=== PATIENT | female | born 1950 | race Caucasian/White ===

== ENCOUNTER 2018-01-21 13:04 | Emergency (ER) | payer OTHER ==
--- OUTSIDE RECORDS SUMMARY | 2018-01-21 13:06 | XMS REPORT ---
:1950 Author Organization eClinicalWorks Care Team Providers Name Role Phone Wright, Na Provider Role Unavailable Allergies, Adverse Reactions, Alerts Substance Reaction Event Type N.K.D.A. Info Not Available Non Drug Allergy Problems Problem Type Condition Code Onset Dates Condition Status Assessment Other chronic pain G89.29 Active Assessment Age-related osteoporosis without M81.0 Active current pathological fracture Assessment Low back pain M54.5 Active Problem Benign essential HTN I10 Active Problem Urinary frequency R35.0 Active Problem Allergic rhinitis J30.9 Active Problem Age-related osteoporosis without M81.0 Active current pathological fracture Assessment Benign essential HTN I10 Active Problem Overactive bladder N32.81 Active Problem Other chronic pain G89.29 Active Medications Medication Code System Code Instructions Start End Date Status Dosage Date Celebrex [facility] 50352576611 100 MG Orally Active 1 capsule Once a day with food Claritin [facility] 67495089029 10 MG Orally Active 1 tablet Once a day Fosamax [facility] 79144617744 70 MG Active 1 EACH ONCE A WEEK ORALLY Zestoretic [facility] 94758610405 20-12.5 MG Active 1 tablet Orally Once a day Results No Known Results Summary Purpose eClinicalWorks Submission
[2018-01-21 14:29] LABS: Absolute Lymphocytes (CBC) 2.4 K/uL (0.7-4.9); Absolute Monocytes 0.5 K/uL (0.1-1.3); Absolute Neutrophil 3.1 K/uL (1.8-8.0); Basophils % 0.9 % (0-1.3); Eosinophils % 2.2 % (0-4.4); Hematocrit 40.2 % (36.0-45.0); Lymphocytes % 38.3 % (15.3-44.8); MCH 30.6 pg (27.0-35.0); MPV 8.2 fL (7.6-11.3); Monocytes % 8.1 % (3.3-12.3); RBC Red Blood Cell Count 4.52 M/uL (3.86-4.86)
[2018-01-21 14:40] LABS: Albumin 3.4 g/dL (3.4-5.0); Bilirubin Direct 0.1 mg/dL (0-0.2); Bilirubin Total 0.6 mg/dL (0.2-1.0); Potassium 3.8 mmol/L (3.5-5.1); Protein, Total 6.7 g/dL (6.4-8.2)
[2018-01-21] MEDS ORDERED: NA CHLORIDE 0.9% 1,000 ML ONE (15:00)
--- NOTE | 2018-01-21 15:08 | RAD REPORT ---
EXAM DESCRIPTION: US - Abdomen Exam Limited - 01/21/2018 2:47 pm CLINICAL HISTORY: Abdominal pain. Right upper quadrant COMPARISON: None. FINDINGS: The gallbladder wall is not thickened. A gallstone is not seen. The biliary tree is normal caliber. IMPRESSION: Unremarkable gallbladder ultrasound.
--- NOTE | 2018-01-21 15:54 | ER ---
Nurse's Notes [facility] Name: Lin Delgado Age: 67 yrs Sex: Female : 1950 Arrival Date: 01/21/2018 Time: 13:07 Bed 17 Private MD: Vandana Wright Diagnosis: Epigastric pain Presentation: 01/21 13:27 Presenting complaint: Patient states: Intermittent epigastric and RUQ pain and nausea x hb 2 weeks. Transition of care: patient was not received from another setting of care. Onset of symptoms is unknown. Risk Assessment: Do you want to hurt yourself or someone else?. Risk Assessment: Do you want to hurt yourself or someone else? Patient reports no desire to harm self or others. Care prior to arrival: None. 13:27 Method Of Arrival: Ambulatory hb 13:27 Acuity: VITALIY 3 hb Historical: - Allergies: 13:30 No Known Allergies; hb - Home Meds: 13:30 Fosamax 70 mg Oral tab 1 tab once wkly [Active]; hydrochlorothiazide 12.5 mg Oral tab 1 hb tab once daily [Active]; lisinopril 20 mg Oral tab 1 tab once daily [Active]; - PMHx: 13:30 Hypertension; Osteoporosis; hb - PSHx: 13:30 LAMINECTOMY; Tonsillectomy; hb - Immunization history:: Adult Immunizations up to date. - Social history:: Smoking status: Patient uses tobacco products, smokes one pack cigarettes per day. - Ebola Screening: : No symptoms or risks identified at this time. Screenin:57 Abuse screen: Denies threats or abuse. Denies injuries from another. Nutritional aj1 screening: No deficits noted. Tuberculosis screening: No symptoms or risk factors identified. 16:54 Fall Risk None identified. aj1 Assessment: 13:57 General: Appears in no apparent distress. comfortable, Behavior is calm, cooperative, aj1 appropriate for age. Pain: Complains of pain in epigastric area and right upper quadrant Pain does not radiate. Pain currently is 7 out of 10 on a pain scale. Quality of pain is described as aching, Is intermittent, Alleviated by nothing. Aggravated by nothing. Neuro: Level of Consciousness is awake, alert, obeys commands. Cardiovascular: Patient's skin is warm and dry. Respiratory: Airway is patent Respiratory effort is even, unlabored, Respiratory pattern is regular, symmetrical. GI: Abdomen is flat, non-distended, Bowel sounds present X 4 quads. Abd is soft and non tender X 4 quads. Reports upper abdominal pain, nausea, Patient currently denies diarrhea, vomiting. : No signs and/or symptoms were reported regarding the genitourinary system. EENT: No signs and/or symptoms were reported regarding the EENT system. Derm: No signs and/or symptoms reported regarding the dermatologic system. Skin is pink, warm \T\ dry. normal. Musculoskeletal: No signs and/or symptoms reported regarding the musculoskeletal system. Circulation, motion, and sensation intact. 15:30 Reassessment: Patient appears in no apparent distress at this time. No changes from aj1 previously documented assessment. Patient and/or family updated on plan of care and expected duration. Pain level reassessed. Patient is alert, oriented x 3, equal unlabored respirations, skin warm/dry/pink. 16:42 Reassessment: Patient appears in no apparent distress at this time. No changes from aj1 previously documented assessment. Patient and/or family updated on plan of care and expected duration. Pain level reassessed. Patient is alert, oriented x 3, equal unlabored respirations, skin warm/dry/pink. Vital Signs: 13:29 BP 129 / 84; Pulse 69; Resp 16; Temp 97.9; Pulse Ox 100% on R/A; Pain 7/10; hb 15:30 BP 122 / 85; Pulse 72; Resp 18; Pulse Ox 99% ; aj1 16:43 BP 119 / 72; Pulse 68; Resp 18; Pulse Ox 99% ; aj1 ED Course: 13:07 Patient arrived in ED. rg4 13:07 Vandana Wright MD is Private Physician. rg4 13:29 Triage completed. hb 13:30 Arm band placed on left wrist. hb 13:33 Irasema Hartman, TUYET is Primary Nurse. aj1 13:37 Michael Nation PA is PHCP. cp 13:37 Rey Mcleod MD is Attending Physician. cp 13:57 Patient has correct armband on for positive identification. Bed in low position. Call aj1 light in reach. Side rails up X 1. 13:57 No provider procedures requiring assistance completed. aj1 13:59 Inserted saline lock: 20 gauge in right antecubital area, using aseptic technique. dh3 Blood collected. 14:09 Initial lab(s) drawn, by me, sent to lab. 3 14:35 Patient taken to ultrasound. via wheelchair. lc3 14:47 Ultrasound completed. Patient tolerated well. Patient moved back from ultrasound. lc3 15:42 X-ray completed. Portable x-ray completed in exam room. Patient tolerated procedure bb2 well. 16:53 IV discontinued, intact, bleeding controlled, No redness/swelling at site. Pressure aj1 dressing applied. Administered Medications: 14:58 Drug: NS 0.9% 1000 ml Route: IV; Rate: 1 bolus; Site: right antecubital; aj1 Outcome: 15:53 Discharge ordered by MD. kevin 16:54 Discharged to home ambulatory. aj1 16:54 Condition: good 16:54 Discharge instructions given to patient, Instructed on discharge instructions, follow up and referral plans. medication usage, Demonstrated understanding of instructions, follow-up care, medications, Prescriptions given X 1. 16:54 Patient left the ED. aj1 Signatures: Irasema Hartman, RN RN aj1 Michael Nation PA PA cp Cunningham, Laulita lc3 Irais Bruno RN RN hb Garcia, Rubi rg4 Herrera, Deanna 3 Nadgee Cordova bb2
--- NOTE | 2018-01-21 15:54 | EDPHYS ---
Physician Documentation [facility] Name: Lin Delgado Age: 67 yrs Sex: Female : 1950 Arrival Date: 01/21/2018 Time: 13:07 Bed 17 Private MD: Vandana Wright ED Physician Rey Mcleod HPI: 01/21 14:30 This 67 yrs old Female presents to ER via Ambulatory with complaints of UPPER cp ABD PAIN. 14:30 The patient presents with abdominal pain in the epigastric area, in the right upper cp quadrant. Onset: The symptoms/episode began/occurred 2 week(s) ago. The symptoms do not radiate. Associated signs and symptoms: Pertinent positives: nausea, Pertinent negatives: blood in stools, chest pain, constipation, diarrhea, dysuria, fever, headache, palpitations, vomiting. The symptoms are described as intermittent. Modifying factors: the symptoms are aggravated by nothing. Severity of pain: in the emergency department the pain has improved moderately. Historical: - Allergies: 13:30 No Known Allergies; hb - Home Meds: 13:30 Fosamax 70 mg Oral tab 1 tab once wkly [Active]; hydrochlorothiazide 12.5 mg Oral tab 1 hb tab once daily [Active]; lisinopril 20 mg Oral tab 1 tab once daily [Active]; - PMHx: 13:30 Hypertension; Osteoporosis; hb - PSHx: 13:30 LAMINECTOMY; Tonsillectomy; hb - Immunization history:: Adult Immunizations up to date. - Social history:: Smoking status: Patient uses tobacco products, smokes one pack cigarettes per day. - Ebola Screening: : No symptoms or risks identified at this time. ROS: 14:35 Constitutional: Negative for body aches, chills, fever, poor PO intake, weight loss. cp 14:35 Eyes: Negative for injury, pain, redness, and discharge. cp 14:35 ENT: Negative for drainage from ear(s), ear pain, sore throat, difficulty swallowing, difficulty handling secretions. 14:35 Neck: Negative for pain with movement, pain at rest, tenderness. 14:35 Cardiovascular: Negative for chest pain, edema, palpitations. 14:35 Respiratory: Negative for cough, shortness of breath, wheezing. 14:35 Abdomen/GI: Positive for abdominal pain, nausea, Negative for vomiting, diarrhea, constipation, anorexia, dysphagia, black/tarry stool, rectal bleeding. 14:35 Back: Negative for pain at rest, pain with movement, radiated pain. 14:35 : Negative for urinary symptoms, pelvic pain, vaginal bleeding. 14:35 Skin: Negative for cellulitis, rash. 14:35 Neuro: Negative for altered mental status, headache, weakness. 14:35 All other systems are negative. Exam: 14:38 Head/Face: Normocephalic, atraumatic. cp 14:38 Constitutional: The patient appears in no acute distress, alert, awake, comfortable, non-diaphoretic, non-toxic, well developed, well nourished. 14:38 Eyes: Periorbital structures: appear normal, Conjunctiva: normal, no exudate, no injection, Sclera: no appreciated abnormality, Lids and lashes: appear normal, bilaterally. 14:38 ENT: External ear(s): are unremarkable, Nose: is normal, Mouth: Lips: moist, Oral mucosa: pink and intact, moist, Posterior pharynx: is normal, airway is patent, no erythema, no exudate. 14:38 Neck: ROM/movement: is normal, is supple, without pain, no range of motions limitations, no nuchal rigidity. 14:38 Chest/axilla: Inspection: normal, Palpation: is normal, no crepitus, no tenderness. 14:38 Cardiovascular: Rate: normal, Rhythm: regular, Edema: is not appreciated, JVD: is not appreciated. 14:38 Respiratory: the patient does not display signs of respiratory distress, Respirations: normal, no use of accessory muscles, no retractions, no splinting, no tachypnea, labored breathing, is not present, Breath sounds: are clear throughout, no decreased breath sounds, no stridor, no wheezing. 14:38 Abdomen/GI: Inspection: abdomen appears normal, Bowel sounds: active, all quadrants, Palpation: soft, in all quadrants, mild abdominal tenderness, in the epigastric area and right upper quadrant, rebound tenderness, is not appreciated, voluntary guarding, is not appreciated, involuntary guarding, is not appreciated. 14:38 Back: pain, is absent, ROM is normal, CVA tenderness, is absent. 14:38 Musculoskeletal/extremity: Exam is negative for calf tenderness, decreased range of motion, deformity, injury. 14:38 Skin: cellulitis, is not appreciated, no rash present. 14:38 Neuro: Orientation: to person, place \T\ time. Mentation: lucid, able to follow commands, Cerebellar function: is grossly normal, Motor: moves all fours, strength is normal, Sensation: is normal. Vital Signs: 13:29 BP 129 / 84; Pulse 69; Resp 16; Temp 97.9; Pulse Ox 100% on R/A; Pain 7/10; hb 15:30 BP 122 / 85; Pulse 72; Resp 18; Pulse Ox 99% ; aj1 16:43 BP 119 / 72; Pulse 68; Resp 18; Pulse Ox 99% ; aj1 MDM: 13:37 Patient medically screened. cp 14:00 Differential diagnosis: cholecystitis, Cholelithiasis, gastritis, gastroesophageal cp reflux disease, GI Bleed, non-specific abd pain, pancreatitis, Peptic Ulcer Disease, Perf. Duodenal Ulcer, Perf. Gastric Ulcer, Pyelonephritis, Ureterolithiasis, urinary tract infection. 15:50 Data reviewed: vital signs, nurses notes, lab test result(s), radiologic studies, plain cp films, ultrasound. 15:50 Test interpretation: by ED physician or midlevel provider:. Counseling: I had a cp detailed discussion with the patient and/or guardian regarding: the historical points, exam findings, and any diagnostic results supporting the discharge/admit diagnosis, lab results, radiology results, to return to the emergency department if symptoms worsen or persist or if there are any questions or concerns that arise at home. Special discussion: Based on the patient's Hx, exam, and Dx evaluation, there is no indication for emergent surgery or inpatient Tx. It is understood by the patient/guardian that if the Sx's persist or worsen they need to return immediately for re-evaluation. 01/21 13:37 Order name: Amylase, Serum cp 01/21 13:37 Order name: Basic Metabolic Panel cp 01/21 13:37 Order name: CBC with Diff cp 01/21 13:37 Order name: Creatinine for Radiology cp 01/21 13:37 Order name: Hepatic Function cp 01/21 13:37 Order name: Lipase cp 01/21 13:37 Order name: Urine Microscopic Only cp 01/21 14:27 Order name: US Abdomen Limited cp 01/21 14:32 Order name: CBC with Automated Diff; Complete Time: 15:24 EDMS 08/07 14:37 Order name: Creatinine (Radiology Only); Complete Time: 15:24 EDDC 01/21 14:40 Order name: Basic Metabolic Panel; Complete Time: 15:24 [facility] 01/21 14:40 Order name: Liver (Hepatic) Function; Complete Time: 15:24 EDDC 01/21 14:40 Order name: Amylase Level; Complete Time: 15:24 EDDC 01/21 14:40 Order name: Lipase; Complete Time: 15:24 EDDC 01/21 13:37 Order name: IV Saline Lock; Complete Time: 14:00 01/21 13:37 Order name: Labs collected and sent; Complete Time: 14:09 01/21 15:08 Order name: US; Complete Time: 15:24 EDDC 01/21 15:25 Order name: XRAY Chest (1 view) cp Administered Medications: 14:58 Drug: NS 0.9% 1000 ml Route: IV; Rate: 1 bolus; Site: right antecubital; aj1 Disposition: 19:07 Co-signature as Attending Physician, Rey Mcleod MD. rn Disposition: 01/21/18 15:53 Discharged to Home. Impression: Epigastric pain. - Condition is Stable. - Discharge Instructions: Abdominal Pain, Adult. - Prescriptions for Protonix 40 mg Oral Tablet - take 1 tablet by ORAL route once daily; 30 tablet. - Medication Reconciliation Form, Thank You Letter, Antibiotic Education, Prescription Opioid Use form. - Follow up: Private Physician; When: 2 - 3 days; Reason: Recheck today's complaints. - Problem is new. - Symptoms have improved. Signatures: Dispatcher [employer] [facility] Irasema Hartman RN RN aj1 Rey Mcleod MD MD rn Page, Corey, PA PA cp Baxter, Heather RN RN Corrections: (The following items were deleted from the chart) 16:54 15:53 01/21/2018 15:53 Discharged to Home. Impression: Epigastric pain. Condition is aj1 Stable. Forms are Medication Reconciliation Form, Thank You Letter, Antibiotic Education, Prescription Opioid Use. Follow up: Private Physician; When: 2 - 3 days; Reason: Recheck today's complaints. Problem is new. Symptoms have improved. 01/22 15:14 01/21 14:10 Constitutional: Negative for body aches, chills, fever, poor PO intake, cp cp 01/22 15: 08 14:10 Eyes: Negative for injury, pain, redness, and discharge, cp cp 01/22 15:01/21 14:10 ENT: Negative for drainage from ear(s), ear pain, sore throat, difficulty cp swallowing, difficulty handling secretions, cp 01/22 15:01/21 14:10 Neck: Negative for pain with movement, pain at rest, tenderness, cp cp 01/22 15: 08 14:10 Cardiovascular: Negative for chest pain, edema, palpitations, cp cp 01/22 15: 08 14:10 Respiratory: Negative for cough, shortness of breath, wheezing, cp cp 01/22 15: 08 14:10 Abdomen/GI: Positive for abdominal pain, nausea, of the epigastric area and cp right upper quadrant, Negative for vomiting, diarrhea, constipation, anorexia, black/tarry stool, rectal bleeding, cp 01/22 15:01/21 14:10 Back: Negative for pain at rest, pain with movement, radiated pain, cp cp 01/22 15:01/21 14:10 : Negative for urinary symptoms, pelvic pain, cp cp 01/22 15: 08 14:10 Skin: Negative for cellulitis, rash, cp cp 01/22 15: 08 14:10 Neuro: Negative for altered mental status, headache, weakness, cp cp 01/22 15: 08 14:10 All other systems are negative, cp cp
--- NOTE | 2018-01-21 18:15 | RAD REPORT ---
EXAM DESCRIPTION: [place] Single View01/21/2018 3:42 pm CLINICAL HISTORY: Abdominal pain COMPARISON: none FINDINGS: Curvilinear opacity within the left lung base may represent scarring or the edge of a bull a. The lungs appear clear of acute infiltrate. The heart is normal size IMPRESSION: No acute abnormalities displayed
== END 2018-01-21 16:54 | disposition home or self-care (01) ==
LOC: ER 13:04
DX: R10.13 Epigastric pain (principal); I10 Essential (primary) hypertension; F17.210 Nicotine dependence, cigarettes, uncomplicated
CPT/HCPCS: 36415; 71045; 76705; 80048; 80076; 82150; 83690; 85025; J7030; 99284

== ENCOUNTER 2018-12-01 10:15 | Emergency (ER) | payer OTHER ==
--- OUTSIDE RECORDS SUMMARY | 2018-12-01 10:17 | XMS REPORT ---
:1950 Author Organization eClinicalWorks Care Team Providers Name Role Phone Wright, Na Provider Role Unavailable Allergies, Adverse Reactions, Alerts Substance Reaction Event Type N.K.D.A. Info Not Available Non Drug Allergy Problems Problem Type Condition Code Onset Dates Condition Status Problem Overactive bladder N32.81 Active Problem Benign essential HTN I10 Active Problem Urinary frequency R35.0 Active Problem Seasonal allergies J30.2 Active Problem Macular degeneration of both eyes, H35.30 Active unspecified type Problem Low back pain M54.5 Active Problem Gynecologic exam normal Z01.419 Active Problem Allergic rhinitis J30.9 Active Problem Abdominal distension (gaseous) R14.0 Active Problem Encounter for general adult medical Z00.01 Active examination with abnormal findings Assessment Age-related osteoporosis without M81.0 Active current pathological fracture Assessment Seasonal allergies J30.2 Active Assessment Other chronic pain G89.29 Active Assessment Low back pain M54.5 Active Assessment Benign essential HTN I10 Active Assessment Lymph node enlargement R59.9 Active Problem Age-related osteoporosis without M81.0 Active current pathological fracture Assessment Macular degeneration of both eyes, H35.30 Active unspecified type Problem Other chronic pain G89.29 Active Medications Medication Code System Code Instructions Start End Date Status Dosage Date Fosamax [facility] 54928981692 70 MG Active 1 EACH ONCE A WEEK ORALLY Fosamax [facility] 11765785732 70 MG Active 1 EACH ONCE A WEEK ORALLY Claritin [facility] 02936377861 10 MG Orally Active 1 tablet Once a day Zestoretic [facility] 40539920149 20-12.5 MG Active 1 TAB(S) ORALLY ONCE A DAY FOR 30 DAYS Fosamax [facility] 37971036268 70 Active 1 EACH ONCE A WEEK ORALLY Zestoretic [facility] 36187611269 20-12.5 MG Active 1 tablet Orally Once a day Celebrex [facility] 74549202844 100 MG Orally Active 1 capsule Once a day with food Results No Known Results Summary Purpose eClinicalWorks Submission
--- OUTSIDE RECORDS SUMMARY | 2018-12-01 10:17 | XMS REPORT ---
:1950 Author Organization eClinicalWorks Care Team Providers Name Role Phone Wright, Na Provider Role Unavailable Allergies, Adverse Reactions, Alerts Substance Reaction Event Type N.K.D.A. Info Not Available Non Drug Allergy Problems Problem Type Condition Code Onset Dates Condition Status Problem Other chronic pain G89.29 Active Problem Age-related osteoporosis without M81.0 Active current pathological fracture Problem Encounter for general adult medical Z00.01 Active examination with abnormal findings Problem Gynecologic exam normal Z01.419 Active Problem Abdominal distension (gaseous) R14.0 Active Problem Urinary frequency R35.0 Active Problem Overactive bladder N32.81 Active Problem Allergic rhinitis J30.9 Active Problem Benign essential HTN I10 Active Assessment Benign essential HTN I10 Active Assessment Abdominal distension (gaseous) R14.0 Active Assessment Osteoporosis screening Z13.820 Active Assessment Gynecologic exam normal Z01.419 Active Assessment Age-related osteoporosis without M81.0 Active current pathological fracture Assessment Encounter for general adult medical Z00.01 Active examination with abnormal findings Medications Medication Code System Code Instructions Start End Date Status Dosage Date Zestoretic NDC 45271407367 20-12.5 MG Active 1 TAB(S) ORALLY ONCE A DAY FOR 30 DAYS Zestoretic NDC 68628053295 20-12.5 MG Active 1 tablet Orally Once a day Fosamax ND 13364619943 70 MG Active 1 EACH ONCE A WEEK ORALLY Celebrex ND 39028383467 100 MG Orally Active 1 capsule Once a day with food Fosamax NDC 97855911338 70 MG Active 1 EACH ONCE A WEEK ORALLY Fosamax NDC 46294742115 70 Active 1 EACH ONCE A WEEK ORALLY Claritin ND 03663886183 10 MG Orally Active 1 tablet Once a day Results No Known Results Summary Purpose eClinicalWorks Submission
--- OUTSIDE RECORDS SUMMARY | 2018-12-01 10:17 | XMS REPORT ---
[...] Start End Date Status Dosage Date Celebrex [facility] 42065217239 100 MG Orally Active 1 capsule Once a day with food Claritin [facility] 02105895427 10 MG Orally Active 1 tablet Once a day Fosamax [facility] 28136426453 70 MG Active 1 EACH ONCE A WEEK ORALLY Zestoretic [facility] 02932566048 20-12.5 MG Active 1 tablet Orally Once a day Results No Known Results Summary Purpose eClinicalWorks Submission
[2018-12-01 11:30] LABS: Absolute Lymphocytes (CBC) 1.8 K/uL (0.7-4.9); Basophils % 0.7 % (0-1.3); Eosinophils % 1.8 % (0-4.4); Hematocrit 40.1 % (36.0-45.0); Lymphocytes % 28.6 % (15.3-44.8); Monocytes % 9.5 % (3.3-12.3); RBC Red Blood Cell Count 4.38 M/uL (3.86-4.86)
[2018-12-01] MEDS ORDERED: ONDANSETRON 4 MG/2 ML VIAL ONE (11:42)
[2018-12-01] MEDS ORDERED: FAMOTIDINE 20 MG/2 ML VIAL IV ONE (11:42)
[2018-12-01 11:53] LABS: Albumin 3.2 g/dL (3.4-5.0); Bilirubin Direct 0.2 mg/dL (0-0.2); Bilirubin Total 0.6 mg/dL (0.2-1.0); Magnesium 2.2 mg/dL (1.8-2.4); Potassium 3.4 mmol/L (3.5-5.1); Protein, Total 6.5 g/dL (6.4-8.2)
--- NOTE | 2018-12-01 12:37 | EKG ---
Test Date: 2018-12-01 Test Time: 11:28:12 Application Systems Architect: GABRIEL MEASUREMENT RESULTS: Intervals: Rate: 56 IL: 248 QRSD: 84 QT: 406 QTc: 391 [place]: P: 61 IL: 248 QRS: 76 T: 49 INTERPRETIVE STATEMENTS: Sinus bradycardia with 1st degree AV block Possible Anterior infarct, age undetermined Abnormal ECG Compared to ECG 05/22/2016 12:25:32 First degree AV block now present Myocardial infarct finding now present Sinus rhythm no longer present Atrial premature complex(es) no longer present Electronically Signed On 12-01-18 12:36:09 CDT by Koby Aden
--- NOTE | 2018-12-01 14:44 | RAD REPORT ---
EXAM DESCRIPTION: CT - Abdomen Pelvis W Contrast - 12/01/2018 1:54 pm CLINICAL HISTORY: Abdominal pain. COMPARISON: None. TECHNIQUE: Computed axial tomography of the abdomen and pelvis was obtained. 100 cc Isovue-300 is ad ministered intravenously. Oral contrast was given. All CT scans are performed using dose optimization technique as appropriate and may include automated exposure control or mA/KV adjustment according to patient size. FINDINGS: The most inferior slice demonstrates 7 centimeter air-filled structure only partially included in the field of view within the left lower hemithorax. The liver, spleen, pancreas, adrenals and kidneys appear unremarkable. The appendix is normal caliber. There is no evidence of diverticulitis IMPRESSION: 7 centimeter air-filled structure within the lower left hemithorax only partially inclu ded in the field of view probably represents a bleb. A loculated pneumothorax is another consideratio n but probably less likely. It is recommended that the patient have an unenhanced CT chest for furthe r evaluation
--- NOTE | 2018-12-01 15:32 | RAD REPORT ---
EXAM DESCRIPTION: CT - Thorax Wo Con CLINICAL HISTORY: Chest pain upper abdominal fullness COMPARISON: Abdomen Pelvis W Contrast dated 12/01/2018 FINDINGS: Prominent air cyst is present in the left lower lobe measuring 8 cm. No worrisome nodular thickening to the cyst bowles. Mild adjacent atelectasis is suspected in the left lung base. Mild COPD is present without worrisome nodule, mass or infiltrate. No pleural thickening or pleural effusion. No pneumothorax. No axillary, mediastinal or hilar adenopathy. No concerning bony finding. No gross upper abdominal finding. All CT scans are performed using dose optimization technique as appropriate and may include automated exposure control or mA/KV adjustment according to patient size. IMPRESSION: 8 cm benign appearing air cyst is noted left lung base.
--- NOTE | 2018-12-01 15:44 | ER ---
Nurse's Notes [facility] Name: Lin Delgado Age: 67 yrs Sex: Female : 1950 Arrival Date: 12/01/2018 Time: 10:19 Bed 15 Private MD: Vandana Wright Diagnosis: Nausea and vomiting Presentation: 12/01 10:28 Presenting complaint: Patient states: ABDOMINAL DISTENSION x "AWHILE", AND VOMITING x5 bp DAYS. Transition of care: patient was not received from another setting of care. Onset of symptoms is unknown. Risk Assessment: Do you want to hurt yourself or someone else? Patient reports no desire to harm self or others. Initial Sepsis Screen: Does the patient meet any 2 criteria? No. Patient's initial sepsis screen is negative. Does the patient have a suspected source of infection? No. Patient's initial sepsis screen is negative. Care prior to arrival: None. 10:28 Method Of Arrival: Ambulatory bp 10:28 Acuity: VITALIY 3 bp Triage Assessment: 10:29 General: Appears in no apparent distress. comfortable, Behavior is calm, cooperative, bp appropriate for age. Pain: Denies pain. GI: Reports bloating, nausea, vomiting. Historical: - Allergies: 10:29 No Known Allergies; bp - Home Meds: 10:29 Fosamax 70 mg Oral tab 1 tab once wkly [Active]; hydrochlorothiazide 12.5 mg Oral tab 1 bp tab once daily [Active]; lisinopril 20 mg Oral tab 1 tab once daily [Active]; - PMHx: 10:29 Hypertension; Osteoporosis; bp - Immunization history:: Adult Immunizations up to date. - Social history:: Smoking status: Patient uses tobacco products, smokes one-half pack cigarettes per day. - Ebola Screening: : No symptoms or risks identified at this time. Screenin:45 Abuse screen: Denies threats or abuse. Denies injuries from another. Nutritional aj1 screening: No deficits noted. Tuberculosis screening: No symptoms or risk factors identified. 16:55 Fall Risk None identified. aj1 Assessment: 10:45 General: Appears in no apparent distress. uncomfortable, Behavior is calm, cooperative, aj1 appropriate for age. Pain: Complains of pain in epigastric area Pain does not radiate. Pain currently is 2 out of 10 on a pain scale. Quality of pain is described as pressure. Neuro: Level of Consciousness is awake, alert, obeys commands, Oriented to person, place, time, situation. Cardiovascular: Patient's skin is warm and dry. Respiratory: Airway is patent Respiratory effort is even, unlabored, Respiratory pattern is regular, symmetrical. GI: Abdomen is round non-distended, Bowel sounds present X 4 quads. Abd is soft and non tender X 4 quads. Reports upper abdominal pain, nausea, vomiting. : No signs and/or symptoms were reported regarding the genitourinary system. EENT: No signs and/or symptoms were reported regarding the EENT system. Derm: No signs and/or symptoms reported regarding the dermatologic system. Skin is pink, warm \\T\\ dry. normal. Musculoskeletal: No signs and/or symptoms reported regarding the musculoskeletal system. Circulation, motion, and sensation intact. 11:21 Reassessment: Patient appears in no apparent distress at this time. No changes from aj1 previously documented assessment. Patient and/or family updated on plan of care and expected duration. Pain level reassessed. Patient is alert, oriented x 3, equal unlabored respirations, skin warm/dry/pink. 12:16 Reassessment: Patient appears in no apparent distress at this time. No changes from aj1 previously documented assessment. Patient and/or family updated on plan of care and expected duration. Pain level reassessed. Patient is alert, oriented x 3, equal unlabored respirations, skin warm/dry/pink. Notified CT that patient has finished her contrast. Patient reports that her epigastric pressure is unchanged since administration of Zofran and Pepcid. 13:35 Reassessment: Patient appears in no apparent distress at this time. No changes from aj1 previously documented assessment. Patient and/or family updated on plan of care and expected duration. Pain level reassessed. Patient is alert, oriented x 3, equal unlabored respirations, skin warm/dry/pink. 14:35 Reassessment: Patient appears in no apparent distress at this time. No changes from aj1 previously documented assessment. Patient and/or family updated on plan of care and expected duration. Pain level reassessed. Patient is alert, oriented x 3, equal unlabored respirations, skin warm/dry/pink. 15:32 Reassessment: Patient and/or family updated on plan of care and expected duration. Pain aj1 level reassessed. General: Appears in no apparent distress. comfortable, Behavior is calm, cooperative, appropriate for age. Neuro: Level of Consciousness is awake, alert, obeys commands. Cardiovascular: Patient's skin is warm and dry. Respiratory: Airway is patent Respiratory effort is even, unlabored, Respiratory pattern is regular, symmetrical. Derm: No signs and/or symptoms reported regarding the dermatologic system. Skin is pink, warm \\T\\ dry. normal. Musculoskeletal: No signs and/or symptoms reported regarding the musculoskeletal system. Circulation, motion, and sensation intact. 16:55 Reassessment: Patient appears in no apparent distress at this time. No changes from aj1 previously documented assessment. Patient and/or family updated on plan of care and expected duration. Pain level reassessed. Patient is alert, oriented x 3, equal unlabored respirations, skin warm/dry/pink. Vital Signs: 10:29 BP 143 / 67; Pulse 64; Resp 17; Temp 97.6; Pulse Ox 99% ; Weight 62.14 kg; Height 5 ft. bp 3 in. (160.02 cm); 11:21 BP 127 / 59; Pulse 59; Resp 18; Pulse Ox 98% on R/A; aj1 12:16 BP 134 / 71; Pulse 50; Resp 18; Pulse Ox 100% on R/A; aj1 13:35 BP 130 / 69; Pulse 54; Resp 18; Pulse Ox 97% on R/A; aj1 14:35 BP 136 / 70; Pulse 53; Resp 18; Pulse Ox 97% on R/A; aj1 10:29 Body Mass Index 24.27 (62.14 kg, 160.02 cm) bp ED Course: 10:19 Patient arrived in ED. rg4 10:19 Vandana Wright MD is Private Physician. rg4 10:28 Triage completed. bp 10:29 Arm band placed on. bp 10:30 Kye Mitchell, TUYET is Primary Nurse. bp 10:32 Michael Nation PA is PHCP. cp 10:32 Rey Mcleod MD is Attending Physician. cp 10:45 Patient has correct armband on for positive identification. Bed in low position. Call aj1 light in reach. Side rails up X 1. 10:45 No provider procedures requiring assistance completed. aj1 11:18 Initial lab(s) drawn, by me, sent to lab. Inserted saline lock: 20 gauge in right dh3 antecubital area, using aseptic technique. Blood collected. 11:35 EKG done, by field sampling technician. reviewed by Michael ERNANDEZ. 3 13:54 CT Abd/Pelvis - PO and IV Contrast In Process Unspecified. EDMS 15:06 CT Chest Wo Con In Process Unspecified. EDMS 15:41 Juma Urias MD is Referral Physician. cp 16:55 IV discontinued, intact, bleeding controlled, No redness/swelling at site. Pressure aj1 dressing applied. Administered Medications: 11:30 Drug: Zofran 4 mg Route: IVP; Site: right antecubital; aj1 12:30 Follow up: Response: No adverse reaction aj1 11:30 Drug: Pepcid 20 mg Route: IVP; Site: right antecubital; aj1 12:30 Follow up: Response: No adverse reaction aj1 15:48 Drug: Potassium Effervescent Tablet 25 mEq Route: PO; aj1 16:56 Follow up: Response: No adverse reaction aj1 Outcome: 15:43 Discharge ordered by MD. cp 16:56 Discharged to home ambulatory. aj1 16:56 Condition: good 16:56 Discharge instructions given to patient, Instructed on discharge instructions, follow up and referral plans. medication usage, Demonstrated understanding of instructions, follow-up care, medications, Prescriptions given X 1. 16:56 Patient left the ED. aj1 Signatures: Dispatcher [employer] EDIrasema Vu, RN RN aj1 Michael Nation PA PA Taylor Alfonso [facility] [[email or web address]] Judith [facility] Kye Mitchell RN RN Leonor Hinson 3
--- NOTE | 2018-12-01 15:44 | EDPHYS ---
Physician Documentation [facility] Name: Lin Delgado Age: 67 yrs Sex: Female : 1950 Arrival Date: 12/01/2018 Time: 10:19 Bed 15 Private MD: Vandana Wright ED Physician Rey Mcleod HPI: 12/01 10:50 This 67 yrs old Female presents to ER via Ambulatory with complaints of cp Abdominal Swelling, Vomiting. 10:50 The patient presents with "fullness" of upper abdomen. Onset: The symptoms/episode cp began/occurred gradually, for months. Associated signs and symptoms: Pertinent positives: intermittent vomiting times 5 days. Severity of pain: in the emergency department the pain is a 0 / 10. Historical: - Allergies: 10:29 No Known Allergies; bp - Home Meds: 10:29 Fosamax 70 mg Oral tab 1 tab once wkly [Active]; hydrochlorothiazide 12.5 mg Oral tab 1 bp tab once daily [Active]; lisinopril 20 mg Oral tab 1 tab once daily [Active]; - PMHx: 10:29 Hypertension; Osteoporosis; bp - Immunization history:: Adult Immunizations up to date. - Social history:: Smoking status: Patient uses tobacco products, smokes one-half pack cigarettes per day. - Ebola Screening: : No symptoms or risks identified at this time. ROS: 11:00 Constitutional: Negative for body aches, chills, fever, poor PO intake, weight loss. cp 11:00 Eyes: Negative for injury, pain, redness, and discharge. cp 11:00 ENT: Negative for drainage from ear(s), ear pain, sore throat, difficulty swallowing, difficulty handling secretions. 11:00 Cardiovascular: Negative for chest pain, edema, palpitations. 11:00 Respiratory: Negative for cough, shortness of breath, wheezing. 11:00 Abdomen/GI: Positive for nausea and vomiting, Negative for abdominal pain, diarrhea, constipation, dysphagia, black/tarry stool, rectal bleeding. 11:00 Back: Negative for pain at rest, pain with movement, radiated pain. 11:00 : Negative for urinary symptoms. 11:00 Skin: Negative for cellulitis, rash. 11:00 Neuro: Negative for altered mental status, headache, weakness. 11:00 All other systems are negative. Exam: 11:05 Constitutional: The patient appears in no acute distress, alert, awake, cp non-diaphoretic, non-toxic, well developed, well nourished. 11:05 Head/Face: Normocephalic, atraumatic. cp 11:05 Eyes: Periorbital structures: appear normal, Conjunctiva: normal, no exudate, no injection, Sclera: no appreciated abnormality, Lids and lashes: appear normal, bilaterally. 11:05 ENT: External ear(s): are unremarkable, Nose: is normal, Mouth: Lips: moist, Oral mucosa: pink and intact, moist, Posterior pharynx: is normal, airway is patent, no erythema, no exudate. 11:05 Chest/axilla: Inspection: normal, Palpation: is normal, no crepitus, no tenderness. 11:05 Cardiovascular: Rate: normal, Rhythm: regular. 11:05 Respiratory: the patient does not display signs of respiratory distress, Respirations: normal, no use of accessory muscles, no retractions, no splinting, no tachypnea, labored breathing, is not present, Breath sounds: are clear throughout, no decreased breath sounds, no stridor, no wheezing. 11:05 Abdomen/GI: Inspection: abdomen appears normal, Bowel sounds: active, all quadrants, Palpation: abdomen is soft and non-tender, in all quadrants, rebound tenderness, is not appreciated, voluntary guarding, is not appreciated, involuntary guarding, is not appreciated. 11:05 Back: pain, is absent, ROM is normal. 11:05 Skin: no rash present. 12:04 ECG was reviewed by the Attending Physician. cp Vital Signs: 10:29 BP 143 / 67; Pulse 64; Resp 17; Temp 97.6; Pulse Ox 99% ; Weight 62.14 kg; Height 5 ft. bp 3 in. (160.02 cm); 11:21 BP 127 / 59; Pulse 59; Resp 18; Pulse Ox 98% on R/A; aj1 12:16 BP 134 / 71; Pulse 50; Resp 18; Pulse Ox 100% on R/A; aj1 13:35 BP 130 / 69; Pulse 54; Resp 18; Pulse Ox 97% on R/A; aj1 14:35 BP 136 / 70; Pulse 53; Resp 18; Pulse Ox 97% on R/A; aj1 10:29 Body Mass Index 24.27 (62.14 kg, 160.02 cm) bp MDM: 10:32 Patient medically screened. cp 12:00 Differential diagnosis: bowel obstruction, gastritis, non-specific abd pain, cp pancreatitis, Peptic Ulcer Disease, Perf. Duodenal Ulcer, Perf. Gastric Ulcer, intraabdominal mass. 15:42 Data reviewed: vital signs, nurses notes, lab test result(s), EKG, radiologic studies, cp CT scan. 15:42 Test interpretation: by ED physician or midlevel provider: ECG. Response to treatment: cp the patient's symptoms have mildly improved after treatment, and as a result, I will discharge patient. ED course: VSS. Discussed results of CT that showed thoracic cyst that appears benign. Will discharge to home for continued monitoring. 12/01 11:01 Order name: Basic Metabolic Panel 12/01 11:01 Order name: CBC with Diff 12/01 11:01 Order name: Creatinine for Radiology; Complete Time: 12:06 12/01 11:01 Order name: Hepatic Function; Complete Time: 12:06 12/01 11:01 Order name: Lipase; Complete Time: 12:06 12/01 11:01 Order name: Magnesium; Complete Time: 12:06 12/01 11:01 Order name: Troponin I; Complete Time: 12:06 12/01 11:04 Order name: Basic Metabolic Panel; Complete Time: 12:06 EDDE 12/01 11:04 Order name: CBC with Automated Diff; Complete Time: 12:06 EDDE 12/01 11:44 Order name: CT Abd/Pelvis - PO and IV Contrast; Complete Time: 14:48 12/01 14:55 Order name: CT Chest Wo Con; Complete Time: 15:37 12/01 15:37 Interpretation: Report reviewed. 12/01 11:01 Order name: IV Saline Lock; Complete Time: 11:24 12/01 11:01 Order name: Labs collected and sent; Complete Time: 11:24 12/01 11:01 Order name: EKG; Complete Time: 11:05 12/01 11:01 Order name: EKG - Nurse/Tech; Complete Time: 11:31 cp EC:04 Rate is 56 beats/min. Rhythm is regular. MT interval is prolonged at 248 msec. QRS cp interval is normal. QT interval is normal. Interpreted by me. Reviewed by me. Administered Medications: 11:30 Drug: Zofran 4 mg Route: IVP; Site: right antecubital; aj1 12:30 Follow up: Response: No adverse reaction aj1 11:30 Drug: Pepcid 20 mg Route: IVP; Site: right antecubital; aj1 12:30 Follow up: Response: No adverse reaction aj1 15:48 Drug: Potassium Effervescent Tablet 25 mEq Route: PO; aj1 16:56 Follow up: Response: No adverse reaction aj1 Disposition: 17:29 Co-signature as Attending Physician, Rey Mcleod MD. rn Disposition: 12/01/18 15:43 Discharged to Home. Impression: Nausea and vomiting. - Condition is Stable. - Discharge Instructions: Nausea and Vomiting, Adult. - Prescriptions for Zofran 4 mg Oral Tablet - take 1 tablet by ORAL route every 12 hours As needed; 20 tablet. - Medication Reconciliation Form, Thank You Letter, Antibiotic Education, Prescription Opioid Use form. - Follow up: Juma Urias MD; When: 2 - 3 days; Reason: Recheck today's complaints. - Problem is new. - Symptoms have improved. Signatures: Dispatcher [employer] EDMS Irasema Hartman RN RN aj1 Rey Mcleod MD MD rn Page, Corey, PA PA cp Kye Mitchell, RN RN bp Corrections: (The following items were deleted from the chart) 16:56 15:43 12/01/2018 15:43 Discharged to Home. Impression: Nausea and vomiting. Condition aj1 is Stable. Forms are Medication Reconciliation Form, Thank You Letter, Antibiotic Education, Prescription Opioid Use. Follow up: Juma Urias; When: 2 - 3 days; Reason: Recheck today's complaints. Problem is new. Symptoms have improved. cp
[2018-12-01] MEDS ORDERED: POTASSIUM 25 MEQ EFFERV TAB ONE (16:00)
== END 2018-12-01 16:56 | disposition home or self-care (01) ==
LOC: ER 10:15
DX: R11.2 Nausea with vomiting, unspecified (principal); I10 Essential (primary) hypertension; F17.210 Nicotine dependence, cigarettes, uncomplicated
CPT/HCPCS: 93005; 85025; 80048; 36415; 83735; 80076; 84484; 83690; 71250; 74177; 96375; 96374; 99284; Q9967; J2405

== ENCOUNTER 2018-12-12 07:11 | Day surgery (SDC) | payer OTHER ==
--- OUTSIDE RECORDS SUMMARY | 2018-12-12 07:21 | XMS REPORT ---
[...] End Date Status Dosage Date Zestoretic NDC 36718115651 20-12.5 MG Active 1 TAB(S) ORALLY ONCE A DAY FOR 30 DAYS Zestoretic NDC 75985682010 20-12.5 MG Active 1 tablet Orally Once a day Fosamax ND 31351897633 70 MG Active 1 EACH ONCE A WEEK ORALLY Celebrex ND 18522073847 100 MG Orally Active 1 capsule Once a day with food Fosamax NDC 41812291977 70 MG Active 1 EACH ONCE A WEEK ORALLY Fosamax NDC 89380074917 70 Active 1 EACH ONCE A WEEK ORALLY Claritin ND 79386080320 10 MG Orally Active 1 tablet Once a day Results No Known Results Summary Purpose eClinicalWorks Submission
--- OUTSIDE RECORDS SUMMARY | 2018-12-12 07:21 | XMS REPORT ---
[...] Start End Date Status Dosage Date Fosamax [facility] 96767048495 70 MG Active 1 EACH ONCE A WEEK ORALLY Fosamax [facility] 47866748747 70 MG Active 1 EACH ONCE A WEEK ORALLY Claritin [facility] 52096391031 10 MG Orally Active 1 tablet Once a day Zestoretic [facility] 10300856885 20-12.5 MG Active 1 TAB(S) ORALLY ONCE A DAY FOR 30 DAYS Fosamax [facility] 90402791179 70 Active 1 EACH ONCE A WEEK ORALLY Zestoretic [facility] 47804920591 20-12.5 MG Active 1 tablet Orally Once a day Celebrex [facility] 58318681349 100 MG Orally Active 1 capsule Once a day with food Results No Known Results Summary Purpose eClinicalWorks Submission
--- OUTSIDE RECORDS SUMMARY | 2018-12-12 07:21 | XMS REPORT ---
:1950 Author Organization eClinicalWorks Care Team Providers Name Role Phone Lemuel Hampton Provider Role Unavailable Allergies No Known Allergies Problems Problem Type Condition Code Onset Dates Condition Status Problem Overactive bladder N32.81 Active Problem Benign essential HTN I10 Active Problem Urinary frequency R35.0 Active Problem Age-related osteoporosis without M81.0 Active current pathological fracture Problem Other chronic pain G89.29 Active Problem Seasonal allergies J30.2 Active Problem Macular degeneration of both eyes, H35.30 Active unspecified type Problem Low back pain M54.5 Active Problem Gynecologic exam normal Z01.419 Active Problem Allergic rhinitis J30.9 Active Problem Abdominal distension (gaseous) R14.0 Active Problem Encounter for general adult medical Z00.01 Active examination with abnormal findings Medications No Known Medications Results No Known Results Summary Purpose eClinicalWorks Submission
[2018-12-12] MEDS ORDERED: Ringers Lactate 1,000 ML IV ONE (07:54)
[2018-12-12] MEDS ORDERED: LIDOCAINE 1% MPF 5 ML VIAL ONE (08:10)
[2018-12-12] MEDS ORDERED: PROPOFOL 200 MG/20 ML VIAL IV ONE (08:10)
--- NOTE | 2018-12-12 08:44 | ENDO RPT ---
[address], [address] EGD PROCEDURE REPORT EXAM DATE: 12/12/2018 PATIENT NAME: Lin Delgado MR#: [id number] BIRTHDATE: 1950 ATTENDING: Lemuel Hampton DR STATUS: outpatient INTERNAL CARVER: Frankie Delaney and Miri Bernardo RN INDICATIONS: The patient is a 67 yr old Female here for an EGD due to abdominal pain and mid epigastric abdominal pain PROCEDURE PERFORMED: EGD with biopsy for H. pylori MEDICATIONS: Per Anesthesia. TOPICAL ANESTHETIC: none CONSENT: The patient understands the risks and benefits of the procedure and understands that these risks include, but are not limited to: sedation, allergic reaction, infection, perforation and/or bleeding. Alternative means of evaluation and treatment include, among others: physical exam, x-rays, and/or surgical intervention. The patient elects to proceed with this endoscopic procedure. DESCRIPTION OF PROCEDURE: During intra-op preparation period all mechanical medical equipment was checked for proper function. Hand hygiene and appropriate measures for infection prevention was taken. Procedure, possible complications, and alternatives including but not limited to the possibility of bleeding, perforation, tear, infection, sepsis, need for surgery, need for blood transfusion, and anesthesia related complications were explained to the patient. After the risks, benefits and alternatives of the procedure were thoroughly explained, Informed consent was verified, confirmed and timeout was successfully executed by the treatment team. The patient was placed in the left lateral position. The patient was anesthetized with topical anesthesia. Through the anesthetized oropharyngeal area, the scope was passed without any difficulty. The [id number] ([id number]) endoscope was introduced through the mouth and advanced to the second portion of the duodenum. Retroflexed views revealed a small hiatal hernia. The gastroscope was then slowly withdrawn and removed. Duodenitis was found in the bulb and descending duodenum. A biopsy for H. pylori was taken. Multiple biopsies were obtained and sent to pathology. Multiple erosions were found in the body and the antrum of the stomach. A biopsy for H. pylori was taken. Multiple biopsies were obtained and sent to pathology. LA Class A esophagitis was found in the lower esophagus. Eosinophilic appearance With standard forceps, a biopsy was obtained and sent to pathology. Mild gastritis was found in the body and the antrum of the stomach. A biopsy for H. pylori was taken. Z-line @ #37cm from incisors, small area of irregularity - biopsied ADVERSE EVENTS: There were no complications. IMPRESSIONS: 1. Duodenitis was found in the bulb and descending duodenum 2. Multiple erosions were found in the body and the antrum of the stomach 3. LA Class A esophagitis was found in the lower esophagus 4. Mild gastritis was found in the body and the antrum of the stomach 5. Z-line @ #37cm from incisors, small area of irregularity - biopsied RECOMMENDATIONS: 1. acid suppression therapy 2. anti-reflux regimen 3. await biopsy results 4. follow-up: office 2 week(s) 5. avoid NSAIDS 6. follow-up of helicobacter pylori status, treat if indicated REPEAT EXAM: Return in 1 year(s) for EGD. Pending Biopsies Lemuel Hampton DR eSigned: Lemuel Hampton DR 12/12/2018 8:43 AM cc: CPT CODES: ICD9 CODES: PATIENT NAME: Lin Delgado MR#: [id number]
== END 2018-12-12 09:13 | disposition home or self-care (01) ==
LOC: OR 07:11
PROVIDERS: ATTEND Surgery
PROC: 0DB78ZX Excision of Stomach, Pylorus, Via Natural or Artificial Opening Endoscopic, Diagnostic (ICD-10-PCS; 2018-12-12)
PROC: 0DB68ZX Excision of Stomach, Via Natural or Artificial Opening Endoscopic, Diagnostic (ICD-10-PCS; 2018-12-12)
PROC: 0DB48ZX Excision of Esophagogastric Junction, Via Natural or Artificial Opening Endoscopic, Diagnostic (ICD-10-PCS; 2018-12-12)
PROC: 0DB98ZX Excision of Duodenum, Via Natural or Artificial Opening Endoscopic, Diagnostic (ICD-10-PCS; principal; 2018-12-12 08:30)
DX: K29.50 Unspecified chronic gastritis without bleeding (principal); K31.89 Other diseases of stomach and duodenum; K29.80 Duodenitis without bleeding; K20.9 Esophagitis, unspecified; K25.9 Gastric ulcer, unspecified as acute or chronic, without hemorrhage or perforation; I10 Essential (primary) hypertension; N32.81 Overactive bladder; Z79.899 Other long term (current) drug therapy
CPT/HCPCS: 43239; 88312; 88305; J2704

== ENCOUNTER 2019-10-12 17:46 | Emergency (ER) | payer OTHER ==
--- OUTSIDE RECORDS SUMMARY | 2019-10-12 17:49 | XMS REPORT ---
:1950 Author Organization [facility] Address Formerly [facility] [place] [address] Care Team Providers Name Role Phone Unavailable Unavailable Unavailable Problems Condition Condition Condition Status Onset Resolution Last Treatin g Comments Name Details Category Date Date Treatment Clinician Date Other Other Problem Active chronic chronic pain pain Age-related Age-related Problem Active osteoporosi osteoporosi s without s without current current pathologica pathologica l fracture l fracture Benign Benign Problem Active essential essential HTN HTN Urinary Urinary Problem Active frequency frequency Allergic Allergic Problem Active rhinitis rhinitis Overactive Overactive Problem Active bladder bladder Encounter Encounter Problem Active for general for general adult adult medical medical examination examination with with abnormal abnormal findings findings Gynecologic Gynecologic Problem Active exam normal exam normal Abdominal Abdominal Problem Active distension distension (gaseous) (gaseous) Seasonal Seasonal Problem Active allergies allergies Macular Macular Problem Active degeneratio degeneratio n of both n of both eyes, eyes, unspecified unspecified type type Low back Low back Problem Active pain pain Gastritis Gastritis Problem Active and and duodenitis duodenitis Adult Adult Problem Active general general medical medical exam exam 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 Medications Ordered Filled Start Stop Current Ordering Indication Dosage Frequency Signature Comments Components Medication Medication Date Date Medication? Clinician (SIG) Name Name Omeprazole Omeprazole 2018- Yes Na Wright 1 capsu le 12-12 00:00: 00 Chantix Chantix 2018- Yes Na Wright one for 3 Starting Starting 6-04 days then 00:00: bid for 4 00 days then 1mg BID for 21 days Fosamax Fosamax Yes Na Wright 1 EACH ONCE A WEEK ORALLY Zestoretic Zestoretic Yes Na Wright 1 tablet Celebrex Celebrex Yes Na Wright 1 capsule with food Claritin Claritin Yes Na Wright 1 tablet Alendronate Alendronate Yes Na Wright TAKE 1 Sodium Sodium TABLET BY MOUTH ONCE A WEEK Fosamax Fosamax Yes Na Wright 1 EACH ONCE A WEEK ORALLY Immunizations Ordered Immunization Name Filled Immunization Name Date Sta tus Comments FluAD FluAD 2019-03-24 Completed 00:00:00 Encounters Start End Encounter Admission Attending Care Care Encounter Date/Time Date/Time Type Type Clinicians Facility Department ID 2019-09-17 2019-09-17 [id number] 08:12:00 08:12:00 [facility] 2019-08-13 2019-08-13 [id number] 14:45:00 14:45:00 [facility] 2019-05-15 2019-05-15 [id number] 03:58:00 03:58:00 [facility] 2019-05-04 2019-05-04 [id number] 08:05:00 08:05:00 [facility] 2019-04-14 2019-04-14 [facility] [id number] 10:00:00 10:00:00 [facility] 2019-03-24 2019-03-24 [id number] 09:40:00 09:40:00 [facility] 2018-12-12 2018-12-12 [facility] [id number] 09:37:00 09:37:00 [facility] 2018-12-09 2018-12-09 [id number] 09:00:00 09:00:00 [facility] 2018-12-05 2018-12-05 [facility] [id number] 08:59:00 08:59:00 [facility]U [facility] 2018-09-17 2018-09-17 [id number] 08:20:00 08:20:00 [employer] [facility] 2018-03-19 2018-03-19 [id number] 10:00:00 10:00:00 [employer] [facility] 2017-09-17 2017-09-17 [facility] [id number] 14:00:00 14:00:00 [employer] [facility]
--- OUTSIDE RECORDS SUMMARY | 2019-10-12 17:49 | XMS REPORT ---
:1950 Author Organization [employer] Care Team Providers Name Role Phone Wright, Na Provider Role Unavailable Allergies No Known Allergies Problems Problem Type Condition Code Onset Dates Condition Statu s Problem Gynecologic exam normal Z01.419 Acti ve Problem Abdominal distension (gaseous) R14.0 Active Problem Encounter for general adult medical Z00.01 Active examination with abnormal findings Problem Adult general medical exam Z00.00 A ctive Problem Atherosclerosis of both carotid I65.23 Active arteries Problem Gastritis and duodenitis K29.90 Act hector Problem Low back pain M54.5 Active Problem Seasonal allergies J30.2 Active Problem Statin declined Z53.20 Active Problem Macular degeneration of both eyes, H35.30 Active unspecified type Problem Urinary frequency R35.0 Active Problem Benign essential HTN I10 Active Problem Other chronic pain G89.29 Active Problem Allergic rhinitis J30.9 Active Problem Age-related osteoporosis without M81.0 Active current pathological fracture Problem Overactive bladder N32.81 Active Medications No Known Medications Results No Known Results Summary Purpose [employer] Submission
--- OUTSIDE RECORDS SUMMARY | 2019-10-12 17:49 | XMS REPORT ---
:1950 Author Organization [employer] Care Team Providers Name Role Phone Wright, Na Provider Role Unavailable Allergies No Known Allergies Problems Problem Type Condition Code Onset Dates Condition Statu s Problem Abdominal distension (gaseous) R14.0 Active Problem Low back pain M54.5 Active Problem Seasonal allergies J30.2 Active Problem Incidental lung nodule R91.1 Activ e Assessment Bulla of lung J43.9 Active Problem Gastritis and duodenitis K29.90 Act hector Problem Bulla of lung J43.9 Active Problem Atherosclerosis of both carotid I65.23 Active arteries Problem Macular degeneration of both eyes, H35.30 Active unspecified type Problem Adult general medical exam Z00.00 A ctive Problem Statin declined Z53.20 Active Problem Other chronic pain G89.29 Active Problem Age-related osteoporosis without M81.0 Active current pathological fracture Assessment Incidental lung nodule R91.1 Activ e Problem Allergic rhinitis J30.9 Active Problem Overactive bladder N32.81 Active Problem Urinary frequency R35.0 Active Problem Gynecologic exam normal Z01.419 Acti ve Problem Benign essential HTN I10 Active Problem Encounter for general adult medical Z00.01 Active examination with abnormal findings Medications No Known Medications Results No Known Results Summary Purpose [employer]Works Submission
--- OUTSIDE RECORDS SUMMARY | 2019-10-12 17:49 | XMS REPORT ---
[...] Adult general medical exam Z00.00 A ctive Assessment Benign essential HTN I10 Active Problem Atherosclerosis of both carotid I65.23 Active arteries Assessment Atherosclerosis of both carotid I65.23 Active arteries Assessment Statin declined Z53.20 Active Problem Gastritis and duodenitis K29.90 Act hector Problem Low back pain M54.5 Active Problem Seasonal allergies J30.2 Active Problem Statin declined Z53.20 Active Problem Macular degeneration of both eyes, H35.30 Active unspecified type Assessment Adult general medical exam Z00.00 A ctive Assessment Needs flu shot Z23 Active Assessment Screening for malignant neoplasm of Z12.39 Active breast Problem Urinary frequency R35.0 Active Problem Benign essential HTN I10 Active Problem Other chronic pain G89.29 Active Problem Allergic rhinitis J30.9 Active Assessment Age-related osteoporosis without M81.0 Active current pathological fracture Problem Age-related osteoporosis without M81.0 Active current pathological fracture Problem Overactive bladder N32.81 Active Medications Medication Code Code Instructions Start End Status Dosage System Date Date Omeprazole [facility] [id number] 40 MG Orally December 12, Active 1 c apsule Twice a day 2018 Chantix [facility] [id number] .5mg as November 18, Active one for 3 Starting Month directed 2019 days the n Lele bid for 4 days then 1mg BID for 21 days Fosamax [facility] [id number] 70 Active 1 EACH ONCE A WEEK ORALLY Fosamax [facility] [id number] 70 MG Active 1 EACH ONCE A WEEK ORALLY Alendronate [facility] [id number] 70 Active TAKE 1 Sodium TABLET BY MOUTH ONCE A WEEK Zestoretic NDC 69197428687 20-12.5 MG Active 1 TAB( S) ORALLY ONCE A DAY FOR 30 DAYS Celebrex [facility] 51599794245 100 MG Orally Active 1 cap amelia Once a day with food Fosamax [facility] 13285139134 70 MG Active 1 EACH ONCE A WEEK ORALLY Claritin [facility] 25609968982 10 MG Orally Active 1 tabl et Once a day Zestoretic [facility] 81647302566 20-12.5 MG Active 1 tabl et Orally Once a day Results No Known Results Immunizations Vaccine Administration Date FluAD Mar 24, 2019 Summary Purpose eClinicalWorks Submission
[2019-10-12 18:32] LABS: Protime INR 0.93
[2019-10-12 18:37] LABS: Absolute Lymphocytes (CBC) 2.8 K/uL (0.7-4.9); Hematocrit 38.2 % (36.0-45.0); Lymphocytes % 34.7 % (15.3-44.8); MPV 8.7 fL (7.6-11.3); RBC Red Blood Cell Count 4.32 M/uL (3.86-4.86)
[2019-10-12] MEDS ORDERED: MORPHINE 2 MG/ML SYR ONE ×2 (18:41→19:28)
[2019-10-12] MEDS ORDERED: ONDANSETRON 4 MG/2 ML VIAL ONE (18:42)
--- NOTE | 2019-10-12 18:42 | RAD REPORT ---
EXAM DESCRIPTION: CT - CTHCSPWOC - 10/12/2019 6:28 pm CLINICAL HISTORY: Trauma, head and neck injury. Headache, Radiculopathy COMPARISON: No comparisons TECHNIQUE: Axial 5 mm thick images of the head were obtained. Axial 2 mm thick images of the cervical spine were obtained with sagittal and coronal reconstruction images generated and reviewed. All CT scans are performed using dose optimization technique as appropriate and may include automated exposure control or mA/KV adjustment according to patient size. FINDINGS: CT HEAD WITHOUT CONTRAST: No acute hemorrhage, hydrocephalus or extra-axial collection is identified.Mild generalized brain atr ophy is present with mild periventricular and deep white matter chronic microvascular ischemic change s.No areas of brain edema or midline shift. The paranasal sinuses and mastoids are clear.The calvarium is intact. CT CERVICAL SPINE WITHOUT CONTRAST: No fracture or subluxation.Fusion is noted involving C6-7. Mild multilevel degenerative changes are p resent of the lower levels of the cervical spine.No prevertebral soft tissues swelling is identified. IMPRESSION: No acute intracranial or cervical spine findings. Mild lower cervical spondylosis.
[2019-10-12 18:49] LABS: ALT/SGPT 22 U/L (12-78); Albumin 3.6 g/dL (3.4-5.0); Alkaline Phosphatase 59 U/L (45-117); BUN Blood Urea Nitrogen 12 mg/dL (7-18); Bicarbonate 27 mmol/L (21-32); Bilirubin Direct < 0.1 mg/dL (0-0.2); Bilirubin Total 0.5 mg/dL (0.2-1.0); Glucose Level 112 mg/dL (74-106); NT PRO-BNP 163 pg/mL (<125); Protein, Total 7.2 g/dL (6.4-8.2); Sodium Level 139 mmol/L (136-145); Troponin (Emerg Dept Use Only) < 0.02 ng/mL (0.0-0.045)
[2019-10-12 18:50] LABS: AST/SGOT 20 U/L (15-37); Potassium 4.1 mmol/L (3.5-5.1)
[2019-10-12 19:05] LABS: Blood Morphology Comment NOTED (NOT SEEN); Platelet Estimate DECR; Urine White Blood Cell Casts OK
[2019-10-12 19:08] LABS: Poikilocytosis 1+
--- NOTE | 2019-10-12 19:34 | RAD REPORT ---
EXAM DESCRIPTION: RAD - Chest Single View - 10/12/2019 6:39 pm CLINICAL HISTORY: CHEST PAIN Chest pain. COMPARISON: Chest Single View dated 01/21/2018; Abdomen 1 View (KUB) dated 07/31/2016; Chest Single Vie w dated 05/22/2016; CHEST SINGLE VIEW dated 06/19/2010; Thorax Wo Con dated 12/01/2018; Abdomen Pelvis W Contrast dated 12/01/2018 FINDINGS: Portable technique limits examination quality. Emphysematous changes are present throughout the lungs with stable left basilar air cyst. The heart i s normal in size. No displaced fractures. IMPRESSION: No acute intrathoracic process suspected.
[2019-10-12] MEDS ORDERED: FENTANYL CITR 100 MCG/2 ML ONE (21:08)
[2019-10-12] MEDS ORDERED: METHYLPREDNISOLONE 125 MG INJ ONE (21:08)
--- NOTE | 2019-10-12 21:24 | ER ---
Nurse's Notes [facility] Name: Lin Delgado Age: 68 yrs Sex: Female : 1950 Arrival Date: 10/12/2019 Time: 17:48 Bed 15 Private MD: Vandana Wright Diagnosis: Radiculopathy, cervical region Presentation: 10/11 17:52 Chief complaint: Patient states: Woke up with pain on base of skull and neck. It went ca1 away. Around 3pm today, it started again, now includes my neck on L side, L shoulder blade, L chest and down my L arms and hand. Coronavirus screen: Proceed with normal triage. Patient denies a cough. Patient denies shortness of breath or difficulty breathing. Patient denies measured and/or subjective temperature greater than 100.4F prior to today's visit. Patient denies travel on a cruise ship or to a country the [facility] currently lists as an affected area. Patient denies contact with known and/or suspected case of COVID-19. Ebola Screen: Patient negative for fever greater than or equal to 101.5 degrees Fahrenheit, and additional compatible Ebola Virus Disease symptoms Patient denies exposure to infectious person. Patient denies travel to an Ebola-affected area in the 21 days before illness onset. No symptoms or risks identified at this time. Initial Sepsis Screen: Does the patient meet any 2 criteria? No. Patient's initial sepsis screen is negative. Does the patient have a suspected source of infection? No. Patient's initial sepsis screen is negative. Risk Assessment: Do you want to hurt yourself or someone else? Patient reports no desire to harm self or others. Onset of symptoms was October 12, 2019 at 15:00. 17:52 Method Of Arrival: Ambulatory ca1 17:52 Acuity: VITALIY 3 ca1 Historical: - Allergies: 17:56 No Known Allergies; ca1 - Home Meds: 17:56 Fosamax 70 mg Oral tab 1 tab once wkly [Active]; lisinopril 20 mg Oral tab 1 tab once ca1 daily [Active]; hydrochlorothiazide 12.5 mg Oral tab 1 tab once daily [Active]; - PMHx: 17:56 Hypertension; Osteoporosis; ca1 - PSHx: 17:56 None; ca1 - Immunization history:: Adult Immunizations up to date, Pneumococcal vaccine is up to date, Flu vaccine is up to date. - Social history:: Smoking status: Patient/guardian denies using tobacco, the patient reports quitting approximately 1 years ago. Screenin:05 Abuse screen: Denies threats or abuse. Denies injuries from another. Nutritional ls4 screening: No deficits noted. Tuberculosis screening: No symptoms or risk factors identified. Fall Risk None identified. Vital Signs: 17:52 BP 180 / 103; Pulse 80; Resp 18 S; Temp 98.6(O); Pulse Ox 99% on R/A; Weight 67.13 kg ca1 (R); Height 5 ft. 2 in. (157.48 cm) (R); Pain 9/10; 21:17 BP 142 / 80; Pulse 65; Resp 18; Pulse Ox 96% on R/A; mg2 17:52 Body Mass Index 27.07 (67.13 kg, 157.48 cm) ca1 ED Course: 17:48 Patient arrived in ED. as 17:48 Vandana Wright MD is Private Physician. as 17:55 Triage completed. ca1 17:56 Arm band placed on right wrist. ca1 17:58 Charlie Cisneros, CIRO is PHCP. pm1 17:58 Rey Mcleod MD is Attending Physician. pm1 18:00 Patient has correct armband on for positive identification. Bed in low position. Call ls4 light in reach. Side rails up X 1. nuclear monitoring technician on. Pulse ox on. NIBP on. Warm blanket given. Pillow given. Verbal reassurance given. 18:00 Diet: Patient is NPO. ls4 18:28 CT Head C Spine In Process Unspecified. EDMS 18:33 Mary Wick, RN is Primary Nurse. ls4 18:35 XRAY Chest (1 view) In Process Unspecified. EDMS 19:10 No provider procedures requiring assistance completed. Initial lab(s) drawn, by wi, ls4 held in ED. Inserted saline lock: 18 gauge in right antecubital area, using aseptic technique. Blood collected. Patient maintains SpO2 saturation greater than 95% on room air. Administered Medications: 18:36 Drug: Zofran (Ondansetron) 4 mg Route: IVP; Site: right antecubital; ls4 21:24 Follow up: Response: No adverse reaction mg2 18:38 Drug: morphine 2 mg Route: IVP; Site: right antecubital; ls4 19:35 Drug: morphine 2 mg Route: IVP; Site: right antecubital; ls4 21:24 Follow up: Response: No adverse reaction; RASS: Alert and Calm (0) mg2 21:07 Drug: SOLU-Medrol 125 mg Route: IVP; Site: right antecubital; mg2 21:24 Follow up: Response: No adverse reaction mg2 21:07 Drug: fentaNYL (PF) 50 mcg Route: IVP; Site: right antecubital; mg2 21:24 Follow up: Response: No adverse reaction; Marked relief of symptoms mg2 Outcome: 21:24 Discharge ordered by MD. pm1 22:58 Patient left the ED. ls4 Signatures: Dispatcher [employer] Rosana Vargas Patrick, CIRO DRILL PRESS OPERATOR pm1 Enrique Tim RN RN mg2 Mary Wick RN RN ls4 Nathalie Don RN RN ca1
--- NOTE | 2019-10-12 21:24 | EDPHYS ---
Physician Documentation [facility] [place] Name: Lin Delgado Age: 68 yrs Sex: Female : 1950 Arrival Date: 10/12/2019 Time: 17:48 Bed 15 Private MD: Vandana Wright ED Physician Rey Mcleod HPI: 10/11 17:59 This 68 yrs old Female presents to ER via Ambulatory with complaints of Chest pm1 Pain, Back Pain, Neck Pain, <24hrs Old, Numbness Of Hand. 17:59 The patient or guardian complains of pain, that is acute. The symptoms are located Left pm1 trapezius. Onset: The symptoms/episode began/occurred this morning. Context: The problem was sustained at home, The neck injury/problem resulted from from unknown cause. Associated signs and symptoms: Pertinent positives: chest pain, left arm numbness and tingling. Modifying factors: The symptoms are alleviated by nothing. the symptoms are aggravated by movement. The patient has been recently seen by a physician: the patient's primary care provider, with different complaint(s), Patient had planned elective surgery that was delayed due to COVID. Had cardiac clearance for surgery 1 month ago. Historical: - Allergies: 17:56 No Known Allergies; ca1 - Home Meds: 17:56 Fosamax 70 mg Oral tab 1 tab once wkly [Active]; lisinopril 20 mg Oral tab 1 tab once ca1 daily [Active]; hydrochlorothiazide 12.5 mg Oral tab 1 tab once daily [Active]; - PMHx: 17:56 Hypertension; Osteoporosis; ca1 - PSHx: 17:56 None; ca1 - Immunization history:: Adult Immunizations up to date, Pneumococcal vaccine is up to date, Flu vaccine is up to date. - Social history:: Smoking status: Patient/guardian denies using tobacco, the patient reports quitting approximately 1 years ago. ROS: 17:59 Constitutional: Negative for fever, chills, and weight loss, Eyes: Negative for injury, pm1 pain, redness, and discharge. 17:59 Respiratory: Negative for shortness of breath, cough, wheezing, and pleuritic chest pain, Abdomen/GI: Negative for abdominal pain, nausea, vomiting, diarrhea, and constipation, Back: Negative for injury and pain, MS/Extremity: Negative for injury and deformity, Skin: Negative for injury, rash, and discoloration. 17:59 Neck: Positive for pain with movement, pain at rest. 17:59 Cardiovascular: Positive for chest pain, Negative for edema, palpitations. 17:59 Neuro: Positive for numbness, tingling, of the left arm. Exam: 17:59 Constitutional: This is a well developed, well nourished patient who is awake, alert, pm1 and in no acute distress. Head/Face: Normocephalic, atraumatic. 17:59 Chest/axilla: Normal chest wall appearance and motion. Nontender with no deformity. No lesions are appreciated. Cardiovascular: Regular rate and rhythm with a normal S1 and S2. No gallops, murmurs, or rubs. Normal PMI, no JVD. No pulse deficits. Respiratory: Lungs have equal breath sounds bilaterally, clear to auscultation and percussion. No rales, rhonchi or wheezes noted. No increased work of breathing, no retractions or nasal flaring. Abdomen/GI: Soft, non-tender, with normal bowel sounds. No distension or tympany. No guarding or rebound. No evidence of tenderness throughout. Back: No spinal tenderness. No costovertebral tenderness. Full range of motion. Skin: Warm, dry with normal turgor. Normal color with no rashes, no lesions, and no evidence of cellulitis. MS/ Extremity: Pulses equal, no cyanosis. Neurovascular intact. Full, normal range of motion. 17:59 Neck: External neck: tenderness, of the left mid cervical area and left trapezius, muscle spasm, C-spine: vertebral tenderness, is not appreciated. 17:59 Neuro: Exam negative for acute changes, Orientation: is normal, Mentation: is normal, Motor: is normal, moves all fours. Vital Signs: 17:52 BP 180 / 103; Pulse 80; Resp 18 S; Temp 98.6(O); Pulse Ox 99% on R/A; Weight 67.13 kg ca1 (R); Height 5 ft. 2 in. (157.48 cm) (R); Pain 9/10; 21:17 BP 142 / 80; Pulse 65; Resp 18; Pulse Ox 96% on R/A; mg2 17:52 Body Mass Index 27.07 (67.13 kg, 157.48 cm) ca1 MDM: 17:58 Patient medically screened. pm1 20:41 Data reviewed: vital signs. Data interpreted: Pulse oximetry: on room air is 99 %. pm1 Interpretation: normal. 21:23 Counseling: I had a detailed discussion with the patient and/or guardian regarding: the pm1 historical points, exam findings, and any diagnostic results supporting the discharge/admit diagnosis, lab results, radiology results, the need for outpatient follow up, to return to the emergency department if symptoms worsen or persist or if there are any questions or concerns that arise at home. 10/11 18:11 Order name: Basic Metabolic Panel; Complete Time: 18:51 pm1 10/11 18:11 Order name: CBC with Diff; Complete Time: 19:11 pm1 10/11 18:11 Order name: LFT's; Complete Time: 18:51 pm1 10/11 18:11 Order name: Magnesium; Complete Time: 18:51 pm1 10/11 18:11 Order name: NT PRO-BNP; Complete Time: 18:51 pm1 10/11 18:11 Order name: PT-INR; Complete Time: 18:51 pm1 10/11 18:11 Order name: Troponin (emerg Dept Use Only); Complete Time: 18:51 pm1 10/11 18:11 Order name: XRAY Chest (1 view); Complete Time: 19:39 pm1 10/11 18:11 Order name: CT Head C Spine; Complete Time: 18:51 pm1 10/11 19:05 Order name: CBC Smear Scan; Complete Time: 19:11 EDMS 10/11 18:11 Order name: EKG; Complete Time: 18:12 pm1 10/11 18:11 Order name: Cardiac monitoring; Complete Time: 19:36 pm1 10/11 18:11 Order name: EKG - Nurse/Tech; Complete Time: 19:36 pm1 10/11 18:11 Order name: IV Saline Lock; Complete Time: 19:36 pm1 10/11 18:11 Order name: Labs collected and sent; Complete Time: 19:36 pm1 10/11 18:11 Order name: O2 Per Protocol; Complete Time: 19:36 pm1 10/11 18:11 Order name: O2 Sat Monitoring; Complete Time: 19:36 pm1 Administered Medications: 18:36 Drug: Zofran (Ondansetron) 4 mg Route: IVP; Site: right antecubital; ls4 21:24 Follow up: Response: No adverse reaction mg2 18:38 Drug: morphine 2 mg Route: IVP; Site: right antecubital; ls4 19:35 Drug: morphine 2 mg Route: IVP; Site: right antecubital; ls4 21:24 Follow up: Response: No adverse reaction; RASS: Alert and Calm (0) mg2 21:07 Drug: SOLU-Medrol 125 mg Route: IVP; Site: right antecubital; mg2 21:24 Follow up: Response: No adverse reaction mg2 21:07 Drug: fentaNYL (PF) 50 mcg Route: IVP; Site: right antecubital; mg2 21:24 Follow up: Response: No adverse reaction; Marked relief of symptoms mg2 Disposition: 10/12 07:13 Co-signature as Attending Physician, Rey Mcleod MD. rn Disposition: 10/12/19 21:24 Discharged to Home. Impression: Radiculopathy, cervical region. - Condition is Stable. - Discharge Instructions: Cervical Radiculopathy. - Prescriptions for Tylenol- Codeine #3 300-30 mg Oral Tablet - take 2 tablets by ORAL route every 6 hours As needed; 20 tablet. Medrol (Lele) 4 mg Oral Tablets, Dose Pack - take 1 tablet by ORAL route as directed - follow package instructions; 1 packet. - Medication Reconciliation Form, Thank You Letter, Antibiotic Education, Prescription Opioid Use form. - Follow up: Emergency Department; When: As needed; Reason: Worsening of condition. Follow up: Private Physician; When: 2 - 3 days; Reason: Recheck today's complaints, Continuance of care, Re-evaluation by your physician. - Problem is new. - Symptoms have improved. Signatures: Dispatcher [employer] EDRey Serna MD MD rn Marinas, Patrick, VP CONSTRUCTION VP CONSTRUCTION pm1 Enrique Tim RN RN mg2 Mary Wick RN RN ls4 Nathalie Don RN RN ca1 Corrections: (The following items were deleted from the chart) 10/11 22:58 21:24 10/12/2019 21:24 Discharged to Home. Impression: Radiculopathy, cervical region. ls4 Condition is Stable. Forms are Medication Reconciliation Form, Thank You Letter, Antibiotic Education, Prescription Opioid Use. Follow up: Emergency Department; When: As needed; Reason: Worsening of condition. Follow up: Private Physician; When: 2 - 3 days; Reason: Recheck today's complaints, Continuance of care, Re-evaluation by your physician. Problem is new. Symptoms have improved. pm1
[2019-10-12 23:06] VITALS: TEMP 98.6
[2019-10-12 23:07] VITALS: BP 142/80; O2SAT 96
--- NOTE | 2019-10-14 06:52 | EKG ---
Test Date: 2019-10-12 Test Time: 18:05:35 Water Chaser: ARTEM MEASUREMENT RESULTS: Intervals: Rate: 73 MT: 180 QRSD: 82 QT: 388 QTc: 427 [place]: P: 71 MT: 180 QRS: 73 T: 48 INTERPRETIVE STATEMENTS: Normal sinus rhythm Normal ECG Compared to ECG 12/01/2018 11:28:12 Sinus bradycardia no longer present First degree AV block no longer present Myocardial infarct finding no longer present Electronically Signed On 10-14-19 06:49:22 CDT by Gilberto Aquino
== END 2019-10-12 22:58 | disposition home or self-care (01) ==
LOC: ER 17:46
DX: M54.12 Radiculopathy, cervical region (principal); I10 Essential (primary) hypertension
CPT/HCPCS: 93005; 85025; 80048; 36415; 83735; 85610; 80076; 84484; 83880; 70450; 72125; 71045; 96375; 96374; 99285; J3010; J2270 ×2; J2930; J2405

== ENCOUNTER → 2021-05-10 | Day surgery (SDC) | payer OTHER ==
[2021-05-08 10:23] LABS: Absolute Lymphocytes (CBC) 2.4 K/uL (0.7-4.9); Basophils % 0.9 % (0-1.3); Hematocrit 39.4 % (36.0-45.0); Lymphocytes % 33.2 % (15.3-44.8); MPV 7.5 fL (7.6-11.3); RBC Red Blood Cell Count 4.33 M/uL (3.86-4.86)
[2021-05-08 10:41] LABS: Potassium 3.8 mmol/L (3.5-5.1)
[~2021-05-10] MED LIST: ACETAMINOPHEN 500 MG TAB ONE; ACETAMINOPHEN 500 MG TAB PO ONE; BUPIVACAINE 0.5% PF 10 ML VIAL ONE; CELECOXIB 100 MG CAPSULE ONE; CELECOXIB 100 MG CAPSULE PO ONE; FENTANYL CITR 100 MCG/2 ML ONE; KETOROLAC 30 MG/ML INJ ONE; LIDOCAINE 2% MPF 5 ML VIAL ONE; ONDANSETRON 4 MG/2 ML VIAL ONE; Ringers Lactate 1,000 ML IV ONE; dexAMETHasone 4 MG/ML VIAL ONE; propofoL 200 MG/20 ML VIAL IV ONE
--- NOTE | 2021-05-10 08:09 | EKG ---
Test Date: 2021-05-08 Test Time: 10:07:56 Manager Bilingual: WILMER MEASUREMENT RESULTS: Intervals: Rate: 65 SC: 186 QRSD: 82 QT: 396 QTc: 411 [place]: P: 76 SC: 186 QRS: 82 T: 66 INTERPRETIVE STATEMENTS: Normal sinus rhythm Normal ECG Compared to ECG 10/12/2019 18:05:35 No significant changes Electronically Signed On 05-10-21 08:03:52 ADJUNCT INSTRUCTOR by Gilberto Aquino
[2021-05-10] MEDS: FENTANYL CITR 100 MCG/2 ML ONE ×3 (08:19→08:29)
[2021-05-10 09:08] VITALS: BP 111/54; TEMP 98.5
[2021-05-10 09:22] VITALS: O2SAT 95
--- NOTE | 2021-05-10 11:08 | OP ---
Date of Procedure: 05/10/2021 Surgeon: Gopi Valentin MD Preoperative Diagnosis: Right trigger thumb. Postoperative Diagnosis: Right trigger thumb. Procedure: Right open trigger thumb release. Estimated Blood Loss: Less than 3 cc. Complications: No complications. Pathology Specimens: No pathology specimens sent. Indications For Operation: Ms. Delgado is a 70-year-old female, who came to see me in the office wit h complaints of locking and pain in her thumb. She denies any numbness or tingling. There was a nod ule at the A1 leroy, diagnosed with trigger thumb. Risks, benefits, and alternatives to different m ethods of treating of this including nonoperative management with injection have been discussed. She states she understands things as presented and opts for operative intervention and the risks associa teagan with this were again discussed. She states she understands things presented and wishes to procee d. Description Of Procedure: The patient was taken to the operating room and placed in supine position. General anesthesia was obtained by staff. Following this, a well-padded tourniquet was placed on s uperior right arm. Right upper extremity was then prepped and draped in the usual fashion procedure. The arm was then elevated, but not exsanguinated. Tourniquet was raised. A standard incision was made at the proximal thumb crease carefully through skin only. Meticulous hemostasis was being maint ained using bipolar electrocautery. This was followed by blunt spreading to demonstrate the tendon s yossi as well as the A1 leroy. This was then divided longitudinally in a proximal to distal directi on until no constricting band. It was divided in a distal and proximal direction until there were no constricting bands. At no time were any sharp instruments placed outside the direct operative field . Following this, the thumb brought through a range of motion without signs of abnormal tendon motio n. The tourniquet was then dropped. There was found to be no significant bleeding and the skin was closed using interrupted nylon sutures. She was placed in a well-padded sterile dressing, awakened, and taken to recovery room in good condition. No complications. SE/MODL Voice ID: [id number] Report ID: [id number]
== END ==
LOC: OR 06:20
PROVIDERS: ATTEND Orthopaedic Surgery
PROC: 0LN70ZZ Release Right Hand Tendon, Open Approach (ICD-10-PCS; principal; 2021-05-10 07:30)
DX: M65.311 Trigger thumb, right thumb (principal); Z20.822 Contact with and (suspected) exposure to COVID-19
CPT/HCPCS: 93005; 85025; 80048; 36415; 26055; U0003; J2704; J1100; J3010 ×2; J7120; J2405

== ENCOUNTER 2021-12-09 08:59 | Emergency (ER) | payer OTHER ==
--- OUTSIDE RECORDS SUMMARY | 2021-12-09 09:02 | XMS REPORT | Continuity of Care Document ---
:1950 Author Organization [facility] t Address [address] [place] [address] Care Team Providers Name Role Phone Briseyda Wright Primary Care Physician Jim Wright Attending Clinician Unavailable Antonio THOMAS Attending Clinician SHAGGY Attending Clinician Unavailable MEREDITH Attending Clinician Unavailable MD SHAGGY Y.H. Attending Clinician Unavailable Mary Ann_A_AH Attending Clinician Unavailable SHAGGY Admitting Clinician Unavailable MD SHAGGY Y.H. Admitting Clinician Unavailable Mary Ann_A_AH Admitting Clinician Unavailable Payers Payer Name Policy Type Policy Number Effective Date Expiration Date S our [employer] [place] - [id number] [employer] (MEDICARE REPLACEMENT/ADVANTAGE - HMO) Problems Condition Condition Condition Status Onset Resolution Last Treating Co mments Source Name Details Category Date Date Treatment Clinician Date No known No known Disease Unive rs active active ity of problems problems [facility] Allergies, Adverse Reactions, Alerts This patient has no known allergies or adverse reactions. Social History Social Habit Start Date Stop Date Quantity Comments Source Cigarettes smoked 2021-08-14 2021-08-14 [facility] ity of [place] current (pack per 00:00:00 00:00:00 Medical Branch ) - Reported Cigarette 2021-08-14 2021-08-14 [facility] pack-years 00:00:00 00:00:00 Medical Branch Tobacco use and 2021-08-14 2021-08-14 Never used [facility] exposure 00:00:00 00:00:00 Medical Branch Sex Assigned At [birth year] [facility] 00:00:00 00:00:00 Medical Branch Smoking Status Start Date Stop Date Source Current every day smoker 2021-08-14 00:00:00 Uni versity [facility] Medications Ordered Filled Start Stop Current Ordering Indication Dosage Frequency Signature Comments Components Source Medication Medication Date Date Medication? Clinician (SIG) Name Name propafenone 2021- Yes 225mg Take 1 Un nikia 225 mg 5-27 07-27 tablet by ity of tablet 00:00: 04:59 mouth 2 [place] 00 :00 (two) Medical times [place] daily for 60 days. metoprolol Yes [id number] 50mg Take 1 Univers succinate 5-03 tablet by ity o f XL 50 mg 24 00:00: mouth 2 Kristian as hr tablet 00 (two) [facility] daily. aspirin 81 Yes 81mg Take 81 mg U nivers mg chewable 4-27 by mouth ity of tablet 10:10: daily. [place] 57 [facility] alendronate 0 Yes 70mg Take 70 mg Univers (FOSAMAX) 2-28 by mouth ity of 70 mg 09:56: weekly. [facility] 47 [facility] Fosamax Fosamax Yes Na Wright 1 EACH Comm on ONCE A Spirit WEEK - [facility] Immunizations Ordered Filled Immunization Date Status Comments Sour e Immunization Name Name SARS-COV-2 COVID-19 2021-03-17 Completed Unive rsity of PFIZER VACCINE 00:00:00 [facility] [place] [facility] SARS-COV-2 COVID-19 2020-08-17 Completed Unive rsity of PFIZER VACCINE 00:00:00 [facility] [place] [facility] SARS-COV-2 COVID-19 2020-07-27 Completed Unive rsity of PFIZER VACCINE 00:00:00 [facility] [place] [facility] FluAD FluAD 2019-03-24 Completed [facility] - 00:00:00 [facility] Procedures This patient has no known procedures. Encounters Start End Encounter Admission Attending Care Care Encounter Source Date/Time Date/Time Type Type Clinicians Facility Department ID 2021-12-04 Outpatient Wright, Na STLMLC STLMLC [id number] 2 Common 11:40:00 [facility] 2021-09-26 Outpatient Wright, Na STLMLC STLMLC [id number] 2 Common 13:09:01 [facility] 2021-09-25 Outpatient Wright, Na STLMLC STLMLC [id number] 2 Common 10:56:00 [facility] 2021-07-12 Outpatient Wright, Na STLMLC STLMLC [id number] 2 Common 14:19:32 [id number] [facility] 2021-07-12 Outpatient Wright, Na STLMLC STLMLC [id number] 2 Common 14:04:24 [id number] [facility] 2021-07-12 Outpatient Wright, Na STLMLC STLMLC [id number] 2 Common 13:58:29 [id number] [facility] 2021-07-12 Outpatient Wright, Na STLMLC STLMLC [id number] 2 Common 12:13:36 [id number] [facility] 2021-07-12 Outpatient Wright, Na STLMLC STLMLC [id number] 2 Common 12:09:52 [id number] [facility] 2021-07-12 Outpatient Wright, Na STLMLC STLMLC [id number] 2 Common 11:57:47 [id number] [facility] 2021-07-12 Outpatient Wright, Na STLMLC STLMLC [id number] 2 Common 11:57:12 [id number] [facility] 2021-07-12 Outpatient Wright, Na STLMLC STLMLC [id number] 2 Common 11:52:41 [id number] [facility] 2021-07-12 Outpatient Wright, Na STLMLC STLMLC [id number] 2 Common 11:26:09 [id number] [facility] 2021-07-12 Outpatient Wright, Na STLMLC STLMLC [id number] 2 Common 11:25:48 [id number] [facility] 2021-07-12 Outpatient Wright, Na STLMLC STLMLC [id number] 2 Common 11:20:03 [id number] [facility] 2021-12-04 2021-12-04 ambulatory STLMLC STLMLC [id number] Common 00:00:00 00:00:00 [facility] 2021-11-29 2021-11-29 ambulatory STLMLC STLMLC [id number] Common 00:00:00 00:00:00 [facility] 2021-11-29 2021-11-29 ambulatory STLMLC STLMLC [id number] Common 00:00:00 00:00:00 [facility] 2021-11-23 2021-11-23 Telephone [facility], [facility] [phone] [id number] Univers 00:00:00 00:00:00 [facility] [id number] [facility] [id number] Khadar ZUNIGA [id number] [address] 2021-10-05 2021-10-05 ambulatory STLMLC STLMLC [id number] Common 00:00:00 00:00:00 [facility] 2021-10-05 2021-10-05 ambulatory STLMLC STLMLC [id number] Common 00:00:00 00:00:00 [facility] 2021-09-26 2021-09-26 ambulatory STLMLC STLMLC [id number] Common 00:00:00 00:00:00 [facility] 2021-09-26 2021-09-26 ambulatory STLMLC STLMLC [id number] Common 00:00:00 00:00:00 [facility] 2021-07-24 2021-07-24 ambulatory STLMLC STLMLC [id number] Common 00:00:00 00:00:00 [facility] 2021-07-21 2021-07-21 ambulatory STLMLC STLMLC [id number] Common 00:00:00 00:00:00 [facility] 2021-05-26 2021-05-26 ambulatory STLMLC STLMLC [id number] Common 00:00:00 00:00:00 [facility] 2021-05-16 2021-05-16 ambulatory STLMLC STLMLC [id number] Common 00:00:00 00:00:00 [facility] 2021-05-05 2021-05-05 ambulatory STLMLC STLMLC [id number] Common 00:00:00 00:00:00 [facility] 2021-05-01 2021-05-01 ambulatory STLMLC STLMLC [id number] Common 00:00:00 00:00:00 [facility] 2021-04-28 2021-04-28 ambulatory STLMLC STLMLC [id number] Common 00:00:00 00:00:00 [facility] 2021-04-10 2021-04-10 Outpatient STLMLC STLMLC [id number] Common 00:00:00 00:00:00 [facility] 2021-04-04 2021-04-04 Outpatient STLMLC STLMLC [id number] Common 00:00:00 00:00:00 [facility] 2021-03-28 2021-03-28 Outpatient STLMLC STLMLC [id number] Common 00:00:00 00:00:00 [facility] 2021-03-28 2021-03-28 Outpatient STLMLC STLMLC [id number] Common 00:00:00 00:00:00 [facility] 2020-12-28 2020-12-28 Outpatient STLMLC STLMLC [id number] Common 00:00:00 00:00:00 [facility] 2020-11-29 2020-11-29 Outpatient STLMLC STLMLC [id number] Common 00:00:00 00:00:00 [facility] 2020-08-12 2020-08-12 Outpatient STLMLC STLMLC [id number] Common 00:00:00 00:00:00 [facility] 2020-08-08 2020-08-08 Outpatient STLMLC STLMLC [id number] Common 00:00:00 00:00:00 [facility] 2020-07-18 2020-07-18 Outpatient STLMLC STLMLC [id number] Common 00:00:00 00:00:00 [facility] 2020-07-18 2020-07-18 Outpatient STLMLC STLMLC [id number] Common 00:00:00 00:00:00 [facility] 2020-07-18 2020-07-18 Outpatient STLMLC STLMLC [id number] Common 00:00:00 00:00:00 [facility] 2020-07-18 2020-07-18 Outpatient STLMLC STLMLC [id number] Common 00:00:00 00:00:00 [facility] 2020-07-06 2020-07-06 Outpatient STLMLC STLMLC [id number] Common 00:00:00 00:00:00 [facility] 2020-06-02 2020-06-02 Outpatient STLMLC STLMLC [id number] Common 00:00:00 00:00:00 [facility] 2020-04-23 2020-04-23 Outpatient STLMLC STLMLC [id number] Common 00:00:00 00:00:00 [facility] 2020-04-11 2020-04-11 Outpatient STLMLC STLMLC [id number] Common 00:00:00 00:00:00 [facility] 2020-04-07 2020-04-07 Outpatient STLMLC STLMLC [id number] Common 00:00:00 00:00:00 [facility] 2020-04-07 2020-04-07 Outpatient STLMLC STLMLC [id number] Common 00:00:00 00:00:00 [facility] 2020-01-05 2020-01-05 [id number] Common 12:16:00 12:16:[address] [facility] 2019-12-11 2019-12-11 [facility] [id number] Common 10:38:00 10:38:[address] [facility] 2019-12-02 2019-12-02 [facility] [id number] Common 08:37:00 08:37:00 [address] [facility] [address] [facility] 2019-11-27 2019-11-27 [facility] [id number] Common 14:40:00 14:40:[address] [facility] 2019-11-25 2019-11-25 [facility] [id number] Common 09:05:00 09:05:[address] [facility] 2019-11-25 2019-11-25 Outpatient COON, [facility] [id number] [address] [place] 00:00:00 00:00:00 EDWARD [address] 2019-11-04 2019-11-04 Outpatient MEISENBACH, [facility] [id number] [place] 00:00:00 00:00:00 GAURAV [address] 2019-10-29 2019-10-29 [facility] [id number] Common 10:59:00 10:59:[address] [facility] 2019-10-21 2019-10-23 Inpatient COON, [facility] [id number] [place] 00:00:00 00:00:00 EDWARD [address] 2019-10-21 2019-10-21 Outpatient COON, [facility] [id number] [place] 00:00:00 00:00:00 EDWARD [address] 2019-10-14 2019-10-14 Outpatient COON, [facility] [id number] [place] 00:00:00 00:00:00 EDWARD [address] 2019-10-14 2019-10-14 Outpatient COON, [facility] [id number] [place] 00:00:00 00:00:00 EDWARD [address] 2019-09-17 2019-09-17 [facility] [id number] Common 08:12:00 08:12:[address] [facility] 2019-08-13 2019-08-13 [facility] [id number] Common 14:45:00 14:45:[address] [facility] 2019-08-13 2019-08-13 Outpatient COON, [facility] [id number] [place] 00:00:00 00:00:00 EDWARD [address] 2019-08-13 2019-08-13 Outpatient SHAGGY, [facility] [id number] [place] 00:00:00 00:00:00 EDWARD [address] 2019-08-13 2019-08-13 Outpatient SHAGGY, [facility] [id number] [place] 00:00:00 00:00:00 EDWARD [address] 2019-08-05 2019-08-05 Outpatient [facility] 79 [id number] [facility] 07:22:00 07:22:00 _A_ [id number] Family Practic e 2019-05-15 2019-05-15 [facility] [id number] Common 03:58:00 03:58:[address] [facility] 2019-05-04 2019-05-04 Out[facility] [id number] Common 08:05:00 08:05:[address] [facility] 2019-04-14 2019-04-14 [facility] [id number] Common 10:00:00 10:00:[address] [facility] 2019-03-24 2019-03-24 Out[facility] [id number] Common 09:40:00 09:40:[address] [facility] 2018-12-12 2018-12-12 [facility] [id number] Common 09:37:00 09:37:00 t Specialty/U Sp johanna Specialty rology - [facility] 2018-12-09 2018-12-09 [facility] [id number] Common 09:00:00 09:00:00 t Specialty/U Sp johanna Specialty rology - [facility] /[facility] 2018-12-05 2018-12-05 Out[facility] [id number] Common 08:59:00 08:59:00 t Specialty/U Sp johanna Specialty rology - [facility] 2018-09-17 2018-09-17 Out[facility] [id number] Common 08:20:00 08:20:[address] [facility] 2018-03-19 2018-03-19 Out[facility] [id number] Common 10:00:00 10:00:[address] [facility] 2017-09-17 2017-09-17 [facility] [id number] Common 14:00:00 14:00:[address] [facility] Results Test Description Test Time Test Comments Results Result Comments Source SARS coronavirus 2 RNA [Presence] in Respiratory speci men by 2019-10-14 16:47:18 TOSIN with probe detection Test Item Value Reference Range Interpretation Comme nts SARS coronavirus 2 RNA [Presence] in Respiratory Not detected Not-D etected specimen by TOSIN with probe detection (test code = 50115-3)
[2021-12-09] MEDS ORDERED: HYDROCODONE/CHLORPHEN 5 ML/OSYR ONE (09:25)
--- NOTE | 2021-12-09 11:25 | EDPHYS ---
Physician Documentation [facility] [place] Name: Lin Delgado Age: 70 yrs Sex: Female : 1950 Arrival Date: 12/09/2021 Time: 08:59 Bed Waiting Private MD: Vandana Wright ED Physician Sahil Nino HPI: 12/09 09:15 This 70 yrs old Female presents to ER via Ambulatory with complaints of Productive pm1 Cough, Ear Pain, Headache. 09:15 The patient or guardian reports cough. Onset: The symptoms/episode began/occurred 1 pm1 week(s) ago. Severity of symptoms: in the emergency department the symptoms are actually worse. Modifying factors: The symptoms are alleviated by nothing, the symptoms are aggravated by nothing. Associated signs and symptoms: Pertinent positives: Headache, left ear pain, Pertinent negatives: chest pain, fever, shortness of breath. The patient has not experienced similar symptoms in the past. The patient has not recently seen a physician. Historical: - Allergies: 09:06 No Known Allergies; jl7 - Home Meds: 09:06 Fosamax 70 mg Oral tab 1 tab once wkly [Active]; metoprolol tartrate 50 mg Oral tab 1 jl7 tab once daily [Active]; aspirin 81 mg Oral TbEC 1 tab once daily [Active]; - PMHx: 09:06 Hypertension; Osteoporosis; Atrial fibrillation; jl7 - PSHx: 09:06 None; jl7 - Immunization history:: Client reports receiving the 2nd dose of the Covid vaccine. - Social history:: Smoking status: Patient reports the use of cigarette tobacco products, smokes one pack cigarettes per day. ROS: 09:15 Cardiovascular: Negative for chest pain, palpitations, and edema. pm1 09:15 Abdomen/GI: Negative for abdominal pain, nausea, vomiting, diarrhea, and constipation, Back: Negative for injury and pain, MS/Extremity: Negative for injury and deformity, Skin: Negative for injury, rash, and discoloration. 09:15 Constitutional: Negative for fever, poor PO intake. 09:15 ENT: Positive for ear pain, sore throat, Negative for drainage from ear(s). 09:15 Respiratory: Positive for cough, Negative for shortness of breath. 09:15 Neuro: Positive for headache. 09:15 All other systems are negative. Exam: 09:15 Constitutional: This is a well developed, well nourished patient who is awake, alert, pm1 and in no acute distress. 09:15 Back: No spinal tenderness. No costovertebral tenderness. Full range of motion. Skin: Warm, dry with normal turgor. Normal color with no rashes, no lesions, and no evidence of cellulitis. MS/ Extremity: Pulses equal, no cyanosis. Neurovascular intact. Full, normal range of motion. 09:15 Head/face: Sinus tenderness, that is moderate, is located over the left frontal sinus. 09:15 Eyes: Exam is negative for acute changes, Extraocular movements: no acute changes, Conjunctiva: no acute changes, no injection. 09:15 ENT: External ear(s): are unremarkable, Ear canal(s): no acute changes, TM's: bulging, on the left, erythema, that is moderate, on the left, Examination of the other ear shows no obvious abnormality, Mouth: no acute changes, Lips: normal, moist, Oral mucosa: normal, pink and intact, moist, Posterior pharynx: no acute changes. 09:15 Cardiovascular: Exam negative for acute changes, Rate: normal, Rhythm: regular, Pulses: no pulse deficits are appreciated, Heart sounds: normal, normal S1and S2. 09:15 Respiratory: Exam negative for acute changes, respiratory distress, shortness of breath, Breath sounds: are clear throughout. 09:15 Abdomen/GI: Exam negative for acute changes, Inspection: abdomen appears normal, Palpation: abdomen is soft and non-tender, in all quadrants. 09:15 Neuro: Exam negative for acute changes, Orientation: is normal, Mentation: is normal, Motor: is normal, moves all fours. Vital Signs: 09:04 BP 155 / 77; Pulse 95; Resp 17; Temp 98.1; Pulse Ox 98% on R/A; Weight 58.51 kg; Height jl7 5 ft. 2 in. (157.48 cm); Pain 8/10; 09:04 Body Mass Index 23.59 (58.51 kg, 157.48 cm) jl7 MDM: 09:32 Patient medically screened. pm1 11:23 Data reviewed: vital signs. Data interpreted: Pulse oximetry: on room air is 98 %. pm1 Interpretation:. Counseling: I had a detailed discussion with the patient and/or guardian regarding: the historical points, exam findings, and any diagnostic results supporting the discharge/admit diagnosis, lab results, radiology results, the need for outpatient follow up, to return to the emergency department if symptoms worsen or persist or if there are any questions or concerns that arise at home. 12/09 09:14 Order name: Flu; Complete Time: 10:15 pm1 12/09 09:14 Order name: COVID-19 SARS RT PCR (Document "Date of Onset" if Symptomatic); Complete pm1 Time: 11:02 12/09 09:14 Order name: Strep; Complete Time: 10:15 pm1 12/09 09:50 Order name: Throat Culture EDMS Administered Medications: : Drug: Tussionex Pennkinetic ER (chlorpheniramine-hydrocodone) Suspension 5 ml Route: PO;jl7 Disposition Summary: 12/09/21 11:24 Discharge Ordered Location: Home pm1 Problem: new pm1 Symptoms: have improved pm1 Condition: Stable pm1 Diagnosis - Otitis media, unspecified, left ear pm1 - Cough pm1 Followup: pm1 - With: Emergency Department - When: As needed - Reason: Worsening of condition Followup: pm1 - With: Private Physician - When: 2 - 3 days - Reason: Recheck today's complaints, Continuance of care, Re-evaluation by your physician Discharge Instructions: - Discharge Summary Sheet pm1 - Otitis Media, Adult pm1 - Cough, Adult pm1 Forms: - Medication Reconciliation Form pm1 - Thank You Letter pm1 - Antibiotic Education pm1 - Prescription Opioid Use pm1 Prescriptions: - Augmentin 875-125 mg Oral Tablet - take 1 tablet by ORAL route every 12 hours for 10 days; 20 tablet; Refills: 0, pm1 Product Selection Permitted - Guaifenesin AC 10-100 mg/5 mL Oral Liquid - take 10 milliliters by ORAL route every 4 hours As needed; 240 milliliter; pm1 Refills: 0, Product Selection Permitted Addendum: 12/10/2021 17:59 Co-signature as Attending Physician, Sahil Nino MD. m a2 Signatures: Dispatcher [employer] EDMS Charlie Cisneros, CIRO BREAKFAST HOST pm1 Kristie Ch RN RN jl7 Sahil Nino MD MD ma2
--- NOTE | 2021-12-09 11:25 | ER ---
Nurse's Notes [facility] Name: Lin Delgado Age: 70 yrs Sex: Female : 1950 Arrival Date: 12/09/2021 Time: 08:59 Bed Waiting Private MD: Vandana Wright Diagnosis: Otitis media, unspecified, left ear;Cough Presentation: 12/09 09:04 Chief complaint: Patient states: Productive cough, congestion, headaches, Left ear pain jl7 x 1 week, denies fever, denies shortness of breath. Coronavirus screen: congestion, cough unrelated to allergies, headache, runny nose. Ebola Screen: No symptoms or risks identified at this time. Initial Sepsis Screen: Does the patient meet any 2 criteria? No. Patient's initial sepsis screen is negative. Does the patient have a suspected source of infection? No. Patient's initial sepsis screen is negative. Risk Assessment: Do you want to hurt yourself or someone else? Patient reports no desire to harm self or others. Onset of symptoms was December 02, 2021. Care prior to arrival: None. 09:04 Method Of Arrival: Ambulatory jl7 09:04 Acuity: VITALIY 3 jl7 Triage Assessment: 09:06 General: Appears in no apparent distress. uncomfortable, Behavior is calm, cooperative, jl7 appropriate for age. Pain: Complains of pain in headache, left frontal aspect Pain currently is 8 out of 10 on a pain scale. Quality of pain is described as throbbing. Neuro: Level of Consciousness is awake, alert, obeys commands, Oriented to person, place, time, situation. Cardiovascular: Patient's skin is warm and dry. Respiratory: Reports cough that is productive, Airway is patent Respiratory effort is even, unlabored, Respiratory pattern is regular, symmetrical, Onset: The symptoms/episode began/occurred x 1 week, the patient has mild shortness of breath. Derm: Skin is pink, warm \T\ dry. Historical: - Allergies: : No Known Allergies; jl7 - Home Meds: : Fosamax 70 mg Oral tab 1 tab once wkly [Active]; metoprolol tartrate 50 mg Oral tab 1 jl7 tab once daily [Active]; aspirin 81 mg Oral TbEC 1 tab once daily [Active]; - PMHx: 09:06 Hypertension; Osteoporosis; Atrial fibrillation; jl7 - PSHx: 09:06 None; jl7 - Immunization history:: Client reports receiving the 2nd dose of the Covid vaccine. - Social history:: Smoking status: Patient reports the use of cigarette tobacco products, smokes one pack cigarettes per day. Screenin:10 Abuse screen: Denies threats or abuse. Denies injuries from another. Nutritional jl7 screening: No deficits noted. Tuberculosis screening: No symptoms or risk factors identified. Assessment: 09:10 Reassessment: CIRO Guerra in triage assessing pt. jl7 Vital Signs: 09:04 BP 155 / 77; Pulse 95; Resp 17; Temp 98.1; Pulse Ox 98% on R/A; Weight 58.51 kg; Height jl7 5 ft. 2 in. (157.48 cm); Pain 01/24; 09:04 Body Mass Index 23.59 (58.51 kg, 157.48 cm) jl7 ED Course: 08:59 Patient arrived in ED. am2 09:00 Vandana Wright MD is Private Physician. am2 09:06 Triage completed. jl7 09:06 Arm band placed on right wrist. jl7 09:08 Charlie Cisneros NP is PHCP. pm1 09:08 Sahil Nino MD is Attending Physician. pm1 09:10 Patient has correct armband on for positive identification. jl7 09:15 Kristie Ch RN is Primary Nurse. jl7 09:25 COVID swab sent to lab. Flu and/or RSV swab sent to lab. Strep swab sent to lab. jl7 11:25 Primary Nurse role handed off by Kristie Ch RN jl7 11:34 No provider procedures requiring assistance completed. Patient did not have IV access jl7 during this emergency room visit. Administered Medications: 09:25 Drug: Tussionex Pennkinetic ER (chlorpheniramine-hydrocodone) Suspension 5 ml Route: PO;jl7 Outcome: 11:24 Discharge ordered by . pm1 11:33 Discharged to home ambulatory. jl7 11:33 Condition: stable 11:33 Discharge instructions given to patient, Instructed on discharge instructions, follow up and referral plans. medication usage, safety practices, Demonstrated understanding of instructions, follow-up care, medications, Prescriptions given X 2. 11:34 Patient left the ED. jl7 Signatures: Charlie Cisneros, PROFESSIONAL TUTOR PROFESSIONAL TUTOR pm1 Kristie Ch RN RN jl7 Silvia Nguyen am2
[2021-12-09 11:49] VITALS: BP 155/77; TEMP 98.1; O2SAT 98
== END 2021-12-09 11:34 | disposition home or self-care (01) ==
LOC: ER 08:59
DX: H66.92 Otitis media, unspecified, left ear (principal); R05.9 Cough, unspecified; F17.210 Nicotine dependence, cigarettes, uncomplicated; I10 Essential (primary) hypertension; I48.91 Unspecified atrial fibrillation; Z79.82 Long term (current) use of aspirin; Z20.822 Contact with and (suspected) exposure to COVID-19
CPT/HCPCS: 87070; 87081; 87804 ×2; U0003; 99283

== ENCOUNTER 2022-05-07 13:59 | Emergency (ER) | payer OTHER ==
--- OUTSIDE RECORDS SUMMARY | 2022-05-07 14:06 | XMS REPORT | Continuity of Care Document ---
:1950 Author Organization [facility] t Address [address] [place] [address] Care Team Providers Name Role Phone Vandana Wright Primary Care Physician Vandana Wright Attending Clinician Unavailable TAYLOR SCHMIDT Attending Clinician Unavailable Doctor Unassigned, [place] Attending Clinician Unavailable Taylor Schmidt MD Attending Clinician Dony Ac DO Attending Clinician LOU COON Attending Clinician Unavailable GAURAV HARPER Attending Clinician Unavailable MD LOU COON Attending Clinician Unavailable Charline Attending Clinician Unavailable Allen Chew Attending Clinician TAYLOR SCHMIDT Admitting Clinician Unavailable LOU COON Admitting Clinician Unavailable MD LOU COON Admitting Clinician Unavailable Scot_RICARDA Admitting Clinician Unavailable Payers Payer Name Policy Type Policy Number Effective Date Expiration Date S ource [employer]NA MEDICARE 53 [id number] 2021 [facility] johanna 00:00:00 [facility] HUMANA GOLD PLS [id number] 2020 HMO 00:00:00 MEDICARE MB [id number] [facility] NOVITAS [facility] MEDICARE MB [id number] [facility] NOVITAS [facility] MEDICARE MB [id number] [facility] NOVITAS [facility] MEDICARE MB [id number] [facility] NOVITAS [facility] MEDICARE MB [id number] [facility] NOVITAS [facility] HUMANA MEDICARE C1 [id number] 2019 Common Sp johanna 00:00:00 [facility] MEDICARE C1 [id number] 2019 [facility] Sp johanna 00:00:00 [facility] MEDICARE C1 [id number] 2019 [facility] Sp johanna 00:00:00 [facility] [id number] - [employer] (MEDICARE REPLACEMENT/ADV ANTAGE - HMO) Problems Condition Condition Condition Status Onset Resolution Last Treating Co mments Source Name Details Category Date Date Treatment Clinician Date 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 [address] nodule nodule 00:00: Hospita 00 l [id number] Nonexudati Problem Co mmon ve Spirit 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 - [facility]I d macular [facility], Medical bilateral, Center intermedia te dry stage [id number] Atrial Problem Common fibrillati Spirit on, - [facility]I unspecifie [facility] [id number] 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 - CHI on [facility] [id number] [place] Problem Comm on [id number] left [facility] adrenal - [facility] gland [facility] Allergic Allergic Problem Commo n rhinitis rhinitis [facility] Essential Benign Problem Common hypertensi essential Spi rit on HTN [facility] [id number] Gynecologi Problem Co mmon c exam Spirit normal [facility] Overactive Overactive Problem C ommon bladder bladder [facility] [id number] Abdominal Problem Com mon distension [facility] (gaseous) [facility] [id number] Encounter Problem Com mon for Spirit general - [facility] adult [facility] examinatio Medica l n with Center abnormal findings [id number] Low back Problem Comm on pain [facility] [id number] Seasonal Problem Comm on allergies [facility] [id number] Statin Problem Common declined [facility] [id number] Gastritis Problem Com mon and Spirit duodenitis - [facility] [id number] Osteoporos Problem Com mon is, Spirit unspecifie - CHI d St osteoporos 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 [id number] Nicotine Problem Commo n dependence Spirit , - CHI uncomplica [facility] unspecifie Medica l d nicotine Center product type Dyskinesia Dyskinesi Problem Active 2019-02-13 Memoria (finding) a 02:03:09 l (finding) Grulla Active Problem 02/13/2019 [facility] Hypertensi Hypertens Problem Active 2019-02-13 Memoria ve hector 02:03:09 l disorder, disorder, Herm naina systemic systemic arterial arterial (disorder) (disorder) Active Problem 02/13/2019 [facility] No known No known Disease Unive rs active active ity of problems problems [facility] Allergies, Adverse Reactions, Alerts This patient has no known allergies or adverse reactions. Family History Family Member Diagnosis Comments Start Date Stop Date Source Natural mother Hypertension [facility] Natural mother Ovarian cancer Method [facility] Natural mother Rheum [facility] Social History Social Habit Start Date Stop Date Quantity Comments Source History of Tobacco Current Smoker Co mmon Spirit - Use [facility] History SDOH [facility] Alcohol Std Drinks Hospit al History SDOH [facility] Tobacco use and 2021-08-14 2021-08-14 Smokeless Universit y of exposure 00:00:00 00:00:00 tobacco non-user [facility] Alcohol intake 2019-11-25 2019-11-25 Lifetime [facility] 00:00:00 00:00:00 non-drinker Hospital (finding) History SDOH 2019-11-24 2019-11-24 1 [facility] Alcohol Frequency 00:00:00 00:00:00 Hospita l Cigarettes smoked 2019-08-13 2019-08-[address] current (pack per 00:00:00 00:00:00 Hospita l day) - Reported Cigarette 2019-08-13 2019-08-13 [facility] pack-years 00:00:00 00:00:00 Hospital Social History 2018-12-30 2018-12-[address] [facility] 19:27:47 19:27:47 Sex [birth year] [facility] 00:00:00 00:00:00 [facility] Smoking Status Start Date Stop Date Source Unknown if ever smoked [facility] j[facility]anna - [facility] Ce nter Current Smoker 2022-01-29 00:00:00 [facility] t [facility] nter Ex-smoker 2019-08-13 00:00:00 2019-08-13 00:00:00 [facility] Medications Ordered Filled Start Stop Current Ordering Indication Dosage Frequency Signature Comments Components Source Medication Medication Date Date Medication? Clinician (SIG) Name Name Benzonatate Benzonatate 2021- No 1{capsu Benzonatat 200 MG 200 MG 01-29 le_as_n e 200 MG 00:00: 00:00 eeded} 00 :00 Benzonatate Benzonatate 2021- No 1{capsu Benzonatat 200 MG 200 MG 01-29 le_as_n e 200 MG 00:00: 00:00 eeded} 00 :00 Pseudoeph-B Pseudoeph-B 2021- No 5{ml_as QID Pseudoeph- romphen-DM romphen-DM 01-29 _needed Bromphen-D 30-2-10 30-2-10 00:00: 00:00 } M 30-2-10 MG/5ML MG/5ML 00 :00 MG/5ML Pseudoeph-B Pseudoeph-B 2021- No 5{ml_as QID Pseudoeph- romphen-DM romphen-DM 01-29 _needed Bromphen-D 30-2-10 30-2-10 00:00: 00:00 } M 30-2-10 MG/5ML MG/5ML 00 :00 MG/5ML Polytrim Polytrim 2021- No 1{drop_ QID Polytrim 09789-0.1 40109-5.1 6-20 - into_af 40759-2.1 UNIT/ML UNIT/ML 00:00: 00:00 fected_ UNIT/ML 00 :00 eye} propafenone 2021- No 225mg Take 1 Un nikia 225 mg 5-27 07-27 tablet by ity of tablet 00:00: 04:59 mouth 2 [place] 00 :00 (two) Medical times Branch daily for 60 days. metoprolol Yes [id number] 50mg Take 1 Univers succinate 5-03 tablet by ity o f XL 50 mg 24 00:00: mouth 2 [place] as hr tablet 00 (two) Medical times Branch daily. metoprolol 2021-0 Yes [id number] 50mg Take 1 Univers succinate 5-03 tablet by ity o f XL 50 mg 24 00:00: mouth 2 [place] as hr tablet 00 (two) Medical times Branch daily. metoprolol 2021-0 Yes [id number] 50mg Take 1 Univers succinate 5-03 tablet by ity o f XL 50 mg 24 00:00: mouth 2 [place]ian as hr tablet 00 (two) Medical times Branch daily. metoprolol 2021-0 Yes [id number] 50mg Take 1 Univers succinate 5-03 tablet by ity o f XL 50 mg 24 00:00: mouth 2 [place]ian as hr tablet 00 (two) Medical times Branch daily. aspirin 81 2021-0 Yes 81mg Take 81 mg U nivers mg chewable 4-27 by mouth ity of tablet 10:10: daily. [address] aspirin 81 2021-0 Yes 81mg Take 81 mg U nivers mg chewable 4-27 by mouth ity of tablet 10:10: daily. [address] aspirin 81 202-0 Yes 81mg Take 81 mg U nivers mg chewable 4-27 by mouth ity of tablet 10:10: daily. [address] aspirin 81 2021-0 Yes 81mg Take 81 mg U nivers mg chewable 4-27 by mouth ity of tablet 10:10: daily. [address] alendronate 0 Yes 70mg Take 70 mg Univers (FOSAMAX) 2-28 by mouth ity of 70 mg 09:56: weekly. [address] alendronate 0 Yes 70mg Take 70 mg Univers (FOSAMAX) 2-28 by mouth ity of 70 mg 09:56: weekly. [address] alendronate 0 Yes 70mg Take 70 mg Univers (FOSAMAX) 2-28 by mouth ity of 70 mg 09:56: weekly. [address] alendronate 0 Yes 70mg Take 70 mg Univers (FOSAMAX) 2-28 by mouth ity of 70 mg 09:56: weekly. [address] alendronate 0 Yes 70mg Q1W Take 70 mg [facility] (FOSAMAX) 6-[address] 70 MG 10:16: every 7 Hospita tablet 54 days. Take l in the morning with a full glass of water on an empty stomach, do NOT take anything else by mouth or lie down for the next 30 min. Hydrochloro 2019-0 Yes 1 tab, PO, Memoria thiazide 7-16 Daily, 0 l 12.5 MG / 18:57: Refill(s) peterson Lisinopril 00 10 MG Oral Tablet Fosamax 2019-0 No PO, qWeek, Júnior margot 7-16 0 l 18:57: Refill(s) Grulla 00 Lisinopril 2019-0 No PO, Daily, M emoria 7-16 0 l 18:57: Refill(s) Grulla 00 Omeprazole Omeprazole 0 No 1{capsu BID Omeprazole 40 MG 40 MG 6- le} 40 MG 00:00: 00 Omeprazole Omeprazole 2019-0 No 1{capsu BID Omeprazole 40 MG 40 MG 6 le} 40 MG 00:00: 00 Omeprazole Omeprazole 2019-0 No 1{capsu BID Omeprazole 40 MG 40 MG 6- le} 40 MG 00:00: 00 Omeprazole Omeprazole 2019-0 No 1{capsu BID Omeprazole 40 MG 40 MG 6 le} 40 MG 00:00: 00 Omeprazole Omeprazole 2019-0 No 1{capsu BID Omeprazole 40 MG 40 MG 6- le} 40 MG 00:00: 00 Omeprazole Omeprazole 2019-0 No 1{capsu BID Omeprazole 40 MG 40 MG 12-12 le} 40 MG 00:00: 00 Omeprazole Omeprazole 2019-0 No 1{capsu BID Omeprazole 40 MG 40 MG - le} 40 MG 00:00: 00 Omeprazole Omeprazole 2019-0 No 1{capsu BID Omeprazole 40 MG 40 MG 12-12 le} 40 MG 00:00: 00 Omeprazole Omeprazole 2019-0 No 1{capsu BID Omeprazole 40 MG 40 MG - le} 40 MG 00:00: 00 Omeprazole Omeprazole 2019-0 No 1{capsu BID Omeprazole 40 MG 40 MG 12-12 le} 40 MG 00:00: 00 Omeprazole Omeprazole 2019-0 No 1{capsu BID Omeprazole 40 MG 40 MG - le} 40 MG 00:00: 00 Omeprazole Omeprazole 2019-0 No 1{capsu BID Omeprazole 40 MG 40 MG 12-12 le} 40 MG 00:00: 00 Omeprazole Omeprazole 2019-0 No 1{capsu BID Omeprazole 40 MG 40 MG 6- le} 40 MG 00:00: 00 Omeprazole Omeprazole 2019-0 No 1{capsu BID Omeprazole 40 MG 40 MG 6- le} 40 MG 00:00: 00 Omeprazole Omeprazole 2019-0 No 1{capsu BID Omeprazole 40 MG 40 MG 6- le} 40 MG 00:00: 00 Omeprazole Omeprazole 2019-0 No 1{capsu BID Omeprazole 40 MG 40 MG 6- le} 40 MG 00:00: 00 Omeprazole Omeprazole 2019-0 No 1{capsu BID Omeprazole 40 MG 40 MG 6-28 le} 40 MG 00:00: 00 Omeprazole Omeprazole 2019-0 No 1{capsu BID Omeprazole 40 MG 40 MG 6-28 le} 40 MG 00:00: 00 Omeprazole Omeprazole 2019-0 No 1{capsu BID Omeprazole 40 MG 40 MG 6-28 le} 40 MG 00:00: 00 Omeprazole Omeprazole 2019-0 No 1{capsu BID Omeprazole 40 MG 40 MG 6-28 le} 40 MG 00:00: 00 Omeprazole Omeprazole 2019-0 No 1{capsu BID Omeprazole 40 MG 40 MG 6- le} 40 MG 00:00: 00 Omeprazole Omeprazole 2019-0 No 1{capsu BID Omeprazole 40 MG 40 MG 6- le} 40 MG 00:00: 00 Omeprazole Omeprazole 2019-0 No 1{capsu BID Omeprazole 40 MG 40 MG 6- le} 40 MG 00:00: 00 Omeprazole Omeprazole 2019-0 No 1{capsu BID Omeprazole 40 MG 40 MG 6- le} 40 MG 00:00: 00 Omeprazole Omeprazole 2019-0 No 1{capsu BID Omeprazole 40 MG 40 MG 6-28 le} 40 MG 00:00: 00 Omeprazole Omeprazole 2019-0 No 1{capsu BID Omeprazole 40 MG 40 MG 6- le} 40 MG 00:00: 00 Chantix Chantix 0 No Chantix Starting Starting 11-18 Starting Month Lele Month Lele 00:00: Month Lele .5mg .5mg 00 .5mg Chantix Chantix 0 No Chantix Starting Starting 11-18 Starting Month Lele Month Lele 00:00: Month Lele .5mg .5mg 00 .5mg Chantix Chantix 2018-0 No Chantix Starting Starting 11-18 Starting Month Lele Month Lele 00:00: Month Lele .5mg .5mg 00 .5mg Chantix Chantix 2019-0 No Chantix Starting Starting 11-18 Starting Month Lele Month Lele 00:00: Month Lele .5mg .5mg 00 .5mg Chantix Chantix 2018-0 No Chantix Starting Starting 11-18 Starting Month Lele Month Lele 00:00: Month Lele .5mg .5mg 00 .5mg Chantix Chantix 2019-0 No Chantix Starting Starting 11-18 Starting Month Lele Month Lele 00:00: Month Lele .5mg .5mg 00 .5mg Chantix Chantix 2019-0 No Chantix Starting Starting 11-18 Starting Month Lele Month Lele 00:00: Month Lele .5mg .5mg 00 .5mg Chantix Chantix 2019-0 No Chantix Starting Starting 11-18 Starting Month Lele Month Lele 00:00: Month Lele .5mg .5mg 00 .5mg Chantix Chantix 2019-0 No Chantix Starting Starting 11-18 Starting Month Lele Month Lele 00:00: Month Lele .5mg .5mg 00 .5mg Chantix Chantix 2019-0 No Chantix Starting Starting 11-18 Starting Month Lele Month Lele 00:00: Month Lele .5mg .5mg 00 .5mg Chantix Chantix 2019-0 No Chantix Starting Starting 11-18 Starting Month Lele Month Lele 00:00: Month Lele .5mg .5mg 00 .5mg Chantix Chantix 2019-0 No Chantix Starting Starting 11-18 Starting Month Lele Month Lele 00:00: Month Lele .5mg .5mg 00 .5mg Chantix Chantix 2019-0 No Chantix Starting Starting 11-18 Starting Month Lele Month Lele 00:00: Month Lele .5mg .5mg 00 .5mg Chantix Chantix 2019-0 No Chantix Starting Starting 11-18 Starting Month Lele Month Lele 00:00: Month Lele .5mg .5mg 00 .5mg Chantix Chantix 2019-0 No Chantix Starting Starting 11-18 Starting Month Lele Month Lele 00:00: Month Lele .5mg .5mg 00 .5mg Chantix Chantix 2019-0 No Chantix Starting Starting 11-18 Starting Month Lele Month Lele 00:00: Month Lele .5mg .5mg 00 .5mg Chantix Chantix 2019-0 No Chantix Starting Starting 11-18 Starting Month Lele Month Lele 00:00: Month Lele .5mg .5mg 00 .5mg Chantix Chantix 2019-0 No Chantix Starting Starting 11-18 Starting Month Lele Month Lele 00:00: Month Lele .5mg .5mg 00 .5mg Chantix Chantix 2019-0 No Chantix Starting Starting 11-18 Starting Month [facility] Month Lele 00:00: Month Lele .5mg .5mg 00 .5mg Chantix Chantix 2019-0 No Chantix Starting Starting 11-18 Starting Month Lele Month Lele 00:00: Month Lele .5mg .5mg 00 .5mg Chantix Chantix 2019- No Chantix Starting Starting 11-18 Starting Month Lele Month Lele 00:00: Month Lele .5mg .5mg 00 .5mg Chantix Chantix 2019- No Chantix Starting Starting 11-18 Starting Month [facility] Month Lele 00:00: Month Lele .5mg .5mg 00 .5mg Chantix Chantix 2019- No Chantix Starting Starting 11-18 Starting Month [facility] Month Lele 00:00: Month Lele .5mg .5mg 00 .5mg Chantix Chantix 2019- No Chantix Starting Starting 11-18 Starting Month [facility] Lele 00:00: Month Lele .5mg .5mg 00 .5mg Chantix Chantix 2019- No Chantix Starting Starting 11-18 Starting Month [facility] Lele 00:00: Month Lele .5mg .5mg 00 .5mg Chantix Chantix 2019- No Chantix Starting Starting 11-18 Starting Month [facility] Lele 00:00: Month Lele .5mg .5mg 00 .5mg Fosamax Fosamax Yes Na Wright 1 EACH Comm on ONCE A Spirit WEEK - CHI ORALLY [facility] Claritin 10 Claritin 10 No 1{table QD Claritin MG MG t} 10 MG Fosamax 70 Fosamax 70 No Fosamax 70 MG MG MG Azithromyci Azithromyci No QD Azithromyc n 500 MG n 500 MG in 500 MG Fosamax 70 Fosamax 70 No Fosamax 70 MG MG MG Fosamax 70 Fosamax 70 No Fosamax 70 CeleBREX CeleBREX No 1{capsu QD CeleBREX 100 MG 100 MG le_with 100 MG _food} Albuterol Albuterol No 2{puffs QID Albuterol Sulfate 108 Sulfate 108 _as_nee Sulfate (90 Base) (90 Base) ded} 108 (90 MCG/ACT MCG/ACT Base) MCG/ACT Claritin 10 Claritin 10 No 1{table QD Claritin MG MG t} 10 MG Fosamax 70 Fosamax 70 No Fosamax 70 MG MG MG Azithromyci Azithromyci No QD Azithromyc n 500 MG n 500 MG in 500 MG Fosamax 70 Fosamax 70 No Fosamax 70 MG MG MG Fosamax 70 Fosamax 70 No Fosamax 70 CeleBREX CeleBREX No 1{capsu QD CeleBREX 100 MG 100 MG le_with 100 MG _food} Azithromyci Azithromyci No QD Azithromyc n 500 MG n 500 MG in 500 MG CeleBREX CeleBREX No 1{capsu QD CeleBREX 100 MG 100 MG le_with 100 MG _food} Fosamax 70 Fosamax 70 No Fosamax 70 Albuterol Albuterol No 2{puffs QID Albuterol Sulfate 108 Sulfate 108 _as_nee Sulfate (90 Base) (90 Base) ded} 108 (90 MCG/ACT MCG/ACT Base) MCG/ACT Fosamax 70 Fosamax 70 No Fosamax 70 MG MG MG Fosamax 70 Fosamax 70 No Fosamax 70 MG MG MG Claritin 10 Claritin 10 No 1{table QD Claritin MG MG t} 10 MG Azithromyci Azithromyci No QD Azithromyc n 500 MG n 500 MG in 500 MG CeleBREX CeleBREX No 1{capsu QD CeleBREX 100 MG 100 MG le_with 100 MG _food} Fosamax 70 Fosamax 70 No Fosamax 70 Albuterol Albuterol No 2{puffs QID Albuterol Sulfate 108 Sulfate 108 _as_nee Sulfate (90 Base) (90 Base) ded} 108 (90 MCG/ACT MCG/ACT Base) MCG/ACT Fosamax 70 Fosamax 70 No Fosamax 70 MG MG MG Fosamax 70 Fosamax 70 No Fosamax 70 MG MG MG Claritin 10 Claritin 10 No 1{table QD Claritin MG MG t} 10 MG Azithromyci Azithromyci No QD Azithromyc n 500 MG n 500 MG in 500 MG CeleBREX CeleBREX No 1{capsu QD CeleBREX 100 MG 100 MG le_with 100 MG _food} Fosamax 70 Fosamax 70 No Fosamax 70 Albuterol Albuterol No 2{puffs QID Albuterol Sulfate 108 Sulfate 108 _as_nee Sulfate (90 Base) (90 Base) ded} 108 (90 MCG/ACT MCG/ACT Base) MCG/ACT Fosamax 70 Fosamax 70 No Fosamax 70 MG MG MG Fosamax 70 Fosamax 70 No Fosamax 70 MG MG MG Claritin 10 Claritin 10 No 1{table QD Claritin MG MG t} 10 MG Azithromyci Azithromyci No QD Azithromyc n 500 MG n 500 MG in 500 MG CeleBREX CeleBREX No 1{capsu QD CeleBREX 100 MG 100 MG le_with 100 MG _food} Fosamax 70 Fosamax 70 No Fosamax 70 Albuterol Albuterol No 2{puffs QID Albuterol Sulfate 108 Sulfate 108 _as_nee Sulfate (90 Base) (90 Base) ded} 108 (90 MCG/ACT MCG/ACT Base) MCG/ACT Fosamax 70 Fosamax 70 No Fosamax 70 MG MG MG Fosamax 70 Fosamax 70 No Fosamax 70 MG MG MG Claritin 10 Claritin 10 No 1{table QD Claritin MG MG t} 10 MG Azithromyci Azithromyci No QD Azithromyc n 500 MG n 500 MG in 500 MG CeleBREX CeleBREX No 1{capsu QD CeleBREX 100 MG 100 MG le_with 100 MG _food} Fosamax 70 Fosamax 70 No Fosamax 70 Albuterol Albuterol No 2{puffs QID Albuterol Sulfate 108 Sulfate 108 _as_nee Sulfate (90 Base) (90 Base) ded} 108 (90 MCG/ACT MCG/ACT Base) MCG/ACT Fosamax 70 Fosamax 70 No Fosamax 70 MG MG MG Fosamax 70 Fosamax 70 No Fosamax 70 MG MG MG Claritin 10 Claritin 10 No 1{table QD Claritin MG MG t} 10 MG Azithromyci Azithromyci No QD Azithromyc n 500 MG n 500 MG in 500 MG Alendronate Alendronate No Alendronat Sodium 70 Sodium 70 e Sodium MG MG 70 MG Fosamax 70 Fosamax 70 No Fosamax 70 Claritin 10 Claritin 10 No 1{table QD Claritin MG MG t} 10 MG Fosamax 70 Fosamax 70 No Fosamax 70 MG MG MG Fosamax 70 Fosamax 70 No Fosamax 70 MG MG MG CeleBREX CeleBREX No 1{capsu QD CeleBREX 100 MG 100 MG le_with 100 MG _food} Claritin 10 Claritin 10 No 1{table QD Claritin MG MG t} 10 MG Fosamax 70 Fosamax 70 No Fosamax 70 MG MG MG Azithromyci Azithromyci No QD Azithromyc n 500 MG n 500 MG in 500 MG CeleBREX CeleBREX No 1{capsu QD CeleBREX 100 MG 100 MG le_with 100 MG _food} Fosamax 70 Fosamax 70 No Fosamax 70 CeleBREX CeleBREX No 1{capsu QD CeleBREX 100 MG 100 MG le_with 100 MG _food} Claritin 10 Claritin 10 No 1{table QD Claritin MG MG t} 10 MG Alendronate Alendronate No Alendronat Sodium 70 Sodium 70 e Sodium MG MG 70 MG Azithromyci Azithromyci No QD Azithromyc n 500 MG n 500 MG in 500 MG Fosamax 70 Fosamax 70 No Fosamax 70 MG MG MG CeleBREX CeleBREX No 1{capsu QD CeleBREX 100 MG 100 MG le_with 100 MG _food} Claritin 10 Claritin 10 No 1{table QD Claritin MG MG t} 10 MG Alendronate Alendronate No Alendronat Sodium 70 Sodium 70 e Sodium MG MG 70 MG Azithromyci Azithromyci No QD Azithromyc n 500 MG n 500 MG in 500 MG Fosamax 70 Fosamax 70 No Fosamax 70 MG MG MG Azithromyci Azithromyci No QD Azithromyc n 500 MG n 500 MG in 500 MG Aspirin 81 Aspirin 81 No 1{table QD Aspirin 81 MG MG t} MG Toprol XL Toprol XL No 1{table QD Toprol XL 50 MG 50 MG t} 50 MG CeleBREX CeleBREX No 1{capsu QD CeleBREX 100 MG 100 MG le_with 100 MG _food} Claritin 10 Claritin 10 No 1{table QD Claritin MG MG t} 10 MG Fosamax 70 Fosamax 70 No Fosamax 70 MG MG MG Alendronate Alendronate No Alendronat Sodium 70 Sodium 70 e Sodium MG MG 70 MG Azithromyci Azithromyci No QD Azithromyc n 500 MG n 500 MG in 500 MG Aspirin 81 Aspirin 81 No 1{table QD Aspirin 81 MG MG t} MG Toprol XL Toprol XL No 1{table QD Toprol XL 50 MG 50 MG t} 50 MG CeleBREX CeleBREX No 1{capsu QD CeleBREX 100 MG 100 MG le_with 100 MG _food} Claritin 10 Claritin 10 No 1{table QD Claritin MG MG t} 10 MG Fosamax 70 Fosamax 70 No Fosamax 70 MG MG MG Alendronate Alendronate No Alendronat Sodium 70 Sodium 70 e Sodium MG MG 70 MG Azithromyci Azithromyci No QD Azithromyc n 500 MG n 500 MG in 500 MG Aspirin 81 Aspirin 81 No 1{table QD Aspirin 81 MG MG t} MG Toprol XL Toprol XL No 1{table QD Toprol XL 50 MG 50 MG t} 50 MG CeleBREX CeleBREX No 1{capsu QD CeleBREX 100 MG 100 MG le_with 100 MG _food} Claritin 10 Claritin 10 No 1{table QD Claritin MG MG t} 10 MG Fosamax 70 Fosamax 70 No Fosamax 70 MG MG MG Alendronate Alendronate No Alendronat Sodium 70 Sodium 70 e Sodium MG MG 70 MG Azithromyci Azithromyci No QD Azithromyc n 500 MG n 500 MG in 500 MG Aspirin 81 Aspirin 81 No 1{table QD Aspirin 81 MG MG t} MG Toprol XL Toprol XL No 1{table QD Toprol XL 50 MG 50 MG t} 50 MG CeleBREX CeleBREX No 1{capsu QD CeleBREX 100 MG 100 MG le_with 100 MG _food} Claritin 10 Claritin 10 No 1{table QD Claritin MG MG t} 10 MG Fosamax 70 Fosamax 70 No Fosamax 70 MG MG MG Alendronate Alendronate No Alendronat Sodium 70 Sodium 70 e Sodium MG MG 70 MG CeleBREX CeleBREX No 1{capsu QD CeleBREX 100 MG 100 MG le_with 100 MG _food} Alendronate Alendronate No Alendronat Sodium 70 Sodium 70 e Sodium MG MG 70 MG Toprol XL Toprol XL No 1{table QD Toprol XL 50 MG 50 MG t} 50 MG Azithromyci Azithromyci No QD Azithromyc n 500 MG n 500 MG in 500 MG Aspirin 81 Aspirin 81 No 1{table QD Aspirin 81 MG MG t} MG Claritin 10 Claritin 10 No 1{table QD Claritin MG MG t} 10 MG Fosamax 70 Fosamax 70 No Fosamax 70 MG MG MG CeleBREX CeleBREX No 1{capsu QD CeleBREX 100 MG 100 MG le_with 100 MG _food} Alendronate Alendronate No Alendronat Sodium 70 Sodium 70 e Sodium MG MG 70 MG Toprol XL Toprol XL No 1{table QD Toprol XL 50 MG 50 MG t} 50 MG Azithromyci Azithromyci No QD Azithromyc n 500 MG n 500 MG in 500 MG Aspirin 81 Aspirin 81 No 1{table QD Aspirin 81 MG MG t} MG Claritin 10 Claritin 10 No 1{table QD Claritin MG MG t} 10 MG Fosamax 70 Fosamax 70 No Fosamax 70 MG MG MG Alendronate Alendronate No Alendronat Sodium 70 Sodium 70 e Sodium MG MG 70 MG Toprol XL Toprol XL No 1{table QD Toprol XL 50 MG 50 MG t} 50 MG Aspirin 81 Aspirin 81 No 1{table QD Aspirin 81 MG MG t} MG Azithromyci Azithromyci No QD Azithromyc n 500 MG n 500 MG in 500 MG CeleBREX CeleBREX No 1{capsu QD CeleBREX 100 MG 100 MG le_with 100 MG _food} Fosamax 70 Fosamax 70 No Fosamax 70 MG MG MG Claritin 10 Claritin 10 No 1{table QD Claritin MG MG t} 10 MG CeleBREX CeleBREX No 1{capsu QD CeleBREX 100 MG 100 MG le_with 100 MG _food} Toprol XL Toprol XL No 1{table QD Toprol XL 50 MG 50 MG t} 50 MG Aspirin 81 Aspirin 81 No 1{table QD Aspirin 81 MG MG t} MG Alendronate Alendronate No Alendronat Sodium 70 Sodium 70 e Sodium MG MG 70 MG Claritin 10 Claritin 10 No 1{table QD Claritin MG MG t} 10 MG Fosamax 70 Fosamax 70 No Fosamax 70 MG MG MG Azithromyci Azithromyci No QD Azithromyc n 500 MG n 500 MG in 500 MG CeleBREX CeleBREX No 1{capsu QD CeleBREX 100 MG 100 MG le_with 100 MG _food} Toprol XL Toprol XL No 1{table QD Toprol XL 50 MG 50 MG t} 50 MG Aspirin 81 Aspirin 81 No 1{table QD Aspirin 81 MG MG t} MG Alendronate Alendronate No Alendronat Sodium 70 Sodium 70 e Sodium MG MG 70 MG Claritin 10 Claritin 10 No 1{table QD Claritin MG MG t} 10 MG Fosamax 70 Fosamax 70 No Fosamax 70 MG MG MG Azithromyci Azithromyci No QD Azithromyc n 500 MG n 500 MG in 500 MG Alendronate Alendronate No Alendronat Sodium 70 Sodium 70 e Sodium MG MG 70 MG Azithromyci Azithromyci No QD Azithromyc n 500 MG n 500 MG in 500 MG Toprol XL Toprol XL No 1{table QD Toprol XL 50 MG 50 MG t} 50 MG Claritin 10 Claritin 10 No 1{table QD Claritin MG MG t} 10 MG Fosamax 70 Fosamax 70 No Fosamax 70 MG MG MG CeleBREX CeleBREX No 1{capsu QD CeleBREX 100 MG 100 MG le_with 100 MG _food} Aspirin 81 Aspirin 81 No 1{table QD Aspirin 81 MG MG t} MG Alendronate Alendronate No Alendronat Sodium 70 Sodium 70 e Sodium MG MG 70 MG Azithromyci Azithromyci No QD Azithromyc n 500 MG n 500 MG in 500 MG Toprol XL Toprol XL No 1{table QD Toprol XL 50 MG 50 MG t} 50 MG Claritin 10 Claritin 10 No 1{table QD Claritin MG MG t} 10 MG Fosamax 70 Fosamax 70 No Fosamax 70 MG MG MG CeleBREX CeleBREX No 1{capsu QD CeleBREX 100 MG 100 MG le_with 100 MG _food} Aspirin 81 Aspirin 81 No 1{table QD Aspirin 81 MG MG t} MG Alendronate Alendronate No Alendronat Sodium 70 Sodium 70 e Sodium MG MG 70 MG Aspirin 81 Aspirin 81 No 1{table QD Aspirin 81 MG MG t} MG Toprol XL Toprol XL No 1{table QD Toprol XL 50 MG 50 MG t} 50 MG Claritin 10 Claritin 10 No 1{table QD Claritin MG MG t} 10 MG Fosamax 70 Fosamax 70 No Fosamax 70 MG MG MG CeleBREX CeleBREX No 1{capsu QD CeleBREX 100 MG 100 MG le_with 100 MG _food} Azithromyci Azithromyci No QD Azithromyc n 500 MG n 500 MG in 500 MG Alendronate Alendronate No Alendronat Sodium 70 Sodium 70 e Sodium MG MG 70 MG Aspirin 81 Aspirin 81 No 1{table QD Aspirin 81 MG MG t} MG Toprol XL Toprol XL No 1{table QD Toprol XL 50 MG 50 MG t} 50 MG Claritin 10 Claritin 10 No 1{table QD Claritin MG MG t} 10 MG Fosamax 70 Fosamax 70 No Fosamax 70 MG MG MG CeleBREX CeleBREX No 1{capsu QD CeleBREX 100 MG 100 MG le_with 100 MG _food} Azithromyci Azithromyci No QD Azithromyc n 500 MG n 500 MG in 500 MG Alendronate Alendronate No Alendronat Sodium 70 Sodium 70 e Sodium MG MG 70 MG Aspirin 81 Aspirin 81 No 1{table QD Aspirin 81 MG MG t} MG Toprol XL Toprol XL No 1{table QD Toprol XL 50 MG 50 MG t} 50 MG Claritin 10 Claritin 10 No 1{table QD Claritin MG MG t} 10 MG Fosamax 70 Fosamax 70 No Fosamax 70 MG MG MG CeleBREX CeleBREX No 1{capsu QD CeleBREX 100 MG 100 MG le_with 100 MG _food} Azithromyci Azithromyci No QD Azithromyc n 500 MG n 500 MG in 500 MG Alendronate Alendronate No Alendronat Sodium 70 Sodium 70 e Sodium MG MG 70 MG Aspirin 81 Aspirin 81 No 1{table QD Aspirin 81 MG MG t} MG Toprol XL Toprol XL No 1{table QD Toprol XL 50 MG 50 MG t} 50 MG Claritin 10 Claritin 10 No 1{table QD Claritin MG MG t} 10 MG Fosamax 70 Fosamax 70 No Fosamax 70 MG MG MG CeleBREX CeleBREX No 1{capsu QD CeleBREX 100 MG 100 MG le_with 100 MG _food} Azithromyci Azithromyci No QD Azithromyc n 500 MG n 500 MG in 500 MG Albuterol Albuterol No 2{puffs QID Albuterol Sulfate 108 Sulfate 108 _as_nee Sulfate (90 Base) (90 Base) ded} 108 (90 MCG/ACT MCG/ACT Base) MCG/ACT Immunizations Ordered Filled Immunization Date Status Comments Sourc e Immunization Name Name FLUZONE HIGH DOSE FLUZONE HIGH DOSE 2021-03-28 Completed [facility] - OVER [facility] OVER 65 13:53:00 [facility] FLUZONE HIGH DOSE FLUZONE HIGH DOSE 2021-03-28 Completed [facility] - OVER 65 OVER 65 13:53:00 [facility] FLUZONE HIGH DOSE FLUZONE HIGH DOSE 2021-03-28 Completed [facility] - OVER 65 OVER 65 13:53:00 [facility] FLUZONE HIGH DOSE FLUZONE HIGH DOSE 2021-03-28 Completed [facility] - OVER 65 OVER 65 13:53:00 [facility] FLUZONE HIGH DOSE FLUZONE HIGH DOSE 2021-03-28 Completed [facility] - OVER 65 OVER 65 13:53:00 [facility] FLUZONE HIGH DOSE FLUZONE HIGH DOSE 2021-03-28 Completed [facility] - OVER 65 OVER 65 13:53:00 [facility] FLUZONE HIGH DOSE FLUZONE HIGH DOSE 2021-03-28 Completed [facility] - OVER 65 OVER 65 13:53:00 [facility] FLUZONE HIGH DOSE FLUZONE HIGH DOSE 2021-03-28 Completed [facility] - OVER 65 OVER 65 13:53:00 [facility] FLUZONE HIGH DOSE FLUZONE HIGH DOSE 2021-03-28 Completed [facility] - OVER 65 OVER 65 13:53:00 [facility] FLUZONE HIGH DOSE FLUZONE HIGH DOSE 2021-03-28 Completed [facility] - OVER 65 OVER 65 13:53:00 [facility] FLUZONE HIGH DOSE FLUZONE HIGH DOSE 2021-03-28 Completed [facility] - OVER 65 OVER 65 13:53:00 [facility] FLUZONE HIGH DOSE FLUZONE HIGH DOSE 2021-03-28 Completed [facility] - OVER 65 OVER 65 13:53:00 [facility] FLUZONE HIGH DOSE FLUZONE HIGH DOSE 2021-03-28 Completed [facility] - OVER 65 OVER 65 13:53:00 [facility] FLUZONE HIGH DOSE FLUZONE HIGH DOSE 2021-03-28 Completed [facility] - OVER 65 OVER 65 13:53:00 [facility] FLUZONE HIGH DOSE FLUZONE HIGH DOSE 2021-03-28 Completed [facility] - OVER 65 OVER 65 13:53:00 [facility] FLUZONE HIGH DOSE FLUZONE HIGH DOSE 2021-03-28 Completed [facility] - OVER 65 OVER 65 13:53:00 [facility] FLUZONE HIGH DOSE FLUZONE HIGH DOSE 2021-03-28 Completed [facility] - OVER 65 OVER 65 13:53:00 [facility] FLUZONE HIGH DOSE FLUZONE HIGH DOSE 2021-03-28 Completed [facility] - OVER 65 OVER 65 13:53:00 [facility] FLUZONE HIGH DOSE FLUZONE HIGH DOSE 2021-03-28 Completed [facility] - OVER 65 OVER 65 13:53:00 [facility] FLUZONE HIGH DOSE FLUZONE HIGH DOSE 2021-03-28 Completed [facility] - OVER 65 OVER 65 13:53:00 [facility] FLUZONE HIGH DOSE FLUZONE HIGH DOSE 2021-03-28 Completed [facility] - OVER 65 OVER 65 13:53:00 [facility] FLUZONE HIGH DOSE FLUZONE HIGH DOSE 2021-03-28 Completed [facility] - OVER 65 OVER 65 13:53:00 [facility] FLUZONE HIGH DOSE FLUZONE HIGH DOSE 2021-03-28 Completed [facility] - OVER 65 OVER 65 13:53:00 [facility] FLUZONE HIGH DOSE FLUZONE HIGH DOSE 2021-03-28 Completed [facility] - OVER 65 OVER 65 13:53:00 [facility] FLUZONE HIGH DOSE FLUZONE HIGH DOSE 2021-03-28 Completed [facility] - OVER 65 OVER 65 13:53:00 [facility] FLUZONE HIGH DOSE FLUZONE HIGH DOSE 2021-03-28 Completed [facility] - OVER 65 OVER 65 13:53:00 [facility] Pfizer COVID-19 Pfizer COVID-19 2021-03-17 [facility] 14:24:00 [facility] Pfizer COVID-19 Pfizer COVID-19 2021-03-17 [facility] 14:24:00 [facility] Pfizer COVID-19 Pfizer COVID-19 2021-03-17 [facility] Vaccine 14:24:00 [facility] Pfizer COVID-19 Pfizer COVID-19 2021-03-17 [facility] Vaccine 14:24:00 [facility] Pfizer COVID-19 Pfizer COVID-19 2021-03-17 [facility]ine 14:24:00 [facility] Pfizer COVID-19 Pfizer COVID-19 2021-03-17 [facility] Vaccine 14:24:00 [facility] Pfizer COVID-19 Pfizer COVID-19 2021-03-17 [facility] Vaccine 14:24:00 [facility] Pfizer COVID-19 Pfizer COVID-19 2021-03-17 [facility] Vaccine 14:24:00 [facility] Pfizer COVID-19 Pfizer COVID-19 2021-03-17 [facility]ine 14:24:00 [facility] Pfizer COVID-19 Pfizer COVID-19 2021-03-17 [facility] Vaccine 14:24:00 [facility] Pfizer COVID-19 Pfizer COVID-19 2021-03-17 [facility] Vaccine 14:24:00 [facility] Pfizer COVID-19 Pfizer COVID-19 2021-03-17 [facility] Vaccine 14:24:00 [facility] Pfizer COVID-19 Pfizer COVID-19 2021-03-17 [facility] Vacc[facility] Vaccine 14:24:00 [facility] Pfizer COVID-19 Pfizer COVID-19 2021-03-17 [facility] Vaccine 14:24:00 [facility] Pfizer COVID-19 Pfizer COVID-19 2021-03-17 [facility] Vaccine 14:24:00 [facility] Pfizer COVID-19 Pfizer COVID-19 2021-03-17 [facility] Vaccine 14:24:00 [facility] Pfizer COVID-19 Pfizer COVID-19 2021-03-17 [facility] Vacc[facility] Vaccine 14:24:00 [facility] Pfizer COVID-19 Pfizer COVID-19 2021-03-17 [facility] Vaccine 14:24:00 [facility] Pfizer COVID-19 Pfizer COVID-19 2021-03-17 [facility] Vacc[facility] 14:24:00 [facility] Pfizer COVID-19 Pfizer COVID-19 2021-03-17 [facility] Vaccine 14:24:00 [facility] Pfizer COVID-19 Pfizer COVID-19 2021-03-17 [facility] Vaccine 14:24:00 [facility] Pfizer COVID-19 Pfizer COVID-19 2021-03-17 [facility] Vaccine 14:24:00 [facility] Pfizer COVID-19 Pfizer COVID-19 2021-03-17 [facility] Vacc[facility] Vaccine 14:24:00 [facility] Pfizer COVID-19 Pfizer COVID-19 2021-03-17 [facility] Vacc[facility] Vaccine 14:24:00 [facility] Pfizer COVID-19 Pfizer COVID-19 2021-03-17 [facility] Vaccine 14:24:00 [facility] Pfizer COVID-19 Pfizer COVID-19 2021-03-17 [facility] 14:24:00 [facility] SARS-COV-2 COVID-19 2021-03-17 Completed [facility] VACCINE 00:00:00 [facility] SARS-COV-2 COVID-19 2021-03-17 Completed [facility] PFIZER VACCINE 00:00:00 [facility] SARS-COV-2 COVID-19 2021-03-17 Completed [facility] PFIZER VACCINE 00:00:00 [facility] SARS-COV-2 COVID-19 2021-03-17 Completed [facility] PFIZER VACCINE 00:00:00 [facility] Pfizer COVID-19 Pfizer COVID-19 2020-08-17 [facility] 14:23:00 [facility] Pfizer COVID-19 Pfizer COVID-19 2020-08-17 [facility] Vacc[facility] Vaccine 14:23:00 [facility] Pfizer COVID-19 Pfizer COVID-19 2020-08-17 [facility] Vacc[facility] Vaccine 14:23:00 [facility] Pfizer COVID-19 Pfizer COVID-19 2020-08-17 [facility] Vaccine Vaccine 14:23:00 [facility] Pfizer COVID-19 Pfizer COVID-19 2020-08-17 [facility] Vacc[facility] Vaccine 14:23:00 [facility] Pfizer COVID-19 Pfizer COVID-19 2020-08-17 [facility] Vacc[facility] Vaccine 14:23:00 [facility] Pfizer COVID-19 Pfizer COVID-19 2020-08-17 [facility] Vacc[facility] Vaccine 14:23:00 [facility] Pfizer COVID-19 Pfizer COVID-19 2020-08-17 [facility] Vaccine Vaccine 14:23:00 [facility] Pfizer COVID-19 Pfizer COVID-19 2020-08-17 [facility] Vacc[facility] Vaccine 14:23:00 [facility] Pfizer COVID-19 Pfizer COVID-19 2020-08-17 [facility] Vaccine Vaccine 14:23:00 [facility] Pfizer COVID-19 Pfizer COVID-19 2020-08-17 [facility] Vaccine Vaccine 14:23:00 [facility] Pfizer COVID-19 Pfizer COVID-19 2020-08-17 [facility] Vaccine Vaccine 14:23:00 [facility] Pfizer COVID-19 Pfizer COVID-19 2020-08-17 [facility] Vaccine Vaccine 14:23:00 [facility] Pfizer COVID-19 Pfizer COVID-19 2020-08-17 [facility] Vaccine Vaccine 14:23:00 [facility] Pfizer COVID-19 Pfizer COVID-19 2020-08-17 [facility] Vaccine Vaccine 14:23:00 [facility] Pfizer COVID-19 Pfizer COVID-19 2020-08-17 [facility] Vaccine Vaccine 14:23:00 [facility] Pfizer COVID-19 Pfizer COVID-19 2020-08-17 [facility] Vaccine Vaccine 14:23:00 [facility] Pfizer COVID-19 Pfizer COVID-19 2020-08-17 [facility] Vaccine Vaccine 14:23:00 [facility] Pfizer COVID-19 Pfizer COVID-19 2020-08-17 [facility] Vaccine Vaccine 14:23:00 [facility] Pfizer COVID-19 Pfizer COVID-19 2020-08-17 [facility] Vaccine Vaccine 14:23:00 [facility] Pfizer COVID-19 Pfizer COVID-19 2020-08-17 [facility] Vaccine Vaccine 14:23:00 [facility] Pfizer COVID-19 Pfizer COVID-19 2020-08-17 [facility] Vaccine Vaccine 14:23:00 [facility] Pfizer COVID-19 Pfizer COVID-19 2020-08-17 [facility] Vaccine Vaccine 14:23:00 [facility] Pfizer COVID-19 Pfizer COVID-19 2020-08-17 [facility] Vaccine Vaccine 14:23:00 [facility] Pfizer COVID-19 Pfizer COVID-19 2020-08-17 [facility] Vaccine Vaccine 14:23:00 [facility] Pfizer COVID-19 Pfizer COVID-19 2020-08-17 [facility] Vacc[facility] Vaccine 14:23:00 [facility] SARS-COV-2 COVID-19 2020-08-17 Completed [facility] PFIZER VACCINE 00:00:00 [facility] SARS-COV-2 COVID-19 2020-08-17 Completed [facility] PFIZER VACCINE 00:00:00 [facility] SARS-COV-2 COVID-19 2020-08-17 Completed [facility] PFIZER VACCINE 00:00:00 [facility] SARS-COV-2 COVID-19 2020-08-17 Completed [facility] PFIZER VACCINE 00:00:00 [facility] Pfizer COVID-19 Pfizer COVID-19 2020-07-27 [facility] Vacc[facility] 14:23:00 [facility] Pfizer COVID-19 Pfizer COVID-19 2020-07-27 [facility] Vaccine Vaccine 14:23:00 [facility] Pfizer COVID-19 Pfizer COVID-19 2020-07-27 [facility] Vaccine Vaccine 14:23:00 [facility] Pfizer COVID-19 Pfizer COVID-19 2020-07-27 [facility] Vaccine Vaccine 14:23:00 [facility] Pfizer COVID-19 Pfizer COVID-19 2020-07-27 [facility] Vaccine Vaccine 14:23:00 [facility] Pfizer COVID-19 Pfizer COVID-19 2020-07-27 [facility] Vaccine Vaccine 14:23:00 [facility] Pfizer COVID-19 Pfizer COVID-19 2020-07-27 [facility] Vaccine Vaccine 14:23:00 [facility] Pfizer COVID-19 Pfizer COVID-19 2020-07-27 [facility] Vaccine Vaccine 14:23:00 [facility] Pfizer COVID-19 Pfizer COVID-19 2020-07-27 [facility] Vaccine Vaccine 14:23:00 [facility] Pfizer COVID-19 Pfizer COVID-19 2020-07-27 [facility] Vaccine Vaccine 14:23:00 [facility] Pfizer COVID-19 Pfizer COVID-19 2020-07-27 [facility] Vaccine Vaccine 14:23:00 [facility] Pfizer COVID-19 Pfizer COVID-19 2020-07-27 [facility] Vaccine Vaccine 14:23:00 [facility] Pfizer COVID-19 Pfizer COVID-19 2020-07-27 [facility] Vaccine Vaccine 14:23:00 [facility] Pfizer COVID-19 Pfizer COVID-19 2020-07-27 [facility] Vaccine Vaccine 14:23:00 [facility] Pfizer COVID-19 Pfizer COVID-19 2020-07-27 [facility] Vaccine Vaccine 14:23:00 [facility] Pfizer COVID-19 Pfizer COVID-19 2020-07-27 [facility] Vaccine Vaccine 14:23:00 [facility] Pfizer COVID-19 Pfizer COVID-19 2020-07-27 [facility] Vaccine Vaccine 14:23:00 [facility] Pfizer COVID-19 Pfizer COVID-19 2020-07-27 [facility] Vaccine Vaccine 14:23:00 [facility] Pfizer COVID-19 Pfizer COVID-19 2020-07-27 [facility] Vaccine Vaccine 14:23:00 [facility] Pfizer COVID-19 Pfizer COVID-19 2020-07-27 [facility] Vaccine Vaccine 14:23:00 [facility] Pfizer COVID-19 Pfizer COVID-19 2020-07-27 [facility] Vaccine Vaccine 14:23:00 [facility] Pfizer COVID-19 Pfizer COVID-19 2020-07-27 [facility] Vaccine Vaccine 14:23:00 [facility] Pfizer COVID-19 Pfizer COVID-19 2020-07-27 [facility] Vaccine Vaccine 14:23:00 [facility] Pfizer COVID-19 Pfizer COVID-19 2020-07-27 [facility] Vaccine Vaccine 14:23:00 [facility] Pfizer COVID-19 Pfizer COVID-19 2020-07-27 [facility] Vaccine Vaccine 14:23:00 [facility] Pfizer COVID-19 Pfizer COVID-19 2020-07-27 [facility] Vaccine Vaccine 14:23:00 [facility] SARS-COV-2 COVID-19 2020-07-27 Completed [facility] PFIZER VACCINE 00:00:00 [facility] SARS-COV-2 COVID-19 2020-07-27 Completed [facility] PFIZER VACCINE 00:00:00 [facility] SARS-COV-2 COVID-19 2020-07-27 Completed [facility] PFIZER VACCINE 00:00:00 [facility] SARS-COV-2 COVID-19 2020-07-27 Completed [facility] PFIZER VACCINE 00:00:00 [facility] FluAD FluAD 2020-04-07 Completed [facility] - 16:03:00 [facility] FluAD FluAD 2020-04-07 Completed [facility] - 16:03:00 [facility] FluAD FluAD 2020-04-07 Completed [facility] - 16:03:00 [facility] FluAD FluAD 2020-04-07 Completed [facility] - 16:03:00 [facility] FluAD FluAD 2020-04-07 Completed [facility] - 16:03:00 [facility] FluAD FluAD 2020-04-07 Completed [facility] - 16:03:00 [facility] FluAD FluAD 2020-04-07 Completed [facility] - 16:03:00 [facility] FluAD FluAD 2020-04-07 Completed [facility] - 16:03:00 [facility] FluAD FluAD 2020-04-07 Completed [facility] - 16:03:00 [facility] FluAD FluAD 2020-04-07 Completed [facility] - 16:03:00 [facility] FluAD FluAD 2020-04-07 Completed [facility] - 16:03:00 [facility] FluAD FluAD 2020-04-07 Completed [facility] - 16:03:00 [facility] FluAD FluAD 2020-04-07 Completed [facility] - 16:03:00 [facility] FluAD FluAD 2020-04-07 Completed [facility] - 16:03:00 [facility] FluAD FluAD 2020-04-07 Completed [facility] - 16:03:00 [facility] FluAD FluAD 2020-04-07 Completed [facility] - 16:03:00 [facility] FluAD FluAD 2020-04-07 Completed [facility] - 16:03:00 [facility] FluAD FluAD 2020-04-07 Completed [facility] - 16:03:00 [facility] FluAD FluAD 2020-04-07 Completed [facility] - 16:03:00 [facility] FluAD FluAD 2020-04-07 Completed [facility] - 16:03:00 [facility] FluAD FluAD 2020-04-07 Completed [facility] - 16:03:00 [facility] FluAD FluAD 2020-04-07 Completed [facility] - 16:03:00 [facility] FluAD FluAD 2020-04-07 Completed [facility] - 16:03:00 [facility] FluAD FluAD 2020-04-07 Completed [facility] - 16:03:00 [facility] FluAD FluAD 2020-04-07 Completed [facility] - 16:03:00 [facility] FluAD FluAD 2020-04-07 Completed [facility] - 16:03:00 [facility] FluAD FluAD 2019-03-24 Completed [facility] - 11:18:00 [facility] FluAD FluAD 2019-03-24 Completed [facility] - 11:18:00 [facility] FluAD FluAD 2019-03-24 Completed [facility] - 11:18:00 [facility] FluAD FluAD 2019-03-24 Completed [facility] - 11:18:00 [facility] FluAD FluAD 2019-03-24 Completed [facility] - 11:18:00 [facility] FluAD FluAD 2019-03-24 Completed [facility] - 11:18:00 [facility] FluAD FluAD 2019-03-24 Completed [facility] - 11:18:00 [facility] FluAD FluAD 2019-03-24 Completed [facility] - 11:18:00 [facility] FluAD FluAD 2019-03-24 Completed [facility] - 11:18:00 [facility] FluAD FluAD 2019-03-24 Completed [facility] - 11:18:00 [facility] FluAD FluAD 2019-03-24 Completed [facility] - 11:18:00 [facility] FluAD FluAD 2019-03-24 Completed [facility] - 11:18:00 [facility] FluAD FluAD 2019-03-24 Completed [facility] - 11:18:00 [facility] FluAD FluAD 2019-03-24 Completed [facility] - 11:18:00 [facility] FluAD FluAD 2019-03-24 Completed [facility] - 11:18:00 [facility] FluAD FluAD 2019-03-24 Completed [facility] - 11:18:00 [facility] FluAD FluAD 2019-03-24 Completed [facility] - 11:18:00 [facility] FluAD FluAD 2019-03-24 Completed [facility] - 11:18:00 [facility] FluAD FluAD 2019-03-24 Completed [facility] - 11:18:00 [facility] FluAD FluAD 2019-03-24 Completed [facility] - 11:18:00 [facility] FluAD FluAD 2019-03-24 Completed [facility] - 11:18:00 [facility] FluAD FluAD 2019-03-24 Completed [facility] - 11:18:00 [facility] FluAD FluAD 2019-03-24 Completed [facility] - 11:18:00 [facility] FluAD FluAD 2019-03-24 Completed [facility] - 11:18:00 [facility] FluAD FluAD 2019-03-24 Completed [facility] - 11:18:00 [facility] FluAD FluAD 2019-03-24 Completed [facility] - 11:18:00 [facility] FluAD FluAD 2019-03-24 Completed [facility] - 00:00:00 [facility] Vital Signs Vital Name Observation Time Observation Value Comments Source height 2022-01-29 15:40:00 64 [in_i] [facility] weight 2022-01-29 15:40:00 129 [lb_av] [facility] bmi 2022-01-29 15:40:00 22.14 kg/m2 [facility] height 2021-11-29 10:30:00 64 [in_i[facility] 2021-11-29 10:30:00 127.2 [lb_av] [facility] bmi 2021-11-29 10:30:00 21.83 kg/m2 [facility] height 2021-11-29 11:20:00 64 [in_i] [facility] weight 2021-11-29 11:20:00 129 [lb_av] [facility] [facility] bmi 2021-11-29 11:20:00 22.14 kg/m2 [facility] height 2021-09-26 13:20:00 64 [in_i] [facility] weight 2021-09-26 13:20:00 127.2 [lb_av] [facility] temperature 2021-09-26 13:20:00 98.0 [degF] [facility] bmi 2021-09-26 13:20:00 21.83 kg/m2 [facility] oximetry 2021-09-26 13:20:00 96 % [facility] respiratory rate 2021-09-26 13:20:00 16 /min Comm on [facility] blood pressure 2021-09-26 13:20:00 137 mm[Hg] Common [facility] - systolic [facility] blood pressure 2021-09-26 13:20:00 70 mm[Hg] Common [facility] - diastolic [facility] height 2021-05-26 08:50:00 64 [in_i] Common [facility] weight 2021-05-26 08:50:00 120 [lb_av] [facility] bmi 2021-05-26 08:50:00 20.6 kg/m2 [facility] blood pressure 2021-05-26 08:50:00 130 mm[Hg] Common [facility] - systolic [facility] blood pressure 2021-05-26 08:50:00 73 mm[Hg] [facility] - [facility] height 2021-03-28 13:20:00 64 [in_i] Common [facility] - [facility] weight 2021-03-28 13:20:00 123.2 [lb_av] Common [facility] temperature 2021-03-28 13:20:00 96.8 [degF] Common S [facility] - [facility] bmi 2021-03-28 13:20:00 21.14 kg/m2 Common [facility] - [facility] blood pressure 2021-03-28 13:20:00 139 mm[Hg] Common [facility] - systolic [facility] blood pressure 2021-03-28 13:20:00 78 mm[Hg] [facility] - diastolic [facility] height 2021-03-28 13:00:00 64 [in_i] [facility] weight 2021-03-28 13:00:00 123.2 [lb_av] [facility] - [facility] temperature 2021-03-28 13:00:00 96.8 [degF] Common S pirit [facility] bmi 2021-03-28 13:00:00 21.14 kg/m2 [facility] oximetry 2021-03-28 13:00:00 94 % Common [facility] respiratory rate 2021-03-28 13:00:00 18 /min Comm on [facility] - [facility] blood pressure 2021-03-28 13:00:00 139 mm[Hg] [facility] - systolic [facility] blood pressure 2021-03-28 13:00:00 78 mm[Hg] Common [facility] - diastolic [facility] Systolic (mm Hg) 2019-02-10 18:51:00 Júnior Perez Diastolic (mm Hg) 2019-02-10 18:51:00 Cindy Perez Heart Rate 2019-02-10 18:51:00 Tee Perez Respitory Rate 2019-02-10 18:51:00 Arsalna song Chris Height 2019-02-10 18:51:00 157.48 cm [facility] Weight 2019-02-10 18:51:00 [facility] BMI Calculated 2019-02-10 18:51:00 Arsalan Devries BMI Calculated 2018-12-30 18:55:00 Arsalan Devries Weight 2018-12-30 18:55:00 [facility] Height 2018-12-30 18:55:00 160.02 cm [facility] Respitory Rate 2018-12-30 18:55:00 Arsalan Alexanderann Heart Rate 2018-12-30 18:55:00 [facility] Systolic (mm Hg) 2018-12-30 18:55:00 Júnior zavala [place] Diastolic (mm Hg) 2018-12-30 18:55:00 Mem [facility] Chris Procedures Procedure Date / Time Performing Clinician Source Performed AUTHORIZATION FOR RELEASE 2022-04-16 05:01:00 Doctor Unassigned, [facility] MEDICATION CORRESPONDENCE 2022-02-13 05:01:00 Doctor Unassigned, [facility] [place] L[facility] Plan of Care Planned Activity Planned Date Details Comments Source Future Scheduled 2022-05-07 HEPATITIS B VACCINES Met [facility] Test 07:32:13 (1 of 3 - 3-dose series) [code = HEPATITIS B VACCINES (1 of 3 - 3-dose series)] Future Scheduled 2022-05-07 COVID-19 VACCINE (#1) [facility] Test 07:32:13 [code = COVID-19 VACCINE (#1)] Future Scheduled 2022-05-07 Hepatitis C screening [facility] Test 07:32:13 (procedure) [code = 398221167] Future Scheduled 2022-05-07 BREAST CANCER [facility] Test 07:32:13 SCREENING [code = BREAST CANCER SCREENING] Future Scheduled 2022-05-07 COLONOSCOPY SCREENING [facility] Test 07:32:13 [code = COLONOSCOPY SCREENING] Future Scheduled 2022-05-07 SHINGLES VACCINES (1 [facility] Test 07:32:13 of 2) [code = SHINGLES VACCINES (1 of 2)] Future Scheduled 2022-05-07 65+ [facility]OC[facility]CCAL [facility] Test 07:32:13 VACCINE (1 - PCV) [code = 65+ PNEUMOCOCCAL VACCINE (1 - PCV)] Future Scheduled 2022-05-07 INFLUENZA VACCINE [facility] Test 07:32:13 [code = INFLUENZA VACCINE] Encounters Start End Encounter Admission Attending Care Care Encounter Source Date/Time Date/Time Type Type Clinicians Facility Department ID 2022-04-12 Outpatient Wright, Na STLMLC STLMLC [id number] 2 Common 10:44:00 [facility] 2021-12-04 Outpatient Wright, Na STLMLC STLMLC [id number] 2 Common 11:40:00 [facility] 2021-09-26 Outpatient Wright, Na STLMLC STLMLC [id number] 2 Common 13:09:01 [facility] 2021-09-25 Outpatient Wright, Na STLMLC STLMLC [id number] 2 Common 10:56:00 [facility] 2021-07-12 Outpatient Wright, Na STLMLC STLMLC [id number] 2 Common 14:19:32 [id number] [facility] 2021-07-12 Outpatient Wright, Na STLMLC STLMLC [id number] 2 Common 14:04:24 [id number] [facility] 2021-07-12 Outpatient Wright, Na STLMLC STLMLC [id number] 2 Common 13:58:29 [id number] [facility] 2021-07-12 Outpatient Wright, Na STLMLC STLMLC [id number] 2 Common 12:13:36 03529 [facility] 2021-07-12 Outpatient Wright, Na STLMLC STLMLC [id number] 2 Common 12:09:52 [id number] [facility] 2021-07-12 Outpatient Wright, Na STLMLC STLMLC [id number] 2 Common 11:57:47 [id number] [facility] 2021-07-12 Outpatient Wright, Na STLMLC STLMLC [id number] 2 Common 11:57:12 [id number] [facility] 2021-07-12 Outpatient Wright, Na STLMLC STLMLC [id number] 2 Common 11:52:41 [id number] [facility] 2021-07-12 Outpatient Wright, Na STLMLC STLMLC [id number] 2 Common 11:26:09 [id number] [facility] 2021-07-12 Outpatient Wright, Na STLMLC STLMLC [id number] 2 Common 11:25:48 [id number] [facility] 2021-07-12 Outpatient Wright, Na STLMLC STLMLC [id number] 2 Common 11:20:03 [id number] [facility] 2022-05-04 2022-05-04 (WEB) STLMLC STLMLC [id number] Co mmon 00:00:00 00:00:00 [facility] 2022-04-30 2022-04-30 (WEB) STLMLC STLMLC [id number] Co mmon 00:00:00 00:00:00 [facility] 2022-04-16 2022-04-16 Outpatient R ROXANA [facility] [id number] Univers 10:00:00 10:00:00 TAYLOR kline o f [facility] 2022-04-16 2022-04-16 (TEL) STLMLC STLMLC [id number] Co mmon 00:00:00 00:00:00 [facility] 2022-04-16 2022-04-16 Orders Doctor SHANTELL [id number] [id number] Univers 00:00:00 00:00:00 Only Unassigned, ADA [id number] ity of [facility] [id number] Kristian as [phone] [address] 2022-04-12 2022-04-12 (TEL) STLMLC STLMLC [id number] Co mmon 00:00:00 00:00:00 [facility] 2022-04-09 2022-04-09 Shasha Schmidt [facility] [id number] Univers 00:00:00 00:00:00 Taylor [place]ARP [id number] ity [facility] [id number] [phone] Me dical NAL 059 Branch [facility] 2022-02-13 2022-02-13 Orders Doctor SHANTELL 1.2.840.114 [id number] Univers 00:00:00 00:00:00 Only Unassigned, ADA [id number] ity of [place] [facility] [id number] Kristian as [phone] [facility] 009 Branch 2022-01-29 2022-01-29 OFFICE STLMLC STLMLC [id number] Co mmon 00:00:00 00:00:00 VISIT EST Spir it PT LEVEL 3 - CHI [facility] 2022-01-29 2022-01-29 (WEB) STLMLC STLMLC [id number] Co mmon 00:00:00 00:00:00 [facility] 2021-12-19 2021-12-19 (WEB) STLMLC STLMLC [id number] Co mmon 00:00:00 00:00:00 [facility] 2021-12-11 2021-12-11 (WEB) STLMLC STLMLC [id number] Co mmon 00:00:00 00:00:00 [facility] 2021-12-04 2021-12-04 (WEB) STLMLC STLMLC [id number] Co mmon 00:00:00 00:00:00 [facility] 2021-11-29 2021-11-29 SUB ANNUAL STLMLC STLMLC [id number] Common 00:00:00 00:00:00 [facility] VISIT [facility] 2021-11-29 2021-11-29 OFFICE STLMLC STLMLC [id number] Co mmon 00:00:00 00:00:00 VISIT EST Spir it PT LEVEL 3 - CH[facility] 2021-11-23 2021-11-23 Telephone PACHECO Schmidt [id number] Univers 00:00:00 00:00:00 Taylor [place]ARP [id number] it[place] of [id number] [phone] Mi dical NAL 059 [facility] 2021-11-09 2021-11-09 Telephone [facility], [facility] [id number] Univers 00:00:00 00:00:00 Qiangjun [place] [id number] ity of [id number] [phone] Mi dicwa NAL 059 [facility] 2021-11-09 2021-11-09 Telephone Ac, [facility] [id number] [id number] Univers 00:00:00 00:00:00 Dony [place] 350.1.13.10 i ty of [id number] [phone] Mi dicwa NAL 085 [facility] 2021-11-08 2021-11-08 Telephone [facility], [facility] 1.2.066.461 [id number] Univers 00:00:00 00:00:00 Arpanphong HEALTH 350.1.13.10 i ty of [place]2.7.2.[place] [phone] [facility] [address] [facility] 2021-11-07 2021-11-07 Refill Roxana, [facility] 1.2.840.114 [id number] Univers 00:00:00 00:00:00 Arpanjun [place] 350.1.13.10 ity of [place] 4[place] [phone] Mi dicwa NAL 059 [facility] 2021-11-06 2021-11-06 Refill Roxana, [facility] 1.2.840.114 [id number] Univers 00:00:00 00:00:00 Qiamadelainejun [place] 350.1.13.10 ity of [place] 4[place].2.[place] [phone] Mi dical NAL 9 [facility] 2021-11-03 2021-11-03 Refill Roxana, [facility] 1.2.840.114 [id number] Univers 00:00:00 00:00:00 Qiangjun [place] [id number] ity of [place] 4.[place].2.[place] [phone] Mi dical NAL 9 [facility] 2021-10-17 2021-10-17 [facility] 1.2.840.114 [id number] Univers 00:00:00 00:00:00 Taylor [place]ARP [id number] ity [facility] 4.2.7.2.[place] [phone] Mi sherifal NAL 9 [facility] 2021-10-11 2021-10-11 Outpatient R ROXANA, [facility] [id number] Univers 10:20:00 10:27:13 TAYLOR mejiay o [facility] 2021-10-11 2021-10-11 Office [facility] 1.2.840.114 [id number] Univers 10:20:00 10:27:13 Visit Taylor [place]ARP [id number] ity of [id number] [phone] Mi alissa SINGH [address] [place] [address] 2021-10-11 2021-10-11 Outpatient R ROXANA, [facility] [id number] Univers 10:20:00 10:20:00 TAYLOR mejiay o [facility] 2021-10-11 2021-10-11 Outpatient R ROXANA, [facility] [id number] Univers 10:20:00 10:20:00 TAYLOR mejiay o [facility] 2021-10-11 2021-10-11 Outpatient R ROXANA, [facility] [id number] Univers 10:20:00 10:20:00 TAYLOR ity o [facility] 2021-10-11 2021-10-11 Outpatient R ROXANA, [facility] [id number] Univers 10:20:00 10:20:00 TAYLOR mejiay o [facility] 2021-10-05 2021-10-05 (TEL) [facility] [id number] Co mmon 00:00:00 00:00:00 [facility] 2021-10-05 2021-10-05 (TEL) STLC STLC [id number] Co mmon 00:00:00 00:00:00 Spirit - CHI [facility] 2021-10-05 2021-10-05 Telephone [facility] [id number] Univers 00:00:00 00:00:00 Qiangjun [place] 350.1.13.10 ity of [place] 4.[place].7.2.[place] [phone] Mi dical NAL 9 [facility] 2021-10-02 2021-10-02 Telephone [facility] 1.2.000.349 [id number] Univers 00:00:00 00:00:00 Qiangjun [place] 350.1.13.10 ity of [place] [id number] [phone] Mi dical NAL [address] [place] [address] 2021-09-26 2021-09-26 (TEL) STLMLC STLC [id number] Co mmon 00:00:00 00:00:00 Spirit [facility] 2021-09-26 2021-09-26 [facility] [id number] Co mmon 00:00:00 00:00:00 VISIT [facility] PT - CHI LEVEL 4 [facility] 2021-09-19 2021-09-19 Orders Doctor SHANTELL 1.2.840.114 [id number] Univers 00:00:00 00:00:00 Only Unassigned, ADA 350.1.13.10 ity of [place] [facility] 4.2.7.2.686 Kristian as [phone] [facility] 00[address] Branch 2021-09-14 2021-09-14 [facility] 1.2.840.114 [id number] Univers 08:01:28 23:59:00 Encounter Qiangjun [place] 350.1.13.10 ity of [place].7.2.[place] [phone] [facility] 805 Branch 2021-09-14 2021-09-14 [facility] 1.2.840.114 [id number] Univers 08:01:18 23:59:00 Encounter Qiangjun [place] 350.1.13.10 ity of [place] 4.2.7.2.686 [place] [phone] [facility] 8[address] Branch 2021-09-14 2021-09-14 [facility] 1.2.840.114 [id number] Univers 08:01:05 23:59:00 Encounter Taylor SHARP 350.1.13.10 ity of [place] 4.2.7.2.686 [facility] [phone] [facility] 8[address] 2021-09-14 2021-09-14 [facility] 1.2.840.114 [id number] Univers 08:00:54 08:00:54 Encounter Taylor SHARP 350.1.13.10 ity of [place] 4.2.7.2.686 [facility] [phone] [facility] 8[address] Branch 2021-09-14 2021-09-14 Outpatient R [facility], [facility] [id number] Univers 08:00:54 08:00:54 TAYLOR mejiay o [facility] 2021-09-13 2021-09-13 Outpatient R ROXANA, [facility] [id number] Univers 13:36:02 23:59:00 TAYLOR mejiay o [facility] 2021-09-07 2021-09-07 Outpatient R ROXANA, [facility] [id number] Univers 09:00:00 09:00:00 TAYLOR kline o [facility] 2021-09-07 2021-09-07 Orders Doctor STINSON 1.2.840.114 [id number] Univers 00:00:00 00:00:00 Only Unassigned, ADA 350.1.13.10 ity of [place] [facility] 4.2.7.2.686 Kristian as [phone] [facility] 009 Branch 2021-09-01 2021-09-01 Outpatient R ROXANA, [facility] [id number] Univers 15:00:00 15:00:00 TAYLOR mejiay o [facility] 2021-09-01 2021-09-01 Outpatient R ROXANA, [facility] [id number] Univers 15:00:00 15:00:00 TAYLOR ity o [facility] 2021-08-28 2021-08-28 Orders Doctor SHANTELL 1.2.840.114 [id number] Univers 00:00:00 00:00:00 Only Unassigned, ADA 350.1.13.10 ity of [place] [facility] 4.2.7.2.686 Kristian as [phone] [address] 2021-08-22 2021-08-22 Telephone [facility] 1.2.103.445 [id number] Univers 00:00:00 00:00:00 Taylor [place]ARP 350.1.13.10 [facility] 4.2.[place].2.[place] [phone] Mi dical NAL 9 [facility] 2021-08-15 2021-08-15 Orders Doctor SHANTELL 1.2.840.114 [id number] Univers 00:00:00 00:00:00 Only Unassigned, ADA 350.1.13.10 ity of [place] [facility] 4.2.7.2.686 Kristian as [phone] [address] 2021-08-14 2021-08-14 Outpatient R [facility] [id number] Univers 10:42:07 23:59:00 TAYLOR kline o f [facility] 2021-08-14 2021-08-14 Outpatient R [facility] [id number] Univers 10:42:07 10:42:07 TAYLOR kline o f [facility] 2021-08-14 2021-08-14 Office [facility] 1.2.840.114 [id number] Univers 10:00:00 10:32:39 Visit Taylor SHARP 350.1.13.10 ity [facility] [id number] [phone] Mi dical NAL [address] [place] [address] 2021-08-14 2021-08-14 Outpatient R [facility] [id number] Univers 10:00:00 10:32:39 TAYLOR mejiay o f [facility] 2021-08-14 2021-08-14 [facility] [id number] Univers 10:00:00 10:32:39 TAYLOR kline o f [facility] 2021-08-14 2021-08-14 Outpatient Jamey SCHMIDT [facility] [id number] Univers 10:00:00 10:32:39 TAYLOR eliud josef goncalves [facility] 2021-07-24 2021-07-24 (TEL) STLMLC STLMLC [id number] Co mmon 00:00:00 00:00:00 [facility] 2021-07-21 2021-07-21 (TEL) STLMLC STLMLC [id number] Co mmon 00:00:00 00:00:00 [facility] 2021-05-26 2021-05-26 Postop STLMLC STLMLC [id number] Co mmon 00:00:00 00:00:00 visit [facility] 2021-05-16 2021-05-16 (TEL) STLMLC STLMLC [id number] Co mmon 00:00:00 00:00:00 [facility] 2021-05-05 2021-05-05 (TEL) STLMLC STLMLC [id number] Co mmon 00:00:00 00:00:00 [facility] 2021-05-01 2021-05-01 (TEL) STLMLC STLMLC [id number] Co mmon 00:00:00 00:00:00 [facility] 2021-04-28 2021-04-28 (TEL) STLMLC STLMLC [id number] Co mmon 00:00:00 00:00:00 [facility] 2021-04-10 2021-04-10 (TEL) STLMLC STLMLC [id number] Co mmon 00:00:00 00:00:00 [facility] 2021-04-04 2021-04-04 ([place]) Nurse STLMLC STLMLC [id number] Common 00:00:00 00:00:00 Visit [facility] 2021-03-28 2021-03-28 OFFICE STLMLC STLMLC [id number] Co mmon 00:00:00 00:00:00 VISIT EST Spir it PT LEVEL 3 [facility] 2021-03-28 2021-03-28 SUB ANNUAL STLMLC STLMLC [id number] Common 00:00:00 00:00:00 [facility] 2020-12-28 2020-12-28 Outpatient STLMLC STLMLC [id number] Common 00:00:00 00:00:00 [facility] 2020-11-29 2020-11-29 Outpatient STLMLC STLMLC [id number] Common 00:00:00 00:00:00 [facility] 2020-08-12 2020-08-12 Outpatient STLMLC STLMLC [id number] Common 00:00:00 00:00:00 [facility] 2020-08-08 2020-08-08 Outpatient STLMLC STLMLC [id number] Common 00:00:00 00:00:00 [facility] 2020-07-18 2020-07-18 Outpatient STLMLC STLMLC [id number] Common 00:00:00 00:00:00 [facility] 2020-07-18 2020-07-18 Outpatient STLMLC STLMLC [id number] Common 00:00:00 00:00:00 [facility] 2020-07-18 2020-07-18 Outpatient STLMLC STLMLC [id number] Common 00:00:00 00:00:00 [facility] 2020-07-18 2020-07-18 Outpatient STLMLC STLMLC [id number] Common 00:00:00 00:00:00 [facility] 2020-07-06 2020-07-06 Outpatient STLMLC STLMLC [id number] Common 00:00:00 00:00:00 [facility] 2020-06-02 2020-06-02 Outpatient STLMLC STLMLC [id number] Common 00:00:00 00:00:00 [facility] 2020-04-23 2020-04-23 Outpatient STLMLC STLMLC [id number] Common 00:00:00 00:00:00 [facility] 2020-04-11 2020-04-11 Outpatient STLMLC STLMLC [id number] Common 00:00:00 00:00:00 [facility] 2020-04-07 2020-04-07 Outpatient STLMLC STLMLC [id number] Common 00:00:00 00:00:00 [facility] 2020-04-07 2020-04-07 Outpatient STLMLC STLMLC [id number] Common 00:00:00 00:00:00 [facility] 2020-01-05 2020-01-05 [facility] [id number] Common 12:16:00 12:16:[address] [facility] 2019-12-11 2019-12-11 Outpatient [facility] [id number] Common 10:38:00 10:38:[address] [facility] 2019-12-02 2019-12-02 Outpatient [facility] [id number] Common 08:37:00 08:37:[address] [facility] [address] [facility] 2019-11-27 2019-11-27 Outpatient [facility] [id number] Common 14:40:00 14:40:[address] [facility] 2019-11-25 2019-11-25 Outpatient [facility] [id number] Common 09:05:00 09:05:[address] [facility] 2019-11-25 2019-11-25 Outpatient [facility] [id number] [place] 00:00:00 00:00:00 EDWARD [address] 2019-11-04 2019-11-04 Outpatient MEREDITH, [facility] [id number] [place] 00:00:00 00:00:00 GAURAV [address] 2019-10-29 2019-10-29 Out[facility] [id number] Common 10:59:00 10:59:[address] [facility] 2019-10-21 2019-10-23 Inpatient [facility] [id number] [place] 00:00:00 00:00:00 EDWARD [address] 2019-10-21 2019-10-21 Outpatient COON, [facility] [id number] [place] 00:00:00 00:00:00 EDWARD [address] 2019-10-14 2019-10-14 Outpatient COON, [facility] [id number] [place] 00:00:00 00:00:00 EDWARD [address] 2019-10-14 2019-10-14 Outpatient COON, [facility] [id number] [place] 00:00:00 00:00:00 EDWARD [address] 2019-09-17 2019-09-17 Outpatient [facility] [id number] Common 08:12:00 08:12:[address] [facility] 2019-08-13 2019-08-13 Outpatient [facility] [id number] Common 14:45:00 14:45:[address] [facility] 2019-08-13 2019-08-13 Outpatient COON, [facility] [id number] [place] 00:00:00 00:00:00 EDWARD [address] 2019-08-13 2019-08-13 Outpatient COON, [facility] [id number] [place] 00:00:00 00:00:00 EDWARD [address] 2019-08-13 2019-08-13 Outpatient COON, [facility] [id number] [place] 00:00:00 00:00:00 EDWARD [address] 2019-08-05 2019-08-05 Outpatient Marianne-Mbayo VFP VFP [id number] [facility] 07:22:00 07:22:00 _A_AH [id number] Family Practic e 2019-05-15 2019-05-15 Outpatient [facility] [id number] Common 03:58:00 03:58:[address] [facility] 2019-05-04 2019-05-04 Outpatient [facility] [id number] Common 08:05:00 08:05:[address] [facility] 2019-04-14 2019-04-14 Outpatient [facility] [id number] Common 10:00:00 10:00:[address] [facility] 2019-03-24 2019-03-24 Outpatient [facility] [id number] Common 09:40:00 09:40:[address] Sp[address] [facility] 2019-02-10 2019-02-11 Outpatient nullFlavo MNA [id number] Memoria 19:00:00 04:59:59 r Neurology 01 [place] 2019-02-10 2019-02-10 Outpatient Naina, MISCHER MHMISCHER [id number] 14:00:00 23:59:59 Allen 01 Juma 2019-02-10 2019-02-10 Outpatient MHIE MHIE [id number] Memoria 14:00:00 14:00:00 01 ashley Perez 2018-12-30 2018-12-31 Outpatient nullFlavo MNA [id number] Memoria 18:30:00 04:59:59 r Neurology 00 l [place] [facility] 2018-12-30 2018-12-30 Outpatient Naina MISCHER MHMISCHER [id number] 13:30:00 23:59:59 Allen 00 Juma 2018-12-30 2018-12-30 Outpatient MHIE MHIE [id number] Memoria 13:30:00 13:30:00 00 ashley Perez 2018-12-12 2018-12-12 [facility] [id number] Common 09:37:00 09:37:00 t Specialty/U Sp johanna Specialty rology - [facility] 2018-12-09 2018-12-09 [facility] [id number] Common 09:00:00 09:00:00 t Specialty/U Sp johanna Specialty rology - [facility] 2018-12-05 2018-12-05 [facility] [id number] Common 08:59:00 08:59:00 t Specialty/U Sp johanna Specialty rology - [facility] 2018-09-17 2018-09-17 [facility] [id number] Common 08:20:00 08:20:[address] [facility] 2018-03-19 2018-03-19 Outpatient [id number] Common 10:00:00 10:00:[address] [facility] 2017-09-17 2017-09-17 Outpatient [id number] Common 14:00:00 14:00:[address] [facility] Results Test Description Test Time Test Comments Results Result Comments Source SARS coronavirus 2 RNA [Presence] in Respiratory speci men by 2019-10-14 16:47:18 TOSIN with probe detection Test Item Value Reference Range Interpretation Comme nts SARS coronavirus 2 RNA [Presence] in Respiratory Not detected Not-D etected specimen by TOSIN with probe detection (test code = 39222-5) VAZQUEZ MAY
[2022-05-07 15:00] LABS: Urine Blood 1+ (Negative); Urine Glucose Negative (Negative); Urine Protein Negative (Negative); Urine Specific Gravity >=1.030 (1.005-1.030); Urine pH 5.5 (5.0-7.0)
[2022-05-07 15:45] LABS: Absolute Lymphocytes (CBC) 2.5 K/uL (0.7-4.9); Hematocrit 39.6 % (36.0-45.0); Lymphocytes % 35.4 % (15.3-44.8); MPV 7.5 fL (7.6-11.3)
[2022-05-07] MEDS ORDERED: HYDROCODONE/APAP 5/325 MG TAB ONE (15:48)
[2022-05-07 16:02] LABS: Potassium 3.9 mmol/L (3.5-5.1); Troponin High Sensitivity 6.2 pg/mL (<58.9)
--- NOTE | 2022-05-07 18:09 | RAD REPORT ---
EXAM DESCRIPTION: CT - Chest For Pe Angio - 05/07/2022 5:38 pm CLINICAL HISTORY: Chest pain. left sided rib pain, pain on inspiration COMPARISON: Lung Cancer Screening CT W/O dated 04/18/2020 TECHNIQUE: CT angiogram of the pulmonary arteries was performed with MIP. All CT scans are performed using dose optimization technique as appropriate and may include automated exposure control or mA/KV adjustment according to patient size. FINDINGS: No evidence of pulmonary thromboembolism. No acute aortic finding demonstrated. Mild diffuse COPD is present. Linear scarring is present in the left base. No significant pericardial or pleural fluid. No concerning bony finding. IMPRESSION: No evidence of pulmonary thromboembolism. Mild diffuse COPD.
--- NOTE | 2022-05-07 18:11 | RAD REPORT ---
EXAM DESCRIPTION: CTAbdomen Pelvis W Contrast - 05/07/2022 5:38 pm CLINICAL HISTORY: Abdominal pain. left sided abdominal/flank pain COMPARISON: Abdomen Pelvis W Contrast dated 12/01/2018 TECHNIQUE: Biphasic CT imaging of the abdomen and pelvis was performed with 100 ml non-ionic IV cont rast. All CT scans are performed using dose optimization technique as appropriate and may include automated exposure control or mA/KV adjustment according to patient size. FINDINGS: The lung bases are clear. The liver, spleen, pancreas, adrenal glands and kidneys are within normal limits. No bowel obstruction, free air, free fluid or abscess. The appendix is normal. No evidence of signi ficant lymphadenopathy. Mild lumbosacral degenerative changes. IMPRESSION: No acute intra-abdominal or pelvic finding.
[2022-05-07] MEDS ORDERED: KETOROLAC 30 MG/ML INJ ONE (18:44)
--- NOTE | 2022-05-07 19:36 | EDPHYS ---
Physician Documentation [facility] Name: Lin Delgado Age: 71 yrs Sex: Female : 1950 Arrival Date: 05/07/2022 Time: 14:04 Bed 9 Private MD: ED Physician Balaji Parr Historical: - PMHx: 05/07 14:15 Atrial fibrillation; Hypertension; Osteoporosis; jh5 - Immunization history:: Adult Immunizations up to date. - Social history:: Smoking status: Patient denies any tobacco usage or history of. Vital Signs: 14:13 BP 152 / 72; Pulse 58; Resp 16; Temp 98.7; Pulse Ox 99% ; Weight 58.97 kg; Height 5 ft. jh5 2 in. (157.48 cm); Pain 10/10; 15:52 BP 160 / 77; Pulse 58; Resp 20; Pulse Ox 98% ; Pain 8/10; kb3 19:00 BP 150 / 70; Pulse 48; Resp 20; Pulse Ox 95% ; kb3 20:20 BP 150 / 75; Pulse 47; Pulse Ox 96% on R/A; kr3 14:13 Body Mass Index 23.78 (58.97 kg, 157.48 cm) 5 MDM: 14:49 Patient medically screened. [facility] 19:34 Data reviewed: vital signs, nurses notes. Counseling: I had a detailed discussion with anitha the patient and/or guardian regarding: the historical points, exam findings, and any diagnostic results supporting the discharge/admit diagnosis, radiology results, the need for outpatient follow up, to return to the emergency department if symptoms worsen or persist or if there are any questions or concerns that arise at home. 05/07 14:50 Order name: CBC with Diff; Complete Time: 16:27 [facility] 05/07 14:50 Order name: BMP; Complete Time: 16:05 [facility] 05/07 14:50 Order name: Troponin High Sensitivity; Complete Time: 16:05 [facility] 05/07 15:00 Order name: Urine Dipstick-Ancillary; Complete Time: 15:02 [facility] 05/07 16:07 Order name: CT Chest For PE Angio; Complete Time: 18:16 [facility] 05/07 16:07 Order name: CT Abd/Pelvis - IV Contrast Only; Complete Time: 18:16 [facility] 05/07 14:18 Order name: Urine Dipstick-Ancillary (obtain specimen); Complete Time: 15:05 [facility] 05/07 14:50 Order name: EKG - Nurse/Tech; Complete Time: 16:25 [facility] Administered Medications: 15:52 Drug: HYDROcodone-acetaminophen 5 mg-325 mg 1 tabs Route: PO; kb3 17:00 Follow up: Response: No adverse reaction; Pain is unchanged, physician notified 3 18:55 Drug: Ketorolac 15 mg Route: IVP; Site: right antecubital; kb3 20:00 Follow up: Response: No adverse reaction; Pain is decreased 5 19:45 Drug: Valium (diazepam) 2 mg Route: PO; kr3 20:20 Follow up: Response: No adverse reaction 3 20:10 Drug: Rocephin (cefTRIAXone) 1 grams Route: IV; Rate: calculated rate; Site: right kr3 antecubital; 20:20 Follow up: Response: No adverse reaction; IV Status: Completed infusion; IV Intake: [id number] Disposition: 05/08 07:31 Co-signature as Attending Physician, Balaji Parr MD I agree with the assessment and rt plan of care. Chart complete. Chart complete. Chart complete. Disposition Summary: 05/07/22 19:35 Discharge Ordered Location: Home [facility] Condition: Stable [facility] Diagnosis - UTI/ Urinary tract infection, site not specified [facility] - Flank Pain [facility] Followup: [facility] - With: Mariza Colón MD - When: 2 - 3 days - Reason: Recheck today's complaints, Continuance of care, Re-evaluation by your physician Followup: [facility] - With: Private Physician - When: 2 - 3 days - Reason: Recheck today's complaints, Continuance of care, Re-evaluation by your physician Discharge Instructions: - Discharge Summary Sheet [facility] - Urinary Tract Infection, Adult [facility] Forms: - Medication Reconciliation Form [facility] - Thank You Letter [facility] - Antibiotic Education [facility] - Prescription Opioid Use [facility] Prescriptions: - Cephalexin 500 mg Oral Capsule - take 1 capsule by ORAL route every 8 hours for 10 days; 30 capsule; Refills: 0, [facility] Product Selection Permitted - orphenadrine citrate 100 mg Oral Tablet Sustained Release - take 1 tablet by ORAL route 2 times per day As needed; 20 tablet; Refills: 0, [facility] Product Selection Permitted Signatures: Dispatcher [employer] Oscar Joshi PA PA jmm Rees, Jessica, RN RN jh5 Angelique Rapp, RN RN kr3 Nicole Mayo, RN RN kb3 Balaji Parr MD MD rt
--- NOTE | 2022-05-07 19:36 | ER ---
Nurse's Notes [facility] Name: Lin Delgado Age: 71 yrs Sex: Female : 1950 Arrival Date: 05/07/2022 Time: 14:04 Bed 9 Private MD: Diagnosis: UTI/ Urinary tract infection, site not specified;Flank Pain Presentation: 05/07 14:13 Chief complaint: Patient states: i started having left flank pain a week ago and i jh5 thought it was a kidney infection so my daughter got me azos but yesterday it got worse and now the pain to my left flank takes my breath away. Coronavirus screen: Vaccine status: Patient reports receiving the 2nd dose of the covid vaccine. Client indicates they have traveled out of the [place] in the last 14 days. Client traveled to: [facility] in February. Ebola Screen: Patient negative for fever greater than or equal to 101.5 degrees Fahrenheit, and additional compatible Ebola Virus Disease symptoms Patient denies exposure to infectious person. Patient denies travel to an Ebola-affected area in the 21 days before illness onset. Initial Sepsis Screen: Does the patient meet any 2 criteria? No. Patient's initial sepsis screen is negative. Does the patient have a suspected source of infection? No. Patient's initial sepsis screen is negative. Risk Assessment: Do you want to hurt yourself or someone else? Patient reports no desire to harm self or others. 14:13 Method Of Arrival: Ambulatory [facility] 14:13 Acuity: VITALIY 3 jh5 Triage Assessment: 14:15 General: Appears in no apparent distress. uncomfortable, slender, well groomed, well jh5 developed, Behavior is calm, cooperative, appropriate for age. Pain: Complains of pain in left flank. Historical: - PMHx: 14:15 Atrial fibrillation; Hypertension; Osteoporosis; jh5 - Immunization history:: Adult Immunizations up to date. - Social history:: Smoking status: Patient denies any tobacco usage or history of. Screenin:21 Abuse screen: Denies threats or abuse. Nutritional screening: No deficits noted. kr3 Tuberculosis screening: No symptoms or risk factors identified. Fall Risk IV access (20 points). Total Davis Fall Scale indicates No Risk (0-24 pts). Vital Signs: 14:13 BP 152 / 72; Pulse 58; Resp 16; Temp 98.7; Pulse Ox 99% ; Weight 58.97 kg; Height 5 ft. 5 2 in. (157.48 cm); Pain 10/10; 15:52 BP 160 / 77; Pulse 58; Resp 20; Pulse Ox 98% ; Pain 8/10; kb3 19:00 BP 150 / 70; Pulse 48; Resp 20; Pulse Ox 95% ; kb3 20:20 BP 150 / 75; Pulse 47; Pulse Ox 96% on R/A; kr3 14:13 Body Mass Index 23.78 (58.97 kg, 157.48 cm) [facility] ED Course: 14:04 Patient arrived in ED. as 14:15 Triage completed. [facility] 14:15 Arm band placed on right wrist. [facility] 14:22 Oscar Gonzalez PA is PHCP. [facility] 14:22 Balaji Parr MD is Attending Physician. [facility] 14:30 Bed in low position. Call light in reach. Side rails up X 1. kr3 15:10 No provider procedures requiring assistance completed. Inserted saline lock: 20 gauge kb3 in right antecubital area, using aseptic technique. Blood collected. 15:21 Nicole Mayo, RN is Primary Nurse. kb3 15:31 Troponin High Sensitivity Sent. kb3 15:31 BMP Sent. kb3 15:31 CBC with Diff Sent. kb3 17:[address] via wheelchair. kb3 17:40 CT Chest For PE Angio In Process Unspecified. EDMS 17:40 CT Abd/Pelvis - IV Contrast Only In Process Unspecified. EDMS 17:[address]. kb3 19:34 Mariza Colón MD is Referral Physician. [facility] 19:38 Referral Physician role handed off by Mariza Colón MD [facility] 20:21 IV discontinued, intact, bleeding controlled, No redness/swelling at site. Pressure kr3 dressing applied. Administered Medications: 15:52 Drug: HYDROcodone-acetaminophen 5 mg-325 mg 1 tabs Route: PO; kb3 17:00 Follow up: Response: No adverse reaction; Pain is unchanged, physician notified 3 18:55 Drug: Ketorolac 15 mg Route: IVP; Site: right antecubital; kb3 20:00 Follow up: Response: No adverse reaction; Pain is decreased jh5 19:45 Drug: Valium (diazepam) 2 mg Route: PO; kr3 20:20 Follow up: Response: No adverse reaction kr3 20:10 Drug: Rocephin (cefTRIAXone) 1 grams Route: IV; Rate: calculated rate; Site: right kr3 antecubital; 20:20 Follow up: Response: No adverse reaction; IV Status: Completed infusion; IV Intake: [id number] Medication: 20:22 VIS not applicable for this client. kr3 Intake: 20:20 IV: 10ml; Total: 10ml. kr3 Outcome: 19:35 Discharge ordered by MD. welsh 20:21 Discharged to home ambulatory. kr3 20:21 Condition: stable 20:21 Discharge instructions given to patient, Instructed on discharge instructions, follow up and referral plans. medication usage, Demonstrated understanding of instructions, follow-up care, medications, Prescriptions given X 2. 20:22 Patient left the ED. kr3 Signatures: Dispatcher [employer] EDMS Oscar Gonzalez PA PA jmm Martinez, Amelia as Rees, Jessica RN RN jh5 Angelique Rapp RN RN kr3 Nicole Mayo, RN RN kb3
[2022-05-07] MEDS ORDERED: DIAZEPAM 2 MG TABLET ONE (20:05)
[2022-05-07] MEDS ORDERED: CEFTRIAXONE 1000 MG/VIAL ONE (20:05)
[2022-05-07 21:22] VITALS: TEMP 98.7
[2022-05-07 21:35] VITALS: BP 150/75; O2SAT 96
--- NOTE | 2022-05-08 13:49 | EKG ---
Test Date: 2022-05-07 Test Time: 15:38:51 Telecom Analyst: CARLOS MEASUREMENT RESULTS: Intervals: Rate: 51 MO: 200 QRSD: 80 QT: 460 QTc: 423 [place]: P: 77 MO: 200 QRS: 68 T: 69 INTERPRETIVE STATEMENTS: Sinus bradycardia Possible Anterior infarct, age undetermined Abnormal ECG Compared to ECG 07/19/2021 23:35:01 Myocardial infarct finding now present Electronically Signed On 05-08-22 13:47:30 AMMONIUM SULFATE OPERATOR by Linden Vences
== END 2022-05-07 20:22 | disposition home or self-care (01) ==
LOC: ER 13:59
DX: N39.0 Urinary tract infection, site not specified (principal); I10 Essential (primary) hypertension
CPT/HCPCS: 93005; 85025; 80048; 36415; 81003; 84484; 71275; 74177; 96375; 96374; 99284; Q9967

== ENCOUNTER 2023-04-27 11:13 | Emergency (ER) | payer OTHER ==
--- OUTSIDE RECORDS SUMMARY | 2023-04-27 11:20 | XMS REPORT | Continuity of Care Document ---
:1950 Author Organization [facility] t Address [address] [place] [address] [place] [id number] Care Team Providers Name Role Phone Vandana Wright DO Primary Care Physician Jordon Smalls Attending Clinician Unavailable Emmett Ambrosio Attending Clinician Unavailable Joyce Oneil Attending Clinician Unavailable Vandana Wright Attending Clinician Unavailable NATHANAEL DEL RIO Attending Clinician Unavailable MEI NGUYEN Attending Clinician Unavailable MEI NGUYEN Attending Clinician Unavailable Doctor Unassigned, [place] Attending Clinician Unavailable Vaccine, [facility] Attending Clinician Unavailable Darien Chowdary MD Attending Clinician DARIEN CHOWDARY Attending Clinician Unavailable TAYLOR SCHMIDT Attending Clinician Unavailable Taylor Schmidt MD Attending Clinician Dony Ac DO Attending Clinician LOU OCON Attending Clinician Unavailable GAURAV HARPER Attending Clinician Unavailable MD LOU COON Attending Clinician Unavailable Marianne-Mbayo_A_AH Attending Clinician Unavailable Allen Chew Attending Clinician TAYLOR SCHMIDT Admitting Clinician Unavailable LOU COON Admitting Clinician Unavailable MD LOU COON Admitting Clinician Unavailable Marianne-Mbayo_A_AH Admitting Clinician Unavailable Payers Payer Name Policy Type Policy Number Effective Date Expiration Date S ource HUMANA GOLD PLS [id number] 2020 HMO 00:00:00 HUMANA MEDICARE 53 [id number] 2021 Common Sp johanna 00:00:00 - [facility] MEDICARE MB [id number] [facility] MEDICARE MB [id number] Common [facility] MEDICARE MB [id number] [facility] MEDICARE MB [id number] [facility] [id number] [facility] C1 [id number] 2019 Common Sp johanna 00:00:[address] - [facility] HUMANA MEDICARE C1 [id number] 2019 Common Sp johanna 00:00:00 - [facility] MEDICARE C1 [id number] 2019 Common Sp johanna 00:00:00 - [facility] [place] [id number] - [employer] (MEDICARE REPLACEMENT/ADV ANTAGE - HMO) Problems Condition Condition Condition Status Onset Resolution Last Treating Co mments Source Name Details Category Date Date Treatment Clinician Date 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 5-06 st nodule nodule 00:00: Hospita 00 l No known No known Disease Unive rs active active ity of problems problems [facility] Dyskinesia Dyskinesi Problem Active 2019-02-13 Memoria (finding) a 02:03:09 l (finding) [place] Active Problem 02/13/2019 [facility] Hypertensi Problem Active 2019-02-13 M emoria ve Hypertensi 02:03:09 l disorder, ve Chris systemic disorder, arterial systemic (disorder) arterial (disorder) Active Problem 02/13/2019 [facility] [id number] 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, Center intermedia te dry stage [id number] Atrial Problem Common fibrillati Spirit on, - CHI unspecifie [facility] [id number] 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 - [facility] on [facility] [id number] [place] of Problem Comm on [id number] left [facility] adrenal - [facility] gland [facility] Cigarette Cigarette Problem Com mon smoker smoker [facility] Allergic Allergic Problem Commo n rhinitis rhinitis [facility] Essential Benign Problem Common hypertensi essential Spi rit on HTN [facility] [id number] Gynecologi Problem Co mmon c exam Spirit normal [facility] Overactive Overactive Problem C ommon bladder bladder [facility] [id number] Abdominal Problem Com mon distension [facility] (gaseous) [facility] [id number] Encounter Problem Com mon for Spirit general - [facility] adult [facility] examinatio Medica l n with Center abnormal findings [id number] Low back Problem Comm on pain [facility] [id number] Seasonal Problem Comm on allergies [facility] [id number] Statin Problem Common declined [facility] [id number] Gastritis Problem Com mon and [facility] duodenitis [facility] [id number] Osteoporos Problem Com mon is, Spirit unspecifie - [facility] type, Medical unspecifie Center d pathologic al fracture presence [id number] 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 - CHI carotid [facility] [id number] Age-relate Problem Com mon d Spirit osteoporos - CHI is without [facility] pathologic Medica l al Center fracture [id number] Skipped Problem Commo n heart Spirit beats [facility] [id number] Macular Problem Commo n degenerati Spirit on of both - [facility] [id number] Other Problem Common chronic [facility] pain [facility] Urinary Urinary Problem Common frequency frequency Spir it - [facility] [id number] [place] of Problem Comm on lung Spirit [facility] Cataract Cataract Problem Commo n of both Spirit eyes, - CHI unspecifie St d cataract [facility] [id number] Nicotine Problem Commo n dependence Spirit , - [facility]complic[facility] unspec[facility]ie Medica l d nicotine Center product type Allergies, Adverse Reactions, Alerts Allergy Allergy Status Severity Reaction(s) Onset Inactive Treating Comm ents Source Name Type Date Date Clinician NO KNOWN Drug Active Univers ALLERGIE Class ity of S [facility] Family History Family Member Diagnosis Comments Start Date Stop Date Source Natural [facility] Hy[facility] Natural mother Ovarian cancer [facility] Natural mother Rheum [facility] Social History Social Habit Start Date Stop Date Quantity Comments Source Sexual orientation Method [facility] Hospital History SDOH [facility] Alcohol Std Drinks Hospit al History SDIN [facility] History of Tobacco Current Smoker Co mmon Spirit - Use [facility] Exposure to 2022-08-03 2022-08-13 Not sure University SARS-CoV-2 (event) 00:00:00 09:23:00 [facility] Tobacco use and 2021-08-14 2021-08-14 Smokeless Universit y of exposure 00:00:00 00:00:00 tobacco non-user [facility] Alcohol intake 2019-11-25 2019-11-25 Lifetime [facility] 00:00:00 00:00:00 non-drinker Hospital (finding) History of Social 2019-11-25 2019-11-[address] function 00:00:00 00:00:00 Hospital History SDOH 2019-11-24 2019-11-24 1 [facility] Alcohol Frequency 00:00:00 00:00:00 Hospita l Cigarettes smoked 2019-08-13 2019-08-[address] current (pack per 00:00:00 00:00:00 Hospita l day) - Reported Cigarette 2019-08-13 2019-08-13 [facility] pack-years 00:00:00 00:00:00 Hospital Social History 2018-12-30 2018-12-30 [facility] 19:27:47 19:27:47 Sex Ass[birth year] At [birth year] [facility] 00:00:00 00:00:00 Hospital Smoking Status Start Date Stop Date Source Unknown if ever smoked [facility]anna - [facility] Ce nter Current Smoker 2023-03-14 00:00:00 [facility] Sp[facility] t - [facility] Ce [facility]ter Ex-smoker 2019-08-13 00:00:00 2019-08-13 00:00:00 [facility] Medications Ordered Filled Start Stop Current Ordering [...] Polytrim Polytrim 2021- No 1{drop_ QID Polytrim 37715-0.1 97692-0.1 12-04 into_af 80615-5.1 UNIT/ML UNIT/ML 00:00: 00:00 fected_ UNIT/ML 00 :00 eye} propafenone 2021- No 225mg Take 1 Un nikia 225 mg 11-10 tablet by ity of tablet 00:00: 04:59 mouth 2 [place] 00 :00 (two) Medical times Branch daily for 60 days. dronedarone 2021- No [id number] 400mg Take 1 Univers (MULTAQ) 5-25 05-27 tablet by ity o f 400 mg 00:00: 00:00 mouth 2 [place] tablet 00 :00 (two) Medical times Branch daily with meals. metoprolol 2021-0 Yes [id number] 50mg Take 1 Univers succinate 5-03 tablet by ity o f XL 50 mg 24 00:00: mouth 2 [place] as hr tablet 00 (two) Medical times Branch daily. metoprolol 2021-0 Yes [id number] 50mg Take 1 Univers succinate 5-03 tablet by ity o f XL 50 mg 24 00:00: mouth 2 [place] as hr tablet 00 (two) Medical times Branch daily. metoprolol 2021-0 Yes [id number] 50mg Take 1 Univers succinate 5-03 tablet by ity o f XL 50 mg 24 00:00: mouth 2 [place] as hr tablet 00 (two) Medical times Branch daily. metoprolol 2021-0 Yes [id number] 50mg Take 1 Univers succinate 5-03 tablet by ity o f XL 50 mg 24 00:00: mouth 2 [place] as hr tablet 00 (two) Medical times Branch daily. metoprolol 2021-0 Yes [id number] 50mg Take 1 Univers succinate 5-03 tablet by ity o f XL 50 mg 24 00:00: mouth 2 [place] as hr tablet 00 (two) Medical times Branch daily. metoprolol 2021-0 Yes [id number] 50mg Take 1 Univers succinate 5-03 tablet by ity o f XL 50 mg 24 00:00: mouth 2 [place] as hr tablet 00 (two) Medical times Branch daily. metoprolol 2021-0 Yes [id number] 50mg Take 1 Univers succinate 5-03 tablet by ity o f XL 50 mg 24 00:00: mouth 2 [place] as hr tablet 00 (two) Medical times Branch daily. metoprolol 2021-0 Yes [id number] 50mg Take 1 Univers succinate 5-03 tablet by ity o f XL 50 mg 24 00:00: mouth 2 [place] as hr tablet 00 (two) Medical times Branch daily. metoprolol 2021-0 Yes [id number] 50mg Take 1 Univers succinate 5-03 tablet by ity o f XL 50 mg 24 00:00: mouth 2 [place] as hr tablet 00 (two) [facility] times Branch daily. aspirin 81 2021-0 Yes 81mg Take 81 mg U nivers mg chewable 4-27 by mouth ity of tablet 10:10: daily. [address] aspirin 81 2022-0 Yes 81mg Take 81 mg U nivers mg chewable 4-27 by mouth ity of tablet 10:10: daily. [address] aspirin 81 2-0 Yes 81mg Take 81 mg U nivers mg chewable 4-27 by mouth ity of tablet 10:10: daily. [address] aspirin 81 2022-0 Yes 81mg Take 81 mg U nivers mg chewable 4-27 by mouth ity of tablet 10:10: daily. [address] aspirin 81 2022-0 Yes 81mg Take 81 mg U nivers mg chewable 4-27 by mouth ity of tablet 10:10: daily. [address] aspirin 81 2021-0 Yes 81mg Take 81 mg U nivers mg chewable 4-27 by mouth ity of tablet 10:10: daily. [address] aspirin 81 2022-0 Yes 81mg Take 81 mg U nivers mg chewable 4-27 by mouth ity of tablet 10:10: daily. [address] aspirin 81 2022-0 Yes 81mg Take 81 mg U nivers mg chewable 4-27 by mouth ity of tablet 10:10: daily. [address] aspirin 81 2022-0 Yes 81mg Take 81 mg U nivers mg chewable 4-27 by mouth ity of tablet 10:10: daily. [address] alendronate 2021-0 Yes 70mg Take 70 mg Univers (FOSAMAX) 2-28 by mouth ity of 70 mg 09:56: weekly. [address] alendronate 2021-0 Yes 70mg Take 70 mg Univers (FOSAMAX) 2-28 by mouth ity of 70 mg 09:56: weekly. [address] alendronate 2021-0 Yes 70mg Take 70 mg Univers (FOSAMAX) 2-28 by mouth ity of 70 mg 09:56: weekly. [address] alendronate 2021-0 Yes 70mg Take 70 mg Univers (FOSAMAX) 2-28 by mouth ity of 70 mg 09:56: weekly. [address] alendronate 2021-0 Yes 70mg Take 70 mg Univers (FOSAMAX) 2-28 by mouth ity of 70 mg 09:56: weekly. [place] tablet [address] [place] [address] Branch alendronate 2021-0 Yes 70mg Take 70 mg Univers (FOSAMAX) 2-28 by mouth ity of 70 mg 09:56: weekly. [address] alendronate 2021-0 Yes 70mg Take 70 mg Univers (FOSAMAX) 2-28 by mouth ity of 70 mg 09:56: weekly. [address] alendronate 2021-0 Yes 70mg Take 70 mg Univers (FOSAMAX) 2-28 by mouth ity of 70 mg 09:56: weekly. [address] alendronate 2021-0 Yes 70mg Take 70 mg Univers (FOSAMAX) 2-28 by mouth ity of 70 mg 09:56: weekly. [address] alendronate 2021-0 Yes 70mg Take 70 mg Univers (FOSAMAX) 2-28 by mouth ity of 70 mg 09:56: weekly. [address] alendronate 2020-0 Yes 70mg Q1W Take 70 mg [facility] (FOSAMAX) 6-[address] 70 MG 10:16: every 7 Hospita tablet 54 days. Take l in the morning with a full glass of water on an empty stomach, do NOT take anything else by mouth or lie down for the next 30 min. alendronate 2020-0 Yes 70mg Q1W Take 70 mg Method[facility] [...] 0 l 12.5 MG / 18:57: Refill(s) Her peterson Lisinopril 00 10 MG Oral Tablet Fosamax 2019-0 No PO, qWeek, Júnior margot 7-16 0 l 18:57: Refill(s) Chris 00 Lisinopril 2019-0 No PO, Daily, M emoria 7-16 0 l 18:57: Refill(s) Lisinopril 0 No PO, Daily, M emoria 7-16 0 l 18:57: Refill(s) Hydrochloro Yes 1 tab, PO, Memoria thiazide 7-16 Daily, 0 l 12.5 MG / 18:57: Refill(s) Her peterson Lisinopril 00 10 MG Oral Tablet Fosamax No PO, qWeek, Júnior margot 7-16 0 l 18:57: Refill(s) Lisinopril No PO, Daily, M emoria 7-16 0 l 18:57: Refill(s) Hydrochloro Yes 1 tab, PO, Memoria thiazide 7-16 Daily, 0 l 12.5 MG / 18:57: Refill(s) Her peterson Lisinopril 00 10 MG Oral Tablet Fosamax No PO, qWeek, Júnior margot 7-16 0 l 18:57: Refill(s) Omeprazole Omeprazole No 1{capsu BID Omeprazole 40 MG 40 MG 6-28 le} 40 MG 00:00: 00 Omeprazole Omeprazole 2018-0 No 1{capsu BID Omeprazole 40 MG 40 MG 6-28 le} 40 MG 00:00: 00 Omeprazole Omeprazole 2018-0 No 1{capsu BID Omeprazole 40 MG 40 MG 6-28 le} 40 MG 00:00: 00 Omeprazole Omeprazole 2018-0 No 1{capsu BID Omeprazole 40 MG 40 MG 6-28 le} 40 MG 00:00: 00 Omeprazole Omeprazole 2018-0 No 1{capsu BID Omeprazole 40 MG 40 MG 6-28 le} 40 MG 00:00: 00 Omeprazole Omeprazole 2018-0 No 1{capsu BID Omeprazole 40 MG 40 MG 6-28 le} 40 MG 00:00: 00 Omeprazole Omeprazole 2018-0 No 1{capsu BID Omeprazole 40 MG 40 MG 6-28 le} 40 MG 00:00: 00 Omeprazole Omeprazole 2018-0 No 1{capsu BID Omeprazole 40 MG 40 MG 6-28 le} 40 MG 00:00: 00 Omeprazole Omeprazole 2018-0 No 1{capsu BID Omeprazole 40 MG 40 [...] MG 6-28 le} 40 MG 00:00: 00 Chantix Chantix 2019-0 No Chantix Starting Starting 11-18 Starting Month [facility] Month Lele 00:00: Month [place] .5mg .5mg 00 .5mg Chantix Chantix 2019-0 No Chantix Starting Starting 11-18 Starting Month [facility] Lele 00:00: Month [place] .5mg .5mg 00 .5mg Chantix Chantix 2019-0 No Chantix Starting Starting 11-18 Starting Month [facility] Month Lele 00:00: Month [place] [...] No Chantix Starting Starting 11-18 Starting Month [facility] Month Lele 00:00: Month [place] .5mg .5mg 00 .5mg Chantix Chantix 2019-0 No Chantix Starting Starting 11-18 Starting Month [facility] Month Lele 00:00: Month Lele [...] Starting Month Lele Month Lele 00:00: Month Leel .5mg .5mg 00 .5mg Chantix Chantix 2019-0 No Chantix Starting Starting 11-18 Starting Month [place] Month Lele 00:00: Month [place] .5mg .5mg 00 .5mg Chantix Chantix 2019-0 No Chantix Starting Starting 11-18 Starting Month [place] Month Lele 00:00: Month [place] .5mg .5mg 00 .5mg Chantix Chantix 2018- No Chantix Starting Starting 11-18 Starting Month [place] Month Lele 00:00: Month [place] .5mg .5mg 00 .5mg Chantix Chantix No Chantix Starting Starting 11-18 Starting Month [place] Month Lele 00:00: Month [place] .5mg .5mg 00 .5mg Chantix Chantix No Chantix Starting Starting 11-18 Starting Month Lele Month Lele 00:00: Month [place] .5mg .5mg 00 .5mg Chantix Chantix No Chantix Starting Starting 11-18 Starting Month Lele Lele 00:00: Month [place] .5mg .5mg 00 .5mg Chantix Chantix No Chantix Starting Starting 11-18 Starting Month [facility] Lele 00:00: Month [place] .5mg .5mg 00 .5mg Chantix Chantix No Chantix Starting Starting 11-18 Starting Month [facility] Lele 00:00: Month [place] .5mg .5mg 00 .5mg Chantix Chantix No Chantix Starting Starting 11-18 Starting Month [facility] Lele 00:00: Month [place] .5mg .5mg 00 .5mg Fosamax Fosamax Yes Na Wright 1 EACH Comm on ONCE A Spirit WEEK - [facility]I ORALLY [facility] Claritin 10 Claritin 10 No 1{table QD [...] 50 MG 50 MG t} 50 MG Alendronate Alendronate No Alendronat Sodium 70 [...] QD Aspirin 81 MG MG t} MG Albuterol Albuterol No 2{puffs QID Albuterol Sulfate 108 Sulfate 108 _as_nee Sulfate (90 Base) (90 Base) ded} 108 (90 MCG/ACT MCG/ACT Base) MCG/ACT Immunizations Ordered Filled Date Status Comments Source Immunization Name Immunization Name SARS-COV-2 COVID-19 2022-05-25 Completed Unive rsity of [facility]TY[facility]CR[facility] 00:00:00 [place] [facility] VACCINE 12 YRS+, Branch BIVALENT 0.3ML, IM, (PFIZER YOUNGBLOOD TOP BOOSTER) SARS-COV-2 COVID-19 2022-05-25 Completed Unive rsity of SCOTYT-SUCROSE 00:00:00 [place] Medica l VACCINE 12 YRS+, Branch BIVALENT 0.3ML, IM, (PFIZER YOUNGBLOOD TOP BOOSTER) SARS-COV-2 COVID-19 2022-05-25 Completed Unive rsity of SCOTTY-SUCROSE 00:00:00 [place] Medica l VACCINE 12 YRS+, Branch BIVALENT 0.3ML, IM, (PFIZER YOUNGBLOOD TOP BOOSTER) SARS-COV-2 COVID-19 2022-05-25 Completed Unive rsity of SCOTTY-SUCROSE 00:00:00 [place] Medica l VACCINE 12 YRS+, Branch BIVALENT 0.3ML, IM, (PFIZER YOUNGBLOOD TOP BOOSTER) FLUZONE HIGH DOSE FLUZONE HIGH DOSE 2021-03-28 Completed [facility] - OVER 65 OVER 65 13:53:00 [facility] FLUZONE HIGH DOSE FLUZONE HIGH DOSE 2021-03-28 Completed [facility] - OVER 65 OVER 65 13:53:00 [facility] FLUZONE HIGH DOSE FLUZONE HIGH DOSE 2021-03-28 Completed [facility] - OVER 65 OVER 65 13:53:00 [facility] FLUZONE HIGH DOSE FLUZONE HIGH DOSE 2021-03-28 Completed [facility] - OVER 65 OVER 65 13:53:00 [facility] FLUZONE HIGH DOSE FLUZONE HIGH DOSE 2021-03-28 Completed [facility] - OVER 65 OVER 65 13:53:00 [facility] FLUZONE HIGH DOSE FLUZONE HIGH DOSE 2021-03-28 Completed [facility] - OVER 65 OVER 65 13:53:00 [facility] FLUZONE HIGH DOSE FLUZONE HIGH DOSE 2021-03-28 Completed [facility] - OVER 65 OVER 65 13:53:00 [facility] FLUZONE HIGH DOSE FLUZONE HIGH DOSE 2021-03-28 Completed [facility] - OVER 65 OVER 65 13:53:00 [facility] FLUZONE HIGH DOSE FLUZONE HIGH DOSE 2021-03-28 Completed [facility] - OVER 65 OVER 65 13:53:00 [facility] FLUZONE HIGH DOSE FLUZONE HIGH DOSE 2021-03-28 Completed [facility] - OVER 65 OVER 65 13:53:00 [facility] FLUZONE HIGH DOSE FLUZONE HIGH DOSE 2021-03-28 Completed [facility] - OVER 65 OVER 65 13:53:00 [facility] FLUZONE HIGH DOSE FLUZONE HIGH DOSE 2021-03-28 Completed [facility] - OVER 65 OVER 65 13:53:00 [facility] FLUZONE HIGH DOSE FLUZONE HIGH DOSE 2021-03-28 Completed [facility] - OVER 65 OVER 65 13:53:00 [facility] FLUZONE HIGH DOSE FLUZONE HIGH DOSE 2021-03-28 Completed [facility] - OVER 65 OVER 65 13:53:00 [facility] FLUZONE HIGH DOSE FLUZONE HIGH DOSE 2021-03-28 Completed [facility] - OVER 65 OVER 65 13:53:00 [facility] FLUZONE HIGH DOSE FLUZONE HIGH DOSE 2021-03-28 Completed [facility] - OVER 65 OVER 65 13:53:00 [facility] FLUZONE HIGH DOSE FLUZONE HIGH DOSE 2021-03-28 Completed [facility] - OVER 65 OVER 65 13:53:00 [facility] FLUZONE HIGH DOSE FLUZONE HIGH DOSE 2021-03-28 Completed [facility] - OVER 65 OVER 65 13:53:00 [facility] FLUZONE HIGH DOSE FLUZONE HIGH DOSE 2021-03-28 Completed [facility] - OVER 65 OVER 65 13:53:00 [facility] FLUZONE HIGH DOSE FLUZONE HIGH DOSE 2021-03-28 Completed [facility] - OVER 65 OVER 65 13:53:00 [facility] FLUZONE HIGH DOSE FLUZONE HIGH DOSE 2021-03-28 Completed [facility] - OVER 65 OVER 65 13:53:00 [facility] FLUZONE HIGH DOSE FLUZONE HIGH DOSE 2021-03-28 Completed [facility] - OVER 65 OVER 65 13:53:00 [facility] FLUZONE HIGH DOSE FLUZONE HIGH DOSE 2021-03-28 Completed [facility] - OVER 65 OVER 65 13:53:00 [facility] FLUZONE HIGH DOSE FLUZONE HIGH DOSE 2021-03-28 Completed [facility] - OVER 65 OVER 65 13:53:00 [facility] FLUZONE HIGH DOSE FLUZONE HIGH DOSE 2021-03-28 Completed [facility] - OVER 65 OVER 65 13:53:00 [facility] FLUZONE HIGH DOSE FLUZONE HIGH DOSE 2021-03-28 Completed [facility] - OVER 65 OVER 65 13:53:00 [facility] FLUZONE HIGH DOSE FLUZONE HIGH DOSE 2021-03-28 Completed [facility] - OVER 65 OVER 65 13:53:00 [facility] FLUZONE HIGH DOSE FLUZONE HIGH DOSE 2021-03-28 Completed [facility] - OVER 65 OVER 65 13:53:00 [facility] FLUZONE HIGH DOSE FLUZONE HIGH DOSE 2021-03-28 Completed [facility] - OVER 65 OVER 65 13:53:00 [facility] FLUZONE HIGH DOSE FLUZONE HIGH DOSE 2021-03-28 Completed [facility] - OVER 65 OVER 65 13:53:00 [facility] Pfizer COVID-19 Pfizer COVID-19 2021-03-17 Completed Comm on Spirit - Vaccine Vaccine 14:24:00 [facility] Pfizer COVID-19 Pfizer COVID-19 2021-03-17 Completed Comm on Spirit - Vaccine Vaccine 14:24:00 [facility] Pfizer COVID-19 Pfizer COVID-19 2021-03-17 Completed Comm [facility] Spirit - Vaccine Vaccine 14:24:00 [facility] Pfizer COVID-19 Pfizer COVID-19 2021-03-17 Completed [facility] Spirit - Vaccine Vaccine 14:24:00 [facility] Pfizer COVID-19 Pfizer COVID-19 2021-03-17 Completed [facility] Spirit - Vaccine Vaccine 14:24:00 [facility] Pfizer COVID-19 Pfizer COVID-19 2021-03-17 Completed [facility] Spirit - Vaccine Vaccine 14:24:00 [facility] Pfizer COVID-19 Pfizer COVID-19 2021-03-17 Completed [facility] - Vaccine Vaccine 14:24:00 [facility] Pfizer COVID-19 Pfizer COVID-19 2021-03-17 Completed [facility] Spirit - Vaccine Vaccine 14:24:00 [facility] Pfizer COVID-19 Pfizer COVID-19 2021-03-17 Completed [facility] Spirit - Vaccine Vaccine 14:24:00 [facility] Pfizer COVID-19 Pfizer COVID-19 2021-03-17 Completed [facility] - Vaccine Vaccine 14:24:00 [facility] Pfizer COVID-19 Pfizer COVID-19 2021-03-17 Completed Comm on Spirit - Vaccine Vaccine 14:24:00 [facility] Pfizer COVID-19 Pfizer COVID-19 2021-03-17 Completed [facility] on Spirit - Vaccine Vaccine 14:24:00 [facility] Pfizer COVID-19 Pfizer COVID-19 2021-03-17 Completed [facility] - Vaccine Vaccine 14:24:00 [facility] Pfizer COVID-19 Pfizer COVID-19 2021-03-17 Completed [facility] - Vaccine Vaccine 14:24:00 [facility] Pfizer COVID-19 Pfizer COVID-19 2021-03-17 Completed Comm on Spirit - Vaccine Vaccine 14:24:00 [facility] Pfizer COVID-19 Pfizer COVID-19 2021-03-17 Completed Comm on Spirit - Vaccine Vaccine 14:24:00 [facility] Pfizer COVID-19 Pfizer COVID-19 2021-03-17 Completed [facility] Spirit - Vaccine Vaccine 14:24:00 [facility] Pfizer COVID-19 Pfizer COVID-19 2021-03-17 Completed [facility] on Spirit - Vaccine Vaccine 14:24:00 [facility] Pfizer COVID-19 Pfizer COVID-19 2021-03-17 Completed [facility] Spirit - Vaccine Vaccine 14:24:00 [facility] Pfizer COVID-19 Pfizer COVID-19 2021-03-17 Completed [facility] Spirit - Vaccine Vaccine 14:24:00 [facility] Pfizer COVID-19 Pfizer COVID-19 2021-03-17 Completed [facility] - Vaccine Vaccine 14:24:00 [facility] Pfizer COVID-19 Pfizer COVID-19 2021-03-17 Completed [facility] Spirit - Vaccine Vaccine 14:24:00 [facility] Pfizer COVID-19 Pfizer COVID-19 2021-03-17 Completed Comm on Spirit - Vaccine Vaccine 14:24:00 [facility] Pfizer COVID-19 Pfizer COVID-19 2021-03-17 Completed [facility] Spirit - Vaccine Vaccine 14:24:00 [facility] Pfizer COVID-19 Pfizer COVID-19 2021-03-17 Completed Comm on Spirit - Vaccine Vaccine 14:24:00 [facility] Pfizer COVID-19 Pfizer COVID-19 2021-03-17 Completed Comm on Spirit - Vaccine Vaccine 14:24:00 [facility] Pfizer COVID-19 Pfizer COVID-19 2021-03-17 Completed Comm on Spirit - Vaccine Vaccine 14:24:00 [facility] Pfizer COVID-19 Pfizer COVID-19 2021-03-17 Completed [facility] Vaccine Vaccine 14:24:00 [facility] Pfizer COVID-19 Pfizer COVID-19 2021-03-17 Completed [facility] Vaccine Vaccine 14:24:00 [facility] Pfizer COVID-19 Pfizer COVID-19 2021-03-17 Completed [facility] Vaccine Vaccine 14:24:00 [facility] SARS-COV-2 COVID-19 2021-03-17 Completed [facility] PFIZER VACCINE 00:00:00 [facility] SARS-COV-2 COVID-19 2021-03-17 Completed [facility] of PFIZER VACCINE 00:00:00 [facility] SARS-COV-2 COVID-19 2021-03-17 Completed [facility] of PFIZER VACCINE 00:00:00 [facility] SARS-COV-2 COVID-19 2021-03-17 Completed [facility] of PFIZER VACCINE 00:00:00 [facility] SARS-COV-2 COVID-19 2021-03-17 Completed [facility] of PFIZER VACCINE 00:00:00 [facility] SARS-COV-2 COVID-19 2021-03-17 Completed [facility] of PFIZER VACCINE 00:00:00 [facility] SARS-COV-2 COVID-19 2021-03-17 Completed [facility] of PFIZER VACCINE 00:00:00 [facility] SARS-COV-2 COVID-19 2021-03-17 Completed [facility] of PFIZER VACCINE 00:00:00 [facility] Pfizer COVID-19 Pfizer COVID-19 2020-08-17 Completed [facility] Vaccine Vaccine 14:23:00 [facility] Pfizer COVID-19 Pfizer COVID-19 2020-08-17 Completed [facility] Vaccine Vaccine 14:23:00 [facility] Pfizer COVID-19 Pfizer COVID-19 2020-08-17 Completed [facility] Vaccine Vaccine 14:23:00 [facility] Pfizer COVID-19 Pfizer COVID-19 2020-08-17 Completed [facility] Vaccine Vaccine 14:23:00 [facility] Pfizer COVID-19 Pfizer COVID-19 2020-08-17 Completed [facility] Vaccine Vaccine 14:23:00 [facility] Pfizer COVID-19 Pfizer COVID-19 2020-08-17 Completed [facility] Vaccine Vaccine 14:23:00 [facility] Pfizer COVID-19 Pfizer COVID-19 2020-08-17 Completed [facility] Vaccine Vaccine 14:23:00 [facility] Pfizer COVID-19 Pfizer COVID-19 2020-08-17 Completed [facility] Vaccine Vaccine 14:23:00 [facility] Pfizer COVID-19 Pfizer COVID-19 2020-08-17 Completed [facility] Vaccine Vaccine 14:23:00 [facility] Pfizer COVID-19 Pfizer COVID-19 2020-08-17 Completed [facility] Vaccine Vaccine 14:23:00 [facility] Pfizer COVID-19 Pfizer COVID-19 2020-08-17 Completed [facility] Vaccine Vaccine 14:23:00 [facility] Pfizer COVID-19 Pfizer COVID-19 2020-08-17 Completed [facility] Vaccine Vaccine 14:23:00 [facility] Pfizer COVID-19 Pfizer COVID-19 2020-08-17 Completed [facility] Vaccine Vaccine 14:23:00 [facility] Pfizer COVID-19 Pfizer COVID-19 2020-08-17 Completed [facility] Vaccine Vaccine 14:23:00 [facility] Pfizer COVID-19 Pfizer COVID-19 2020-08-17 Completed [facility] Vaccine Vaccine 14:23:00 [facility] Pfizer COVID-19 Pfizer COVID-19 2020-08-17 Completed [facility] Vaccine Vaccine 14:23:00 [facility] Pfizer COVID-19 Pfizer COVID-19 2020-08-17 Completed [facility] Vaccine Vaccine 14:23:00 [facility] Pfizer COVID-19 Pfizer COVID-19 2020-08-17 Completed [facility] Vaccine Vaccine 14:23:00 [facility] Pfizer COVID-19 Pfizer COVID-19 2020-08-17 Completed [facility] Vaccine Vaccine 14:23:00 [facility] Pfizer COVID-19 Pfizer COVID-19 2020-08-17 Completed [facility] Vaccine Vaccine 14:23:00 [facility] Pfizer COVID-19 Pfizer COVID-19 2020-08-17 Completed [facility] Vaccine Vaccine 14:23:00 [facility] Pfizer COVID-19 Pfizer COVID-19 2020-08-17 Completed [facility] Vaccine Vaccine 14:23:00 [facility] Pfizer COVID-19 Pfizer COVID-19 2020-08-17 Completed [facility] Vaccine Vaccine 14:23:00 [facility] Pfizer COVID-19 Pfizer COVID-19 2020-08-17 Completed [facility] Vaccine Vaccine 14:23:00 [facility] Pfizer COVID-19 Pfizer COVID-19 2020-08-17 Completed [facility] Vaccine Vaccine 14:23:00 [facility] Pfizer COVID-19 Pfizer COVID-19 2020-08-17 Completed [facility] Vaccine Vaccine 14:23:00 [facility] Pfizer COVID-19 Pfizer COVID-19 2020-08-17 Completed [facility] Vaccine Vaccine 14:23:00 [facility] Pfizer COVID-19 Pfizer COVID-19 2020-08-17 Completed [facility] Vaccine Vaccine 14:23:00 [facility] Pfizer COVID-19 Pfizer COVID-19 2020-08-17 Completed [facility] Vaccine Vaccine 14:23:00 [facility] Pfizer COVID-19 Pfizer COVID-19 2020-08-17 Completed [facility] Vaccine Vaccine 14:23:00 [facility] SARS-COV-2 COVID-19 2020-08-17 Completed [facility] PFIZER VACCINE 00:00:00 [facility] SARS-COV-2 COVID-19 2020-08-17 Completed [facility] PFIZER VACCINE 00:00:00 [facility] SARS-COV-2 COVID-19 2020-08-17 Completed [facility] PFIZER VACCINE 00:00:00 [facility] SARS-COV-2 COVID-19 2020-08-17 Completed [facility] PFIZER VACCINE 00:00:00 [facility] SARS-COV-2 COVID-19 2020-08-17 Completed [facility] PFIZER VACCINE 00:00:00 [facility] SARS-COV-2 COVID-19 2020-08-17 Completed [facility] PFIZER VACCINE 00:00:00 [facility] SARS-COV-2 COVID-19 2020-08-17 Completed [facility] PFIZER VACCINE 00:00:00 [facility] SARS-COV-2 COVID-19 2020-08-17 Completed [facility] PFIZER VACCINE 00:00:00 [facility] Pfizer COVID-19 Pfizer COVID-19 2020-07-27 Completed [facility] Vaccine Vaccine 14:23:00 [facility] Pfizer COVID-19 Pfizer COVID-19 2020-07-27 Completed [facility] Vaccine Vaccine 14:23:00 [facility] Pfizer COVID-19 Pfizer COVID-19 2020-07-27 Completed [facility] Vaccine Vaccine 14:23:00 [facility] Pfizer COVID-19 Pfizer COVID-19 2020-07-27 Completed [facility] Vaccine Vaccine 14:23:00 [facility] Pfizer COVID-19 Pfizer COVID-19 2020-07-27 Completed [facility] Vaccine Vaccine 14:23:00 [facility] Pfizer COVID-19 Pfizer COVID-19 2020-07-27 Completed [facility] Vaccine Vaccine 14:23:00 [facility] Pfizer COVID-19 Pfizer COVID-19 2020-07-27 Completed [facility] Vaccine Vaccine 14:23:00 [facility] Pfizer COVID-19 Pfizer COVID-19 2020-07-27 Completed [facility] Vaccine Vaccine 14:23:00 [facility] Pfizer COVID-19 Pfizer COVID-19 2020-07-27 Completed [facility] Vaccine Vaccine 14:23:00 [facility] Pfizer COVID-19 Pfizer COVID-19 2020-07-27 Completed [facility] Vaccine Vaccine 14:23:00 [facility] Pfizer COVID-19 Pfizer COVID-19 2020-07-27 Completed [facility] Vaccine Vaccine 14:23:00 [facility] Pfizer COVID-19 Pfizer COVID-19 2020-07-27 Completed [facility] Vaccine Vaccine 14:23:00 [facility] Pfizer COVID-19 Pfizer COVID-19 2020-07-27 Completed [facility] Vaccine Vaccine 14:23:00 [facility] Pfizer COVID-19 Pfizer COVID-19 2020-07-27 Completed [facility] Vaccine Vaccine 14:23:00 [facility] Pfizer COVID-19 Pfizer COVID-19 2020-07-27 Completed [facility] Vaccine Vaccine 14:23:00 [facility] Pfizer COVID-19 Pfizer COVID-19 2020-07-27 Completed [facility] Vaccine Vaccine 14:23:00 [facility] Pfizer COVID-19 Pfizer COVID-19 2020-07-27 Completed [facility] Vaccine Vaccine 14:23:00 [facility] Pfizer COVID-19 Pfizer COVID-19 2020-07-27 Completed [facility] Vaccine Vaccine 14:23:00 [facility] Pfizer COVID-19 Pfizer COVID-19 2020-07-27 Completed [facility] Vaccine Vaccine 14:23:00 [facility] Pfizer COVID-19 Pfizer COVID-19 2020-07-27 Completed [facility] Vaccine Vaccine 14:23:00 [facility] Pfizer COVID-19 Pfizer COVID-19 2020-07-27 Completed [facility] Vaccine Vaccine 14:23:00 [facility] Pfizer COVID-19 Pfizer COVID-19 2020-07-27 Completed [facility] Vaccine Vaccine 14:23:00 [facility] Pfizer COVID-19 Pfizer COVID-19 2020-07-27 Completed [facility] Vaccine Vaccine 14:23:00 [facility] Pfizer COVID-19 Pfizer COVID-19 2020-07-27 Completed [facility] Vaccine Vaccine 14:23:00 [facility] Pfizer COVID-19 Pfizer COVID-19 2020-07-27 Completed [facility] Vaccine Vaccine 14:23:00 [facility] Pfizer COVID-19 Pfizer COVID-19 2020-07-27 Completed [facility] Vaccine Vaccine 14:23:00 [facility] Pfizer COVID-19 Pfizer COVID-19 2020-07-27 Completed [facility] Vaccine Vaccine 14:23:00 [facility] Pfizer COVID-19 Pfizer COVID-19 2020-07-27 Completed [facility] Vaccine Vaccine 14:23:00 [facility] Pfizer COVID-19 Pfizer COVID-19 2020-07-27 Completed [facility] Vaccine Vaccine 14:23:00 [facility] Pfizer COVID-19 Pfizer COVID-19 2020-07-27 Completed [facility] Vaccine Vaccine 14:23:00 [facility] SARS-COV-2 COVID-19 2020-07-27 Completed [facility] PFIZER VACCINE 00:00:00 [facility] SARS-COV-2 COVID-19 2020-07-27 Completed [facility] PFIZER VACCINE 00:00:00 [facility] SARS-COV-2 COVID-19 2020-07-27 Completed [facility] PFIZER VACCINE 00:00:00 [facility] SARS-COV-2 COVID-19 2020-07-27 Completed [facility] PFIZER VACCINE 00:00:00 [facility] SARS-COV-2 COVID-19 2020-07-27 Completed [facility] PFIZER VACCINE 00:00:00 [facility] SARS-COV-2 COVID-19 2020-07-27 Completed [facility] PFIZER VACCINE 00:00:00 [facility] SARS-COV-2 COVID-19 2020-07-27 Completed [facility] PFIZER VACCINE 00:00:00 [facility] SARS-COV-2 COVID-19 2020-07-27 Completed [facility] PFIZER VACCINE 00:00:00 [facility] FluAD FluAD 2020-04-07 [facility] 16:03:00 [facility] FluAD FluAD 2020-04-07 [facility] 16:03:00 [facility] FluAD FluAD 2020-04-07 [facility] 16:03:00 [facility] FluAD FluAD 2020-04-07 [facility]pleted [facility] 16:03:00 [facility] FluAD FluAD 2020-04-07 [facility] 16:03:00 [facility] FluAD FluAD 2020-04-07 [facility] 16:03:00 [facility] FluAD FluAD 2020-04-07 [facility]pleted [facility] 16:03:00 [facility] FluAD FluAD 2020-04-07 [facility]pleted [facility] 16:03:00 [facility] FluAD FluAD 2020-04-07 [facility] 16:03:00 [facility] FluAD FluAD 2020-04-07 [facility]pleted [facility] 16:03:00 [facility] FluAD FluAD 2020-04-07 [facility]pleted [facility] 16:03:00 [facility] FluAD FluAD 2020-04-07 [facility]pleted [facility] 16:03:00 [facility] FluAD FluAD 2020-04-07 [facility]pleted [facility] 16:03:00 [facility] FluAD FluAD 2020-04-07 [facility]pleted [facility] 16:03:00 [facility] FluAD FluAD 2020-04-07 [facility]pleted [facility] 16:03:00 [facility] FluAD FluAD 2020-04-07 [facility] 16:03:00 [facility] FluAD FluAD 2020-04-07 [facility]pleted [facility] 16:03:00 [facility] FluAD FluAD 2020-04-07 [facility]pleted [facility] 16:03:00 [facility] FluAD FluAD 2020-04-07 [facility]pleted [facility] 16:03:00 [facility] FluAD FluAD 2020-04-07 [facility]pleted [facility] 16:03:00 [facility] FluAD FluAD 2020-04-07 [facility]pleted [facility] 16:03:00 [facility] FluAD FluAD 2020-04-07 [facility]pleted [facility] 16:03:00 [facility] FluAD FluAD 2020-04-07 [facility]pleted [facility] 16:03:00 [facility] FluAD FluAD 2020-04-07 [facility]pleted [facility] 16:03:00 [facility] FluAD FluAD 2020-04-07 [facility]pleted [facility] 16:03:00 [facility] FluAD FluAD 2020-04-07 [facility]pleted [facility] 16:03:00 [facility] FluAD FluAD 2020-04-07 [facility]pleted [facility] 16:03:00 [facility] FluAD FluAD 2020-04-07 [facility]pleted [facility] 16:03:00 [facility] FluAD FluAD 2020-04-07 [facility]pleted [facility] 16:03:00 [facility] FluAD FluAD 2020-04-07 [facility]pleted [facility] 16:03:00 [facility] FluAD FluAD 2019-03-24 Completed [facility] - 11:18:00 [facility] FluAD FluAD 2019-03-24 [facility]pleted [facility] 11:18:00 [facility] FluAD FluAD 2019-03-24 Completed [facility] 11:18:00 [facility] FluAD FluAD 2019-03-24 Completed [facility] 11:18:00 [facility] FluAD FluAD 2019-03-24 Completed [facility] 11:18:00 [facility] FluAD FluAD 2019-03-24 [facility]pleted [facility] 11:18:00 [facility] FluAD FluAD 2019-03-24 [facility]pleted [facility] 11:18:00 [facility] FluAD FluAD 2019-03-24 Completed [facility] 11:18:00 [facility] FluAD FluAD 2019-03-24 [facility]pleted [facility] 11:18:00 [facility] FluAD FluAD 2019-03-24 [facility]pleted [facility] 11:18:00 [facility] FluAD FluAD 2019-03-24 Completed [facility] 11:18:00 [facility] FluAD FluAD 2019-03-24 Completed [facility] 11:18:00 [facility] FluAD FluAD 2019-03-24 Completed [facility] 11:18:00 [facility] FluAD FluAD 2019-03-24 Completed [facility] 11:18:00 [facility] FluAD FluAD 2019-03-24 Completed [facility] 11:18:00 [facility] FluAD FluAD 2019-03-24 [facility]pleted [facility] 11:18:00 [facility] FluAD FluAD 2019-03-24 [facility]pleted [facility] 11:18:00 [facility] FluAD FluAD 2019-03-24 Completed [facility] 11:18:00 [facility] FluAD FluAD 2019-03-24 Completed [facility] 11:18:00 [facility] FluAD FluAD 2019-03-24 [facility]pleted [facility] 11:18:00 [facility] FluAD FluAD 2019-03-24 Completed [facility] 11:18:00 [facility] FluAD FluAD 2019-03-24 Completed [facility] 11:18:00 [facility] FluAD FluAD 2019-03-24 Completed [facility] 11:18:00 [facility] FluAD FluAD 2019-03-24 Completed [facility] 11:18:00 [facility] FluAD FluAD 2019-03-24 Completed [facility] 11:18:00 [facility] FluAD FluAD 2019-03-24 Completed [facility] 11:18:00 [facility] FluAD FluAD 2019-03-24 Completed [facility] 11:18:00 [facility] FluAD FluAD 2019-03-24 Completed [facility] 11:18:00 [facility] FluAD FluAD 2019-03-24 Completed [facility] 11:18:00 [facility] FluAD FluAD 2019-03-24 Completed [facility] 11:18:00 [facility] FluAD FluAD 2019-03-24 Completed [facility] 00:00:00 [facility] SARS-COV-2 COVID-19 Unknown Completed [facility] PFIZER VACCINE [facility] SARS-COV-2 COVID-19 Unknown Completed [facility] PFIZER VACCINE [facility] SARS-COV-2 COVID-19 Unknown Completed [facility] PFIZER VACCINE [facility] SARS-COV-2 COVID-19 Unknown Completed [facility] PFIZER VACCINE [facility] SARS-COV-2 COVID-19 Unknown Completed [facility] PFIZER VACCINE [facility] SARS-COV-2 COVID-19 Unknown Completed [facility] of PFIZER VACCINE [facility] FluAD Quad SD FluAD Quad SD Unknown Completed [facility] Pfizer COVID-19 Pfizer COVID-19 Unknown Completed [facility] - Vaccine Vaccine [facility] Pfizer COVID-19 Pfizer COVID-19 Unknown Completed [facility] - Vaccine Vaccine [facility] Pfizer COVID-19 Pfizer COVID-19 Unknown Completed [facility] Vaccine Vaccine [facility] FluAD FluAD Unknown Completed [facility] FluAD FluAD Unknown Completed [facility] FLUZONE HIGH DOSE FLUZONE HIGH DOSE Unknown Completed [facility] - OVER 65 OVER 65 [facility] FluAD Quad SD FluAD Quad SD Unknown Completed [facility] Pfizer COVID-19 Pfizer COVID-19 Unknown Completed [facility] Vaccine Vaccine [facility] Pfizer COVID-19 Pfizer COVID-19 Unknown Completed [facility] Vaccine Vaccine [facility] Pfizer COVID-19 Pfizer COVID-19 Unknown Completed [facility] Vaccine Vaccine [facility] FluAD FluAD Unknown Completed [facility] FluAD FluAD Unknown Completed [facility] FLUZONE HIGH DOSE FLUZONE HIGH DOSE Unknown Completed [facility] - OVER 65 OVER 65 [facility] FluAD Quad SD FluAD Quad SD Unknown Completed [facility] Pfizer COVID-19 Pfizer COVID-19 Unknown Completed [facility] - Vaccine Vaccine [facility] Pfizer COVID-19 Pfizer COVID-19 Unknown Completed [facility] Vaccine Vaccine [facility] Pfizer COVID-19 Pfizer COVID-19 Unknown Completed [facility] Vaccine Vaccine [facility] FluAD FluAD Unknown Completed [facility] FluAD FluAD Unknown Completed [facility] FLUZONE HIGH DOSE FLUZONE HIGH DOSE Unknown Completed [facility] - OVER 65 OVER 65 [facility] Vital Signs Vital Name Observation Time Observation Value Comments Source Systolic blood 2022-08-13 15:43:00 135 mm[Hg] Univer [facility]ity of pressure [facility] Diastolic blood 2022-08-13 15:43:00 74 mm[Hg] [facility] of [facility] Heart rate 2022-08-13 15:43:00 62 /min [facility] Body temperature 2022-08-13 15:43:00 36.67 Tiara [facility] Respiratory rate 2022-08-13 15:43:00 16 /min [facility] Body height 2022-08-13 15:43:00 157.5 cm [facility] Body weight 2022-08-13 15:43:00 58.469 kg [facility] BMI 2022-08-13 15:43:00 23.58 kg/m2 [facility] height 2022-01-29 15:40:00 64 [in_i] [facility] weight 2022-01-29 15:40:00 129 [lb_av] [facility] bmi 2022-01-29 15:40:00 22.14 kg/m2 [facility] height 2021-12-04 11:50:00 64 [in_i] [facility] weight 2021-12-04 11:50:00 129 [lb_av] [facility] bmi 2021-12-04 11:50:00 22.14 kg/m2 [facility] height 2021-11-29 10:30:00 64 [in_i] [facility] weight 2021-11-29 10:30:00 127.2 [lb_av] [facility] bmi 2021-11-29 10:30:00 21.83 kg/m2 [facility] pirit [facility] height 2021-11-29 11:20:00 64 [in_i] [facility] weight 2021-11-29 11:20:00 129 [lb_av] [facility] bmi 2021-11-29 11:20:00 22.14 kg/m2 [facility] pirit [facility] height 2021-09-26 13:20:00 64 [in_i] [facility] S p[facility] - [facility] weight 2021-09-26 13:20:00 127.2 [lb_av] [facility] temperature 2021-09-26 13:20:00 98.0 [degF] [facility] bmi 2021-09-26 13:20:00 21.83 kg/m2 [facility] oximetry 2021-09-26 13:20:00 96 % [facility] respiratory rate 2021-09-26 13:20:00 16 /min [facility] blood pressure 2021-09-26 13:20:00 137 mm[Hg] [facility] - systolic [facility] blood pressure 2021-09-26 13:20:00 70 mm[Hg] [facility] - diastolic [facility] height 2021-05-26 08:50:00 64 [in_i] [facility] weight 2021-05-26 08:50:00 120 [lb_av] [facility] bmi 2021-05-26 08:50:00 20.6 kg/m2 [facility] blood pressure 2021-05-26 08:50:00 130 mm[Hg] [facility] - systolic [facility] blood pressure 2021-05-26 08:50:00 73 mm[Hg] [facility] - diastolic [facility] height 2021-03-28 13:20:00 64 [in_i] [facility] weight 2021-03-28 13:20:00 123.2 [lb_av] [facility] - [facility] temperature 2021-03-28 13:20:00 96.8 [degF] [facility] bmi 2021-03-28 13:20:00 21.14 kg/m2 [facility] blood pressure 2021-03-28 13:20:00 139 mm[Hg] [facility] - systolic [facility] blood pressure 2021-03-28 13:20:00 78 mm[Hg] [facility] - diastolic [facility] height 2021-03-28 13:00:00 64 [in_i] [facility] - [facility] weight 2021-03-28 13:00:00 123.2 [lb_av] [facility] - [facility] temperature 2021-03-28 13:00:00 96.8 [degF] [facility] bmi 2021-03-28 13:00:00 21.14 kg/m2 [facility] oximetry 2021-03-28 13:00:00 94 % [facility] respiratory rate 2021-03-28 13:00:00 18 /min [facility] blood pressure 2021-03-28 13:00:00 139 mm[Hg] [facility] - systolic [facility] blood pressure 2021-03-28 13:00:00 78 mm[Hg] [facility] - diastolic [facility] Diastolic (mm Hg) 2019-02-10 18:51:00 [facility] Heart Rate 2019-02-10 18:51:00 [facility] Respitory Rate 2019-02-10 18:51:00 [facility] [place] Height 2019-02-10 18:51:00 157.48 cm [facility] [place] Weight 2019-02-10 18:51:00 [facility] BMI Calculated 2019-02-10 18:51:00 [facility] Systolic (mm Hg) 2019-02-10 18:51:00 Júnior [facility] [place] BMI Calculated 2018-12-30 18:55:00 [facility] [place] Weight 2018-12-30 18:55:00 [facility] [place] Height 2018-12-30 18:55:00 160.02 cm [facility] Respitory Rate 2018-12-30 18:55:00 [facility] Heart Rate 2018-12-30 18:55:00 [facility] Systolic (mm Hg) 2018-12-30 18:55:00 Júnior rial [facility] Diastolic (mm Hg) 2018-12-30 18:55:00 [facility] [place] Procedures Procedure Date / Time Performing Clinician Source Performed POCT URINALYSIS W/O 2022-08-13 00:00:00 Luis Miguel [facility] SPECIFIC GRAVITY [facility] REFERRAL- 2022-07-03 06:01:00 Doctor Stephanie, [facility] REQUEST/RESPONSE [facility] SARS-COV-2 COVID-19 2022-05-25 20:19:46 Doctor Stephanie, [facility] SCOTTY-SUCROSE VACCINE 12 [facility] YRS+, BIVALENT 0.3ML, IM, (PFIZER YOUNGBLOOD TOP BOOSTER) AUTHORIZATION FOR RELEASE 2022-04-16 05:01:00 Doctor Stephanie, [facility] MEDICATION CORRESPONDENCE 2022-02-13 05:01:00 Doctor Stephanie, [facility] Laminectomy [facility] Plan of Care Planned Activity Planned Date Details Comments Source Future Scheduled 2023-04-10 Screening for [facility] Test 21:17:42 malignant neoplasm of colon (procedure) [code = [id number]] Future Scheduled 2023-04-10 Screening for [facility] Test 21:17:42 malignant neoplasm of colon (procedure) [code = 289696699] Future Scheduled 2023-04-10 SHINGLES VACCINES (1 [facility] 21:17:42 of 2) [code = SHINGLES VACCINES (1 of 2)] Future Scheduled 2023-04-10 65+ PNEUMOCOCCAL [facility] Test 21:17:42 VACCINE (1 - PCV) [code = 65+ PNEUMOCOCCAL VACCINE (1 - PCV)] Future Scheduled 2023-04-10 INFLUENZA VACCINE (#1) [facility] 21:17:42 [code = INFLUENZA VACCINE (#1)] Future Scheduled 2023-04-10 [facility] 21:17:42 malignant neoplasm of colon (procedure) [code = 720715741] Future Scheduled 2023-04-10 [facility] Test 21:17:42 malignant neoplasm of colon (procedure) [code = 025627674] Future Scheduled 2023-04-10 [facility] Test 21:17:42 malignant neoplasm of colon (procedure) [code = 952507278] Future Scheduled 2023-04-10 COVID-19 VACCINE (#1) [facility] 21:17:42 [code = COVID-19 VACCINE (#1)] Future Scheduled 2023-04-10 BREAST CANCER [facility] Test 21:17:42 SCREENING [code = BREAST CANCER SCREENING] Future Scheduled 2022-05-07 HEPATITIS B VACCINES Met [facility] Test 07:32:13 (1 of 3 - 3-dose series) [code = HEPATITIS B VACCINES (1 of 3 - 3-dose series)] Future Scheduled 2022-05-07 COVID-19 VACCINE (#1) [facility] Test 07:32:13 [code = COVID-19 VACCINE (#1)] Future Scheduled 2022-05-07 Hepatitis C screening [facility] Test 07:32:13 (procedure) [code = 152717695] Future Scheduled 2022-05-07 BREAST CANCER [facility] Test 07:32:13 SCREENING [code = BREAST CANCER SCREENING] Future Scheduled 2022-05-07 COLONOSCOPY SCREENING [facility] Test 07:32:13 [code = COLONOSCOPY SCREENING] Future Scheduled 2022-05-07 SHINGLES VACCINES (1 Met [facility] Test 07:32:13 of 2) [code = SHINGLES VACCINES (1 of 2)] Future Scheduled 2022-05-07 65+ [facility]OCOCCAL [facility] Test 07:32:13 VACCINE (1 - PCV) [code = 65+ PNEUMOCOCCAL VACCINE (1 - PCV)] Future Scheduled 2022-05-07 INFLUENZA VACCINE [facility] Test 07:32:13 [code = INFLUENZA VACCINE] Encounters Start End Encounter Admission Attending Care Care Encounter Source Date/Time Date/Time Type Type Clinicians Facility Department ID 2023-03-13 Outpatient Smalls, [facility] [id number] Common 10:11:00 [facility] [id number] [facility] 2022-12-12 Outpatient Ambrosio, [facility] [id number] Common 08:55:00 Avnee [id number] [facility] 2022-12-11 Outpatient Ambrosio, [facility] [id number] Common 08:06:00 Avnee [id number] [facility] 2022-11-13 Outpatient Ambrosio, [facility] [id number] Common 16:05:00 Avnee [id number] [facility] 2022-09-19 Outpatient Clarice, STLMLC STLMLC [id number] Common 16:01:01 Joyce [id number] [facility] 2022-09-12 Outpatient Clarice, STLMLC STLMLC [id number] Common 10:59:00 Joyce [id number] [facility] 2022-07-20 Outpatient Clarice, STLMLC STLMLC [id number] Common 09:25:00 Joyce [id number] [facility] 2022-04-12 Outpatient Wright, Na STLMLC STLMLC [id number] 2 Common 10:44:00 [id number] [facility] 2021-12-04 Outpatient Wright, Na STLMLC STLMLC [id number] 2 Common 11:40:00 [id number] [facility] 2021-09-26 Outpatient Wright, Na STLMLC STLMLC [id number] Common 13:09:01 [facility] 2021-09-25 Outpatient Wright, Na STLMLC STLMLC [id number] 2 Common 10:56:00 [facility] 2021-07-12 Outpatient Wright, Na STLMLC STLMLC [id number] 2 Common 14:19:32 [id number] [facility] 2021-07-12 Outpatient Wright, Na STLMLC STLMLC [id number] 2 Common 14:04:24 [id number] [facility] 2021-07-12 Outpatient Wright, Na STLMLC STLMLC [id number] 2 Common 13:58:29 [id number] [facility] 2021-07-12 Outpatient Wright, Na STLMLC STLMLC [id number] 2 Common 12:13:36 [id number] [facility] 2021-07-12 Outpatient Wright, Na STLMLC STLMLC [id number] 2 Common 12:09:52 [id number] [facility] 2021-07-12 Outpatient Wright, Na STLMLC STLMLC [id number] 2 Common 11:57:47 [id number] [facility] 2021-07-12 Outpatient Wright, Na STLMLC STLMLC [id number] 2 Common 11:57:12 [id number] [facility] 2021-07-12 Outpatient Wright, Na STLMLC STLMLC [id number] 2 Common 11:52:41 [id number] [facility] 2021-07-12 Outpatient Wright, Na STLMLC STLMLC [id number] 2 Common 11:26:09 [id number] [facility] 2021-07-12 Outpatient Wright, Na STLMLC STLMLC [id number] 2 Common 11:25:48 [id number] [facility] 2021-07-12 Outpatient Wright, Na STLMLC STLMLC [id number] 2 Common 11:20:03 [id number] [facility] 2022-09-19 2022-09-19 (TEL) STLMLC STLMLC [id number] Co mmon 00:00:00 00:00:00 [facility] 2022-09-12 2022-09-12 Outpatient R ELIANE [facility] [id number] Univers 10:00:00 10:00:00 [facility] 2022-09-12 2022-09-12 (TEL) STLMLC STLMLC [id number] Co mmon 00:00:00 00:00:00 [facility] 2022-09-07 2022-09-07 Outpatient R ELIANE [facility] [id number] Univers 08:00:00 08:00:00 [facility] 2022-08-13 2022-08-13 Outpatient R MEI NGUYEN [facility] [id number] Univers 10:00:00 10:06:[address] [facility] 2022-08-13 2022-08-13 Office Juan Carlos [facility] 1.2.840.114 [id number] [facility] 10:00:00 10:06:15 Visit Mei multani 350.1.13.10 ity [place] [phone] [facility] [address] 2022-08-07 2022-08-07 (TEL) STLMLC STLMLC [id number] Co mmon 00:00:00 00:00:00 [facility] 2022-07-20 2022-07-20 [facility]EL) [facility] [id number] Co mmon 00:00:00 00:00:00 [facility] 2022-07-03 2022-07-03 Orders Doctor SHANTELL 1.2.840.114 [id number] Univers 00:00:00 00:00:00 Only Unassigned, ADA 350.1.13.10 ity of [place] [facility] 4.2.7.2.686 Kristian as [phone] [facility] [address] 2022-06-27 2022-06-27 (TEL[facility] [id number] Co mmon 00:00:00 00:00:00 [facility] 2022-05-25 2022-05-25 Imm/Inj Vaccine, [facility] 1.2.840.114 [id number] Univers 15:30:00 15:40:00 Visit Darien Chowdary 350.1.13.10 [place] [phone] Mt dical [address] 2022-05-25 2022-05-25 Outpatient R DILLON [facility] [id number] Univers 15:30:00 15:30:00 DARIEN itdeonte of [facility] 2022-05-04 2022-05-04 (WEB) [facility] [id number] Co mmon 00:00:00 00:00:00 [facility] 2022-04-30 2022-04-30 [facility]WEB) [facility] [id number] Co mmon 00:00:00 00:00:00 [facility] 2022-04-16 2022-04-16 Outpatient R [facility]ANAUC [facility] [id number] Univers 10:00:00 10:00:00 TAYLOR ity o f [facility] 2022-04-16 2022-04-16 (TEL) STLMLC STLMLC [id number] Co mmon 00:00:00 00:00:00 [facility] 2022-04-16 2022-04-16 Orders Doctor SHANTELL 1.2.840.114 [id number] Univers 00:00:00 00:00:00 Only Unassigned, ADA 350.1.13.10 ity of [place] [facility] 4.2.7.2.686 Kristian as [phone] [address] 2022-04-12 2022-04-12 (TEL) STLMLC STLMLC [id number] Co mmon 00:00:00 00:00:00 [facility] 2022-04-09 2022-04-09 [facility] [id number] [facility] 00:00:00 00:00:00 Taylor [place] 350.1.13.10 ity [facility] [place] [phone] [address] 2022-02-13 2022-02-13 Orders Doctor SHANTELL 1.2.840.114 [id number] Univers 00:00:00 00:00:00 Only Unassigned, ADA 350.1.13.10 ity of [place] [facility] 4.2.7.2.686 Kristian as [phone] [address] 2022-01-29 2022-01-29 OFFICE STLMLC STLMLC [id number] Co mmon 00:00:00 00:00:00 VISIT EST Spir it PT LEVEL 3 - [facility] 2022-01-29 2022-01-29 (WEB) STLMLC STLMLC [id number] Co mmon 00:00:00 00:00:00 [facility] 2021-12-19 2021-12-19 (WEB) STLMLC STLMLC [id number] Co mmon 00:00:00 00:00:00 [facility] 2021-12-11 2021-12-11 (WEB) STLMLC STLMLC [id number] Co mmon 00:00:00 00:00:00 Spirit - [facility] 2021-12-04 2021-12-04 (WEB) STLMLC STLMLC [id number] Co mmon 00:00:00 00:00:00 [facility] - [facility] 2021-12-04 2021-12-04 OFFICE STLMLC STLMLC [id number] Co mmon 00:00:00 00:00:00 VISIT Spirit ESTAB PT - CHI LEVEL 3 [facility] 2021-11-29 2021-11-29 SUB ANNUAL STLMLC STLMLC [id number] Common 00:00:00 00:00:00 MCR Spirit WELLNESS - CHI VISIT [facility] 2021-11-29 2021-11-29 OFFICE STLMLC STLMLC [id number] Co mmon 00:00:00 00:00:00 VISIT EST Spir it PT LEVEL 3 - [facility] 2021-11-23 2021-11-23 Telephone Psychiatric, [facility] [id number] [id number] Univers 00:00:00 00:00:00 Taylor [place] 350.1.13.10 ity of [facility] 4.2.[place] [phone] Mt dical NAL 059 [facility] 2021-11-09 2021-11-09 Telephone [facility] [id number] [id number] Univers 00:00:00 00:00:00 Taylor [place] 350.1.13.10 ity of [place] [phone] Mt dical NAL 059 [facility] 2021-11-09 2021-11-09 Telephone [facility] 1.2.509.375 [id number] Univers 00:00:00 00:00:00 Dony [place] 350.1.13.10 i ty of [place] [phone] Mt dical NAL 085 [facility] 2021-11-09 2021-11-09 Patient Doctor [place] 1.2.840.114 [id number] Univers 00:00:00 00:00:00 Secure Msg Unassigned, ARON 350.1.13.10 ity of [place] [phone] [facility] 085 [facility] 2021-11-08 2021-11-08 Telephone Roxana, [facility] 1.2.546.877 [id number] Univers 00:00:00 00:00:00 Willgustavo [facility] 350.1.13.10 i ty of [place]2.[place].2.[place] [phone] [facility] [place] 059 [facility] 2021-11-07 2021-11-07 Refill Roxana, [facility] 1.2.840.114 [id number] Univers 00:00:00 00:00:00 Arpanphong [place] 350.1.13.10 ity of [place] [phone] [place] 342809 [facility] 2021-11-06 2021-11-06 Refill Roxana, [facility] 1.2.840.114 [id number] Univers 00:00:00 00:00:00 Arpanphong [place] 350.1.13.10 ity of [place] 4.[place].7.2.[place] [phone] Mt dic[address] 2021-11-03 2021-11-03 Refill Roxana, [facility] 1.2.840.114 [id number] Univers 00:00:00 00:00:00 Arpanphong [place] 350.1.13.10 it[place] of [place] 4[place] [phone] Mt dical NAL [address] [place] [address] 2021-10-17 2021-10-17 Refill Roxana, [facility] 1.2.840.114 [id number] Univers 00:00:00 00:00:00 Arpanphong [place] 350.1.13.10 ity of [place] 4[place].2.[place] [phone] Mt dical NAL 9 [facility] 2021-10-11 2021-10-11 Outpatient R ROXANA, [facility] [id number] Univers 10:20:00 10:27:13 ATYLOR kline o [facility] 2021-10-11 2021-10-11 Office [facility] 1.2.840.114 [id number] Univers 10:20:00 10:27:13 Visit Qiagustavo [place] 350.1.13.10 ity of [facility] 4.2.7.2.[place] [phone] Mt dical NAL [address] [place] [address] 2021-10-11 2021-10-11 Outpatient R ROXANA, [facility] [id number] Univers 10:20:00 10:20:00 TAYLOR kline o [facility] 2021-10-11 2021-10-11 Outpatient R ROXANA, [facility] [id number] Univers 10:20:00 10:20:00 TAYLOR mejiay o [facility] 2021-10-11 2021-10-11 Outpatient R ROXANA, [facility] [id number] Univers 10:20:00 10:20:00 TAYLOR mejiay o [facility] 2021-10-11 2021-10-11 Outpatient R ROXANA, [facility] [id number] Univers 10:20:00 10:20:00 TAYLOR kline o [facility] 2021-10-05 2021-10-05 [facility]TEL) [facility] [id number] Co mmon 00:00:00 00:00:00 [facility] 2021-10-05 2021-10-05 (TEL) STLMLC STLMLC [id number] Co mmon 00:00:00 00:00:00 [facility] 2021-10-05 2021-10-05 Telephone [facility] 1.2.485.353 [id number] Univers 00:00:00 00:00:00 Qiagustavo [place] 350.1.13.10 it[place] [phone] Mt dical NAL 9 [facility] 2021-10-02 2021-10-02 Telephone [facility] 1.2.000.005 [id number] Univers 00:00:00 00:00:00 Qiagustavo [place] 350.1.13.10 [place] [phone] Mt dical NAL 9 [facility] 2021-09-26 2021-09-26 (TEL) STLMLC STLMLC [id number] Co mmon 00:00:00 00:00:00 Spirit - [facility] 2021-09-26 2021-09-26 OFFICE STLMLC STLMLC [id number] Co mmon 00:00:00 00:00:00 VISIT Spirit ESTAB PT - CHI LEVEL 4 [facility] 2021-09-19 2021-09-19 Orders Doctor SHANTELL 1.2.840.114 [id number] Univers 00:00:00 00:00:00 Only Unassigned, ADA 350.1.13.10 ity of [place] [facility] 4.2.7.2.686 Kristian as [phone] [facility] [address] [place] 2021-09-15 2021-09-15 Patient [facility] 1.2.840.114 [id number] Univers 00:00:00 00:00:00 Secure Msg Taylor [place] 350.1.13.10 [place] [phone] Mt dicri NAL 9 [facility] 2021-09-14 2021-09-14 [facility] 1.2.840.114 [id number] Univers 08:01:28 23:59:00 Encounter Willwendyphong [place] 350.1.13.10 [place] [phone] [facility] [address] [place] 2021-09-14 2021-09-14 [facility] 1.2.840.114 [id number] Univers 08:01:18 23:59:00 Encounter Arpanphong [place] 350.1.13.10 ity of [facility] 4.2.7.2.[place] [phone] [facility] [address] 2021-09-14 2021-09-14 [facility] 1.2.840.114 [id number] Univers 08:01:05 23:59:00 Encounter Taylor ARON 350.1.13.10 ity of [facility] 4.2.7.2.686 [facility] [phone] [facility] [address] 2021-09-14 2021-09-14 [facility] 1.2.840.114 [id number] Univers 08:00:54 08:00:54 Encounter Taylor ARON 350.1.13.10 ity of [place] 4.2.7.2.686 [facility] [phone] [facility] [address] [place] 2021-09-14 2021-09-14 Outpatient R [facility] [id number] Univers 08:00:54 08:00:54 TAYLOR kline [facility] 2021-09-13 2021-09-13 Outpatient R ROXANA, [facility] [id number] Univers 13:36:02 23:59:00 WILLPHONG kline o [facility] 2021-09-07 2021-09-07 Outpatient R ROXANA, [facility] [id number] Univers 09:00:00 09:00:00 WILLPHONG kline [facility] 2021-09-07 2021-09-07 Orders Doctor STINSON 1.2.840.114 [id number] Univers 00:00:00 00:00:00 Only Unassigned, ADA 350.1.13.10 ity of [place] [facility] 4.2.7.2.686 Kristian [phone] [facility] [address] 2021-09-01 2021-09-01 Outpatient R ROXANA, [facility] [id number] Univers 15:00:00 15:00:00 TAYLOR eliud o [facility] 2021-09-01 2021-09-01 Outpatient R ROXANA, [facility] [id number] Univers 15:00:00 15:00:00 TAYLOR eliud o [facility] 2021-08-28 2021-08-28 Orders Doctor SHANTELL 1.2.840.114 [id number] Univers 00:00:00 00:00:00 Only Unassigned, ADA 350.1.13.10 ity of [place] [facility] 4.2.7.2.686 Kristian as [phone] [address] 2021-08-22 2021-08-22 Telephone [facility] 1.2.738.476 [id number] Univers 00:00:00 00:00:00 Taylor [place] 350.1.13.10 ity of [facility] 4.2.7.2.[place] [phone] Mt dical NAL 059 [facility] 2021-08-15 2021-08-15 Orders Doctor SHANTELL 1.2.840.114 [id number] Univers 00:00:00 00:00:00 Only Unassigned, ADA 350.1.13.10 ity of [place] [facility] 4.2.7.2.686 Kristian as [phone] [address] 2021-08-14 2021-08-14 Outpatient R [facility] [id number] Univers 10:42:07 23:59:00 TAYLOR mejiadeonte o f [facility] 2021-08-14 2021-08-14 Outpatient R [facility] [id number] Univers 10:42:07 10:42:07 WILLGUSTAVO mejiay o f [facility] 2021-08-14 2021-08-14 Office [facility] 1.2.840.114 [id number] Univers 10:00:00 10:32:39 Visit Willwendyphong ARON 350.1.13.10 ity [facility] 4.2.7.2.[place] [phone] Mt dical NAL 9 [facility] 2021-08-14 2021-08-14 Outpatient R [facility] [id number] Univers 10:00:00 10:32:39 WILLGUSTAVO mejiay o f [facility] 2021-08-14 2021-08-14 [facility] [id number] Univers 10:00:00 10:32:39 ARPANPHONG bahena ivanna [facility] 2021-08-14 2021-08-14 Outpatient Jamey ROXANA [facility] [id number] Univers 10:00:00 10:32:39 WILLWENDYPHONG bahena [facility] 2021-07-24 2021-07-24 (TEL) STLMLC STLMLC [id number] Co mmon 00:00:00 00:00:00 [facility] 2021-07-24 2021-07-24 (TEL) STLMLC STLMLC [id number] Co mmon 00:00:00 00:00:00 [facility] 2021-07-21 2021-07-21 (TEL) STLMLC STLMLC [id number] Co mmon 00:00:00 00:00:00 [facility] 2021-05-26 2021-05-26 Postop STLMLC STLMLC [id number] Co mmon 00:00:00 00:00:00 visit [facility] 2021-05-16 2021-05-16 (TEL) STLMLC STLMLC [id number] Co mmon 00:00:00 00:00:00 [facility] 2021-05-05 2021-05-05 (TEL) STLMLC STLMLC [id number] Co mmon 00:00:00 00:00:00 [facility] 2021-05-01 2021-05-01 (TEL) STLMLC STLMLC [id number] Co mmon 00:00:00 00:00:00 [facility] 2021-04-28 2021-04-28 (TEL) STLMLC STLMLC [id number] Co mmon 00:00:00 00:00:00 [facility] 2021-04-10 2021-04-10 (TEL) STLMLC STLMLC [id number] Co mmon 00:00:00 00:00:00 [facility] 2021-04-04 2021-04-04 ([place]) Nurse STLMLC STLMLC [id number] Common 00:00:00 00:00:00 Visit [facility] 2021-03-28 2021-03-28 OFFICE STLMLC STLMLC [id number] Co mmon 00:00:00 00:00:00 VISIT EST Spir it PT LEVEL 3 [facility] 2021-03-28 2021-03-28 SUB ANNUAL STLMLC STLMLC [id number] Common 00:00:00 00:00:00 MCR [facility] 2020-12-28 2020-12-28 Outpatient STLMLC STLMLC [id number] Common 00:00:00 00:00:00 [facility] 2020-11-29 2020-11-29 Outpatient STLMLC STLMLC [id number] Common 00:00:00 00:00:00 [facility] 2020-08-12 2020-08-12 Outpatient STLMLC STLMLC [id number] Common 00:00:00 00:00:00 [facility] 2020-08-08 2020-08-08 Outpatient STLMLC STLMLC [id number] Common 00:00:00 00:00:00 [facility] 2020-07-18 2020-07-18 Outpatient STLMLC STLMLC [id number] Common 00:00:00 00:00:00 [facility] 2020-07-18 2020-07-18 Outpatient STLMLC STLMLC [id number] Common 00:00:00 00:00:00 [facility] 2020-07-18 2020-07-18 Outpatient STLMLC STLMLC [id number] Common 00:00:00 00:00:00 [facility] 2020-07-18 2020-07-18 Outpatient STLMLC STLMLC [id number] Common 00:00:00 00:00:00 [facility] 2020-07-06 2020-07-06 Outpatient STLMLC STLMLC [id number] Common 00:00:00 00:00:00 [facility] 2020-06-02 2020-06-02 Outpatient STLMLC STLMLC [id number] Common 00:00:00 00:00:00 [facility] 2020-04-23 2020-04-23 Outpatient STLMLC STLMLC [id number] Common 00:00:00 00:00:00 [facility] 2020-04-11 2020-04-11 Outpatient STLMLC STLMLC [id number] Common 00:00:00 00:00:00 [facility] 2020-04-07 2020-04-07 Outpatient STLMLC STLMLC [id number] Common 00:00:00 00:00:00 [facility] 2020-04-07 2020-04-07 Outpatient STLMLC STLMLC [id number] Common 00:00:00 00:00:00 [facility] 2020-01-05 2020-01-05 Out[facility] [id number] Common 12:16:00 12:16:[address] [facility] 2019-12-11 2019-12-11 Outpatient [facility] [id number] Common 10:38:00 10:38:[address] [facility] 2019-12-02 2019-12-02 Outpatient [facility] [id number] Common 08:37:00 08:37:[address] [facility] [address] [facility] 2019-11-27 2019-11-27 Outpatient [facility] [id number] Common 14:40:00 14:40:[address] [facility] 2019-11-25 2019-11-25 Outpatient [facility] [id number] Common 09:05:00 09:05:[address] [facility] 2019-11-25 2019-11-25 Outpatient SHAGGY [facility] [id number] [place] 00:00:00 00:00:00 LOU [address] 2019-11-04 2019-11-04 Outpatient MEREDITH [facility] [id number] [place] 00:00:00 00:00:00 GAURAV [address] 2019-10-29 2019-10-29 Outpatient [facility] [id number] Common 10:59:00 10:59:[address] [facility] 2019-10-21 2019-10-23 Inpatient COON, [facility] 021 [id number] [place] 00:00:00 00:00:00 EDWARD [address] 2019-10-21 2019-10-21 Outpatient COON, [facility] [id number] [place] 00:00:00 00:00:00 EDWARD 488 [facility] 2019-10-14 2019-10-14 Outpatient COON, [facility] [id number] [place] 00:00:00 00:00:00 EDWARD [address] [facility] 2019-10-14 2019-10-14 Outpatient COON, [facility] [id number] [place] 00:00:00 00:00:00 EDWARD 672 [facility] 2019-09-17 2019-09-17 [facility] [id number] [place] 08:12:00 08:12:[address] [place] [address] [facility] 2019-08-13 2019-08-13 Outpatient [facility] [id number] Common 14:45:00 14:45:[address] [place] [address] [facility] 2019-08-13 2019-08-13 Outpatient COON, [facility] [id number] [place] 00:00:00 00:00:00 EDWARD 961 [facility] 2019-08-13 2019-08-13 Outpatient COON, [facility] [id number] [place] 00:00:00 00:00:00 EDWARD 316 [facility] 2019-08-13 2019-08-13 Outpatient COON, [facility] [id number] [place] 00:00:00 00:00:00 EDWARD 547 [facility] 2019-08-05 2019-08-05 Outpatient Marianne[facility]Dannao [facility] [id number] [facility] 07:22:00 07:22:00 _[id number] Family Practic e 2019-05-15 2019-05-15 Outpatient [id number] Common 03:58:00 03:58:[address] [facility] 2019-05-04 2019-05-04 [facility] [id number] Common 08:05:00 08:05:[address] [facility] 2019-04-14 2019-04-14 [facility] [id number] Common 10:00:00 10:00:[address] [facility] 2019-03-24 2019-03-24 [facility] [id number] Common 09:40:00 09:40:[address] [facility] 2019-02-10 2019-02-11 Outpatient nullFlavo MNA [id number] Memoria 19:00:00 04:59:59 r Neurology 01 l [place] Chris 2019-02-10 2019-02-11 Outpatient nullFlavo MNA [id number] Memoria 19:00:00 04:59:59 r Neurology 01 l Doris Perez 2019-02-10 2019-02-10 Outpatient JENNIFER ChewMISCHER MHMISCHER [id number] 14:00:00 23:59:59 Allen 01 Juma 2019-02-10 2019-02-10 Outpatient MHIE MHIE [id number] Memoria 14:00:00 14:00:00 01 ashley Chris 2018-12-30 2018-12-31 Outpatient nullFlavo MNA [id number] Memoria 18:30:00 04:59:59 r Neurology 00 l [place] Chris 2018-12-30 2018-12-31 Outpatient nullFlavo MNA [id number] Memoria 18:30:00 04:59:59 r Neurology 00 l [place] Chris 2018-12-30 2018-12-30 [id number] 13:30:00 23:59:59 Allen 00 Juma 2018-12-30 2018-12-30 Outpatient MHIE MHIE [id number] Memoria 13:30:00 13:30:00 00 ashley Chris 2018-12-12 2018-12-12 Out[facility] [id number] Common 09:37:00 09:37:00 t Specialty/U Sp johanna Specialty rology - [facility] 2018-12-09 2018-12-09 [facility] [id number] Common 09:00:00 09:00:00 t Specialty/U Sp johanna Specialty rology - [facility] 2018-12-05 2018-12-05 [facility] [id number] Common 08:59:00 08:59:00 t Specialty/U Sp johanna Specialty rology - [facility] 2018-09-17 2018-09-17 Out[facility] [id number] Common 08:20:00 08:20:[address] [facility] 2018-03-19 2018-03-19 [facility] [id number] Common 10:00:00 10:00:[address] [facility] 2017-09-17 2017-09-17 [facility] [id number] Common 14:00:00 14:00:[address] [facility] Results Test Description Test Time Test Comments Results Result Comments Source POCT URINALYSIS W/O SPECIFIC GRAVITY 2022-08-13 15:43:00 Test Item Value Reference Range Interpretation Comme nts POCT PH U (test code = 3254) 5 mg/dl 5-8 POCT U LEUK EST (test code = 3263) negative Negative - Negative POCT U NIT (test code = 3262) negative Negative - Negative POCT U PROT (test code = 3259) negative Negative - Negative POCT U GLU (test code = 3256) negative Negative - Negative POCT U KETONE (test code = 3258) negative Negative - Negative POCT U BLD (test code = 3257) negative Negative - [facility] [id number] 15:43:00 Test Item Value Reference Range Interpretation Comments POCT PH U (test code = 3254) 5 mg/dl 5-8 POCT U LEUK EST (test code = negative Negative - Negative 3263) POCT U NIT (test code = 3262) negative Negative - Negative POCT U PROT (test code = 3259) negative Negative - Negative POCT U GLU (test code = 3256) negative Negative - Negative POCT U KETONE (test code = 3258) negative Negative - Negative POCT U BLD (test code = 3257) negative Negative - Negative [facility] coronavirus 2 RNA [Presence] in Respiratory specimen by TOSIN with probe [id number] 16:47:18 Test Item Value Reference Range Interpretation Comments SARS coronavirus 2 RNA Not detected Not-Detected [Presence] in Respiratory specimen by TOSIN with probe detection (test code = 77828-4) VAZQUEZ MAY
[2023-04-27 12:17] LABS: Absolute Lymphocytes (CBC) 2.9 K/uL (0.7-4.9); Hematocrit 39.2 % (36.0-45.0); Lymphocytes % 39.8 % (15.3-44.8); MCV 91.2 fL (80-100); Platelets 178 thou/uL (152-406)
--- NOTE | 2023-04-27 12:21 | RAD REPORT ---
[facility] 11:58 am CLINICAL HISTORY: CHEST PAIN COMPARISON: Chest Pa And Lat (2 Views) dated 02/20/2023; Chest Single View dated 07/19/2021; Chest Singl e View dated 10/12/2019; Chest Single View dated 01/21/2018; Lung Cancer Screening CT W/O dated 04/02/20 TECHNIQUE: Portable AP view of the chest. FINDINGS: The lungs are clear. Stable mild chronic interstitial changes suggestive of mild emphysema tous changes. No pneumothorax or effusion. The cardiomediastinal contours are unremarkable. IMPRESSION: No acute cardiopulmonary process.
[2023-04-27 12:34] LABS: Albumin 3.1 g/dL (3.4-5.0); Bilirubin Direct 0.1 mg/dL (0-0.2); Bilirubin Indirect, Calculated 0.3 mg/dL (0.2-0.8); Bilirubin Total 0.4 mg/dL (0.2-1.0); Magnesium 2.2 mg/dL (1.6-2.4); Protein, Total 6.4 g/dL (6.4-8.2); Troponin High Sensitivity 7.8 pg/mL (<58.9)
--- NOTE | 2023-04-27 12:41 | EDPHYS ---
Physician Documentation [facility] Name: Lin Delgado Age: 72 yrs Sex: Female : 1950 Arrival Date: 04/27/2023 Time: 11:13 Bed 3 Private MD: ED Physician Stuart Ibanez HPI: 04/27 11:29 This 72 yrs old Female presents to ER via Ambulatory with complaints of chest wall pain.sb4 11:29 The patient or guardian reports chest pain that is located primarily in the left sb4 lateral anterior chest. Onset: 2 week(s) ago. The pain does not radiate. Associated signs and symptoms: The patient has no apparent associated signs or symptoms. The chest pain is described as aching. Modifying factors: The symptoms are alleviated by nothing. the symptoms are aggravated by nothing. The patient has not experienced similar symptoms in the past. The patient has not recently seen a physician. Historical: - Allergies: 11:25 No Known Allergies; hb - PMHx: 11:25 Atrial fibrillation; Hypertension; Osteoporosis; hb - PSHx: 11:25 lung SX (Osteoporosis); hb - Immunization history:: Adult Immunizations up to date. - Social history:: Smoking status: Patient reports the use of cigarette tobacco products, smokes one pack cigarettes per day. ROS: 11:29 Constitutional: Negative for fever, chills, and weight loss, sb4 11:29 Cardiovascular: Positive for chest pain, 11:29 All other systems are negative, Exam: 11:29 Constitutional: This is a well developed, well nourished patient who is awake, alert, sb4 and in no acute distress. Head/Face: Normocephalic, atraumatic. Eyes: Extra-ocular motions intact. Periorbital areas with no swelling, redness, or edema. ENT: Mucous membranes moist. Cardiovascular: Regular rate and rhythm with a normal S1 and S2. Respiratory: Lungs have equal breath sounds bilaterally, clear to auscultation and percussion. No rales, rhonchi or wheezes noted. No increased work of breathing, no retractions or nasal flaring. Abdomen/GI: Soft, non-tender, no distension. Skin: Warm, dry with normal turgor. Normal color with no rashes, no lesions, and no evidence of cellulitis. MS/ Extremity: Pulses equal, no cyanosis. Neurovascular intact. Full, normal range of motion. Neuro: Awake and alert, GCS 15, oriented to person, place, time, and situation. Motor strength 5/5 in all extremities. Sensory grossly intact. Vital Signs: 11:26 Pulse 53; Resp 16; Temp 97.6; Pulse Ox 100% ; Weight 58.97 kg; Height 5 ft. 2 in. ; hb Pain 3/10; 12:13 BP 177 / 81; ss 12:51 BP 148 / 73; Pulse 49; Resp 16; Pulse Ox 97% on R/A; cm10 11:26 Body Mass Index 23.78 (58.97 kg, 157.48 cm) hb 11:26 Pain Scale: Adult hb MDM: 11:20 Patient medically screened. sb4 11:29 Differential diagnosis: chest wall pain, costochondritis, pleurisy. sb4 12:39 The patient was not given aspirin in the Emergency Department. Not indicated due to sb4 patient's past medical history. Data reviewed: vital signs, nurses notes, lab test result(s), EKG, radiologic studies, and as a result, I will discharge patient. Consideration of Admission/Observation Escalation of care including admission/observation considered. Care significantly affected by the following chronic conditions: Hypertension. Scoring Tools HEART Score: History: ECG: Age: Risk Factors: 1 or 2 risk factors (1), Troponin: Total Score = 3. Counseling: I had a detailed discussion with the patient and/or guardian regarding the historical points, exam findings, and any diagnostic results supporting the discharge/admit diagnosis, the presence of at least one elevated blood pressure reading (>120/80) during this emergency department visit, lab results, radiology results, to return to the emergency department if symptoms worsen or persist or if there are any questions or concerns that arise at home. Special discussion: Based on the patient's history, exam, and Dx evaluation, there is no indication for emergent intervention or inpatient Tx. It is understood by the patient/guardian that if the Sx's persist or worsen they need to return immediately for re-evaluation. 04/27 11:26 Order name: Basic Metabolic Panel; Complete Time: 12:34 sb4 04/27 11:26 Order name: CBC with Diff; Complete Time: 12:22 sb4 04/27 11:26 Order name: LFT's; Complete Time: 12:34 sb4 04/27 11:26 Order name: Magnesium; Complete Time: 12:34 sb4 04/27 11:26 Order name: NT PRO-BNP; Complete Time: 12:34 sb4 04/27 11:26 Order name: PT-INR; Complete Time: 12:19 sb4 04/27 11:26 Order name: Troponin HS; Complete Time: 12:34 sb4 04/27 11:26 Order name: XRAY Chest (1 view); Complete Time: 12:22 sb4 04/27 11:26 Order name: EKG; Complete Time: 11:27 sb4 04/27 11:26 Order name: Cardiac monitoring; Complete Time: 12:08 sb4 04/27 11:26 Order name: EKG - Nurse/Tech; Complete Time: 12:08 sb4 04/27 11:26 Order name: IV Saline Lock; Complete Time: 12:08 sb4 04/27 11:26 Order name: Labs collected and sent; Complete Time: 12:08 sb4 04/27 11:26 Order name: O2 Per Protocol; Complete Time: 11:28 sb4 04/27 11:26 Order name: O2 Sat Monitoring; Complete Time: 11:28 sb4 04/27 12:03 Order name: Labs - recollect needed: recollect all the labs/ kristine says all hemolyzed; eb Complete Time: 12:12 EC:54 Rate is 50 beats/min. Rhythm is regular, Sinus bradycardia with 1st degree heart block. sb4 VT interval is normal at 240 msec. QRS interval is normal at 80 msec. QT interval is normal at [address] changes noted. Clinical impression: 1st degree heart block, Sinus bradycardia, and No evidence of ischemia. Interpreted by me. Reviewed by me. Administered Medications: No medications were administered Disposition Summary: 04/27/23 12:41 Discharge Ordered Notes: Location: Home sb4 Problem: an ongoing problem sb4 Symptoms: are unchanged sb4 Condition: Stable sb4 Diagnosis - chest wall pain sb4 - Chest pain, unspecified sb4 Followup: sb4 - With: Emergency Department - When: As needed - Reason: Trouble breathing, Worsening of condition Discharge Instructions: - Discharge Summary Sheet sb4 - Chest Wall Pain sb4 - Nonspecific Chest Pain, Adult, [id number] sb4 Forms: - Medication Reconciliation Form sb4 - Thank You Letter sb4 - Antibiotic Education sb4 - Prescription Opioid Use sb4 - Patient Portal Instructions sb4 - Leadership Thank You Letter sb4 Addendum: 04/28/2023 16:43 I was immediately available for consultation during this patient's visit. I did not e c2 personally see the patient or guide the patient's care.. Signatures: Dispatcher [employer] Irais Beltran RN RN hb Botello, Elizabeth eb Brown, Sophia, PA-C PA-C sb4 Stuart Ibanez MD MD ec2
--- NOTE | 2023-04-27 12:41 | ER ---
Nurse's Notes [facility] Name: Lin Delgado Age: 72 yrs Sex: Female : 1950 Arrival Date: 04/27/2023 Time: 11:13 Bed 3 Private MD: Diagnosis: Chest pain, unspecified Presentation: 04/27 11:26 Chief complaint: Patient states: L CP for 2 weeks off/on. No cough or SOB. Coronavirus hb screen: Vaccine status: Patient reports receiving the 2nd dose of the covid vaccine. Client denies travel out of the [place] in the last 14 days. At this time, the client does not indicate any symptoms associated with coronavirus-19. Ebola Screen: Patient denies travel to an Ebola-affected area in the 21 days before illness onset. Initial Sepsis Screen: Does the patient meet any 2 criteria? No. Patient's initial sepsis screen is negative. Does the patient have a suspected source of infection? No. Patient's initial sepsis screen is negative. Risk Assessment: Do you want to hurt yourself or someone else? Patient reports no desire to harm self or others. Onset of symptoms was April 14, 2023. 11:26 Method Of Arrival: Ambulatory hb 11:26 Acuity: VITALIY 3 hb Historical: - Allergies: 11:25 No Known Allergies; hb - PMHx: 11:25 Atrial fibrillation; Hypertension; Osteoporosis; hb - PSHx: 11:25 lung SX (Osteoporosis); hb - Immunization history:: Adult Immunizations up to date. - Social history:: Smoking status: Patient reports the use of cigarette tobacco products, smokes one pack cigarettes per day. Screenin:39 [facility] ED Fall Risk Assessment (Adult) History of falling in the last 3 months, ss including since admission No falls in past 3 months (0 pts). Abuse screen: Denies threats or abuse. Denies injuries from another. Nutritional screening: No deficits noted. Tuberculosis screening: Never had TB. Assessment: 11:39 General: Appears in no apparent distress. comfortable, Behavior is calm, cooperative. ss Pain: Complains of pain in left lateral anterior chest Pain currently is 3 out of 10 on a pain scale. Pain: Pain began "2 weeks ago. I just want to make sure that it's not my heart because we are going on a cruise." Is episodic. Neuro: Level of Consciousness is awake, alert, obeys commands. Respiratory: Airway is patent Respiratory effort is even, unlabored, Respiratory pattern is regular, symmetrical. GI: Patient currently denies diarrhea, nausea, vomiting. Derm: Skin is intact, is healthy with good turgor, Skin is pink, warm \\T\\ dry. normal. 12:51 Reassessment: Patient is alert, oriented x 3, equal unlabored respirations, skin cm10 warm/dry/pink. Patient states feeling better. Patient states symptoms have improved. Vital Signs: 11:26 Pulse 53; Resp 16; Temp 97.6; Pulse Ox 100% ; Weight 58.97 kg; Height 5 ft. 2 in. ; hb Pain 3/10; 12:13 BP 177 / 81; ss 12:51 BP 148 / 73; Pulse 49; Resp 16; Pulse Ox 97% on R/A; cm10 11:26 Body Mass Index 23.78 (58.97 kg, 157.48 cm) hb 11:26 Pain Scale: Adult hb ED Course: 11:16 Patient arrived in ED. kj1 11:18 Yolis Kumari PA-C is PHCP. sb4 11:18 Stuart Ibanez MD is Attending Physician. sb4 11:25 Arm band placed on Patient placed in an exam room, on a stretcher. hb 11:27 Triage completed. hb 11:38 Fauzia Clarke, RN is Primary Nurse. ss 11:39 Patient has correct armband on for positive identification. ss 11:47 Inserted saline lock: 20 gauge in right antecubital area, using aseptic technique. ss Blood collected. 12:00 XRAY Chest (1 view) In Process Unspecified. EDMS 12:13 Lab(s) recollected, by me, sent to lab. ss 12:52 Provided Education on: Follow up instructions. cm10 12:52 No provider procedures requiring assistance completed. IV discontinued, intact, cm10 bleeding controlled, No redness/swelling at site. Pressure dressing applied. Administered Medications: No medications were administered Medication: 11:39 VIS not applicable for this client. ss Outcome: 12:41 Discharge ordered by MD. sb4 12:52 Discharged to home ambulatory, cm10 12:52 Condition: good 12:52 Discharge instructions given to patient, Instructed on discharge instructions, follow up and referral plans. medication usage, Demonstrated understanding of instructions, follow-up care, medications, 12:52 Patient left the ED. cm10 Signatures: Dispatcher [employer] EDMS Fauzia Clarke, RN RN Irais Phillips, RN RN Kaylyn Forde kj1 Yolis Kumari PAFly PAHannah Durand RN RN cm10
[2023-04-27 13:03] VITALS: TEMP 97.6
[2023-04-27 13:14] VITALS: BP 148/73; O2SAT 97
--- NOTE | 2023-05-01 17:37 | EKG ---
Test Date: 2023-04-27 Test Time: 11:32:22 Floor Representative: GH MEASUREMENT RESULTS: Intervals: Rate: 50 MI: 240 QRSD: 80 QT: 450 QTc: 410 [place]: P: 3 MI: 240 QRS: 53 T: -10 INTERPRETIVE STATEMENTS: Sinus bradycardia with 1st degree AV block Possible Anterior infarct, age undetermined Abnormal ECG Compared to ECG 05/07/2022 15:38:51 First degree AV block now present Myocardial infarct finding still present Electronically Signed On 05-01-23 17:26:20 DIESEL CRANE OPERATOR by Linden Vences
== END 2023-04-27 12:52 | disposition home or self-care (01) ==
LOC: ER 11:13
DX: R07.89 Other chest pain (principal); I10 Essential (primary) hypertension; F17.210 Nicotine dependence, cigarettes, uncomplicated
CPT/HCPCS: 36415; 71045; 80048; 80076; 83735; 83880; 84484; 85025; 85610; 93005; 99283

== ENCOUNTER 2023-09-06 07:34 | Day surgery (SDC) | payer OTHER ==
[2023-09-06] MEDS: Ringers Lactate 1,000 ML IV ONE (08:00)
[2023-09-06] MEDS ORDERED: propofoL 200 MG/20 ML VIAL IV ONE (09:38)
[2023-09-06] MEDS ORDERED: LIDOCAINE 1% MPF 5 ML VIAL ONE (09:38)
[2023-09-06 12:28] VITALS: BP 130/67; TEMP 97.5; O2SAT 100
== END 2023-09-06 11:21 | disposition home or self-care (01) ==
LOC: OR 07:34
PROVIDERS: ATTEND Surgery
PROC: 0DB98ZX Excision of Duodenum, Via Natural or Artificial Opening Endoscopic, Diagnostic (ICD-10-PCS; 2023-09-06)
PROC: 0DB78ZX Excision of Stomach, Pylorus, Via Natural or Artificial Opening Endoscopic, Diagnostic (ICD-10-PCS; 2023-09-06)
PROC: 0DB68ZX Excision of Stomach, Via Natural or Artificial Opening Endoscopic, Diagnostic (ICD-10-PCS; 2023-09-06)
PROC: 0DB38ZX Excision of Lower Esophagus, Via Natural or Artificial Opening Endoscopic, Diagnostic (ICD-10-PCS; 2023-09-06)
PROC: 0DB48ZX Excision of Esophagogastric Junction, Via Natural or Artificial Opening Endoscopic, Diagnostic (ICD-10-PCS; 2023-09-06)
PROC: 0DBM8ZX Excision of Descending Colon, Via Natural or Artificial Opening Endoscopic, Diagnostic (ICD-10-PCS; principal; 2023-09-06 09:15)
PROC: 0DBP8ZX Excision of Rectum, Via Natural or Artificial Opening Endoscopic, Diagnostic (ICD-10-PCS; 2023-09-06 09:15)
DX: Z12.11 Encounter for screening for malignant neoplasm of colon (principal); R10.13 Epigastric pain; K21.9 Gastro-esophageal reflux disease without esophagitis; K57.30 Diverticulosis of large intestine without perforation or abscess without bleeding; K64.8 Other hemorrhoids; K63.5 Polyp of colon; K44.9 Diaphragmatic hernia without obstruction or gangrene; I85.00 Esophageal varices without bleeding; K29.81 Duodenitis with bleeding; K29.51 Unspecified chronic gastritis with bleeding
CPT/HCPCS: 88312; 88305; 45380; 43239; J2704; J2001; J7120

== ENCOUNTER 2024-02-08 11:46 | Emergency (ER) | payer OTHER ==
[2024-02-08] MEDS ORDERED: ONDANSETRON 4 MG/2 ML VIAL ONE (12:11)
[2024-02-08] MEDS ORDERED: KETOROLAC 30 MG/ML INJ ONE (12:11)
[2024-02-08] MEDS ORDERED: MORPHINE 4 MG/ML SYR ONE (12:11)
[2024-02-08 12:23] LABS: Absolute Basophils 0.1 K/uL (0-0.5); Absolute Eosinophils 0.2 K/uL (0-0.5); Absolute Lymphocytes (CBC) 2.1 K/uL (0.7-4.9); Absolute Monocytes 0.5 K/uL (0.1-1.3); Absolute Neutrophil 3.3 K/uL (1.8-8.0); Basophils % 1.2 % (0-1.3); Eosinophils % 2.6 % (0-4.4); Hematocrit 38.1 % (36.0-45.0); Hemoglobin 12.8 g/dL (12.0-15.0); MCH 30.3 pg (27.0-35.0); MCHC 33.6 g/dL (32.0-36.0); MCV 90.2 fL (80-100); MPV 8.3 fL (7.6-11.3); Monocytes % 7.8 % (3.3-12.3); Neutrophils % 54.4 % (41.7-73.7); Platelets 167 thou/uL (152-406); RBC Red Blood Cell Count 4.22 M/uL (3.86-4.86); Red Cell Distribution Width 14.3 % (12.1-15.2)
[2024-02-08 12:40] LABS: Albumin 3.3 g/dL (3.4-5.0); Albumin/Globulin Ratio 1.1 (1.1-1.8); Anion Gap 5.9 mEq/L (5.0-15.0); Bilirubin Total 0.6 mg/dL (0.2-1.0); Globulin 3.1 g/dL (2.3-3.5); Potassium 3.9 mEq/L (3.5-5.1); Protein, Total 6.4 g/dL (6.4-8.2)
[2024-02-08] MEDS ORDERED: ETOMIDATE 20 MG/10 ML VIAL IV ONE (12:51)
[2024-02-08] MEDS ORDERED: MIDAZOLAM HCL 2 MG/2 ML INJ ONE (12:51)
--- NOTE | 2024-02-08 13:26 | RAD REPORT ---
EXAM DESCRIPTION: RAD - Wrist Left 3 View - 02/08/2024 1:08 pm CLINICAL HISTORY: PAIN Pain COMPARISON: <Comparisons> FINDINGS: Impacted, intra-articular dorsally angulated distal radius fracture is present. Ulnar styl oid avulsion fracture also present.
[2024-02-08] MEDS ORDERED: NA CHLORIDE 0.9% 1,000 ML ONE (14:01)
--- NOTE | 2024-02-08 15:27 | ER ---
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 ll1 Coronavirus screen: Client indicates they have traveled out of the [place] in the last 14 days. Client traveled to: [place] At this time, the client does not indicate any symptoms associated with coronavirus-19. Ebola Screen: Patient denies travel to an Ebola-affected area in the 21 days before illness onset. Initial Sepsis Screen: Does the patient meet any 2 criteria? No. Patient's initial sepsis screen is negative. Does the patient have a suspected source of infection? No. Patient's initial sepsis screen is negative. Risk Assessment: Do you want to hurt yourself or someone else? Patient reports no desire to harm self or others. Onset of symptoms was February 08, 2024. 11:58 Method Of Arrival: Ambulatory ll1 11:58 Acuity: VITALIY 3 ll1 Triage Assessment: 11:59 General: Appears uncomfortable, Behavior is calm, cooperative, appropriate for age. ll1 Pain: Complains of pain in lateral aspect of left wrist Pain currently is 10 out of 10 on a pain scale. Quality of pain is described as aching, throbbing. Musculoskeletal: Circulation, motion, and sensation intact. Capillary refill < 3 seconds, Bony deformity noted of lateral aspect of left wrist Reports pain in lateral aspect of left wrist. Injury Description: trip and fall. Historical: - Allergies: 11:58 No Known Allergies; ll1 - PMHx: 11:58 Atrial fibrillation; Hypertension; Osteoporosis; ll1 - PSHx: 11:58 lung sx (or); ll1 - Immunization history:: Adult Immunizations up to date. - Social history:: Smoking status: Patient reports the use of cigarette tobacco products, smokes one pack cigarettes per day. - Family history:: not pertinent. Screenin:01 [facility] ED Fall Risk Assessment (Adult) History of falling in the last 3 months, bp including since admission Yes- single mechanical fall (1 pt) Confusion or Disorientation No (0 pts) Intoxicated or Sedated No (0 pts) Impaired Gait No (0 pts) Mobility Assist Device Used No (0 pt) Altered Elimination No (0 pt) Score/Fall Risk Level 0 - 2 = Low Risk. Abuse screen: Denies threats or abuse. Denies injuries from another. Nutritional screening: No deficits noted. Tuberculosis screening: No symptoms or risk factors identified. Assessment: 13:30 General: PT CONSENTED FOR CLOSED REDUCTION OF LEFT WRIST WITH CONSCIOUS SEDATION. bp 14:30 Reassessment: Patient appears in no apparent distress at this time. Patient is alert, bp oriented x 3, equal unlabored respirations, skin warm/dry/pink. Vital Signs: 11:58 BP 180 / 60; Pulse 60; Resp 17; Temp 97.1; Pulse Ox 98% ; Weight 60.78 kg; Height 5 ft. ll1 2 in. ; Pain 10/10; 13:00 BP 153 / 73; Pulse 48; Resp 15; Pulse Ox 96% ; bp 14:00 BP 143 / 77; Pulse 53; Resp 17; Temp 98.3; Pulse Ox 98% ; bp 14:30 BP 147 / 88; Pulse 56; Resp 16; Pulse Ox 100% ; bp 15:00 BP 163 / 75; Pulse 42; Resp 16; Pulse Ox 100% on R/A; me1 15:45 BP 156 / 76; Pulse 54; Resp 15; Temp 98.1; Pulse Ox 100% ; me1 11:58 Body Mass Index 24.51 (60.78 kg, 157.48 cm) ll1 11:58 Pain Scale: Adult ll1 ED Course: 11:47 Patient arrived in ED. mr 11:52 Kye Mitchell, TUYET is Primary Nurse. bp 11:56 Michael Molina MD is Attending Physician. chin 11:58 Arm band placed on Patient placed in an exam room, on a stretcher. ll1 11:59 Triage completed. ll1 12:18 Inserted saline lock: 20 gauge in right antecubital area, using aseptic technique. oh1 Blood collected. Flushed with 10 mL NS. 12:19 Initial lab(s) drawn, by me, sent to lab. oh1 12:19 CBC with Diff Sent. oh1 12:19 Comprehensive Metabolic Panel Sent. oh1 13:01 Provided Education on: Conscious Sedation, Procedure Consent. bp 13:01 Patient has correct armband on for positive identification. bp 13:10 Wrist Left (3 View) XRAY In Process Unspecified. EDMS 13:10 Warm blanket given. oh1 14:30 Orthoglass splint: Sugar tong splint applied on left arm. bp 14:45 Assist provider with reduction of left wrist using manipulation, Set up for procedure. bp Performed by Michael Molina MD Immobilized with sling, Patient tolerated well. 15:03 Wrist Left (3 View) XRAY In Process Unspecified. EDMS 15:27 Ta Moreland MD is Referral Physician. chin 16:22 IV discontinued, intact, bleeding controlled, No redness/swelling at site. Pressure me1 dressing applied. Administered Medications: 12:29 Drug: Ketorolac IVP 15 mg IVP once Route: IVP; Site: right antecubital; bp 16:20 Follow up: Response: No adverse reaction; Pain is decreased me1 12:29 Drug: morphine IVP or IV 2 mg IVP once over 4 mins Route: IVP; Infused Over: 4 mins; bp Site: right antecubital; 16:20 Follow up: Response: No adverse reaction; Pain is decreased me1 12:29 Drug: morphine IVP or IV 2 mg IVP once over 4 mins Route: IVP; Infused Over: 4 mins; bp Site: right antecubital; 16:19 Follow up: Response: No adverse reaction; Pain is decreased me1 12:29 Drug: Ondansetron IVP 4 mg IVP once; over 2 minutes Route: IVP; Site: right antecubital;bp 16:19 Follow up: Response: No adverse reaction; Nausea is decreased me1 14:25 Drug: Etomidate IVP 10 mg IVP once; hold Route: IVP; Site: right antecubital; bp 16:19 Follow up: Response: No adverse reaction me1 14:25 Drug: Etomidate IVP 10 mg IVP once; hold Route: IVP; Site: right antecubital; bp 16:19 Follow up: Response: No adverse reaction me1 14:26 Drug: Midazolam IVP or IV 2 mg IVP once; hlod Route: IVP; Site: right antecubital; bp 16:19 Follow up: Response: No adverse reaction me1 14:26 Drug: Midazolam IVP or IV 2 mg IVP once; hlod Route: IVP; Site: right antecubital; bp 16:19 Follow up: Response: No adverse reaction me1 14:26 Not Given (Duplicate Order): ondansetron 4 mg IVP once; over 2 minutes bp Medication: 15:58 VIS not applicable for this client. me1 Outcome: 15:27 Discharge ordered by MD. neely 16:22 Discharged to home via wheelchair, with significant other, me1 16:22 Condition: stable 16:22 Instructed on discharge instructions, follow up and referral plans. medication usage, Demonstrated understanding of instructions, follow-up care, medications, Prescriptions given X 1, 16:22 Patient left the ED. me1 Signatures: Dispatcher [employer] EDMS Michael Molina MD MD cha Rivera, Mary, Reg Reg mr Kye Mitchell RN RN bp Lewis, Lynsay, RN RN 1 Marry Shi RN RN ct1 Romana Aguirre [facility]
--- NOTE | 2024-02-08 15:27 | EDPHYS ---
Physician Documentation [facility] Name: Lin Delgado Age: 73 yrs Sex: Female : 1950 Arrival Date: 02/08/2024 Time: 11:46 Bed 3 Private MD: ED Physician Michael Molina HPI: 02/07 12:56 This 73 yrs old Female presents to ER via Ambulatory with complaints of Fall chin Injury, Wrist Injury. 12:56 Details of fall: The patient fell from an upright position, while standing, while chin walking. Onset: The symptoms/episode began/occurred just prior to arrival. Associated injuries: The patient sustained left wrist, decreased range of motion, painful injury, swelling. The patient has not experienced similar symptoms in the past. Historical: - Allergies: 11:58 No Known Allergies; ll1 - PMHx: 11:58 Atrial fibrillation; Hypertension; Osteoporosis; ll1 - PSHx: 11:58 lung sx (or); ll1 - Immunization history:: Adult Immunizations up to date. - Social history:: Smoking status: Patient reports the use of cigarette tobacco products, smokes one pack cigarettes per day. - Family history:: not pertinent. ROS: 12:56 Constitutional: Negative for fever, chills, and weight loss, Eyes: Negative for injury, chin pain, redness, and discharge, ENT: Negative for injury, pain, and discharge, Neck: Negative for injury, pain, and swelling, Cardiovascular: Negative for chest pain, palpitations, and edema, Respiratory: Negative for shortness of breath, cough, wheezing, and pleuritic chest pain, Abdomen/GI: Negative for abdominal pain, nausea, vomiting, diarrhea, and constipation, Back: Negative for injury and pain, : Negative for injury, bleeding, discharge, and swelling, Skin: Negative for injury, rash, and discoloration, Neuro: Negative for headache, weakness, numbness, tingling, and seizure, Psych: Negative for depression, anxiety, suicide ideation, homicidal ideation, and hallucinations, Allergy/Immunology: Negative for hives, rash, and allergies, Endocrine: Negative for neck swelling, polydipsia, polyuria, polyphagia, and marked weight changes, Hematologic/Lymphatic: Negative for swollen nodes, abnormal bleeding, and unusual bruising, 12:56 MS/extremity: Positive for injury or acute deformity, decreased range of motion, pain, swelling, of the left wrist, Exam: 12:56 Constitutional: This is a well developed, well nourished patient who is awake, alert, chin and in no acute distress. Head/Face: Normocephalic, atraumatic. Eyes: Pupils equal round and reactive to light, extra-ocular motions intact. Lids and lashes normal. Conjunctiva and sclera are non-icteric and not injected. Cornea within normal limits. Periorbital areas with no swelling, redness, or edema. ENT: Nares patent. No nasal discharge, no septal abnormalities noted. Tympanic membranes are normal and external auditory canals are clear. Oropharynx with no redness, swelling, or masses, exudates, or evidence of obstruction, uvula midline. Mucous membranes moist. Neck: Trachea midline, no thyromegaly or masses palpated, and no cervical lymphadenopathy. Supple, full range of motion without nuchal rigidity, or vertebral point tenderness. No Meningismus. Chest/axilla: Normal chest wall appearance and motion. Nontender with no deformity. No lesions are appreciated. Cardiovascular: Regular rate and rhythm with a normal S1 and S2. No gallops, murmurs, or rubs. Normal PMI, no JVD. No pulse deficits. Respiratory: Lungs have equal breath sounds bilaterally, clear to auscultation and percussion. No rales, rhonchi or wheezes noted. No increased work of breathing, no retractions or nasal flaring. Abdomen/GI: Soft, non-tender, with normal bowel sounds. No distension or tympany. No guarding or rebound. No evidence of tenderness throughout. Back: No spinal tenderness. No costovertebral tenderness. Full range of motion. Skin: Warm, dry with normal turgor. Normal color with no rashes, no lesions, and no evidence of cellulitis. Neuro: Awake and alert, GCS 15, oriented to person, place, time, and situation. Cranial nerves II-XII grossly intact. Motor strength 5/5 in all extremities. Sensory grossly intact. Cerebellar exam normal. Normal gait. Psych: Awake, alert, with orientation to person, place and time. Behavior, mood, and affect are within normal limits. 12:56 Musculoskeletal/extremity: Extremities: grossly normal except: noted in the lateral aspect of left wrist and medial aspect of left wrist: decreased ROM, pain, ROM: intact in all extremities, full active range of motion, in the left wrist, Circulation is intact in all extremities. Sensation intact. Severe pain noted. Compartment Syndrome exam of affected extremity: is normal. Vital Signs: 11:58 BP 180 / 60; Pulse 60; Resp 17; Temp 97.1; Pulse Ox 98% ; Weight 60.78 kg; Height 5 ft. ll1 2 in. ; Pain 10/10; 13:00 BP 153 / 73; Pulse 48; Resp 15; Pulse Ox 96% ; bp 14:00 BP 143 / 77; Pulse 53; Resp 17; Temp 98.3; Pulse Ox 98% ; bp 14:30 BP 147 / 88; Pulse 56; Resp 16; Pulse Ox 100% ; bp 15:00 BP 163 / 75; Pulse 42; Resp 16; Pulse Ox 100% on R/A; me1 15:45 BP 156 / 76; Pulse 54; Resp 15; Temp 98.1; Pulse Ox 100% ; me1 11:58 Body Mass Index 24.51 (60.78 kg, 157.48 cm) ll1 11:58 Pain Scale: Adult ll1 Procedures: 15:24 Reduction: of the left wrist, using traction, manipulation, Immobilized with sling, [facility] Patient tolerated well. Post reduction film - reveals improved alignment. MDM: 11:56 Patient medically screened. [facility] 12:56 Differential diagnosis: fracture, sprain, strain. Data reviewed: vital signs, nurses [facility] notes, EMS record, lab test result(s), radiologic studies. Consideration of Admission/Observation Escalation of care including admission/observation considered. I considered the following discharge prescriptions or medication management in the emergency department Medications were administered in the Emergency Department. See MAR. Test considered but Not performed: CT: no ct wrist. Care significantly affected by the following chronic conditions: Hypertension, a fib, osteoporosis. 02/07 11:59 Order name: CBC with Diff [facility] 02/07 11:59 Order name: Comprehensive Metabolic Panel [facility] 02/07 11:59 Order name: Wrist Left (3 View) XRAY [facility] 02/07 14:14 Order name: Wrist Left (3 View) XRAY 02/07 11:59 Order name: NPO; Complete Time: 12:02 [facility] 02/07 11:59 Order name: Ice pack; Complete Time: 12:02 [facility] 02/07 13:50 Order name: Sling; Complete Time: 14:25 chin 02/07 13:50 Order name: Splint - Sugar Tong - Forearm; Complete Time: 14:25 chin Administered Medications: 12:29 Drug: Ketorolac IVP 15 mg IVP once Route: IVP; Site: right antecubital; bp 16:20 Follow up: Response: No adverse reaction; Pain is decreased me1 12:29 Drug: morphine IVP or IV 2 mg IVP once over 4 mins Route: IVP; Infused Over: 4 mins; bp Site: right antecubital; 16:20 Follow up: Response: No adverse reaction; Pain is decreased me1 12:29 Drug: morphine IVP or IV 2 mg IVP once over 4 mins Route: IVP; Infused Over: 4 mins; bp Site: right antecubital; 16:19 Follow up: Response: No adverse reaction; Pain is decreased me1 12:29 Drug: Ondansetron IVP 4 mg IVP once; over 2 minutes Route: IVP; Site: right antecubital;bp 16:19 Follow up: Response: No adverse reaction; Nausea is decreased me1 14:25 Drug: Etomidate IVP 10 mg IVP once; hold Route: IVP; Site: right antecubital; bp 16:19 Follow up: Response: No adverse reaction me1 14:25 Drug: Etomidate IVP 10 mg IVP once; hold Route: IVP; Site: right antecubital; bp 16:19 Follow up: Response: No adverse reaction me1 14:26 Drug: Midazolam IVP or IV 2 mg IVP once; hlod Route: IVP; Site: right antecubital; bp 16:19 Follow up: Response: No adverse reaction me1 14:26 Drug: Midazolam IVP or IV 2 mg IVP once; hlod Route: IVP; Site: right antecubital; bp 16:19 Follow up: Response: No adverse reaction me1 14:26 Not Given (Duplicate Order): ondansetron 4 mg IVP once; over 2 minutes bp Disposition Summary: 02/08/24 15:27 Discharge Ordered Notes: Location: Home chin Problem: new chin Symptoms: have improved chin Condition: Stable chin Diagnosis - Fall on same level, unspecified chin - Displaced comminuted fracture of shaft of radius, left arm, initial encounter for chin closed fracture - displaced Collies , reduced - Displaced fracture of left ulna styloid process chin Followup: chin - With: Private Physician - When: 2 - 3 days - Reason: Recheck today's complaints, Continuance of care, Re-evaluation by your physician Followup: chin - With: Ta Moreland MD - When: 2 - 3 days - Reason: Recheck today's complaints, Re-evaluation by your physician Discharge Instructions: - Discharge Summary Sheet [facility] - Radial Fracture chin - Closed Reduction for Wrist or Forearm, Care After [facility] Forms: - Medication Reconciliation Form chin - Antibiotic Education chin - Prescription Opioid Use [facility] - Patient Portal Instructions [facility] - Leadership Thank You Letter [facility] Prescriptions: - acetaminophen-codeine 300-30 mg Oral tablet - take 2 tablet ORAL route every 6 hours as needed for pain; 20 tablet; Refills: [facility] 0, Product Selection Permitted Signatures: Dispatcher [employer] Michael Greene MD MD cha Peltier, Brian, RN RN bp Lewis, Lynsay, RN RN ll1 Marry Shi RN me1
--- NOTE | 2024-02-08 15:43 | RAD REPORT ---
EXAM DESCRIPTION: RAD - Wrist Left 3 View - 02/08/2024 3:01 pm CLINICAL HISTORY: post reduction Pain COMPARISON: <Comparisons> FINDINGS: Previously noted fracture as the reduced and placed within a splint. Bone detail is limit ed.
[2024-02-08 16:49] VITALS: O2SAT 100
[2024-02-08 16:51] VITALS: BP 156/76; TEMP 98.1
== END 2024-02-08 16:22 | disposition home or self-care (01) ==
LOC: ER 11:46
DX: S52.532A Colles' fracture of left radius, initial encounter for closed fracture (principal); S52.612A Displaced fracture of left ulna styloid process, initial encounter for closed fracture; W18.30XA Fall on same level, unspecified, initial encounter; F17.210 Nicotine dependence, cigarettes, uncomplicated
CPT/HCPCS: 85025; 36415; 80053; 73110 ×2; 96375; 96374; 99285; 25605; J2250; J2405; J7030

== ENCOUNTER 2024-02-21 07:43 | Day surgery (SDC) | payer OTHER ==
[2024-02-21] MEDS: Ringers Lactate 1,000 ML IV ONE (08:00)
[2024-02-21] MEDS ORDERED: dexAMETHasone 10 MG/ML VIAL ONE ×2 (08:18→11:01)
[2024-02-21] MEDS ORDERED: LIDOCAINE 1% MPF 5 ML VIAL ONE (08:18)
[2024-02-21] MEDS ORDERED: FENTANYL CITR 100 MCG/2 ML ONE (08:19)
[2024-02-21] MEDS ORDERED: EPINEPHRINE 1 MG/ML VIAL ONE (08:19)
[2024-02-21] MEDS ORDERED: MIDAZOLAM HCL 2 MG/2 ML INJ ONE (08:19)
[2024-02-21] MEDS: CEFAZOLIN SODIUM 1 GM/VIAL ONE (09:09)
[2024-02-21] MEDS ORDERED: propofoL 200 MG/20 ML VIAL IV ONE (10:53)
[2024-02-21] MEDS ORDERED: LIDOCAINE 2% MPF 5 ML VIAL ONE (10:53)
[2024-02-21] MEDS ORDERED: KETOROLAC 30 MG/ML INJ ONE (11:01)
[2024-02-21] MEDS ORDERED: ONDANSETRON 4 MG/2 ML VIAL ONE (11:01)
[2024-02-21] MEDS ORDERED: NS 0.9% VIAL 10 ML ONE (11:10)
[2024-02-21] MEDS ORDERED: EPHEDRINE SULF 50 MG/ML VIAL ONE (11:15)
[2024-02-21 12:21] VITALS: O2SAT 94
[2024-02-21 13:53] VITALS: BP 146/74; TEMP 97.3
--- NOTE | 2024-02-21 14:12 | EKG ---
Test Date: 2024-02-19 Test Time: 13:38:32 [employer] Specialist: KARLA MEASUREMENT RESULTS: Intervals: Rate: 54 CT: 240 QRSD: 80 QT: 440 QTc: 417 [place]: P: 63 CT: 240 QRS: 40 T: 57 INTERPRETIVE STATEMENTS: Sinus bradycardia with 1st degree AV block Cannot rule out Anterior infarct, age undetermined Abnormal ECG Compared to ECG 04/27/2023 11:32:22 No significant changes Electronically Signed On 02-21-24 14:08:05 CDT by Linden Vences
--- NOTE | 2024-02-21 18:42 | OP ---
Date of Procedure: 02/21/2024 Surgeon: Gopi Valentin MD Preoperative Diagnosis: Left distal radius fracture with intraarticular extension and displacement. Postoperative Diagnosis: Left distal radius fracture with intraarticular extension and displacement. Procedure: Left distal radius open reduction and internal fixation using the Acumed volar radius teodoro ting set with fixation of 2 fracture fragments that are intra-articular. Estimated Blood Loss: Less than 10 cc. Complications: There were no complications. Specimens: No pathology specimens sent. Indications For Operation: Ms. Delgado is a 73-year-old female who was very active, who unfortunatel y fell injuring her left upper extremity. She was seen and examined in the emergency department, whe re she was found to have a highly displaced distal radius fracture which was treated with a closed re duction and the closed reduction actually appeared to do quite well. However, it still has loss of r adial inclination and slight loss of height plus slight loss of volar tilt. It was thus discussed wi th her that we could treat this closed using casting. However, it is unstable and there is a possibi lity it could further saddle. She said that she understands things as presented, but at this time, o pts for open reduction and internal fixation and agrees to proceed. Description Of Procedure: Patient was taken to the operating room and placed in supine position. Ge neral anesthesia was easily obtained by Anesthesia staff. Following this, a well-padded tourniquet w as placed on superior left arm. Left upper extremity was then prepped and draped in the usual steril e fashion for the procedure. The arm was then elevated, but not exsanguinated. Tourniquet was raise d. A standard volar approach of Justice was then taken down carefully through skin only with a zigzag across the radius creases. Meticulous hemostasis being maintained using bipolar electrocautery. The tendon of the flexor carpi radialis was encountered. It was then freed and retracted radialward to protect the radial artery. The underlying sheath was then exploited and the muscle belly and tendon of the flexor pollicis longus was identified and retracted ulnarward to protect the median nerve. Af ter this, the pronator quadratus was easily identified. It was divided in its midsubstance and a watts d handle elevator was then used to expose the volar surface of the radius as well as the fracture sit e. The fracture site itself had been displaced since being seen in the clinic as expected and a comb ination of manual techniques as well as a Aultman elevator was used to reduce this essentially anatomic ally. After this, the volar radius plating set was then applied using biplanar C-arm radiography to ensure that fixation was appropriately placed. At the conclusion, the C-arm was used to ensure that none of the pegs or screws were prominent and the fracture maintained its very good reduction. Wound was gently irrigated and skin was closed using nylon sutures. She was then placed in a very well-pa dded sterile dressing as well as a volar splint, awakened, and taken to recovery room in good conditi on. There were no complications. /PARVEZ Voice ID: [id number] Report ID: [id number]
--- NOTE | 2024-02-21 19:49 | RAD REPORT ---
EXAM DESCRIPTION: RAD - Fluoroscopy <1 Hour - 02/21/2024 1:03 pm CLINICAL HISTORY: ORIF LT WIRST COMPARISON: None available. FINDINGS: Eighteen Images were sent to PACS, documenting fluoroscopy use during an image guided left wrist open reduction and internal fixation procedure. No radiologist was available for the procedure , nor will any image interpretation he provided. Please refer to the procedural report for additional details. Fluoroscopy time: 1.1 Minutes. IMPRESSION: Documentation of fluoroscopy utilization as above.
== END 2024-02-21 13:20 | disposition home or self-care (01) ==
LOC: OR 07:43
PROVIDERS: ATTEND Orthopaedic Surgery
PROC: 0PSJ04Z Reposition Left Radius with Internal Fixation Device, Open Approach (ICD-10-PCS; principal; 2024-02-21 10:00)
DX: S52.532A Colles' fracture of left radius, initial encounter for closed fracture (principal); M25.532 Pain in left wrist
CPT/HCPCS: 25608; 93005; C1713; A4216; J2704; J2001 ×2; J2250; J3010; J1100 ×2; J0171; J2405; J7120; J0690; C1889; 76000

== ENCOUNTER 2024-04-17 07:30 | Observation (INO) | payer OTHER ==
[2024-04-17] MEDS ORDERED: ONDANSETRON 4 MG/2 ML VIAL ONE (08:11)
[2024-04-17] MEDS ORDERED: CEFTRIAXONE 1000 MG/VIAL ONE (08:11)
[2024-04-17] MEDS ORDERED: ACETAMINOPHEN 500 MG TAB ONE (08:12)
[2024-04-17] MEDS ORDERED: NA CHLORIDE 0.9% 1,000 ML ONE (08:12)
[2024-04-17 08:13] LABS: Absolute Lymphocytes (CBC) 0.9 K/uL (0.7-4.9); Absolute Monocytes 0.5 K/uL (0.1-1.3); Absolute Neutrophil 2.4 K/uL (1.8-8.0); Basophils % 0.9 % (0-1.3); Eosinophils % 0.2 % (0-4.4); Hematocrit 41.6 % (36.0-45.0); Lymphocytes % 23.8 % (15.3-44.8); MCH 30.8 pg (27.0-35.0); MCHC 33.7 g/dL (32.0-36.0); MCV 91.4 fL (80-100); MPV 8.8 fL (7.6-11.3); Monocytes % 13.3 % (3.3-12.3); Neutrophils % 61.8 % (41.7-73.7); Platelets 100 thou/uL (152-406); RBC Red Blood Cell Count 4.55 M/uL (3.86-4.86); Red Cell Distribution Width 14.4 % (12.1-15.2)
[2024-04-17 08:17] LABS: PT Prothrombin Time 12.5 SECONDS (9.4-12.5); Protime INR 1.12
[2024-04-17 08:34] LABS: Anion Gap 8.6 mEq/L (5.0-15.0); Potassium 3.6 mEq/L (3.5-5.1)
[2024-04-17 08:35] LABS: Troponin High Sensitivity 66.8 pg/mL (<58.9)
--- NOTE | 2024-04-17 08:52 | RAD REPORT ---
EXAM: CT Head Brain Wo Cont HISTORY: fall COMPARISON: 06/19/2010 TECHNIQUE: Multiple contiguous axial images were obtained for a CT of the brain without contrast. Sag ittal and coronal reformats were performed. One or more of the following dose reduction techniques were used: Automated exposure control, adjus tment of the mA and kV according to patient size, and iterative reconstruction. Unless otherwise specified, incidental findings do not require dedicated imaging follow-up. FINDINGS: No evidence of hydrocephalus, intracranial hemorrhage, or extra-axial fluid collection. Mild brain atrophy with mild periventricular and deep white matter chronic microvascular ischemic ch anges present. The calvarium is intact. The visualized paranasal sinuses and mastoid air cells are essentially clear . IMPRESSION: No evidence of acute intracranial abnormality.
--- NOTE | 2024-04-17 09:06 | RAD REPORT ---
EXAMINATION: ONE VIEW CHEST XR CLINICAL INDICATION: Female, 73 years old.,COUGH TECHNIQUE: Frontal chest projection is submitted. Examination is limited by patient positioning and t echnique. COMPARISON: 04/27/2023 FINDINGS: The lungs are well inflated and clear. No pneumothorax or sizable effusion. The heart is normal in s ize. Mediastinal contours are unremarkable. IMPRESSION: No acute intrathoracic abnormalities.
[2024-04-17 09:08] LABS: SARS-CoV-2 Antigen CONTROL BLUE LINE VIS/BG OK; SARS-CoV-2 Antigen Rapid Res Negative (Negative)
--- NOTE | 2024-04-17 09:15 | ER ---
Nurse's Notes [facility] Name: Lin Delgado Age: 73 yrs Sex: Female : 1950 Arrival Date: 04/17/2024 Time: 07:30 Bed 5 Private MD: Diagnosis: Influenza due to identified novel influenza A virus Presentation: 04/17 07:48 Chief complaint: N/V and dizziness x 3-4 days, syncopal episode x 2 this morning. hb Coronavirus screen: Client presents with at least one sign or symptom that may indicate coronavirus-19. Provider contacted for isolation considerations. Ebola Screen: No symptoms or risks identified at this time. Initial Sepsis Screen: Does the patient meet any 2 criteria? Temp <36.0*C (96.8*F)) or > 38.3*C (100.9*F). HR > 90 bpm. Yes Does the patient have a suspected source of infection? No. Patient's initial sepsis screen is negative. Risk Assessment: Do you want to hurt yourself or someone else? Patient reports no desire to harm self or others. Onset of symptoms was April 14, 2024. 07:48 Method Of Arrival: Ambulatory hb 07:48 Acuity: VITALIY 2 hb Triage Assessment: 07:54 General: Appears in no apparent distress. ill, Behavior is calm, cooperative. Pain: hb Denies pain. Neuro: Level of Consciousness is awake, alert, obeys commands, Oriented to person, place, time, situation, Reports dizziness. Cardiovascular: Patient's skin is warm and dry. Rhythm is atrial fibrillation with rapid ventricular response. Respiratory: Respiratory effort is even, unlabored, Respiratory pattern is regular, symmetrical. GI: Reports nausea, vomiting. Historical: - Allergies: 07:54 Codeine; hb - PMHx: 07:54 Atrial fibrillation; Osteoporosis; hb 09:57 Hypercholesterolemia; aa5 - PSHx: 07:54 lung sx; hb - Immunization history:: Adult Immunizations up to date. - Infectious Disease History:: Denies. - Social history:: Smoking status: Patient reports the use of cigarette tobacco products. Screenin:00 [facility] ED Fall Risk Assessment (Adult) History of falling in the last 3 months, aa5 including since admission Yes- physiologic fall (2 pts) Confusion or Disorientation No (0 pts) Intoxicated or Sedated No (0 pts) Impaired Gait No (0 pts) Mobility Assist Device Used No (0 pt) Altered Elimination No (0 pt) Score/Fall Risk Level 0 - 2 = Low Risk Oriented to surroundings, Maintained a safe environment, Educated pt \T\ family on fall prevention, incl call for assistance when getting out of bed. Abuse screen: Denies threats or abuse. Nutritional screening: No deficits noted. Tuberculosis screening: No symptoms or risk factors identified. Assessment: 07:50 General: Appears uncomfortable, Behavior is calm, cooperative. Pain: Denies pain. aa5 Neuro: Level of Consciousness is awake, alert, obeys commands, Oriented to person, place, time, situation. Cardiovascular: Heart tones S1 S2 present Rhythm is atrial fibrillation with rapid ventricular response. Respiratory: Reports shortness of breath cough that is productive, Airway is patent Respiratory effort is even, unlabored, Respiratory pattern is regular, symmetrical, Breath sounds are clear bilaterally. GI: Abdomen is non-distended, Bowel sounds present X 4 quads. Abd is soft and non tender X 4 quads. Reports intermittent nausea and vomiting yesterday. : No signs and/or symptoms were reported regarding the genitourinary system. EENT: No signs and/or symptoms were reported regarding the EENT system. Derm: Skin is dry, Skin is normal, Skin temperature is hot. Musculoskeletal: Range of motion: intact in all extremities. 07:50 Reassessment: Pt reports had 2 syncopal episodes today, minor abrasion noted to upper aa5 lip, no bleeding noted. . 08:08 Reassessment: Pt to CT scan via stretcher. . aa5 08:33 Reassessment: Patient is alert, oriented x 3, equal unlabored respirations, skin aa5 warm/dry/pink. 08:33 Reassessment: Pt back from CT scan . aa5 09:17 Reassessment: Patient is alert, oriented x 3, equal unlabored respirations, skin aa5 warm/dry/pink. 09:46 Reassessment: Patient is alert, oriented x 3, equal unlabored respirations, skin aa5 warm/dry/pink. 09:50 Reassessment: Pt to radiology . aa5 13:19 Reassessment: report faxed to [facility], confirmed by 6 Vital Signs: 07:48 BP 128 / 90; Pulse 104; Resp 18; Temp 101.6(O); Pulse Ox 100% on R/A; Weight 58.97 kg; hb Height 5 ft. 6 in. ; Pain 0/10; 08:00 Pulse Ox 89% on R/A; aa5 08:02 Pulse Ox 97% on 2 lpm NC; aa5 09:17 BP 129 / 81; Pulse 81; Resp 20 S; Temp 100(O); Pulse Ox 98% on 2 lpm NC; aa5 10:00 BP 126 / 74; Pulse 68; Pulse Ox 96% on 2 lpm NC; tm6 11:00 BP 121 / 68; Pulse 64; Pulse Ox 96% on 2 lpm NC; tm6 12:00 BP 124 / 65; Pulse 57; Pulse Ox 96% on 2 lpm NC; tm6 13:19 BP 123 / 67; Pulse 63; Pulse Ox 96% on 2 lpm NC; tm6 07:48 Body Mass Index 20.98 (58.97 kg, 167.64 cm) hb 07:48 Pain Scale: Adult hb ED Course: 07:32 Patient arrived in ED. mg5 07:47 Emeli Douglass, TUYET is Primary Nurse. aa5 07:49 Stuart Ibanez MD is Attending Physician. ec2 07:50 Arm band placed on. Client placed on continuous cardiac and pulse oximetry monitoring. aa5 NIBP monitoring applied. ekg monitor tech on. Pulse ox on. NIBP on. 07:50 Patient has correct armband on for positive identification. Placed in gown. Bed in low aa5 position. Call light in reach. Side rails up X2. Adult w/ patient. 07:51 Triage completed. hb 08:03 Inserted saline lock: 18 gauge in right forearm, using aseptic technique. aa5 08:04 EKG done, by ED staff, reviewed by Stuart Ibanez MD. em1 08:05 Initial lab(s) drawn, by me, sent to lab. First set of blood cultures drawn. aa5 08:14 CT Head Brain wo Cont In Process Unspecified. EDMS 08:26 XRAY Chest (1 view) In Process Unspecified. EDMS 08:35 Second set of blood cultures drawn by me. aa5 08:45 COVID swab sent to lab. Flu and/or RSV swab sent to lab. aa5 10:00 Report given to TUYET Lowry. aa5 10:01 Thorax W/ Con In Process Unspecified. EDMS 10:28 Brain Wo Cont In Process Unspecified. EDMS 12:31 Stuart Ibanez MD is Hospitalizing Provider. kb3 13:21 No provider procedures requiring assistance completed. Patient admitted, IV remains in tm6 place. 14:32 Provided Education on: need for admit. tm6 Administered Medications: 08:35 Drug: Acetaminophen PO 1000 mg PO once Route: PO; aa5 09:17 Follow up: Response: No adverse reaction; Temperature is decreased aa5 08:36 Drug: NS 0.9% IV 1000 ml IV at 1000 ml once; to be given as a bolus over 60 minutes aa5 Route: IV; Rate: 1000 ml; Site: right forearm; 09:36 Follow up: IV Status: Completed infusion; IV Intake: 1000ml aa5 08:43 Drug: Rocephin IV 1 grams IV at calculated rate once; Given slow IV push per pharmacy aa5 instructions Route: IV; Rate: calculated rate; Site: right forearm; 09:00 Follow up: Response: No adverse reaction; IV Status: Completed infusion; IV Intake: 93itia7 08:50 Not Given (Patient Refused): ondansetron 4 mg IVP once; over 2 minutes aa5 09:46 Drug: Oseltamivir PO 75 mg PO once Route: PO; aa5 13:12 Follow up: Response: No adverse reaction tm6 Medication: 09:14 VIS not applicable for this client. aa5 Intake: 09:00 IV: 10ml; Total: 10ml. tm6 09:36 IV: 1000ml; Total: 1010ml. aa5 Outcome: 09:14 Decision to Hospitalize by Provider. ec2 14:31 Admitted to Med/surg accompanied by tech, via wheelchair, room 213, with oxygen, with tm6 chart, 14:31 Condition: stable 14:31 Instructed on the need for admit, 14:32 Patient left the ED. tm6 Signatures: Dispatcher [employer] Mark Vargas em1 Emeli Douglass RN RN aa5 Irais Bruno RN RN Nicole Mayo RN RN kb3 Emily Falcon mg5 Stuart Ibanez MD MD ec2 Lucas, Tawney, RN RN tm6 Corrections: (The following items were deleted from the chart) 07:55 Arm band placed on hb aa5 07:55 Client placed on continuous cardiac and pulse oximetry monitoring. NIBP aa5 monitoring applied. ekg monitor tech on. Pulse ox on. NIBP on. hb : 09:17 BP 129 / 81; Pulse 81bpm; Resp 20bpm; Spontaneous; Pulse Ox 98% 2 lpm Nasal aa5 Cannula; aa5 07:54 PMHx: Hypertension; hb aa5 08:50 Response: No adverse reaction aa5 tm6 13:12 Response: No adverse reaction; IV Intake: 10ml tm6 tm6
--- NOTE | 2024-04-17 09:15 | EDPHYS ---
Physician Documentation [facility] Name: Lin Delgado Age: 73 yrs Sex: Female : 1950 Arrival Date: 04/17/2024 Time: 07:30 Bed 5 Private MD: ED Physician Stuart Ibanez HPI: 04/17 07:59 This 73 yrs old Female presents to ER via Ambulatory with complaints of ec2 Nausea/Vomiting, Dizziness, Syncope. 07:59 Patient arrives today for evaluation of feeling unwell. Reports for the past 3 days she ec2 been feeling lightheaded, she been having some nausea and vomiting, has had multiple passing out episode. Had fallen today and struck her head. Possible LOC. No anticoagulation. Patient reports no chest pain, does have some cough as well as shortness of breath. No urinary complaints. No abdominal pain.. Historical: - Allergies: 07:54 Codeine; hb - PMHx: 07:54 Atrial fibrillation; Osteoporosis; hb 09:57 Hypercholesterolemia; aa5 - PSHx: 07:54 lung sx; hb - Immunization history:: Adult Immunizations up to date. - Infectious Disease History:: Denies. - Social history:: Smoking status: Patient reports the use of cigarette tobacco products. ROS: 07:59 Constitutional: as per hpi ec2 Exam: 07:59 Constitutional: GEN: NAD Head: atraumatic Eyes: EOMI Ears: External ears are ec2 normal. CV: Irregular rhythm with tachycardia LUNGS: no respiratory distress, no wheezes, no rales, no rhonchi ABD: non-distended SKIN: no evidence of rashes MSK: no evidence of trauma Vital Signs: 07:48 BP 128 / 90; Pulse 104; Resp 18; Temp 101.6(O); Pulse Ox 100% on R/A; Weight 58.97 kg; hb Height 5 ft. 6 in. ; Pain 0/10; 08:00 Pulse Ox 89% on R/A; aa5 08:02 Pulse Ox 97% on 2 lpm NC; aa5 09:17 BP 129 / 81; Pulse 81; Resp 20 S; Temp 100(O); Pulse Ox 98% on 2 lpm NC; aa5 10:00 BP 126 / 74; Pulse 68; Pulse Ox 96% on 2 lpm NC; tm6 11:00 BP 121 / 68; Pulse 64; Pulse Ox 96% on 2 lpm NC; tm6 12:00 BP 124 / 65; Pulse 57; Pulse Ox 96% on 2 lpm NC; tm6 13:19 BP 123 / 67; Pulse 63; Pulse Ox 96% on 2 lpm NC; tm6 07:48 Body Mass Index 20.98 (58.97 kg, 167.64 cm) hb 07:48 Pain Scale: Adult hb MDM: 07:49 Medical Screening Exam initiated ec2 07:59 Data reviewed: vital signs. ED course: Patient arrives today for evaluation of feeling ec2 unwell. Examination remarkable for patient in atrial fibrillation with a fever and tachycardia. Will obtain a septic workup and empirically treat with ceftriaxone. Differential diagnosis includes viral infection, pneumonia, urinary tract infection, electrolyte disturbances.. 08:03 ED course: EKG independently reviewed and interpreted by me, shows atrial flutter with ec2 variable conduction with a rate of [address] segment elevations with nonactionable intervals. Will continue to give crystalloid as well as treat the patient's fever as opposed to trying to rate manage her tachycardia.. 08:38 ED course: Metabolic profile, CBC, lactic acid are nonactionable, troponin with slight ec2 elevation at 66.8, slight BNP elevation at 2100.. 09:13 ED course: Chest x-ray with no pneumonia. Patient is flu a positive. Will give Tamiflu, ec2 will admit, patient with borderline saturations, generalized weakness. Discussed with hospitalist, pending admission.. 04/17 07:49 Order name: Basic Metabolic Panel; Complete Time: 08:37 ec2 04/17 07:49 Order name: CBC with Diff; Complete Time: 08:37 ec2 04/17 07:49 Order name: NT PRO-BNP; Complete Time: 08:37 ec2 04/17 07:49 Order name: PT-INR; Complete Time: 08:37 ec2 04/17 07:49 Order name: Troponin HS; Complete Time: 08:37 ec2 04/17 07:50 Order name: Blood Culture Adult (2) ec2 04/17 07:50 Order name: Lactate w/ 2H reflex if indic.; Complete Time: 08:37 ec2 04/17 07:50 Order name: UAM ec2 04/17 07:52 Order name: Influenza Screen (a \T\ B); Complete Time: 09:13 ec2 04/17 07:52 Order name: SARS RAPID; Complete Time: 09:13 ec2 04/17 10:09 Order name: Urinalysis w/ reflexes EDMS 04/17 10:09 Order name: Basic Metabolic Panel EDMS 04/17 10:09 Order name: Basic Metabolic Panel EDMS 04/17 10:09 Order name: Basic Metabolic Panel EDMS 04/17 10:09 Order name: Basic Metabolic Panel EDMS 04/17 10:09 Order name: CBC with Automated Diff EDMS 04/17 10:09 Order name: CBC with Automated Diff EDMS 04/17 10:09 Order name: CBC with Automated Diff EDMS 04/17 10:09 Order name: CBC with Automated Diff EDMS 04/17 10:09 Order name: Magnesium EDMS 04/17 10:09 Order name: Magnesium EDMS 04/17 10:09 Order name: Magnesium EDMS 04/17 10:09 Order name: Magnesium EDMS 04/17 10:09 Order name: NT PRO-BNP EDMS 04/17 10:09 Order name: NT PRO-BNP EDMS 04/17 10:09 Order name: NT PRO-BNP EDMS 04/17 10:09 Order name: NT PRO-BNP EDMS 04/17 10:09 Order name: Troponin High Sensitivity EDMS 04/17 10:09 Order name: Troponin High Sensitivity EDMS 04/17 10:09 Order name: Troponin High Sensitivity EDMS 04/17 10:09 Order name: Troponin High Sensitivity EDMS 04/17 10:15 Order name: Lipid Profile EDMS 04/17 10:15 Order name: Lipid Profile EDMS 04/17 07:49 Order name: XRAY Chest (1 view); Complete Time: 09:13 ec2 04/17 07:59 Order name: CT Head Brain wo Cont; Complete Time: 09:00 ec2 04/17 09:43 Order name: Thorax W/ Con EDMS 04/17 09:47 Order name: Brain Wo Cont EDMS 04/17 10:09 Order name: Echo with Doppler EDMS 04/17 10:09 Order name: CONS Physician Consult EDMS 04/17 10:09 Order name: Physical Therapy Consult EDMS 04/17 07:49 Order name: Cardiac monitoring; Complete Time: 08:08 ec2 04/17 07:49 Order name: EKG - Nurse/Tech; Complete Time: 08:04 ec2 04/17 07:49 Order name: IV Saline Lock; Complete Time: 08:08 ec2 04/17 07:49 Order name: Labs collected and sent; Complete Time: 08:08 ec2 04/17 07:49 Order name: O2 Per Protocol; Complete Time: 08:08 ec2 04/17 07:49 Order name: O2 Sat Monitoring; Complete Time: 08:08 ec2 04/17 07:50 Order name: IV Saline Lock - Large Bore; Complete Time: 08:08 ec2 04/17 07:50 Order name: Vital Signs; Complete Time: 07:50 ec2 Administered Medications: 08:35 Drug: Acetaminophen PO 1000 mg PO once Route: PO; aa5 09:17 Follow up: Response: No adverse reaction; Temperature is decreased aa5 08:36 Drug: NS 0.9% IV 1000 ml IV at 1000 ml once; to be given as a bolus over 60 minutes aa5 Route: IV; Rate: 1000 ml; Site: right forearm; 09:36 Follow up: IV Status: Completed infusion; IV Intake: 1000ml aa5 08:43 Drug: Rocephin IV 1 grams IV at calculated rate once; Given slow IV push per pharmacy aa5 instructions Route: IV; Rate: calculated rate; Site: right forearm; 09:00 Follow up: Response: No adverse reaction; IV Status: Completed infusion; IV Intake: [id number] 08:50 Not Given (Patient Refused): ondansetron 4 mg IVP once; over 2 minutes aa5 09:46 Drug: Oseltamivir PO 75 mg PO once Route: PO; aa5 13:12 Follow up: Response: No adverse reaction tm6 Disposition Summary: 04/17/24 09:14 Hospitalization Ordered Notes: Hospitalization Status: Inpatient Admission ec2 Condition: Stable ec2 Problem: new ec2 Symptoms: have improved ec2 Bed/Room Type: Standard ec2 Provider: Stuart Ibanez(04/17/24 12:31) kb3 Location: Telemetry/MedSurg (Inpatient)(04/17/24 13:08) kb3 Room Assignment: [facility](04/17/24 13:08) kb3 Diagnosis - Influenza due to identified novel influenza A virus ec2 Forms: - Medication Reconciliation Form ec2 - SBAR form ec2 - Leadership Thank You Letter ec2 Signatures: Dispatcher [employer] EDMS Emeli Douglass, RN RN aa5 Irais Bruno, TUYET RN Nicole Mayo RN RN kb3 Stuart Ibanez MD MD ec2 Alen Zavala RN tm6 Corrections: (The following items were deleted from the chart) 07:50 07:50 BASIC METABOLIC PANEL+C.LAB.BRZ ordered. EDMS EDMS 07:50 07:50 CBC+H.LAB.BRZ ordered. EDMS EDMS 07:50 07:50 PROBNP+C.LAB.BRZ ordered. EDMS EDMS 07:50 07:50 PROTIME (+INR)+COAG.LAB.BRZ ordered. EDMS EDMS 07:50 07:50 Troponin High Sensitivity+C.LAB.BRZ ordered. EDMS EDMS 07:50 07:50 Chest Single View+RAD.RAD.BRZ ordered. EDMS EDMS 08:49 07:50 Accucheck ordered. ec2 aa5 09:57 07:54 PMHx: Hypertension; hb aa5 12:31 09:14 Sahil Bowman ec2 kb3 12:31 09:14 Telemetry/MedSurg (Inpatient) ec2 kb3 12:31 09:14 ec2 kb3 13:08 12:31 [facility] ER HOLD kb3 kb3 13:08 12:31 ERHOLD- kb3 kb3
--- NOTE | 2024-04-17 09:39 | P.HP ---
Certification for Inpatient Patient admitted to: Inpatient With expected LOS: <2 Midnights Patient will require the following post-hospital care: None Practitioner: I am a practitioner with admitting privileges, knowledge of patient current condition, hospital course, and medical plan of care. Services: Services provided to patient in accordance with Admission requirements found in Title 42 Section 412.3 of the Code of Federal Regulations <Abbie Masters - Last Filed: 04/17/24 18:36> Patient History Date of Service: 04/17/24 Reason for admission: NSTEMI History of Present Illness: 73-year-old female with a past medical history of A-fib, osteoporosis, hypercholesterolemia presented to the emergency room for weakness, nausea vomiting, syncope today. She reports falling on the floor hitting her head. She reports productive cough, short of breath , reports moderate generalized weakness for 3 weeks. Family at bedside is primary historian. Patient presented to the ER after falling twice today. No reported chest pain, edema, plan to admit for NSTEMI, atrial fibrillation uncontrolled, influenza A, fall with head injury, with cardiology to consult ER evaluation revealed EKG atrial fibrillation, rate 104, febrile, temperature 101.6, positive for flu A, troponin elevated at 66.8, repeat troponin 66.4, elevated BNP 2103, chest x-ray IMPRESSION: No acute intrathoracic abnormalities, CT of the chest MPRESSION: Mildly progressive streaky opacities in the left lower lobe, could relate to scarring exacerbated by suboptimal inspiratory effort, or early airspace disease. MRI FINDINGS: No evidence of hydrocephalus, intracranial hemorrhage, or extra-axial fluid collection. Mild brain atrophy with mild periventricular and deep white matter chronic microvascular ischemic changes present. The calvarium is intact. The visualized paranasal sinuses and mastoid air cells are essentially clear.IMPRESSION: No evidence of acute intracranial abnormality - Past Medical/Surgical History -: Atrial fibrillation -: Osteoporosis -: Hypercholesterolemia -: Lung surgery <Abbie Masters - Last Filed: 04/17/24 18:36> Date of Service: 04/17/24 <Sahil Bowman - Last Filed: 04/17/24 19:33> Allergies codeine Allergy (Verified 02/21/24 08:28) Itching Home Medications: Aspirin Chewable [Aspirin Chewable*] 81 mg PO DAILY 09/03/23 Metoprolol Succinate [Toprol Xl] 50 mg PO DAILY 09/03/23 Rosuvastatin Calcium 1 tab PO DAILY 02/19/24 Review of Systems 10-point ROS is otherwise unremarkable General: As per HPI <Abbie Masters - Last Filed: 04/17/24 18:36> Physical Examination - Physical Exam General: Oriented x3, Mild distress HEENT: Atraumatic, Normocephalic Neck: 2+ carotid pulse no bruit, Without JVD or thyroid abnormality Respiratory: Diminished, Crackles/rales Cardiovascular: Other (A-fib uncontrolled rate) Capillary refill: <2 Seconds Gastrointestinal: Normal bowel sounds, Soft and benign Musculoskeletal: No swelling, No contractures Integumentary: No breakdown, No significant lesion Neurological: Normal speech, Normal strength at 5/5 x4 extr, Cranial nerves 3-12 intact - Studies Laboratory Data (last 24 hrs) 04/17/24 04/17/24 04/17/24 08:05 08:05 08:05 WBC 4.00 L Hgb 14.0 Hct 41.6 Plt Count 100 L PT 12.5 INR 1.12 Sodium 135 L Potassium 3.6 BUN 17 Creatinine 0.93 Glucose 108 H Microbiology Data (last 24 hrs): 04/17/24 08:45 Nasopharnyx Influenza Type A Antigen Screen - Final 04/17/24 08:45 Nasopharnyx Influenza Type B Antigen Screen - Final <Abbie Masters - Last Filed: 04/17/24 18:36> - Studies Laboratory Data (last 24 hrs) 04/17/24 04/17/24 04/17/24 08:05 08:05 08:05 WBC 4.00 L Hgb 14.0 Hct 41.6 Plt Count 100 L PT 12.5 INR 1.12 Sodium 135 L Potassium 3.6 BUN 17 Creatinine 0.93 Glucose 108 H Microbiology Data (last 24 hrs): 04/17/24 08:45 Nasopharnyx Influenza Type A Antigen Screen - Final 04/17/24 08:45 Nasopharnyx Influenza Type B Antigen Screen - Final <Sahil Bowman - Last Filed: 04/17/24 19:33> Assessment and Plan - Problems (Diagnosis) (1) NSTEMI (non-ST elevated myocardial infarction) Current Visit: Yes Status: Acute (2) Elevated brain natriuretic peptide (BNP) level Current Visit: Yes Status: Acute (3) SIRS (systemic inflammatory response syndrome) Current Visit: Yes Status: Acute (4) Influenza due to influenza virus, type A, human Current Visit: Yes Status: Acute (5) Acute hypoxic respiratory failure Current Visit: Yes Status: Acute (6) Falls Current Visit: Yes Status: Acute - Plan Admit to [facility] Cardiology to consult (stated NSTEMI likely secondary to influenza, blood pressure controlled, additional cardiac workup not needed) Telemetry, A-fib Trend troponins, lipid panel in the a.m., Resume home antihypertensives, as needed antihypertensive IV antibiotics for opacities on chest x-ray O2 2 L keep sats below 92%, Atrovent for nebs Echo for elevated BNP Echo NORMAL LEFT VENTRICULAR EJECTION FRACTION 60-65% WITH NORMAL WALL MOTION 2. NORMAL DIASTOLIC FUCNTION, 3. MILD MITRAL REGURGITATION, TRICUSPID REGURGITATION, PULMONIC INSUFFICIENCy Gentle diuretic PT eval for falls UA, blood culture, Full code Cardiac diet Discharge Plan: Home - Advance Directives Does patient have a Living Will: No Does patient have a Durable POA for Healthcare: No - Code Status/Comfort Care Code Status: Full Code Critical Care: No Time Spent Managing Pts Care (In Minutes): 55 <Abbie Masters - Last Filed: 04/17/24 18:36> Date of Service: 04/17/24 Patient was seen and examined. Events of the last 24 hours have been noted. Spoke with with [facility] regarding patient's clinical picture after evaluating and examining the patient independently. I performed a substantial part of the MDM during this patient's care today. I personally made or approved the documented management plan and acknowledge its risk of complications. I agree with the findings and documentation provided in the NAVNE[facility]'s notes. Continue with antiviral therapy and monitor cardiac status. Cardiology consulted. Pulmonary consultation as well <Sahil Bowman - Last Filed: 04/17/24 19:33>
[2024-04-17] MEDS ORDERED: OSELTAMIVIR 75 MG CAP PO ONE (09:43)
[2024-04-17] MEDS ORDERED: ALPRAZOLAM 0.25 MG TABLET PO PRN (10:04)
[2024-04-17] MEDS ORDERED: ACETAMINOPHEN 500 MG TAB PO PRN (10:04)
[2024-04-17] MEDS ORDERED: ONDANSETRON 4 MG/2 ML VIAL IV PRN (10:04)
--- NOTE | 2024-04-17 10:36 | RAD REPORT ---
EXAM: CT Thorax W/ Con CLINICAL INDICATION: Female, 73 years old. [facility] MAIN hypoxia Y TECHNIQUE: Routine CT scan of the chest with intravenous contrast. One or more of the following dose reduction techniques were used: Automated exposure control, adjustment of the mA and/or kV according to patient size, and/or iterative reconstruction. Unless otherwise specified, incidental fi ndings do not require dedicated imaging follow-up. COMPARISON: 12/30/2023 FINDINGS: LUNGS: Airways are clear. Mild centrilobular emphysematous changes. Postsurgical changes of tarsal re section in the left lower lobe, with mildly progressive streaky opacities in this region, could relate to suboptimal inspiratory effort or early airspace disease. No nodules. PLEURA: No pleural effusion. No pneumothorax. MEDIASTINUM AND LYMPH NODES: No mediastinal mass or fluid collection. Normal size mediastinal, hilar, and axillary lymph nodes. OSSEOUS STRUCTURES AND CHEST WALL: Intact. UPPER ABDOMEN: No significant abnormalities. IMPRESSION: Mildly progressive streaky opacities in the left lower lobe, could relate to scarring exacerbated by suboptimal inspiratory effort, or early airspace disease.
[2024-04-17] MEDS: DULERA 200/5 (MOMETASONE/FORMOTEROL) INHALER IH SCH (11:00)
[2024-04-17] MEDS: NICOTINE 14 MG/PAT TD SCH (12:00)
--- NOTE | 2024-04-17 12:05 | RAD REPORT ---
EXAMINATION: MRI BRAIN WITHOUT CONTRAST CLINICAL INDICATION: Female, 73 years old.[facility] MAIN N Falls, hx afib TECHNIQUE: Multiplanar multisequence MR images of the brain were obtained without intravenous contras t. Unless otherwise specified, incidental findings do not require dedicated imaging follow-up. COMPARISON: Head CT of the same day. Brain MRI 01/13/2019 FINDINGS: INTRACRANIAL: Midline structures are unremarkable. Diffusion-weighted images show no acute or early subacute infarction. There is moderate brain atrophy with moderateT2/FLAIR hyperintensities in the periventricular and deep white matter regions, progressive compared to the 2019 exam, likely represen ting chronic microvascular ischemic changes. Similar changes present along the high right parietal subcortical white matter, may represent sequelae of a remote infarct. There is no mass effect or midl ine shift. No abnormal extraaxial fluid collection. VASCULATURE: Normal signal voids in the larger intracranial arteries and dural venous sinuses. SINUSES: The paranasal sinuses and mastoid air cells are predominantly clear. BONE: The marrow signal pattern is within normal limits. IMPRESSION: No significant intracranial abnormalities. Chronic findings as above, including suggestion of a small right high parietal focus of remote ischem ia, and progressive nonspecific deep white matter signal abnormalities, most suggestive of chronic small vessel ischemic changes.
[2024-04-17] MEDS: IPRATROPIUM BROM 0.5MG/2.5ML NEB SCH (13:57)
--- NOTE | 2024-04-17 14:57 | ECHO ---
HEIGHT: ft in WEIGHT: lb oz DATE OF STUDY: 04/17/[address]: Abbie Masters ARTILLERY OFFICER-Lyndsey 2-DIMENSIONAL: YES M.MODE: YES DOPPLER: YES COLOR FLOW: YES TDS: PORTABLE: YES DEFINITY: BUBBLE STUDY: DIAGNOSIS: NON ST ELEVATION MYOCARDIAL INFARCTION CARDIAC HISTORY: CATHERIZATION: SURGERY: PROSTHETIC VALVE: PACEMAKER: MEASUREMENTS (cm) DIASTOLIC (NORMALS) SYSTOLIC (NORMALS) IVSd 1.1 (0.6-1.2) LA Diam 3.0 (1.9-4.0) LVEF 60-65% LVIDd 4.3 (3.5-5.7) LVIDs 2.3 (2.0-3.5) %FS 46% LVPWd 0.9 (0.6-1.2) Ao Diam 2.7 (2.0-3.7) 2 DIMENSIONAL ASSESSMENT: RIGHT ATRIUM: NORMAL LEFT ATRIUM: NORMAL RIGHT VENTRICLE: NORMAL LEFT VENTRICLE: NORMAL TRICUSPID VALVE: MILD TRICUSPID REGURGITATION MITRAL VALVE: MILD MITRAL REGURGITATION PULMONIC VALVE: MILD PULMONIC INSUFFICIENCY AORTIC VALVE: NORMAL PERICARDIAL EFFUSION: TRIVIAL AORTIC ROOT: NORMAL LEFT VENTRICULAR WALL MOTION: NORMAL DOPPLER/COLOR FLOW: SEE BELOW COMMENTS: 1. NORMAL LEFT VENTRICULAR EJECTION FRACTION 60-65% WITH NORMAL WALL MOTION 2. NORMAL DIASTOLIC FUCNTION 3. MILD MITRAL REGURGITATION, TRICUSPID REGURGITATION, PULMONIC INSUFFICIENCY TECHNOLOGIST: MARCIA BARBER
--- NOTE | 2024-04-17 17:16 | CON ---
Date of Consultation: 04/17/2024 Reason For Consultation: Elevated troponin. History Of Present Illness: This is a 73-year-old female. The patient is well known to me. She pre sented to the emergency room because of generalized weakness, low-grade fever, nausea, and vomiting. She denies having any chest pain. Upon evaluation, her troponin was borderline elevated, but it is trending down and she is completely asymptomatic, generally is weak, and she is running low-grade fev er as high as 101 at home with generalized body aches and fatigue. Past Medical History: Atrial fibrillation, dyslipidemia, osteoporosis. Medications: Refer to reconciliation sheet for detailed list. Allergies: CODEINE. Family History: No premature coronary artery disease or cancer. Social History: She does not smoke or drink. Does not use any drugs. Review of Systems: All systems reviewed and they are negative except what was mentioned in the HPI. Physical Examination: Vital Signs: Reviewed. Head and Neck: Pupils are equal, reactive to light. Intact eye movements. No JVD. No cervical lym phadenopathy. Neck is supple. Thyroid is not enlarged. Lungs: Clear to auscultation bilaterally. No rhonchi, wheezing, or crackles. No accessory muscle u se. Heart: Regular rate and rhythm. No extra sounds. Abdomen: Soft, nontender. Bowel sounds positive. No organomegaly. No masses or hernia. No rigidi ty or rebound. Extremities: No edema, clubbing, or cyanosis. Intact pulses. Skin: No rash. No nodules. Neurologic: Alert, awake, oriented x3. No acute focal deficits appreciated. Lymph Nodes: No cervical or axillary lymphadenopathy. Investigations: Troponin BUN 17, creatinine 0.93. NT-proBNP is 2103, and hemoglobin is 1 4. White blood cell count is 4, and an influenza A was positive. Assessment And Plan: 1.Elevated troponin, very mild. No chest pain. This is demand due to the influenza. No cardiac in tervention or workup is needed. The patient needs to be treated for her symptoms. 2.Influenza A. She is not showing any signs of pneumonia, on Tamiflu, to be continued. 3.Dyslipidemia. Continue statin. 4.Hypertension. Blood pressure is controlled. Cardiology will sign off on the case and patient can follow up in the office postdischarge. SR/MODL Voice ID: [id number] Report ID: [id number]
[2024-04-17 19:44] LABS: Sqamous Epithelial <5 /HPF (None Seen); Urine Bacteria None Seen /HPF (<20); Urine Bilirubin NEGATIVE (Negative); Urine Blood 1+ (Negative); Urine Clarity Clear (Clear); Urine Color Yellow (Yellow); Urine Crystals Unidentified Few /HPF (None Seen); Urine Culture Reflex Order NOT NEEDED; Urine Glucose NEGATIVE (Negative); Urine Ketones 1+ (Negative); Urine Micro Reflex YN NO BILL MICROSCOPIC; Urine Mucus Slight /HPF (None Seen); Urine Nitrite NEGATIVE (Negative); Urine Protein 1+ (Negative); Urine RBC <5 /HPF (None Seen); Urine Urobilinogen Normal (Normal); Urine WBC <5 /HPF (<5); Urine pH 5.5 (5.0-7.0)
[2024-04-17] MEDS: CEFTRIAXONE 1,000 MG in NA CHLORIDE 0.9% 50 ML IVPB SCH (19:49)
[2024-04-17] MEDS: OSELTAMIVIR 75 MG CAP PO SCH (19:49)
[2024-04-17] MEDS: ROSUVASTATIN 10 MG TAB PO SCH (19:49)
[2024-04-17 19:50] LABS: Specific Gravity > 1.030 (1.005-1.030)
[2024-04-18 07:22] VITALS: O2SAT 91
--- NOTE | 2024-04-18 07:29 | P.PN ---
Date of Service: 04/18/24 subjective 91% on 2L, nebs no reported chest pain Review of Systems 10-point ROS is otherwise unremarkable General: As per HPI Physical Examination - Physical Exam General: Oriented x3, Mild distress HEENT: Atraumatic, Normocephalic Neck: 2+ carotid pulse no bruit, Without JVD or thyroid abnormality Respiratory: Diminished, Crackles/rales Cardiovascular: Other (A-fib uncontrolled rate) Capillary refill: <2 Seconds Gastrointestinal: Normal bowel sounds, Soft and benign Musculoskeletal: No swelling, No contractures Integumentary: No breakdown, No significant lesion Neurological: Normal speech, Normal strength at 5/5 x4 extr, Cranial nerves 3-12 intact Assessment and Plan - Problems (Diagnosis) (1) NSTEMI (non-ST elevated myocardial infarction) Current Visit: Yes Status: Acute (2) Elevated brain natriuretic peptide (BNP) level Current Visit: Yes Status: Acute (3) SIRS (systemic inflammatory response syndrome) Current Visit: Yes Status: Acute (4) Influenza due to influenza virus, type A, human Current Visit: Yes Status: Acute (5) Acute hypoxic respiratory failure Current Visit: Yes Status: Acute (6) Falls Current Visit: Yes Status: Acute - Plan Admit to [facility] Cardiology to consult (stated NSTEMI likely secondary to influenza, blood pressure controlled, additional cardiac workup not needed) Telemetry, A-fib Trend troponins, lipid panel in the a.m., Resume home antihypertensives, as needed antihypertensive IV antibiotics for opacities on chest x-ray O2 2 L keep sats below 92%, Atrovent for nebs Echo for elevated BNP Echo NORMAL LEFT VENTRICULAR EJECTION FRACTION 60-65% WITH NORMAL WALL MOTION 2. NORMAL DIASTOLIC FUCNTION, 3. MILD MITRAL REGURGITATION, TRICUSPID REGURGITATION, PULMONIC INSUFFICIENCy Gentle diuretic PT eval for falls UA, blood culture, Full code Cardiac diet Discharge Plan: Home - Advance Directives Does patient have a Living Will: No Does patient have a Durable POA for Healthcare: No - Code Status/Comfort Care Code Status: Full Code Critical Care: No Time Spent Managing Pts Care (In Minutes): 55
[2024-04-18 07:32] LABS: Absolute Lymphocytes (CBC) 1.4 K/uL (0.7-4.9); Absolute Monocytes 0.3 K/uL (0.1-1.3); Absolute Neutrophil 0.8 K/uL (1.8-8.0); Basophils % 0.7 % (0-1.3); Eosinophils % 0.3 % (0-4.4); Hematocrit 35.8 % (36.0-45.0); Hemoglobin 12.1 g/dL (12.0-15.0); Lymphocytes % 54.3 % (15.3-44.8); MCH 30.6 pg (27.0-35.0); MCHC 33.8 g/dL (32.0-36.0); MCV 90.5 fL (80-100); MPV 8.5 fL (7.6-11.3); Monocytes % 12.6 % (3.3-12.3); Neutrophils % 32.1 % (41.7-73.7); Nucleated Red Blood Cells % 0.3 % (0-0); Platelets 94 thou/uL (152-406); RBC Red Blood Cell Count 3.95 M/uL (3.86-4.86); Red Cell Distribution Width 14.4 % (12.1-15.2)
[2024-04-18 07:52] LABS: Anion Gap 6.4 mEq/L (5.0-15.0); Magnesium 1.8 mg/dL (1.6-2.4); Potassium 3.4 mEq/L (3.5-5.1)
[2024-04-18] MEDS ORDERED: HOME MED 1 EA UNK (Rosuvastatin Calcium [Rosuvastatin Calcium] 20 MG Tablet) PO SCH (09:00)
[2024-04-18 10:05] LABS: Blood Morphology Comment NOT SEEN (NOT SEEN); Platelet Estimate DECR; White Blood Cell Scan OK (OK)
[2024-04-18] MEDS: METOPROLOL XL 50 MG TAB PO SCH (10:12)
[2024-04-18] MEDS: ASPIRIN EC 81 MG TAB PO SCH (10:12)
[2024-04-18] MEDS: FUROSEMIDE 20 MG TABLET PO SCH (10:13)
--- NOTE | 2024-04-18 10:52 | P.DS ---
Admission Date: 04/17/24 Discharge Date: 04/18/24 Disposition: ROUTINE DISCHARGE Discharge Condition: GOOD Reason for Admission: NSTEMI influenza infection Brief History of Present Illness: Patient is 73 years of age sick for about 3 days Hospital Course: Patient was admitted from the emergency room had been sick for about 3 days feeling weak and dizzy smokes 1 pack a day was in mild A-fib elevated troponins was seen by cardiology history has had normal echo function labs unremarkable apart from mild hypokalemia chest CT scan shows evidence of prior surgery from a left lower lobe bullectomy streaky changes in the left lower lobe Patient at the time of discharge doing well no new complaints eating and drinking vital signs all stable oxygenation satisfactory Labs showed positive for influenza A patient was discharged home on 5 days of prednisone doxycycline and Tamiflu Been counseled not to smoke patient has a history of A-fib was seen by cardiology continue with metoprolol was in normal sinus rhythm at discharge continue with aspirin Vital Signs/Physical Exam: Temp Pulse Resp BP Pulse Ox 97.6 F 61 16 133/68 91 04/18/24 08:00 04/18/24 10:13 04/18/24 08:00 04/18/24 10:13 04/18/24 08:00 Laboratory Data at Discharge: WBC 2.60 thou/uL (4.3-10.9) L 04/18/24 07:04 Hgb 12.1 g/dL (12.0-15.0) D 04/18/24 07:04 Hct 35.8 % (36.0-45.0) L 04/18/24 07:04 Plt Count 94 thou/uL (152-406) L 04/18/24 07:04 PT 12.5 SECONDS (9.4-12.5) 04/17/24 08:05 INR 1.12 04/17/24 08:05 Sodium 136 mEq/L (136-145) 04/18/24 07:04 Potassium 3.4 mEq/L (3.5-5.1) L 04/18/24 07:04 BUN 11 mg/dL (7-18) 04/18/24 07:04 Creatinine 0.59 mg/dL (0.55-1.02) 04/18/24 07:04 Glucose 91 mg/dL (74-106) 04/18/24 07:04 Magnesium 1.8 mg/dL (1.6-2.4) 04/18/24 07:04 Triglycerides 66 mg/dL (<150) 04/18/24 07:04 Cholesterol 78 mg/dL (<200) 04/18/24 07:04 HDL Cholesterol 46 mg/dL (40-60) 04/18/24 07:04 Cholesterol/HDL Ratio 1.70 04/18/24 07:04 Home Medications: Aspirin Chewable [Aspirin Chewable*] 81 mg PO DAILY 09/03/23 Metoprolol Succinate [Toprol Xl*] 50 mg PO DAILY 09/03/23 Rosuvastatin Calcium 1 tab PO DAILY 02/19/24 Doxycycline Hyclate 100 mg PO BID 5 Days #10 tab 04/18/24 Oseltamivir [Tamiflu*] 75 mg PO BID 4 Days #8 cap 04/18/24 predniSONE [Deltasone*] 10 mg PO BID 5 Days #10 tab 04/18/24 New Medications: predniSONE [Deltasone*] 10 mg PO BID 5 Days #10 tab Doxycycline Hyclate 100 mg PO BID 5 Days #10 tab Oseltamivir [Tamiflu*] 75 mg PO BID 4 Days #8 cap Followup: Jordon Smalls, DO [Primary Care Provider] -
[2024-04-18 12:24] VITALS: BMI 20.9
[2024-04-18 16:48] VITALS: BP 97/57; TEMP 97.5
--- NOTE | 2024-04-20 12:21 | EKG ---
Test Date: 2024-04-17 Test Time: 08:02:08 [employer] Supervisor: CARLOS MEASUREMENT RESULTS: Intervals: Rate: 110 IA: QRSD: 76 QT: 332 QTc: 449 [place]: P: IA: QRS: 90 T: -47 INTERPRETIVE STATEMENTS: Atrial fibrillation with rapid ventricular response Rightward axis Cannot rule out Anterior infarct, age undetermined ST & T wave abnormality, consider inferolateral ischemia Abnormal ECG Compared to ECG 02/19/2024 13:38:32 Right-axis deviation now present ST (T wave) deviation now present Possible ischemia now present Sinus bradycardia no longer present First degree AV block no longer present Myocardial infarct finding still present Electronically Signed On 04-20-24 12:16:52 APPEALS SPECIALIST by Jose Ramon Cabrera
== END 2024-04-18 16:00 | disposition home or self-care (01) ==
LOC: ER 07:30 → ERHOLD 10:02 → INTOOBSV 10:02 → 2ND 14:22
PROVIDERS: ADMIT Hospitalist; ATTEND Internal Medicine Sleep Medicine
DX: I21.4 Non-ST elevation (NSTEMI) myocardial infarction (principal); J09.X2 Influenza due to identified novel influenza A virus with other respiratory manifestations; J96.01 Acute respiratory failure with hypoxia; I08.1 Rheumatic disorders of both mitral and tricuspid valves; I48.11 Longstanding persistent atrial fibrillation; I67.82 Cerebral ischemia; R65.10 Systemic inflammatory response syndrome (SIRS) of non-infectious origin without acute organ dysfunction; M81.0 Age-related osteoporosis without current pathological fracture; E78.00 Pure hypercholesterolemia, unspecified; R79.89 Other specified abnormal findings of blood chemistry; E78.5 Hyperlipidemia, unspecified; I10 Essential (primary) hypertension; R55 Syncope and collapse; G31.9 Degenerative disease of nervous system, unspecified; R11.2 Nausea with vomiting, unspecified; S09.90XA Unspecified injury of head, initial encounter; F17.210 Nicotine dependence, cigarettes, uncomplicated; Z71.6 Tobacco abuse counseling; Z79.82 Long term (current) use of aspirin; W19.XXXA Unspecified fall, initial encounter; Y93.9 Activity, unspecified; Y92.9 Unspecified place or not applicable; Z11.52 Encounter for screening for COVID-19
CPT/HCPCS: 96365; 96361; 93306; 87040 ×2; 85025 ×2; 81001; 80048 ×2; 36415; 83735; 85610; 80061; 83605; 84484 ×4; 83880 ×2; 87804 ×2; 70450; 71260; 71045; 70551; 97112; 97116; 97161; 94640; 94760 ×2; 99285; 87811; Q9967; J3535; J7644 ×4; J7030; J0696 ×3; 93005; G0378; J2405

== ENCOUNTER 2024-04-25 10:35 | Emergency (ER) | payer OTHER ==
[2024-04-25 11:15] LABS: Absolute Eosinophils 0.1 K/uL (0-0.5); Absolute Lymphocytes (CBC) 2.8 K/uL (0.7-4.9); Absolute Monocytes 0.8 K/uL (0.1-1.3); Absolute Neutrophil 6.9 K/uL (1.8-8.0); Basophils % 0.3 % (0-1.3); Eosinophils % 0.7 % (0-4.4); Hemoglobin 13.9 g/dL (12.0-15.0); Lymphocytes % 26.2 % (15.3-44.8); MCH 30.1 pg (27.0-35.0); MCV 91.1 fL (80-100); MPV 8.2 fL (7.6-11.3); Monocytes % 7.3 % (3.3-12.3); Neutrophils % 65.5 % (41.7-73.7); Platelets 270 thou/uL (152-406); RBC Red Blood Cell Count 4.61 M/uL (3.86-4.86)
[2024-04-25 11:20] LABS: Specific Gravity 1.024 (1.005-1.030); Sqamous Epithelial <5 /HPF (None Seen); Urine Bacteria None Seen /HPF (<20); Urine Bilirubin NEGATIVE (Negative); Urine Blood Negative (Negative); Urine Clarity Extremely Turbid (Clear); Urine Color Yellow (Yellow); Urine Culture Reflex Order NOT NEEDED; Urine Glucose NEGATIVE (Negative); Urine Ketones NEGATIVE (Negative); Urine Microscopic Reflex YN ORDER UMIC; Urine Mucus Slight /HPF (None Seen); Urine Nitrite NEGATIVE (Negative); Urine Protein TRACE (Negative); Urine RBC <5 /HPF (None Seen); Urine Urobilinogen 1+ (Normal); Urine pH 5.5 (5.0-7.0)
[2024-04-25 11:23] LABS: Albumin 3.2 g/dL (3.4-5.0); Anion Gap 8.1 mEq/L (5.0-15.0); Globulin 3.3 g/dL (2.3-3.5); Potassium 3.1 mEq/L (3.5-5.1); Protein, Total 6.5 g/dL (6.4-8.2)
[2024-04-25] MEDS ORDERED: POTASSIUM CL SA 10 MEQ TAB PO ONE (11:39)
--- NOTE | 2024-04-25 11:47 | RAD REPORT ---
Procedure: Chest Pa And Lat (2 Views) HISTORY: Cough COMPARISON: April 23, 2024 FINDINGS: Mild left lower lobe opacities have partially resolved. No significant pleural effusion noted. The heart is borderline enlarged. IMPRESSION: Partial resolution mild left lower lobe opacities
--- NOTE | 2024-04-25 11:54 | ER ---
Nurse's Notes [facility] Name: Lin Delgado Age: 73 yrs Sex: Female : 1950 Arrival Date: 04/25/2024 Time: 10:35 Bed 16 Private MD: Diagnosis: Viral infection, unspecified Presentation: 04/25 10:46 Chief complaint: Recently inpatient for flu and syncopal episode, c/o worsening SOB, hb fatigue, and painful cough over the last few days. Coronavirus screen: Client presents with at least one sign or symptom that may indicate coronavirus-19. Provider contacted for isolation considerations. Ebola Screen: No symptoms or risks identified at this time. Initial Sepsis Screen: Does the patient meet any 2 criteria? No. Patient's initial sepsis screen is negative. Does the patient have a suspected source of infection? No. Patient's initial sepsis screen is negative. Risk Assessment: Do you want to hurt yourself or someone else? Patient reports no desire to harm self or others. Onset of symptoms was March 2024. 10:46 Method Of Arrival: Ambulatory 10:46 Acuity: VITALIY 2 hb Triage Assessment: 11:01 General: Appears in no apparent distress. comfortable, Behavior is calm, cooperative. db Pain:. Respiratory: Reports labored breathing pain with movement Onset: The symptoms/episode began/occurred gradually, the patient has mild shortness of breath. Historical: - Allergies: 10:49 Codeine; hb - PMHx: 10:49 Atrial fibrillation; Hypercholesterolemia; Osteoporosis; hb - PSHx: 10:49 lung sx; hb - Immunization history:: Adult Immunizations unknown. - Infectious Disease History:: Denies. - Social history:: Smoking status: Patient denies any tobacco usage or history of. Screenin:10 [facility] ED Fall Risk Assessment (Adult) History of falling in the last 3 months, db including since admission No falls in past 3 months (0 pts) Confusion or Disorientation No (0 pts) Intoxicated or Sedated No (0 pts) Impaired Gait No (0 pts) Mobility Assist Device Used No (0 pt) Altered Elimination No (0 pt) Score/Fall Risk Level 0 - 2 = Low Risk Oriented to surroundings, Maintained a safe environment. Abuse screen: Denies threats or abuse. Denies injuries from another. Nutritional screening: No deficits noted. Tuberculosis screening: No symptoms or risk factors identified. Assessment: 11:02 Reassessment: Patient appears in no apparent distress at this time. Patient and/or db family updated on plan of care and expected duration. Pain level reassessed. Patient is alert, oriented x 3, equal unlabored respirations, skin warm/dry/pink. General: Appears in no apparent distress. comfortable, Behavior is calm, cooperative. Pain: Complains of pain in chest and abdomen. Neuro: Level of Consciousness is awake, alert, obeys commands, Oriented to person, place, time, situation. Cardiovascular: Rhythm is regular. Respiratory: Airway is patent Respiratory effort is even, unlabored. GI: Abdomen is flat. 11:03 Reassessment: PATIENT AMBULATORY TO RESTROOM. db 12:07 Reassessment: Patient appears in no apparent distress at this time. Patient and/or db family updated on plan of care and expected duration. Pain level reassessed. Patient is alert, oriented x 3, equal unlabored respirations, skin warm/dry/pink. Respiratory: Airway is patent Breath sounds are clear. Vital Signs: 10:46 BP 136 / 81; Pulse 62; Resp 24; Temp 98.2(O); Pulse Ox 94% on R/A; Weight 58.97 kg; hb Height 5 ft. 2 in. ; Pain 10/10; 11:30 BP 120 / 61; Pulse 48; Resp 16; Pulse Ox 96% ; db 10:46 Body Mass Index 23.78 (58.97 kg, 157.48 cm) hb 10:46 Pain Scale: Adult hb ED Course: 10:36 Patient arrived in ED. ra3 10:38 Rhea Palacios FNP-C [facility]. kb 10:38 Balaji Parr MD is Attending Physician. kb 10:49 Triage completed. hb 10:52 Rosalie Veliz, TUYET is Primary Nurse. db 10:59 Initial lab(s) drawn, by me, sent to lab. Inserted saline lock: 20 gauge in left db antecubital area, using aseptic technique. Blood collected. Flushed with 10 mL NS. 11:01 Arm band placed on Patient placed in an exam room. db 11:10 Patient has correct armband on for positive identification. Bed in low position. Call db light in reach. Side rails up X 1. Pulse ox on. NIBP on. Warm blanket given. Pillow given. 11:16 Urine collected: clean catch specimen, clear. db 11:25 Chest Pa And Lat (2 Views) XRAY In Process Unspecified. EDMS 12:07 Provided Education on: DISCHARGE AND FOLOWUP. db 12:07 No provider procedures requiring assistance completed. IV discontinued, intact, db bleeding controlled, No redness/swelling at site. Administered Medications: 11:40 Drug: Potassium Chloride PO 40 mEq PO once Route: PO; db 12:08 Follow up: Response: No adverse reaction db Medication: 12:07 VIS not applicable for this client. db Outcome: 11:54 Discharge ordered by . inna 12:07 Discharged to home ambulatory, db 12:07 Condition: stable 12:07 Discharge instructions given to patient, Instructed on discharge instructions, follow up and referral plans. 12:08 Patient left the ED. db Signatures: Dispatcher [employer] EDMS Rhea Palacios, MACHINE SCALLOP CUTTER-C MACHINE SCALLOP CUTTER-Irais Lewis RN RN Rosalie Veliz RN RN db Landy Maxwell ra3 Corrections: (The following items were deleted from the chart) 11:16 10:59 Inserted saline lock: 20 gauge in left antecubital area, using aseptic technique. db Blood collected. Flushed with 10 mL NS db
--- NOTE | 2024-04-25 11:55 | EDPHYS ---
Physician Documentation [facility] Name: Lin Delgado Age: 73 yrs Sex: Female : 1950 Arrival Date: 04/25/2024 Time: 10:35 Bed 16 Private MD: ED Physician Balaji Parr HPI: 04/25 10:43 This 73 yrs old Female presents to ER via Unassigned with complaints of Breathing kb Difficulty. 10:43 Pt is a 73 year old female who presents for painful cough, weakness and fatigue that kb started over a week ago and isn't getting better. States she was diagnosed with the flu, admitted for syncope and discharged 7 days ago. States she has a trip coming up and wants to get better. . Historical: - Allergies: 10:49 Codeine; hb - PMHx: 10:49 Atrial fibrillation; Hypercholesterolemia; Osteoporosis; hb - PSHx: 10:49 lung sx; hb - Immunization history:: Adult Immunizations unknown. - Infectious Disease History:: Denies. - Social history:: Smoking status: Patient denies any tobacco usage or history of. ROS: 10:43 Constitutional: As per HPI kb Exam: 11:10 Constitutional: This is a well developed, well nourished patient who is awake, alert, kb and in no acute distress. Head/Face: Normocephalic, atraumatic. ENT: Moist Mucous membranes Cardiovascular: Regular rate Respiratory: Respirations even and unlabored. No increased work of breathing. Talking in full sentences Skin: Warm, dry with normal turgor. Normal color. MS/ Extremity: Pulses equal, no cyanosis. Neurovascular intact. Full, normal range of motion. Neuro: Awake and alert, GCS 15, oriented to person, place, time, and situation. Vital Signs: 10:46 BP 136 / 81; Pulse 62; Resp 24; Temp 98.2(O); Pulse Ox 94% on R/A; Weight 58.97 kg; hb Height 5 ft. 2 in. ; Pain 10/10; 11:30 BP 120 / 61; Pulse 48; Resp 16; Pulse Ox 96% ; db 10:46 Body Mass Index 23.78 (58.97 kg, 157.48 cm) hb 10:46 Pain Scale: Adult hb MDM: 10:38 Medical Screening Exam initiated kb 10:44 Data reviewed: vital signs, nurses notes. kb 11:54 Differential diagnosis: pneumonia, flu, viral illness. Counseling: I had a detailed kb discussion with the patient and/or guardian regarding the historical points, exam findings, and any diagnostic results supporting the discharge/admit diagnosis, lab results, radiology results, the need for outpatient follow up, a family practitioner, to return to the emergency department if symptoms worsen or persist or if there are any questions or concerns that arise at home. 04/25 10:48 Order name: CBC with Diff; Complete Time: 11:17 kb 04/25 10:48 Order name: CMP; Complete Time: 11:32 kb 04/25 10:48 Order name: Urinalysis w/ reflexes; Complete Time: 11:23 kb 04/25 10:48 Order name: Chest Pa And Lat (2 Views) XRAY; Complete Time: 11:51 kb 04/25 10:48 Order name: IV Start; Complete Time: 11:01 kb Administered Medications: 11:40 Drug: Potassium Chloride PO 40 mEq PO once Route: PO; db 12:08 Follow up: Response: No adverse reaction db Disposition: 13:18 Co-signature as Attending Physician, Balaji Parr MD I reviewed the patient's care rt provided by the Advanced Practice Provider and agree with the diagnosis and treatment plan. Disposition Summary: 04/25/24 11:54 Discharge Ordered Notes: Location: Home kb Condition: Stable kb Diagnosis - Viral infection, unspecified kb Followup: kb - With: Emergency Department - When: As needed - Reason: Worsening of condition Followup: kb - With: Private Physician - When: 2 - 3 days - Reason: Recheck today's complaints, Continuance of care, Re-evaluation by your physician Discharge Instructions: - Discharge Summary Sheet kb - Viral Respiratory Infection, [id number]-Hi-[id number] kb - Viral Illness, Adult kb Forms: - Medication Reconciliation Form kb - Antibiotic Education kb - Prescription Opioid Use kb - Patient Portal Instructions kb - Leadership Thank You Letter kb Signatures: Dispatcher [employer] Rhea Cutler FNP-C ISADORA-Irais Lewis, RN RN Rosalie Mack RN RN Balaji Pisano MD MD rt Corrections: (The following items were deleted from the chart) 10:48 10:48 Chest Pa And Lat (2 Views)+[email or web address] ordered. EDMS EDMS
[2024-04-25 12:28] VITALS: TEMP 98.2
[2024-04-25 12:34] VITALS: BP 120/61; O2SAT 96
== END 2024-04-25 12:08 | disposition home or self-care (01) ==
LOC: ER 10:35
DX: B34.9 Viral infection, unspecified (principal)
CPT/HCPCS: 36415; 71046; 80053; 81001; 85025; 99284

== ENCOUNTER 2024-09-19 09:15 | Emergency (ER) | payer OTHER ==
[2024-09-19 09:34] LABS: Absolute Basophils 0.1 K/uL (0-0.5); Absolute Eosinophils 0.1 K/uL (0-0.5); Absolute Monocytes 0.6 K/uL (0.1-1.3); Absolute Neutrophil 3.4 K/uL (1.8-8.0); Basophils % 1.2 % (0-1.3); Eosinophils % 1.2 % (0-4.4); Hematocrit 41.2 % (36.0-45.0); Hemoglobin 14.2 g/dL (12.0-15.0); Lymphocytes % 32.5 % (15.3-44.8); MCH 31.6 pg (27.0-35.0); MCHC 34.6 g/dL (32.0-36.0); MCV 91.5 fL (80-100); MPV 8.5 fL (7.6-11.3); Monocytes % 9.8 % (3.3-12.3); Neutrophils % 55.3 % (41.7-73.7); Platelets 160 thou/uL (152-406); Red Cell Distribution Width 15.3 % (12.1-15.2)
[2024-09-19 09:41] LABS: PT Prothrombin Time 10.7 SECONDS (10-13.0); Protime INR 0.94
[2024-09-19 09:51] LABS: Albumin 3.2 g/dL (3.4-5.0); Albumin/Globulin Ratio 0.9 (1.1-1.8); Anion Gap 6.4 mEq/L (5.0-15.0); Bilirubin Direct 0.2 mg/dL (0-0.2); Bilirubin Indirect, Calculated 0.8 mg/dL (0.2-0.8); Globulin 3.4 g/dL (2.3-3.5); Magnesium 1.9 mg/dL (1.6-2.4); Potassium 3.4 mEq/L (3.5-5.1); Protein, Total 6.6 g/dL (6.4-8.2); Troponin High Sensitivity 5.5 pg/mL (<58.9)
--- NOTE | 2024-09-19 10:12 | ER ---
Nurse's Notes [facility] Name: Lin Delgado Age: 73 yrs Sex: Female : 1950 Arrival Date: 09/19/2024 Time: 09:15 Bed 2 Private MD: Diagnosis: Palpitations, PVCs Presentation: 09/19 09:20 Chief complaint: Palpitations and SOB upon waking today. Denies pain/cough. Hx of AFIB. hb Coronavirus screen: At this time, the client does not indicate any symptoms associated with coronavirus-19. Ebola Screen: No symptoms or risks identified at this time. Initial Sepsis Screen: Does the patient meet any 2 criteria? No. Patient's initial sepsis screen is negative. Does the patient have a suspected source of infection? No. Patient's initial sepsis screen is negative. Risk Assessment: Do you want to hurt yourself or someone else? Patient reports no desire to harm self or others. Onset of symptoms was September 19, 2024. 09:20 Method Of Arrival: Ambulatory 09:20 Acuity: VITALIY 2 hb Triage Assessment: 09:24 General: Appears in no apparent distress. comfortable, well groomed, Behavior is calm, ph cooperative, appropriate for age. Pain: Denies pain. Neuro: Level of Consciousness is awake, alert, obeys commands, Oriented to person, place, time, situation. Cardiovascular: Reports lightheadedness, palpitations, shortness of breath, Capillary refill < 3 seconds in bilateral fingers Patient's skin is warm and dry. Respiratory: Reports shortness of breath at rest Airway is patent Respiratory effort is even, unlabored, Onset: The symptoms/episode began/occurred this morning, the patient has mild shortness of breath. GI: No signs and/or symptoms were reported involving the gastrointestinal system. Derm: Skin is pink, warm \T\ dry. Historical: - Allergies: 09: Codeine; hb - PMHx: : Hypercholesterolemia; Osteoporosis; Atrial fibrillation; hb - PSHx: : lung sx; hb - Immunization history:: Adult Immunizations up to date. - Infectious Disease History:: Denies. - Social history:: Smoking status: Patient reports the use of cigarette tobacco products, smokes one pack cigarettes per day. Screenin:25 [facility] ED Fall Risk Assessment (Adult) History of falling in the last 3 months, ph including since admission No falls in past 3 months (0 pts) Confusion or Disorientation No (0 pts) Intoxicated or Sedated No (0 pts) Impaired Gait No (0 pts) Mobility Assist Device Used No (0 pt) Altered Elimination No (0 pt) Score/Fall Risk Level 0 - 2 = Low Risk Oriented to surroundings, Maintained a safe environment, Hourly rounding (assess needs \T\ fall precautionary measures) done. Abuse screen: Denies threats or abuse. Denies injuries from another. Nutritional screening: No deficits noted. Tuberculosis screening: No symptoms or risk factors identified. Assessment: 10:13 General: SEE TRIAGE ASSESSMENT. ph Vital Signs: 09:20 BP 167 / 89; Pulse 54; Resp 15; Temp 97.8; Pulse Ox 100% on R/A; Weight 54.43 kg; hb Height 5 ft. 2 in. ; Pain 0/10; 10:13 BP 132 / 65; Pulse 50; Resp 18; Temp 97.8; Pulse Ox 96% on R/A; ph 09:20 Body Mass Index 21.95 (54.43 kg, 157.48 cm) hb 09:20 Pain Scale: Adult hb ED Course: 09:17 Patient arrived in ED. iw 09:19 Irais Bruno, RN is Primary Nurse. hb 09:21 Dangelo Smalls MD is Attending Physician. sp3 09:21 Rossy Dalton, RN is Primary Nurse. ph 09:21 Initial lab(s) drawn, by me, sent to lab. EKG done, by ED staff, reviewed by Dangelo Smalls MD. Inserted saline lock: 20 gauge in left antecubital area, using aseptic technique. Blood collected. Flushed with 10 mL NS. 09:22 Triage completed. hb 09:22 Arm band placed on. hb 09:25 Patient has correct armband on for positive identification. Placed in gown. Bed in low ph position. Call light in reach. Side rails up X 1. electronic device monitor on. Pulse ox on. NIBP on. Door closed. Noise minimized. Warm blanket given. 10:14 XRAY Chest (1 view) In Process Unspecified. EDMS 10:27 No provider procedures requiring assistance completed. IV discontinued, intact, hb bleeding controlled, No redness/swelling at site. Pressure dressing applied. Administered Medications: No medications were administered Medication: 09:25 VIS not applicable for this client. ph Outcome: 10:11 Discharge ordered by spTom 10: Discharged to home ambulatory, with significant other, 10: Condition: stable 10:27 Discharge instructions given to patient, Instructed on discharge instructions, follow up and referral plans. medication usage, Demonstrated understanding of instructions, follow-up care, medications, 10:28 Patient left the ED. Signatures: Dispatcher [employer] EDNeha Alcantar RN RN Rossy Dalton RN RN Irais Bruno, TUYET RN Dangelo Smalls MD MD sp3
--- NOTE | 2024-09-19 10:12 | EDPHYS ---
Physician Documentation [facility] Name: Lin Delgado Age: 73 yrs Sex: Female : 1950 Arrival Date: 09/19/2024 Time: 09:15 Bed 2 Private MD: ED Physician Dangelo Smalls HPI: 09/19 09:39 This 73 yrs old Female presents to ER via Ambulatory with complaints of Palpitations, sp3 Shortness Of Breath. 09:39 73-year-old female with history of paroxysmal atrial fibrillation, hyperlipidemia, sp3 currently not anticoagulated but on aspirin now presents to the ED with chief complaint palpitations now resolved and shortness of breath now resolved. She states that she has these episodes every morning and today was a little bit worse and so she decided to come in for evaluation. 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 She denies any chest pain, ongoing shortness of breath, back pain, abdominal pain, nausea, vomiting, diarrhea, syncope, near syncope, neck pain, headache, fever, cough, or any other signs or symptoms on ROS at this time.. Historical: - Allergies: 09:22 Codeine; hb - PMHx: 09:22 Hypercholesterolemia; Osteoporosis; Atrial fibrillation; hb - PSHx: 09:22 lung sx; hb - Immunization history:: Adult Immunizations up to date. - Infectious Disease History:: Denies. - Social history:: Smoking status: Patient reports the use of cigarette tobacco products, smokes one pack cigarettes per day. ROS: 09:40 Constitutional: Negative for fever, chills, and weight loss, Eyes: Negative for injury, sp3 pain, redness, and discharge, Neck: Negative for injury, pain, and swelling, Abdomen/GI: Negative for abdominal pain, nausea, vomiting, diarrhea, and constipation, Back: Negative for injury and pain, MS/Extremity: Negative for injury and deformity, Skin: Negative for injury, rash, and discoloration, Neuro: Negative for headache, weakness, numbness, tingling, and seizure, Psych: Negative for depression, anxiety, suicide ideation, homicidal ideation, and hallucinations, Allergy/Immunology: Negative for hives, rash, and allergies, Endocrine: Negative for neck swelling, polydipsia, polyuria, polyphagia, and marked weight changes, Hematologic/Lymphatic: Negative for swollen nodes, abnormal bleeding, and unusual bruising, 09:40 All other systems are negative, Exam: 09:40 Constitutional: This is a well developed, well nourished patient who is awake, alert, sp3 and in no acute distress. Head/Face: Normocephalic, atraumatic. Eyes: Pupils equal round and reactive to light, extra-ocular motions intact. Lids and lashes normal. Conjunctiva and sclera are non-icteric and not injected. Cornea within normal limits. Periorbital areas with no swelling, redness, or edema. Neck: Trachea midline, no thyromegaly or masses palpated, and no cervical lymphadenopathy. Supple, full range of motion without nuchal rigidity, or vertebral point tenderness. No Meningismus. Chest/axilla: Normal chest wall appearance and motion. Nontender with no deformity. No lesions are appreciated. Respiratory: Lungs have equal breath sounds bilaterally, clear to auscultation and percussion. No rales, rhonchi or wheezes noted. No increased work of breathing, no retractions or nasal flaring. Abdomen/GI: Soft, non-tender, with normal bowel sounds. No distension or tympany. No guarding or rebound. No evidence of tenderness throughout. Back: No spinal tenderness. No costovertebral tenderness. Full range of motion. Skin: Warm, dry with normal turgor. Normal color with no rashes, no lesions, and no evidence of cellulitis. MS/ Extremity: Pulses equal, no cyanosis. Neurovascular intact. Full, normal range of motion. Neuro: Awake and alert, GCS 15, oriented to person, place, time, and situation. Cranial nerves II-XII grossly intact. Motor strength 5/5 in all extremities. Sensory grossly intact. Cerebellar exam normal. Normal gait. Psych: Awake, alert, with orientation to person, place and time. Behavior, mood, and affect are within normal limits. 09:40 Cardiovascular: Heart rate in the 50s with occasional PVCs noted. No atrial fibrillation., 09:40 ECG was reviewed by the Attending Physician. EKG demonstrates sinus bradycardia at 51 bpm with a first-degree AV block with [place] interval of 228, normal axis, normal QRS, poor R wave progression in lateral leads and nonspecific diffuse ST/T changes without evidence of acute ischemia. Vital Signs: 09:20 BP 167 / 89; Pulse 54; Resp 15; Temp 97.8; Pulse Ox 100% on R/A; Weight 54.43 kg; hb Height 5 ft. 2 in. ; Pain 0/10; 10:13 BP 132 / 65; Pulse 50; Resp 18; Temp 97.8; Pulse Ox 96% on R/A; ph 09:20 Body Mass Index 21.95 (54.43 kg, 157.48 cm) hb 09:20 Pain Scale: Adult hb MDM: 09:22 Medical Screening Exam initiated sp3 09:42 Data reviewed: vital signs, nurses notes, old medical records, lab test result(s), EKG, sp3 radiologic studies. ED course: 73-year-old female with now resolved palpitations and mild dyspnea. Differential diagnosis includes paroxysmal atrial fibrillation, electrolyte abnormality, PVCs, among others. I am not highly suspicious of acute coronary syndrome, PE, TAD, sepsis, shock or any other critical process. I have advised patient to follow back up with her PCP and java development team lead and consider Holter monitor or other home monitoring device. We will evaluate here for chest x-ray and general labs including troponin. If workup negative we will safely discharge patient home.. 10:10 ED course: Full workup negative including x-ray. We will safely discharge patient home sp3 at this time. She remains in sinus rhythm. I have urged her follow-up with her java development team lead and home Holter monitor.. 09/19 09:23 Order name: Basic Metabolic Panel; Complete Time: 10:02 hb 09/19 09:23 Order name: CBC with Diff; Complete Time: 10:02 hb 09/19 09:23 Order name: Troponin HS; Complete Time: 10:02 hb 09/19 09:24 Order name: LFT's; Complete Time: 10:02 sp3 09/19 09:24 Order name: Magnesium; Complete Time: 10:02 sp3 09/19 09:24 Order name: NT PRO-BNP; Complete Time: 10:02 sp3 09/19 09:24 Order name: PT-INR; Complete Time: 10:02 sp3 09/19 09:23 Order name: XRAY Chest (1 view); Complete Time: 10:23 hb 09/19 09:23 Order name: Cardiac monitoring; Complete Time: 09:23 hb 09/19 09:23 Order name: EKG - Nurse/Tech; Complete Time: 09:23 hb 09/19 09:23 Order name: IV Saline Lock; Complete Time: 09:23 hb 09/19 09:23 Order name: Labs collected and sent; Complete Time: 09:23 hb 09/19 09:23 Order name: O2 Per Protocol; Complete Time: 09:23 hb 09/19 09:23 Order name: O2 Sat Monitoring; Complete Time: 09:23 hb Administered Medications: No medications were administered Disposition Summary: 09/19/24 10:11 Discharge Ordered Notes: Location: Home sp3 Condition: Stable sp3 Diagnosis - Palpitations, PVCs sp3 Discharge Instructions: - Discharge Summary Sheet sp3 - Premature Ventricular Contraction sp3 Forms: - Medication Reconciliation Form sp3 - Antibiotic Education sp3 - Prescription Opioid Use sp3 - Patient Portal Instructions sp3 - Leadership Thank You Letter sp3 Signatures: Dispatcher [employer] Irais Beltran RN RN Dangelo Smalls MD MD sp3 Corrections: (The following items were deleted from the chart) 09:24 09:24 BASIC METABOLIC PANEL+C.LAB.BRZ ordered. EDMS EDMS 09:24 09:24 CBC+H.LAB.BRZ ordered. EDMS EDMS 09:24 09:24 Troponin High Sensitivity+C.LAB.BRZ ordered. EDMS EDMS 09:24 09:24 Chest Single View+RAD.RAD.BRZ ordered. EDMS EDMS 09:24 09:24 HEPATIC FUNCTION+C.LAB.BRZ ordered. EDMS EDMS 09:24 09:24 MAGNESIUM+C.LAB.BRZ ordered. EDMS EDMS 09:24 09:24 PROBNP+C.LAB.BRZ ordered. EDMS EDMS 09:24 09:24 PROTIME (+INR)+COAG.LAB.BRZ ordered. EDMS EDMS
--- NOTE | 2024-09-19 10:18 | RAD REPORT ---
EXAMINATION: ONE VIEW CHEST XR CLINICAL INDICATION: SOB TECHNIQUE: Frontal chest projection is submitted. Examination is limited by patient positioning and t echnique. COMPARISON: 04/25/2024 FINDINGS: The lungs are well inflated and clear. The heart is upper limit of normal in size. No displaced fract ures identified. IMPRESSION: No acute intrathoracic abnormalities.
[2024-09-19 11:11] VITALS: TEMP 97.8
[2024-09-19 11:16] VITALS: BP 132/65; O2SAT 96
--- NOTE | 2024-09-21 11:33 | EKG ---
Test Date: 2024-09-19 Test Time: 09:22:29 Straightedge Machine Operator Helper: CARLOS MEASUREMENT RESULTS: Intervals: Rate: 51 TX: 228 QRSD: 82 QT: 450 QTc: 414 [place]: P: 71 TX: 228 QRS: 59 T: 109 INTERPRETIVE STATEMENTS: Sinus bradycardia with 1st degree AV block with premature supraventricular complexes Anterior infarct, age undetermined ST & T wave abnormality, consider lateral ischemia Abnormal ECG Compared to ECG 04/17/2024 08:02:08 Atrial premature complex(es) now present First degree AV block now present Atrial fibrillation no longer present Right-axis deviation no longer present Myocardial infarct finding still present ST (T wave) deviation still present Possible ischemia still present Electronically Signed On 09-21-24 11:29:30 CDT by Jose Ramon Cabrera
== END 2024-09-19 10:28 | disposition home or self-care (01) ==
LOC: ER 09:15
DX: I49.3 Ventricular premature depolarization (principal); I48.91 Unspecified atrial fibrillation; F17.210 Nicotine dependence, cigarettes, uncomplicated
CPT/HCPCS: 36415; 71045; 80048; 80076; 83735; 83880; 84484; 85025; 85610; 93005; 99284